=== PATIENT | female | born 1970 | race Caucasian/White ===

== ENCOUNTER → 2019-06-21 10:08 | Outpatient (BNVA) | payer OTHER, SELFPAY | PROVIDERS: Family Provider Nurse Practitioner; PCP Nurse Practitioner; Visit Provider Nurse Practitioner Psychiatric/Mental Health | DX: F31.64 Bipolar disorder, current episode mixed, severe, with psychotic features (principal); F41.1 Generalized anxiety disorder; F17.210 Nicotine dependence, cigarettes, uncomplicated; R63.5 Abnormal weight gain; T50.905A Adverse effect of unspecified drugs, medicaments and biological substances, initial encounter | CPT/HCPCS: 99214; 99215 ==

== ENCOUNTER → 2019-07-18 15:12 | Outpatient (BNVA) | payer OTHER, SELFPAY | PROVIDERS: Family Provider Nurse Practitioner; PCP Nurse Practitioner; Visit Provider Nurse Practitioner | DX: E03.9 Hypothyroidism, unspecified (principal); I10 Essential (primary) hypertension; J30.1 Allergic rhinitis due to pollen | CPT/HCPCS: 80053; 80061; 83721; 84443 ==

== ENCOUNTER → 2019-07-24 09:35 | Outpatient (BNVA) | payer OTHER, SELFPAY | PROVIDERS: Family Provider Nurse Practitioner; PCP Nurse Practitioner; Visit Provider Nurse Practitioner Psychiatric/Mental Health | DX: F31.64 Bipolar disorder, current episode mixed, severe, with psychotic features (principal); F41.1 Generalized anxiety disorder; F17.210 Nicotine dependence, cigarettes, uncomplicated; R63.5 Abnormal weight gain | CPT/HCPCS: 99214 ==

== ENCOUNTER → 2019-07-25 08:05 | Outpatient (BNVA) | payer OTHER, SELFPAY | PROVIDERS: Family Provider Nurse Practitioner; PCP Nurse Practitioner; Visit Provider Nurse Practitioner Psychiatric/Mental Health | DX: Z79.899 Other long term (current) drug therapy (principal) | CPT/HCPCS: 80053; 80061; 80156; 81001; 83036; 85025 ==

== ENCOUNTER 2019-08-16 08:07 | Outpatient (CLI) | payer OTHER, SELFPAY ==
--- NOTE | 2019-08-16 08:00 | US_ITS ---
WS: [id number] Right upper quadrant ultrasound, 08/16/2019 Clinical Data: increase liver enzymes Comparison: None. Findings: The gallbladder is absent. The common bile duct is 1.0 cm and there are no intrahepatic ductal abnormalities. Liver shows no cysts, masses or dilated intrahepatic ducts. The liver measures 11.74 cm with fatty in filtration. The pancreas is not obscured by overlying bowel gas, and no cyst, pseudocyst, or evidence of pancrea titis is noted. Right kidney measures 4.74 x 5.52 x 11.62 cm and no cyst, masses or hydronephrosis can be seen. The aorta and inferior vena cava show no vascular abnormalities. US/US liver [id number] Impression: 1. Absent gallbladder. 2. Fatty infiltration of the liver.
== END 2019-08-16 08:08 | disposition home or self-care (01) ==
LOC: US 08:09
PROVIDERS: Family Provider Nurse Practitioner; PCP Nurse Practitioner; Visit Provider Nurse Practitioner
DX: K76.0 Fatty (change of) liver, not elsewhere classified (principal); R74.8 Abnormal levels of other serum enzymes
CPT/HCPCS: 76705

== ENCOUNTER → 2019-08-19 10:03 | Outpatient (BNVA) | payer OTHER, SELFPAY | PROVIDERS: Family Provider Nurse Practitioner; PCP Nurse Practitioner; Visit Provider Nurse Practitioner Psychiatric/Mental Health | DX: F31.64 Bipolar disorder, current episode mixed, severe, with psychotic features (principal); F41.1 Generalized anxiety disorder; F17.210 Nicotine dependence, cigarettes, uncomplicated; R63.5 Abnormal weight gain; T50.905A Adverse effect of unspecified drugs, medicaments and biological substances, initial encounter | CPT/HCPCS: 99214 ==

== ENCOUNTER → 2019-09-24 07:55 | Outpatient (BNVA) | payer OTHER, SELFPAY | PROVIDERS: Family Provider Nurse Practitioner; PCP Nurse Practitioner; Visit Provider Nurse Practitioner Psychiatric/Mental Health | DX: F31.64 Bipolar disorder, current episode mixed, severe, with psychotic features (principal); F41.1 Generalized anxiety disorder; R63.5 Abnormal weight gain; F17.210 Nicotine dependence, cigarettes, uncomplicated; T50.905A Adverse effect of unspecified drugs, medicaments and biological substances, initial encounter; F31.81 Bipolar II disorder | CPT/HCPCS: 99214 ==

== ENCOUNTER → 2019-10-16 12:07 | Outpatient (BNVA) | payer OTHER, SELFPAY | PROVIDERS: Family Provider Nurse Practitioner; PCP Nurse Practitioner; Visit Provider Nurse Practitioner | DX: I10 Essential (primary) hypertension (principal); E03.9 Hypothyroidism, unspecified | CPT/HCPCS: 80053; 84443 ==

== ENCOUNTER → 2019-10-29 07:41 | Outpatient (BNVA) | payer OTHER, SELFPAY | PROVIDERS: Family Provider Nurse Practitioner; PCP Nurse Practitioner; Visit Provider Nurse Practitioner Psychiatric/Mental Health | DX: F31.64 Bipolar disorder, current episode mixed, severe, with psychotic features (principal); F41.1 Generalized anxiety disorder; F17.210 Nicotine dependence, cigarettes, uncomplicated; R63.5 Abnormal weight gain; T50.905A Adverse effect of unspecified drugs, medicaments and biological substances, initial encounter | CPT/HCPCS: 99214 ==

== ENCOUNTER 2019-11-04 13:13 | Outpatient (CLI) | payer OTHER, SELFPAY ==
--- NOTE | 2019-11-04 13:24 | US_ITS ---
WS: [id number] Examination: Renal ultrasound HISTORY: Bilateral renal calculus Findings: Real-time imaging the kidneys show the right kidney measured 10.88 x 3.50 x 5.81 cm. The cortex measured 1.38 cm Left kidney measures 12.23 x 4.88 x 5.82 cm The cortex measured 1.33 cm. The left kidney shows a density measures 0.46 cm and is consistent with a stone. The right kidney shows a density with shadowing effect measured 0.36 cm Hydronephrosis. Urinary bladder was smooth in outline showed no filling defects. US/US renal BI with bladder IMPRESSION: Bilateral renal calculus.
== END 2019-11-04 13:14 | disposition home or self-care (01) ==
PROVIDERS: Family Provider Nurse Practitioner; PCP Nurse Practitioner; Visit Provider Family Medicine
DX: R10.9 Unspecified abdominal pain (principal); N20.0 Calculus of kidney
CPT/HCPCS: 76770; 76857

== ENCOUNTER → 2019-12-02 07:33 | Outpatient (BNVA) | payer OTHER, SELFPAY | PROVIDERS: Family Provider Nurse Practitioner; PCP Nurse Practitioner; Visit Provider Nurse Practitioner Psychiatric/Mental Health | DX: F31.64 Bipolar disorder, current episode mixed, severe, with psychotic features (principal); F41.1 Generalized anxiety disorder; F17.210 Nicotine dependence, cigarettes, uncomplicated; R63.5 Abnormal weight gain; T50.905A Adverse effect of unspecified drugs, medicaments and biological substances, initial encounter | CPT/HCPCS: 99214 ==

== ENCOUNTER 2019-12-04 08:16 | Outpatient (CLI) | payer OTHER, SELFPAY ==
--- NOTE | 2019-12-04 08:40 | MR_ITS ---
NOTE: Report was unsigned for reason: Doctor was edited. Original Signature date and time was: 12/04/19 @ 1030 WS: [id number] MRI PELVIS with and without CONTRAST. COMPARISON: 11/20/2019 CT evaluation and 08/22/2018 Multiplanar, multisequence imaging is performed with and without contrast. There is an area of soft tissue thickening with enhancement involving the posterior RIGHT lateral rectal wall. Mass measures 2.6 x 1.5 cm. There is an associated cystic component measuring 1.0 x 0.8 cm. There is still a small amount of perirectal soft tissue fat between the rectal mass and the musculature of the pelvis. No adenopathy identified. No ascites. The visualized urinary bladder and pelvic sidewalls are normal. [facility] MR/MR pelvis wo/w con [id number] IMPRESSION: 1. Soft tissue mass with enhancement and cystic component involving the assistant printer floor covering ior RIGHT lateral rectum measures 2.6 x 1.5 cm. Rectal neoplasm needs to be exc luded. Biopsy and endoscopic evaluation is recommended. 2. No adenopathy or ascites identified.
== END 2019-12-04 08:17 | disposition home or self-care (01) ==
LOC: RADWPI 08:18
PROVIDERS: Family Provider Nurse Practitioner Family; PCP Nurse Practitioner Family; Visit Provider Urology
DX: R19.00 Intra-abdominal and pelvic swelling, mass and lump, unspecified site (principal); K62.9 Disease of anus and rectum, unspecified
CPT/HCPCS: 72197; A9579

== ENCOUNTER → 2020-01-08 08:09 | Outpatient (BNVA) | payer OTHER, SELFPAY | PROVIDERS: Family Provider Nurse Practitioner Family; PCP Nurse Practitioner Family; Visit Provider Nurse Practitioner Psychiatric/Mental Health | DX: F31.64 Bipolar disorder, current episode mixed, severe, with psychotic features (principal); F41.1 Generalized anxiety disorder; F17.210 Nicotine dependence, cigarettes, uncomplicated | CPT/HCPCS: 99214 ==

== ENCOUNTER → 2020-02-06 07:06 | Outpatient (BNVA) | payer OTHER, SELFPAY | PROVIDERS: Family Provider Nurse Practitioner Family; PCP Nurse Practitioner Family; Visit Provider Nurse Practitioner Psychiatric/Mental Health | DX: F31.64 Bipolar disorder, current episode mixed, severe, with psychotic features (principal); F41.1 Generalized anxiety disorder; F17.210 Nicotine dependence, cigarettes, uncomplicated | CPT/HCPCS: 99214 ==

== ENCOUNTER → 2020-03-12 08:13 | Outpatient (BNVA) | payer OTHER, SELFPAY | PROVIDERS: Family Provider Nurse Practitioner Family; PCP Nurse Practitioner Family; Visit Provider Nurse Practitioner Psychiatric/Mental Health | DX: F31.64 Bipolar disorder, current episode mixed, severe, with psychotic features (principal); F41.1 Generalized anxiety disorder; F17.210 Nicotine dependence, cigarettes, uncomplicated | CPT/HCPCS: 99214 ==

== ENCOUNTER → 2020-03-17 11:05 | Outpatient (BNVA) | payer OTHER, SELFPAY | PROVIDERS: Family Provider Nurse Practitioner Family; PCP Nurse Practitioner Family; Visit Provider Nurse Practitioner Family | DX: Z20.828 Contact with and (suspected) exposure to other viral communicable diseases (principal) | CPT/HCPCS: 87635 ==

== ENCOUNTER 2020-03-23 12:32 | Outpatient (CLI) | payer OTHER, SELFPAY ==
--- NOTE | 2020-03-23 13:07 | MR_ITS ---
WS: [id number] INDICATION: Rectal mass TECHNIQUE: MRI the pelvis without and with gadolinium enhancement. Axial T1, coronal T1, coronal PD f at sat, coronal STIR, axial T2 fat sat, sagittal T1, axial T1, coronal T1 post gadolinium images obta ined. FINDINGS: Comparison prior MRI December 04, 2019 Again seen is the T2 hyperintense peripheral enhancing lesion along the posterior right lateral rectu m unchanged compared to prior examination. Solid component measures 2.6 x 1.5 cm and cystic component measures approximately 1.1 x 1.4 x 0.8 cm. No evidence of interval progression. Neoplasm should be e xcluded and recommend endoscopy and biopsy for further evaluation. No pelvic or inguinal lymphadenopa thy. Prior hysterectomy. Normal bone marrow signal. Incidental fat-containing umbilical hernia. No ot her interval changes. Postoperative changes hysterectomy and bladder suspension procedure. MR/MR pelvis wo/w con [id number] IMPRESSION: 1. Stable enhancing soft tissue mass with T2 hyperintensity involving the post erior right lateral rectum is unchanged compared to the prior examination. Emily d component measures 2.6 x 1.5 cm and cystic component measures approximately 1 .1 x 1.4 x 0.8 cm. Neoplasm should be excluded and recommend endoscopy with bio psy if this has not been performed previously 2. No pelvic or inguinal lymphadenopathy. 3. Prior hysterectomy and bladder suspension procedure.
== END 2020-03-23 12:33 | disposition home or self-care (01) ==
LOC: RADSHAW 12:38
PROVIDERS: PCP Nurse Practitioner Family; Visit Provider Nurse Practitioner Family
DX: K62.89 Other specified diseases of anus and rectum (principal)
CPT/HCPCS: 72197; A9579

== ENCOUNTER → 2020-04-10 08:11 | Outpatient (BNVA) | payer OTHER, SELFPAY | PROVIDERS: PCP Nurse Practitioner Family; Visit Provider Nurse Practitioner Psychiatric/Mental Health | DX: F31.64 Bipolar disorder, current episode mixed, severe, with psychotic features (principal); F41.1 Generalized anxiety disorder; F17.210 Nicotine dependence, cigarettes, uncomplicated | CPT/HCPCS: 99214 ==

== ENCOUNTER → 2020-05-13 07:35 | Outpatient (BNVA) | payer OTHER, SELFPAY | PROVIDERS: PCP Nurse Practitioner Family; Visit Provider Nurse Practitioner Psychiatric/Mental Health | DX: F31.64 Bipolar disorder, current episode mixed, severe, with psychotic features (principal); F41.1 Generalized anxiety disorder; F17.210 Nicotine dependence, cigarettes, uncomplicated | CPT/HCPCS: 99213 ==

== ENCOUNTER → 2020-07-01 07:46 | Outpatient (BNVA) | payer OTHER, SELFPAY | PROVIDERS: PCP Nurse Practitioner Family; Visit Provider Nurse Practitioner Psychiatric/Mental Health | DX: F31.64 Bipolar disorder, current episode mixed, severe, with psychotic features (principal); F41.1 Generalized anxiety disorder; F17.210 Nicotine dependence, cigarettes, uncomplicated | CPT/HCPCS: 99214 ==

== ENCOUNTER → 2020-08-10 07:31 | Outpatient (BNVA) | payer OTHER, SELFPAY | PROVIDERS: PCP Nurse Practitioner Family; Visit Provider Nurse Practitioner Psychiatric/Mental Health | DX: F41.1 Generalized anxiety disorder (principal); F17.210 Nicotine dependence, cigarettes, uncomplicated; F31.64 Bipolar disorder, current episode mixed, severe, with psychotic features | CPT/HCPCS: 99214 ==

== ENCOUNTER → 2020-12-22 14:55 | Outpatient (BNVA) | payer OTHER, SELFPAY | PROVIDERS: PCP Nurse Practitioner Family; Visit Provider Nurse Practitioner Family | DX: J06.9 Acute upper respiratory infection, unspecified (principal); Z20.822 Contact with and (suspected) exposure to COVID-19 | CPT/HCPCS: 87635 ==

== ENCOUNTER → 2021-02-10 08:07 | Outpatient (BNVA) | payer OTHER, SELFPAY | PROVIDERS: PCP Nurse Practitioner Family; Visit Provider Nurse Practitioner Psychiatric/Mental Health | DX: Z79.899 Other long term (current) drug therapy (principal) | CPT/HCPCS: 80053; 80061; 83036 ==

== ENCOUNTER 2022-02-14 09:47 | Outpatient (CLI) | payer OTHER, SELFPAY ==
--- NOTE | 2022-02-14 10:21 | XR_ITS ---
WS: [id number] REASON FOR EXAM: UNSPECIFIED ABDOMINAL PAIN FINDINGS: Bowel gas pattern is unremarkable. No free air or retroperitoneal air. No urinary tract calculi are identified. Compared to the examination of 08/02/2018 the liver appears more prominent. 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 XR/XR KUB [id number] IMPRESSION: The liver appears more prominent than on the previous examination. Possibly nee ds correlation with liver enzymes.
== END 2022-02-14 09:48 | disposition home or self-care (01) ==
PROVIDERS: PCP Clinical Nurse Specialist Adult Health; Visit Provider Dietitian, Registered
DX: R10.9 Unspecified abdominal pain (principal)
CPT/HCPCS: 74018

== ENCOUNTER → 2022-05-05 08:53 | Outpatient (BNVA) | payer OTHER, SELFPAY | PROVIDERS: PCP Clinical Nurse Specialist Adult Health; Visit Provider Clinical Nurse Specialist Adult Health | DX: E03.9 Hypothyroidism, unspecified (principal); I10 Essential (primary) hypertension | CPT/HCPCS: 84436; 84443; 84481 ==

== ENCOUNTER → 2022-05-19 08:42 | Outpatient (BNVA) | payer OTHER, SELFPAY | PROVIDERS: PCP Clinical Nurse Specialist Adult Health; Visit Provider Nurse Practitioner Psychiatric/Mental Health | DX: F31.64 Bipolar disorder, current episode mixed, severe, with psychotic features (principal); F41.1 Generalized anxiety disorder; F17.210 Nicotine dependence, cigarettes, uncomplicated; Z79.899 Other long term (current) drug therapy | CPT/HCPCS: 80053; 80061; 83036 ==

== ENCOUNTER → 2022-06-16 08:22 | Outpatient (BNVA) | payer OTHER, SELFPAY | PROVIDERS: PCP Clinical Nurse Specialist Adult Health; Visit Provider Clinical Nurse Specialist Adult Health | DX: E03.9 Hypothyroidism, unspecified (principal) | CPT/HCPCS: 84443 ==

== ENCOUNTER 2022-07-22 14:23 | Emergency (ER) | payer OTHER, SELFPAY ==
--- NOTE | 2022-07-22 14:28 | ED_ITS ---
HPI - Abdominal Pain General: Chief Complaint: Abdominal Pain Stated Complaint: sent from , possible appy Time Seen by Provider: 07/22/22 14:28 History of Present Illness: Ms. Still is a 51-year-old lady presenting to the emergency department for right lower quadrant abdominal pain. She reports onset of symptoms without known specific provoking event about 8 days ago. Since that time pain has become more constant and intense. Right lower quadrant without significant radiation. At times burning in nature. Denies urinary or bowel symptoms. Does have a history of cholecystectomy and hysterectomy. No other specific changes in health, exacerbating, or alleviating factors identified. Onset (ago): day(s) Pain Consistency: constant Location: RLQ and Pelvis Severity: severe Quality: stabbing and aching Radiation: none Migration to: no migration Exacerbating factors: movement Relieving factors: nothing Associated Symptoms: Reports anorexia, fever(s), nausea and poor appetite Review of Systems General: Reports: 10 or more systems reviewed and unremarkable except in HPI and below Const: Reports: fever(s) GI: Reports: nausea PFSH ED PFSH: Medical History Bipolar disorder, current episode mixed, severe, with psychotic features Fatty liver Generalized anxiety disorder Hypertension Hypothyroidism (acquired) IBS (irritable bowel syndrome) diagnosed in 2010, but she prefers not to follow up with GI on this issue and feels her symptoms are much improved. in 2019, she went to [place] and saw Dr Pineda and had a cyst on her tailbone. 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 Nicotine dependence, cigarettes, uncomplicated Psychiatric care Seasonal allergic rhinitis due to pollen Tick fever 2016 Surgical History History of cholecystectomy History of hysterectomy without BSO History of thyroid cyst 2015 Hx of colonoscopy 2019 Family History Grandmother Diabetes Brother Diabetes Social History Smoking and tobacco status: current every day smoker cigarettes Packs smoked per day: 1 Years cigarettes smoked: 30 Quit status (tobacco): considering quitting Second hand smoke exposure: Yes Smoking risk assessment/counseling performed?: No Alcohol intake: current Alcohol intake frequency: holidays/special occasions only Desire information about alcohol rehabilitation?: No Counseling given: No Desire information about substance/drug rehabilitation?: No Counseling given: No Caregiver/support person: No Lives independently: Yes Household members: spouse Housing: House Marital status: Number of children: 2 service: No Current occupational status: unemployed Current gender identity: Female Physical Exam Const: COMMON NORMALS: alert GENERAL APPEARANCE: cooperative and well developed HENMT: COMMON NORMALS: normocephalic and atraumatic HEAD & SCALP: normocephalic and atraumatic THROAT: posterior oropharynx normal Eye: COMMON NORMALS: conjunctivae normal CONJUNCTIVA: Yes conjunctivae normal SCLERA: sclerae normal Neck/C-Spine: COMMON NORMALS: supple GENERAL: Yes trachea midline Resp: COMMON NORMALS: clear to auscultation bilaterally EFFORT & INSPECTION: Yes able to speak in complete sentences AUSCULTATION: clear to auscultation bilaterally Cardio: COMMON NORMALS: regular rate and regular rhythm RATE: regular rate RHYTHM: regular rhythm GI: COMMON NORMALS: Soft to palpation PALPATION: Yes Soft to palpation and Yes Tenderness to palpation present (GI) Details: RLQ OTHER: No rebound tenderness, no significant abdominal pain with heeltap. Extremity: GENERAL: Yes normal exam except as noted and No edema Neuro: COMMON NORMALS: moves all extremities SENSORIUM/ORIENTATION: Yes alert and No Orientation impaired Psych: COMMON NORMALS: mental status grossly normal and Normal thought process present THOUGHT PROCESS: Normal thought process present Course Vital Signs: Vital signs: Vital Signs Temperature 97.9 F 07/22/22 17:37 Pulse Rate 84 07/22/22 17:37 Respiratory Rate 14 07/22/22 17:37 Blood Pressure 158/79 07/22/22 17:37 Pulse Oximetry 98 07/22/22 17:37 Oxygen Delivery Me thod 07/22/22 14:31 MDM - Abdominal Pain Medical Decision Making 51-year-old lady presenting with abdominal pain. Patient is nontoxic and there is no evidence of acute surgical abdomen though she does have tenderness to palpation. Labs with no leukocytosis, normal hemoglobin and white count. No significant metabolic abnormals with exception of mild transaminitis of uncertain etiology. No UTI. Given degree of tenderness and laboratory studies as well as clinical history imaging is appropriate. CT negative for pathology, incidental findings discussed with patient, normal appendix. Patient proved with antiemetic and analgesia and able to tolerate p.o. take. Most likely etiology of patient's symptoms is unspecified abdominal pain. Need for follow-up regarding transaminases was discussed. The results of ED evaluation were discussed with the patient including prescriptions and/or symptomatic cares (if applicable) including appropriate and responsible use, followup plan, and return precautions. The patient verbalized understanding and felt safe for discharge. Medical Records I reviewed the patient's medical records. Lab Data I reviewed the patient's lab results. 07/22/22 14:37 07/22/22 14:37 Labs/Radiology: Radiology Impressions Abdomen/Pelvis CT 07/22/22 15:03 IMPRESSION: Normal appendix. Laboratory Results WBC 9.1 10^3/uL (4.0-10.0) 07/22/22 14:37 RBC 4.80 10^6/uL (4.1-5.3) 07/22/22 14:37 Hgb 14.0 g/dL (11.5-15.3) 07/22/22 14:37 Hct 41.9 % (37.0-47.0) 07/22/22 14:37 MCV 87.3 fl (81-99) 07/22/22 14:37 MCH 29.2 pg (28.0-34.0) 07/22/22 14:37 MCHC 33.4 g/dL (30.0-36.0) 07/22/22 14:37 RDW 13.0 % (12.1-15.1) 07/22/22 14:37 Plt Count 276 10^3/cmm (130-400) 07/22/22 14:37 MPV 11.3 fL (7.4-10.4) H 07/22/22 14:37 Neut % (Auto) 40.8 % 07/22/22 14:37 Lymph % (Auto) 46.9 % 07/22/22 14:37 Haakon % (Auto) 9.2 % 07/22/22 14:37 Eos % (Auto) 2.2 % 07/22/22 14:37 Baso % (Auto) 0.7 % 07/22/22 14:37 Neut # (Auto) 3.71 10^3/uL (1.8-7.7) 07/22/22 14:37 Lymph # (Auto) 4.3 10^3/uL (0.8-4.8) 07/22/22 14:37 Haakon # (Auto) 0.8 10^3/uL (0.2-0.9) 07/22/22 14:37 Eos # (Auto) 0.2 10^3/uL (0.0-0.8) 07/22/22 14:37 Baso # (Auto) 0.1 10^3/uL (0.0-0.1) 07/22/22 14:37 Nucleated RBC % (auto) 0 % 07/22/22 14:37 Nucleated RBCs # 0.0 /100WBC 07/22/22 14:37 Sodium 136 mmol/L (136-145) 07/22/22 14:37 Potassium 4.2 mmol/L (3.5-5.1) 07/22/22 14:37 Chloride 98 mmol/L (98-107) 07/22/22 14:37 Carbon Dioxide 26 mmol/L (22-29) 07/22/22 14:37 Anion Gap 16.2 (5-19) 07/22/22 14:37 BUN 8 mg/dL (6-20) 07/22/22 14:37 Creatinine 0.7 mg/dL (0.5-0.9) 07/22/22 14:37 GFR Calculation 88.6 mL/min (90-130) L 07/22/22 14:37 Glucose 93 mg/dL (65-115) 07/22/22 14:37 Calculated Osmolality 280 mOsm/kg (285-295) L 07/22/22 14:37 Lactate 1.0 mmol/L (0.5-2.2) 07/22/22 15:53 Calcium 9.4 mg/dL (8.5-10.5) 07/22/22 14:37 Total Bilirubin 0.3 mg/dL (0.15-1.2) 07/22/22 14:37 AST 39 U/L (0-32) H 07/22/22 14:37 ALT 40 U/L (0-33) H 07/22/22 14:37 Alkaline Phosphatase 89 U/L (35-105) 07/22/22 14:37 Total Protein 7.3 g/dL (6.6-8.7) 07/22/22 14:37 Albumin 4.7 g/dL (3.5-5.2) 07/22/22 14:37 Globulin 2.6 g/dL (1.3-4.6) 07/22/22 14:37 Lipase 35 U/L (13-60) 07/22/22 14:37 Urine Color Yellow (Yellow) 07/22/22 15:20 Urine Appearance Clear (CLEAR) 07/22/22 15:20 Urine pH 7 (5-7) 07/22/22 15:20 Ur Specific [place] 1.010 (1.005-1.030) 07/22/22 15:20 Urine Protein Neg (Negative) 07/22/22 15:20 Urine Glucose (UA) Norm (Normal) 07/22/22 15:20 Urine Ketones Negative (Negative) 07/22/22 15:20 Urine Blood Neg (Negative) 07/22/22 15:20 Urine Nitrate Negative (Negative) 07/22/22 15:20 Urine Bilirubin Neg (Negative) 07/22/22 15:20 Urine Urobilinogen Norm mg/dL (Negative) 07/22/22 15:20 Ur Leukocyte Esterase Negative (Negative) 07/22/22 15:20 Discharge Plan Discharge Patient Disposition: Home Clinical Impression: Abdominal pain, Abnormal transaminases Condition: Stable Prescriptions: New ondansetron 4 mg tablet,disintegrating 4 mg PO Q8H PRN (Reason: nausea and vomiting) Qty: 15 0RF No Action acetaminophen [Tylenol] 325 mg capsule 325 mg PO QID PRN (Reason: Pain) metoprolol succinate 25 mg tablet extended release 24 hr 25 mg PO DAILY atorvastatin 20 mg tablet 20 mg PO QPM melatonin 5 mg capsule 5 mg PO BEDTIME bupropion HCl [Wellbutrin SR] 100 mg tablet sustained-release 12 hr 100 mg PO QAM Qty: 90 2RF levothyroxine 75 mcg tablet 75 mcg PO DAILY Qty: 90 3RF losartan 25 mg tablet 25 mg PO DAILY Qty: 90 3RF trazodone 100 mg tablet 100 mg PO BEDTIME PRN (Reason: sleep) azelastine 137 mcg (0.1 %) aerosol,spray 1 spray intranasal BID PRN (Reason: Allergy Symptoms) Rx Instructions: administer into each nostril loratadine 10 mg tablet 10 mg PO DAILY omega 6-mio-jlj-fish oil [Fish Oil] 300-1,000 mg Capsule 1 cap PO BID Probiotic 10 billion cell Capsule 10,000 mmu cells PO DAILY clonidine HCl 0.1 mg Tablet 0.1 mg PO TID PRN (Reason: Hypertension) 30 Days Qty: 90 1RF trazodone 50 mg Tablet 50 mg PO BEDTIME PRN (Reason: Sleep) 30 Days Qty: 30 1RF clonazepam 1 mg Tablet 1 mg PO BEDTIME 30 Days Qty: 30 1RF hydroxyzine pamoate 25 mg Capsule 50 mg PO Q6H PRN (Reason: Anxiety) 30 Days Qty: 120 1RF Discharge Orders: Discharge ED (Routine); Ordered 07/22/22 Ordered By: Elie Bustillos Referrals: Anuj Aparicio, RESOURCE SPECIALIST [Primary Care Provider] - Discharge Diet: Advance as tolerated and Clear Liquid Discharge Activity: Resume usual activity Patient Instructions: Abdominal Pain (ED), Opioid Safety Activity Restrictions/Additional Instructions: Thank you for visiting the emergency department. You were seen and evaluated for abdominal pain. The exact cause of your symptoms is unclear. Please follow-up with your primary care provider. You may use [id number] medications such as acetaminophen and ibuprofen for pain however please do not exceed the daily recommended dosage as listed on the packaging and please keep in mind that many namebrand medications contain the same active ingredients. Please avoid these medications if previously instructed to do so by another physician due to other underlying medical condition. I will prescribe oxycodone for uncontrolled symptoms. Return to the emergency department for uncontrolled symptoms or anything else that you are concerned about and feel needs emergency department evaluation. Coding Level of Care Code ED Senior Investment Manager for Melissa Rodriges
[2022-07-22 14:31] VITALS: BP 185/115; PULSE 83; RESP 16; TEMP 36.5; O2SAT 98
--- NOTE | 2022-07-22 15:03 | CTR_ITS ---
PROCEDURE INFORMATION: Exam: CT Abdomen And Pelvis With Contrast Exam date and time: 07/22/2022 3:31 PM Age: 51 years old Clinical indication: Abdominal pain; Localized; Right lower quadrant (rlq); Prior surgery; Surgery type: Hyst , gb; Additional info: Rlq pain, eval appy TECHNIQUE: Imaging protocol: Computed tomography of the abdomen and pelvis with contrast. Radiation optimization: All CT scans at this facility use at least one of these dose optimization techniques: automated exposure control; mA and/or kV adjustment per patient size (includes targeted exams where dose is matched to clinical indication); or iterative reconstruction. Contrast material: OMNI 350; Contrast volume: 100 ml; Contrast route: INTRAVENOUS (IV); Other protocol: This patient has received 0 known CTs and 0 known cardiac nuclear medicine studies in the 12 months prior to the current study. COMPARISON: MR pelvis wo/w con [id number] 03/23/2020 1:36 PM RADIATION DOSE METRICS: Total DLP (mGy-cm): 654.23 FINDINGS: Liver: Normal. No mass. Gallbladder and bile ducts: Surgical clips in the gallbladder fossa consistent with cholecystectomy. Pancreas: Normal. No ductal dilation. Spleen: Normal. No splenomegaly. Adrenal glands: Normal. No mass. Kidneys and ureters: Normal. No hydronephrosis. Stomach and bowel: Unremarkable. No obstruction. No mucosal thickening. Appendix: Normal appendix. Intraperitoneal space: Unremarkable. No free air. No significant fluid collection. Vasculature: Calcification of the abdominal aorta and/or iliac arteries consistent with atherosclerotic vessel disease. Lymph nodes: Calcified left hilar nodes and/or mediastinal nodes and/or lung granulomas consistent with old granulomatous disease. Urinary bladder: Possible previous urinary bladder suspension surgery. Reproductive: Stable hysterectomy. Bones/joints: Mild to moderate multilevel spine degenerative changes including degenerative disc disease, spondylosis and facet degenerative changes. Soft tissues: Unremarkable. CT/CT abdomen pelvis w con* [id number] IMPRESSION: Normal appendix.
[2022-07-22 15:04] LABS: Basophils # 0.1 10^3/uL (0.0-0.1); Basophils % 0.7 %; Eosinophils # 0.2 10^3/uL (0.0-0.8); Eosinophils % 2.2 %; Hematocrit 41.9 % (37.0-47.0); Lymphocytes # 4.3 10^3/uL (0.8-4.8); Lymphocytes % 46.9 %; Mean Corpuscular HGB Conc 33.4 g/dL (30.0-36.0); Mean Corpuscular Hemoglobin 29.2 pg (28.0-34.0); Mean Corpuscular Volume 87.3 fl (81-99); Mean Platelet Volume 11.3 fL (7.4-10.4); Monocytes # 0.8 10^3/uL (0.2-0.9); Monocytes % 9.2 %; Neutrophils # 3.71 10^3/uL (1.8-7.7); Neutrophils % 40.8 %; Nucleated Red Blood Cells % 0 %; Platelet Count 276 10^3/cmm (130-400); White Blood Count 9.1 10^3/uL (4.0-10.0)
[2022-07-22 15:07] VITALS: RESP 14
[2022-07-22] MEDS: ondansetron 2 mg/ML SDV 2 mL 4 MG IVP (15:07)
[2022-07-22] MEDS: morphine 4 mg/mL SDV 1 mL IVP (15:07)
[2022-07-22 15:09] VITALS: BP 154/96; RESP 84; O2SAT 96
[2022-07-22 15:21] LABS: Alanine Aminotransferase 40 U/L (0-33); Albumin Level 4.7 g/dL (3.5-5.2); Alkaline Phosphatase 89 U/L (35-105); Anion Gap 16.2 (5-19); Aspartate Amino Transferase 39 U/L (0-32); Blood Urea Nitrogen 8 mg/dL (6-20); Calcium 9.4 mg/dL (8.5-10.5); Carbon Dioxide 26 mmol/L (22-29); Chloride 98 mmol/L (98-107); Globulin 2.6 g/dL (1.3-4.6); Glomerular Filtration Rate 88.6 mL/min (90-130); Glucose 93 mg/dL (65-115); Lipase 35 U/L (13-60); Osmolality Calculated 280 mOsm/kg (285-295); Potassium 4.2 mmol/L (3.5-5.1); Sodium 136 mmol/L (136-145); Total Bilirubin 0.3 mg/dL (0.15-1.2); Total Protein 7.3 g/dL (6.6-8.7)
[2022-07-22 15:25] LABS: Add Urine Microscopic? NO; Charge for UA Resulting for Rev
[2022-07-22 15:28] LABS: Bilirubin Urine Neg (Negative); Blood Urine Neg (Negative); Glucose Urine UA Norm (Normal); Ketones Urine Negative (Negative); Leukocyte Esterase Urine Negative (Negative); Nitrate Urine Negative (Negative); Protein Urine Neg (Negative); Urine Appearance Clear (CLEAR); Urine Color Yellow (Yellow); Urobilinogen Urine Norm (Negative); pH Urine 7 (5-7)
[2022-07-22] MEDS: iohexol 350 mg/mL 500 mL Btl (per mL) IV (15:39)
[2022-07-22 16:01] LABS: Slide Review Slide Review Perform
[2022-07-22 16:35] VITALS: BP 147/78; O2SAT 94
[2022-07-22 17:37] VITALS: BP 158/79; PULSE 84; RESP 14; TEMP 36.6; O2SAT 98
== END 2022-07-22 17:38 | disposition home or self-care (01) ==
PROVIDERS: Emergency Provider Emergency Medicine; PCP Clinical Nurse Specialist Adult Health
DX: R10.31 Right lower quadrant pain (principal); R74.01 Elevation of levels of liver transaminase levels; F17.210 Nicotine dependence, cigarettes, uncomplicated; I10 Essential (primary) hypertension
CPT/HCPCS: 74177; 80053; 81003; 83605; 83690; 85025; 96374; 96375; 99285; J2270; J2405; Q9967

== ENCOUNTER 2022-07-27 07:44 | Inpatient (IN) | payer OTHER, SELFPAY ==
[2022-07-27] VITALS (8 sets, daily range): BP systolic 140–167; BP diastolic 98–114; PULSE 116–124; RESP 17–18; TEMP 36.6–36.8; O2SAT 94–97
--- NOTE | 2022-07-27 08:05 | ED.C_ITS ---
Documented by User: GISELLE Davis 07/27/22 10:32 HPI - Psych General: Chief Complaint: Psychiatric Symptoms Stated Complaint: high B/P Time Seen by Provider: 07/27/22 07:46 Source: patient and family () Mode of arrival: ambulatory Limitations: no limitations History of Present Illness: Patient is a 51-year-old female presents to ED today along with her for concerns of a possible manic episode. states a few days ago patient was here in the ED for complaints of abdominal pain. He states she was given morphine and a prescription for oxycodone. He feels like these medications possibly triggered a manic episode as he states patient has not slept in over 48 hours. He states patient is spearing seeing visual and auditory hallucinations. She has been acting abnormally at home stating normally they smoke outside but patient has been chain smoking inside and flicking her cigarette butts all over the house. Upon my initial examination patient is acutely psychotic. She is alert and oriented to self and knows she is in a hospital. She can tell me her year but not month and date. She does not know today's date. Patient's thought process and her responses to questioning are disorganized and illogical. When asked today's date she responds with I am blind and deaf and I shouldn't feel like this when I am in labor . When asked another question she inappropriately responds with I need to pee, I am . They aren't going to leave me behind again . states patient receives psychiatric services at [facility] through Janae Rdz. He states she does have a history of Bipolar disorder and has had several of these identical episodes previously. states current psychiatric medications include Latuda, Clonazepam, Wellbutrin, and Trazodone. He does state her Latuda was increased on Monday. complaint: altered mental status Onset (ago): day(s) Duration: constant History of same: Yes Relieving factors: none Context: new medication(s) Associated psychiatric symptoms: auditory hallucinations and visual halluc inations Treatments prior to arrival: none Review of Systems General: Reports: ROS unobtainable due to mental status (pt acutely psychotic- ROS is thought to be inaccurate related to this) COUNTS INCLUDE 234 BEDS AT THE [facility] ED PFSH: Medical History Bipolar disorder, current episode mixed, severe, with psychotic features Fatty liver Generalized anxiety disorder Hypertension Hypothyroidism (acquired) IBS (irritable bowel syndrome) diagnosed in 2010, but she prefers not to follow up with GI on this issue and feels her symptoms are much improved. in 2019, she went to [place] and saw Dr Pineda and had a cyst on her tailbone. 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 Nicotine dependence, cigarettes, uncomplicated Psychiatric care Seasonal allergic rhinitis due to pollen Tick fever 2016 Surgical History History of cholecystectomy History of hysterectomy without BSO History of thyroid cyst 2015 Hx of colonoscopy 2019 Family History Grandmother Diabetes Brother Diabetes Social History Smoking and tobacco status: current every day smoker cigarettes Packs smoked per day: 1 Years cigarettes smoked: 30 Quit status (tobacco): considering quitting Second hand smoke exposure: Yes Smoking risk assessment/counseling performed?: No Alcohol intake: current Alcohol intake frequency: holidays/special occasions only Desire information about alcohol rehabilitation?: No Counseling given: No Desire information about substance/drug rehabilitation?: No Counseling given: No Caregiver/support person: No Lives independently: Yes Household members: spouse Housing: House Marital status: Number of children: 2 service: No Current occupational status: unemployed Current gender identity: Female Physical Exam Const: COMMON NORMALS: no acute distress, alert and well nourished GENERAL APPEARANCE: cooperative ORIENTATION/CONSCIOUSNESS: Yes awake, Yes oriented to person and Yes oriented to place Resp: COMMON NORMALS: normal respiratory effort and clear to auscultation bilaterally AUSCULTATION: clear to auscultation bilaterally Cardio: COMMON NORMALS: regular rhythm RATE: tachycardic RHYTHM: regular rhythm Neuro: GUILLERMINA COMA SCALE: document GCS findings Guillermina coma scale eye opening: Spontaneous Guillermina coma scale verbal response: Orientated Guillermina coma scale motor response: Obey commands Guillermina coma scale total score: 15 SENSORIUM/ORIENTATION: Yes alert, Yes oriented to person and Yes oriented to place Psych: COMMON NORMALS: mental status grossly normal, cooperative, speech normal, denies homicidal ideation and denies suicidal ideation APPEARANCE: Yes grossly normal ATTITUDE: Yes bizarre ACTIVITY/MOTOR BEHAVIOR: Yes appropriate eye contact, No psychomotor agitation and Yes other (sitting in bed with her hands up in the air) SPEECH: Yes normal speech THOUGHT PROCESS: disorganized and Illogical thought process present ATTENTION/CONCENTRATION: Yes attention grossly intact and Yes concentration grossly intact MEMORY/COGNITION: Yes memory grossly intact INSIGHT: Limited insight present (Psych) JUDGEMENT: Limited judgement present (Psych) Course Consultations: Consultation #1: Dr. Parra-accepts admit Vital Signs: Vital signs: Vital Signs Temperature 98.2 F 07/27/22 08:08 Pulse Rate 124 H 07/27/22 10:04 Respiratory Rate 18 07/27/22 10:04 Blood Pressure 157/100 07/27/22 10:04 Pulse Oximetry 97 07/27/22 10:04 Oxygen Delivery Me thod 07/27/22 10:04 MDM - Psych Lab Data 07/27/22 08:40 07/27/22 08:40 Laboratory Results WBC 11.1 10^3/uL (4.0-10.0) H 07/27/22 08:40 RBC 5.16 10^6/uL (4.1-5.3) 07/27/22 08:40 Hgb 15.1 g/dL (11.5-15.3) 07/27/22 08:40 Hct 45.2 % (37.0-47.0) 07/27/22 08:40 MCV 87.6 fl (81-99) 07/27/22 08:40 MCH 29.3 pg (28.0-34.0) 07/27/22 08:40 MCHC 33.4 g/dL (30.0-36.0) 07/27/22 08:40 RDW 13.3 % (12.1-15.1) 07/27/22 08:40 Plt Count 321 10^3/cmm (130-400) 07/27/22 08:40 MPV 10.6 fL (7.4-10.4) H 07/27/22 08:40 Neut % (Auto) 56.6 % 07/27/22 08:40 Lymph % (Auto) 33.8 % 07/27/22 08:40 [place] % (Auto) 8.1 % 07/27/22 08:40 Eos % (Auto) 0.7 % 07/27/22 08:40 Baso % (Auto) 0.5 % 07/27/22 08:40 Neut # (Auto) 6.30 10^3/uL (1.8-7.7) 07/27/22 08:40 Lymph # (Auto) 3.8 10^3/uL (0.8-4.8) 07/27/22 08:40 [place] # (Auto) 0.9 10^3/uL (0.2-0.9) 07/27/22 08:40 Eos # (Auto) 0.1 10^3/uL (0.0-0.8) 07/27/22 08:40 Baso # (Auto) 0.1 10^3/uL (0.0-0.1) 07/27/22 08:40 Nucleated RBC % (auto) 0 % 07/27/22 08:40 Nucleated RBCs # 0.0 /100WBC 07/27/22 08:40 Sodium 133 mmol/L (136-145) L 07/27/22 08:40 Potassium 4.3 mmol/L (3.5-5.1) 07/27/22 08:40 Chloride 95 mmol/L (98-107) L 07/27/22 08:40 Carbon Dioxide 26 mmol/L (22-29) 07/27/22 08:40 Anion Gap 16.3 (5-19) 07/27/22 08:40 BUN 8 mg/dL (6-20) 07/27/22 08:40 Creatinine 0.7 mg/dL (0.5-0.9) 07/27/22 08:40 GFR Calculation 88.6 mL/min (90-130) L 07/27/22 08:40 Glucose 115 mg/dL (65-115) 07/27/22 08:40 Calculated Osmolality 275 mOsm/kg (285-295) L 07/27/22 08:40 Calcium 9.6 mg/dL (8.5-10.5) 07/27/22 08:40 Total Bilirubin 0.5 mg/dL (0.15-1.2) 07/27/22 08:40 AST 30 U/L (0-32) 07/27/22 08:40 ALT 44 U/L (0-33) H 07/27/22 08:40 Alkaline Phosphatase 99 U/L (35-105) 07/27/22 08:40 Total Protein 7.5 g/dL (6.6-8.7) 07/27/22 08:40 Albumin 4.6 g/dL (3.5-5.2) 07/27/22 08:40 Globulin 2.9 g/dL (1.3-4.6) 07/27/22 08:40 TSH 3.55 uIU/mL (0.27-4.20) 07/27/22 08:40 Salicylates < 0.3 mg/dL (3-10) L 07/27/22 08:40 Urine Opiates Screen Negative ng/mL (Negative) 07/27/22 09:35 Acetaminophen < 5.0 ug/mL (10-30) L 07/27/22 08:40 Ur Barbiturates Screen Negative ng/mL (Negative) 07/27/22 09:35 Ur Phencyclidine Scrn Negative ng/mL (Negative) 07/27/22 09:35 Ur Amphetamines Screen Negative ng/mL (Negative) 07/27/22 09:35 U Benzodiazepines Scrn Negative ng/mL (Negative) 07/27/22 09:35 Urine Cocaine Screen Negative ng/mL (Negative) 07/27/22 09:35 U Marijuana (THC) Screen Negative ng/mL (Negative) 07/27/22 09:35 Ethyl Alcohol < 10 mg/dL (0-10) 07/27/22 08:40 Discharge Plan Discharge Patient Disposition: Admitted As Inpatient Clinical Impression: Acute psychosis Condition: Stable Coding Level of Care Code ED Modeling Manager for Chg Fwd Documented by User: Flavio Osman DO 07/27/22 10:56 HPI - Psych General: Chief Complaint: Psychiatric Symptoms Stated Complaint: high B/P Time Seen by Provider: 07/27/22 07:46 PFSH ED PFSH: Medical History Bipolar disorder, current episode mixed, severe, with psychotic features Fatty liver Generalized anxiety disorder Hypertension Hypothyroidism (acquired) IBS (irritable bowel syndrome) diagnosed in 2010, but she prefers not to follow up with GI on this issue and feels her symptoms are much improved. in 2019, she went to [place] and saw Dr Pineda and had a cyst on her tailbone. 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 Nicotine dependence, cigarettes, uncomplicated Psychiatric care Seasonal allergic rhinitis due to pollen Tick fever 2016 Surgical History History of cholecystectomy History of hysterectomy without BSO History of thyroid cyst 2015 Hx of colonoscopy 2019 Family History Grandmother Diabetes Brother Diabetes Social History Smoking and tobacco status: current every day smoker cigarettes Packs smoked per day: 1 Years cigarettes smoked: 30 Quit status (tobacco): considering quitting Second hand smoke exposure: Yes Smoking risk assessment/counseling performed?: No Alcohol intake: current Alcohol intake frequency: holidays/special occasions only Desire information about alcohol rehabilitation?: No Counseling given: No Desire information about substance/drug rehabilitation?: No Counseling given: No Caregiver/support person: No Lives independently: Yes Household members: spouse Housing: House Marital status: Number of children: 2 service: No Current occupational status: unemployed Current gender identity: Female Physical Exam Neuro: GUILLERMINA COMA SCALE: document GCS findings Guillermina coma scale total score: 15 Course Vital Signs: Vital signs: Vital Signs Temperature 98.2 F 07/27/22 08:08 Pulse Rate 124 H 07/27/22 10:04 Respiratory Rate 18 07/27/22 10:04 Blood Pressure 157/100 07/27/22 10:04 Pulse Oximetry 97 07/27/22 10:04 Oxygen Delivery Me thod 07/27/22 10:04 MDM - Psych Medical Decision Making Patient care handoff received from GISELLE Davis continuation of ED evaluation. I personally saw and evaluated patient and reperformed britton portions of E/M. History and exam done findings consistent with documentation from GISELLE. Patient acutely psychotic will need admission to the hospital orders written Medical Records I reviewed the patient's medical records. Lab Data I reviewed the patient's lab results. 07/27/22 08:40 07/27/22 08:40 Laboratory Results WBC 11.1 10^3/uL (4.0-10.0) H 07/27/22 08:40 RBC 5.16 10^6/uL (4.1-5.3) 07/27/22 08:40 Hgb 15.1 g/dL (11.5-15.3) 07/27/22 08:40 Hct 45.2 % (37.0-47.0) 07/27/22 08:40 MCV 87.6 fl (81-99) 07/27/22 08:40 MCH 29.3 pg (28.0-34.0) 07/27/22 08:40 MCHC 33.4 g/dL (30.0-36.0) 07/27/22 08:40 RDW 13.3 % (12.1-15.1) 07/27/22 08:40 Plt Count 321 10^3/cmm (130-400) 07/27/22 08:40 MPV 10.6 fL (7.4-10.4) H 07/27/22 08:40 Neut % (Auto) 56.6 % 07/27/22 08:40 Lymph % (Auto) 33.8 % 07/27/22 08:40 [place] % (Auto) 8.1 % 07/27/22 08:40 Eos % (Auto) 0.7 % 07/27/22 08:40 Baso % (Auto) 0.5 % 07/27/22 08:40 Neut # (Auto) 6.30 10^3/uL (1.8-7.7) 07/27/22 08:40 Lymph # (Auto) 3.8 10^3/uL (0.8-4.8) 07/27/22 08:40 [place] # (Auto) 0.9 10^3/uL (0.2-0.9) 07/27/22 08:40 Eos # (Auto) 0.1 10^3/uL (0.0-0.8) 07/27/22 08:40 Baso # (Auto) 0.1 10^3/uL (0.0-0.1) 07/27/22 08:40 Nucleated RBC % (auto) 0 % 07/27/22 08:40 Nucleated RBCs # 0.0 /100WBC 07/27/22 08:40 Sodium 133 mmol/L (136-145) L 07/27/22 08:40 Potassium 4.3 mmol/L (3.5-5.1) 07/27/22 08:40 Chloride 95 mmol/L (98-107) L 07/27/22 08:40 Carbon Dioxide 26 mmol/L (22-29) 07/27/22 08:40 Anion Gap 16.3 (5-19) 07/27/22 08:40 BUN 8 mg/dL (6-20) 07/27/22 08:40 Creatinine 0.7 mg/dL (0.5-0.9) 07/27/22 08:40 GFR Calculation 88.6 mL/min (90-130) L 07/27/22 08:40 Glucose 115 mg/dL (65-115) 07/27/22 08:40 Calculated Osmolality 275 mOsm/kg (285-295) L 07/27/22 08:40 Calcium 9.6 mg/dL (8.5-10.5) 07/27/22 08:40 Total Bilirubin 0.5 mg/dL (0.15-1.2) 07/27/22 08:40 AST 30 U/L (0-32) 07/27/22 08:40 ALT 44 U/L (0-33) H 07/27/22 08:40 Alkaline Phosphatase 99 U/L (35-105) 07/27/22 08:40 Total Protein 7.5 g/dL (6.6-8.7) 07/27/22 08:40 Albumin 4.6 g/dL (3.5-5.2) 07/27/22 08:40 Globulin 2.9 g/dL (1.3-4.6) 07/27/22 08:40 TSH 3.55 uIU/mL (0.27-4.20) 07/27/22 08:40 Salicylates < 0.3 mg/dL (3-10) L 07/27/22 08:40 Urine Opiates Screen Negative ng/mL (Negative) 07/27/22 09:35 Acetaminophen < 5.0 ug/mL (10-30) L 07/27/22 08:40 Ur Barbiturates Screen Negative ng/mL (Negative) 07/27/22 09:35 Ur Phencyclidine Scrn Negative ng/mL (Negative) 07/27/22 09:35 Ur Amphetamines Screen Negative ng/mL (Negative) 07/27/22 09:35 U Benzodiazepines Scrn Negative ng/mL (Negative) 07/27/22 09:35 Urine Cocaine Screen Negative ng/mL (Negative) 07/27/22 09:35 U Marijuana (THC) Screen Negative ng/mL (Negative) 07/27/22 09:35 Ethyl Alcohol < 10 mg/dL (0-10) 07/27/22 08:40 Discharge Plan Discharge Patient Disposition: Admitted As Inpatient Clinical Impression: Acute psychosis Condition: Stable Coding Level of Care Code ED Modeling Manager for Melissa Rodriges
[2022-07-27] MEDS: losartan 50 mg Tablet 25 MG PO (08:36)
[2022-07-27] MEDS: metoprolol succinate ER (24 HR) 25 mg Tablet PO (08:36)
[2022-07-27 08:50] LABS: Basophils # 0.1 10^3/uL (0.0-0.1); Basophils % 0.5 %; Eosinophils # 0.1 10^3/uL (0.0-0.8); Eosinophils % 0.7 %; Hematocrit 45.2 % (37.0-47.0); Hemoglobin 15.1 g/dL (11.5-15.3); Lymphocytes # 3.8 10^3/uL (0.8-4.8); Lymphocytes % 33.8 %; Mean Corpuscular HGB Conc 33.4 g/dL (30.0-36.0); Mean Corpuscular Hemoglobin 29.3 pg (28.0-34.0); Mean Corpuscular Volume 87.6 fl (81-99); Mean Platelet Volume 10.6 fL (7.4-10.4); Monocytes # 0.9 10^3/uL (0.2-0.9); Monocytes % 8.1 %; Neutrophils % 56.6 %; Nucleated Red Blood Cells % 0 %; Platelet Count 321 10^3/cmm (130-400); Red Blood Count 5.16 10^6/uL (4.1-5.3); Red Cell Distribution Width 13.3 % (12.1-15.1); White Blood Count 11.1 10^3/uL (4.0-10.0)
[2022-07-27 09:41] LABS: Acetaminophen < 5.0 ug/mL (10-30); Alanine Aminotransferase 44 U/L (0-33); Albumin Level 4.6 g/dL (3.5-5.2); Alcohol Level < 10 mg/dL (0-10); Alkaline Phosphatase 99 U/L (35-105); Anion Gap 16.3 (5-19); Aspartate Amino Transferase 30 U/L (0-32); Blood Urea Nitrogen 8 mg/dL (6-20); Calcium 9.6 mg/dL (8.5-10.5); Carbon Dioxide 26 mmol/L (22-29); Chloride 95 mmol/L (98-107); Globulin 2.9 g/dL (1.3-4.6); Glomerular Filtration Rate 88.6 mL/min (90-130); Glucose 115 mg/dL (65-115); Osmolality Calculated 275 mOsm/kg (285-295); Potassium 4.3 mmol/L (3.5-5.1); Salicylate < 0.3 mg/dL (3-10); Sodium 133 mmol/L (136-145); Thyroid Stimulating Hormone 3.55 uIU/mL (0.27-4.20); Total Bilirubin 0.5 mg/dL (0.15-1.2); Total Protein 7.5 g/dL (6.6-8.7)
[2022-07-27 10:14] LABS: Amphetamines Screen Urine Negative (Negative); Barbiturates Screen Urine Negative (Negative); Benzodiazepines Screen Urine Negative (Negative); Cocaine Screen Urine Negative (Negative); Opiate Screen Urine Negative (Negative); PCP Screen Urine Negative (Negative); THC Screen Urine Negative (Negative)
[2022-07-27] MEDS: hyDROXYzine 25 mg Capsule 50 MG PO (12:44)
--- NOTE | 2022-07-27 13:11 | P.NPUHP_ITS ---
Providers/Chief Complaint Admitting Physician: Louis Parra MD Primary Care Provider: Anuj Aparicio Chief Complaint: high B/P HPI [facility] History of Present Illness Mabel Still is a 51 year old female who scented to the emergency department on 07/27/2022 accompanied by her with the patient's stating that he was concerned that his had been enduring a manic episode. She had apparently received a injection or pills of morphine and a prescription for oxycodone a few days prior and the patient had not slept in several days. She had been apparently behavior at behaving abnormally including chain smoking inside of the home while flicking her cigarette butts throughout the house. 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 The patient has an extended history of psychiatric services through [facility] previously followed by Janae Ferrer. In a previous appointment 13 days ago, the patient had been documented to have been not sleeping with increased goal- directed behavior and some reports of difficulties with compliance with medications. The patient was a poor historian and was unable to provide any history when interviewed at the neuropsychiatric unit. Past psychiatric history: She does appear to have a previous history of inpatient hospitalizations with most recent hospitalization at the [facility] in 2019. She has a reported history of bipolar disorder type I most recent episode severe with psychotic features. Medical history: Hypercholesterolemia, fatty liver disease, hypertension, hypothyroidism, irritable bowel syndrome,nicotine dependence, seasonal allergic rhinitis, Surgical history: Cholecystectomy, hysterectomy without BSO, history of thyroid cyst, history of colonoscopy Allergies: Morphine, oxycodone, haloperidol, sulfa drugs, iodine contrast Medications: Wellbutrin SR 100 mg in the morning, Latuda 40 mg at 6 PM. , Klonopin 0.5 mg twice a day, trazodone 100 mg at night, loratadine, losartan, estradiol, levothyroxine, dicyclomine, azelastine, atorvastatin Substance abuse history: Per previous records occasional alcohol use, 30 pack year smoker. No history of illicit drug use Social history: Patient is reportedly and has 2 children and is currently unemployed. She apparently lives with her spouse, other social history is unknown. Family psychiatric history: Unknown Meds [facility] Home Medications Medication Instructions Recorded Confirmed Last Taken Type acetaminophen 325 mg capsule 325 mg PO QID PRN Pain 08/20/19 07/27/22 Unknown History (Tylenol) metoprolol succinate 25 mg 25 mg PO DAILY 01/10/22 07/27/22 07/27/22 History tablet,extended release 24 hr atorvastatin 20 mg tablet 20 mg PO QPM 05/24/22 07/27/22 07/26/22 History melatonin 5 mg capsule 5 mg PO BEDTIME 05/24/22 07/27/22 07/26/22 History bupropion HCl 100 mg tablet,12 hr 100 mg PO QAM #90 tabs 07/14/22 07/27/22 07/26/22 Rx sustained-release (Wellbutrin SR) Lactobacillus acidophilus 10 10,000 mmu cells PO DAILY 07/22/22 07/27/22 07/26/22 History billion cell capsule (Probiotic) azelastine 137 mcg (0.1 %) nasal 1 spray intranasal BID PRN Allergy 07/22/22 07/27/22 Unknown History spray aerosol Symptoms clonazepam 0.5 mg tablet (Klonopin) 0.5 mg PO BID 07/22/22 07/27/22 07/26/22 History loratadine 10 mg tablet 10 mg PO DAILY 07/22/22 07/27/22 07/26/22 History losartan 25 mg tablet 25 mg PO DAILY #90 tabs 07/22/22 07/27/22 07/26/22 Rx omega 2-kjj-lxk-fish oil 300 1 cap PO BID 07/22/22 07/27/22 07/26/22 History mg-1,000 mg capsule (Fish Oil) ondansetron 4 mg disintegrating 4 mg PO Q8H PRN nausea and 07/22/22 07/27/22 Unknown Rx tablet vomiting #15 tabs trazodone 100 mg tablet 100 mg PO BEDTIME PRN sleep 07/22/22 07/27/22 Unknown History levothyroxine 75 mcg tablet 75 mcg PO DAILY #90 tabs 07/25/22 07/27/22 07/26/22 Rx lurasidone 40 mg tablet (Latuda) 40 mg PO DAILY 07/27/22 07/27/22 07/26/22 History Allergies Allergy/AdvReac Type Severity Reaction Status Date / Time morphine Allergy Severe ADR-Nausea Verified 07/25/22 10:18 oxycodone Allergy Severe ADR-Nausea Verified 07/25/22 10:18 haloperidol [From Haldol] Allergy Unknown Unknown Verified 07/25/22 10:18 Iodinated Contrast Media Allergy Unknown vomiting Verified 07/25/22 10:18 Sulfa (Sulfonamide Allergy Unknown rash Verified 07/25/22 10:18 Antibiotics) PFSH [facility] PFSH: Medical History Bipolar disorder, current episode mixed, severe, with psychotic features Fatty liver Generalized anxiety disorder Hypertension Hypothyroidism (acquired) IBS (irritable bowel syndrome) diagnosed in 2010, but she prefers not to follow up with GI on this issue and feels her symptoms are much improved. in 2019, she went to [place] and saw Dr Pineda and had a cyst on her tailbone. 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 Nicotine dependence, cigarettes, uncomplicated Psychiatric care Seasonal allergic rhinitis due to pollen Tick fever 2016 Surgical History History of cholecystectomy History of hysterectomy without BSO History of thyroid cyst 2015 Hx of colonoscopy 2019 Family History Grandmother Diabetes Brother Diabetes Social History Smoking and tobacco status: current every day smoker cigarettes Packs smoked per day: 1 Years cigarettes smoked: 30 Quit status (tobacco): considering quitting Second hand smoke exposure: Yes Smoking risk assessment/counseling performed?: No Alcohol intake: current Alcohol intake frequency: holidays/special occasions only Desire information about alcohol rehabilitation?: No Counseling given: No Desire information about substance/drug rehabilitation?: No Counseling given: No Caregiver/support person: No Lives independently: Yes Household members: spouse Housing: House Marital status: Number of children: 2 service: No Current occupational status: unemployed Current gender identity: Female Mental Status Exam MSE Comments: The patient was initially seen as she had reportedly taken off all of her close and had required staff to come to put her close back on. She was extremely agitated she is white female with a disheveled appearance who appeared older than her stated age she was extremely hostile and was unwilling to proceed with any dialogue. Her speech was loud and increased in rate. Her mood was not described. Her affect was extremely irritable her thought process appeared nonlinear. Her thought content showed evidence of clear delusional thinking as she endorsed being and expressed fear that someone was tr tirso to hurt her baby. She did not appear to be responding to internal stimuli. Her insight is impaired. Her judgment is poor. Her impulse control appeared impaired as well. Her recent and remote memory were not tested she had variable attention span. Vitals/I&O/Wt Last Vital Signs Temp 98.2 F 07/27/22 08:08 Pulse 124 H 07/27/22 11:56 Resp 18 07/27/22 11:56 BP 157/100 07/27/22 11:56 Pulse Ox 97 07/27/22 11:56 O2 Del Method 07/27/22 10:04 Data NPU 07/27/22 08:40 07/27/22 08:40 A&P Assessment and plan (1) Acute psychosis: (2) Bipolar disorder, current episode mixed, severe, with psychotic features: Plan Is a 51-year-old white female who presents with acute bryan with psychotic features with a past history of bipolar 1 disorder with recent decompensation apparently triggered by some new medication trial. She will continue to require acute inpatient hospitalization at this time with likely medication changes recommended and will be implemented. #1. We will restart current psychiatric medications. #2. Continue 15-minute checks for safety on the unit. #3. Engage patient in individual group and milieu therapy. #4. Will attempt to check medical records as the patient would likely require additional psychotropic medications to manage her bryan. She may require one-to-one observation as she has already required as needed use of Geodon as she became aggressive shortly after arriving here on the unit. Attestations U Medical Necessity Statement*: Inpatient psychiatric hospitalization is medically necessary and the clinically appropriate intervention at this time. We will monitor and implement medication changes as indicated. The patient's hospitalization is likely to cross 2 midnights with a likely length of stay of 7 to 10 days. Coding Level of Care Code Acute Code for Chg Fwd Diagnoses Acute psychosis F23 Bipolar disorder, current episode mixed, severe, with psychotic features F31.64
[2022-07-27] MEDS: ziprasidone 20 mg/mL SDV IM (13:24)
--- NOTE | 2022-07-27 17:27 | PC.NURSE ---
CHARGE NURSE INSTRUCTED ME NOT TO GET FULL SET OF VITALS AND WAKE PT D/T PT BEHAVIORS THAT REQUIRED PRN MEDICATIONS. RESPIRATIONS OBTAINED. NO DISTRESS NOTED.
--- NOTE | 2022-07-27 18:50 | PC.NURSE ---
Pt sleeping; not disturbed for supper or 1800/1900 meds. aware. Said okay to give later if patient eats.
[2022-07-28] MEDS: trazodone 50 mg Tablet PO ×2 (00:40→21:48)
[2022-07-28] MEDS: CLONazepam 1 mg Tablet PO ×2 (00:40→21:48)
[2022-07-28] MEDS: buPROPion SR (12 HR) 100 mg Tablet PO (05:33)
[2022-07-28 06:00] VITALS: BP 136/96; PULSE 122; RESP 16; TEMP 36.3; O2SAT 94
[2022-07-28] MEDS: acetaminophen 325 mg Tablet 650 MG PO ×3 (06:38→16:31)
[2022-07-28 08:12] VITALS: BP 141/92
[2022-07-28] MEDS: losartan 50 mg Tablet 25 MG PO (08:12)
[2022-07-28] MEDS: levothyroxine 75 mcg Tablet PO (08:13)
[2022-07-28] MEDS: metoprolol succinate ER (24 HR) 25 mg Tablet PO (08:13)
[2022-07-28] MEDS: loratadine 10 mg Tablet PO (08:13)
[2022-07-28] MEDS: nicotine 2 mg Gum BUCCAL ×3 (11:07→16:23)
--- NOTE | 2022-07-28 12:21 | W.PM.NPUPNS ---
Subjective NPU Subjective: Patient presented today reporting that she had been struggling with her thoughts. However she reports that she and Dr. Parra had gotten medications lined up and that this morning she was feeling better. We agreed I would review his notes and identify if there is any additional changes necessary now. She denies any current problems. Mental Status Exam MSE Comments: This is a well-nourished well-developed overweight white female in hospital scrubs with limited grooming and eye contact. No abnormal movements are mild psychomotor retardation. Cooperative with exam in no acute distress. Speech was slightly decreased rate and volume. Mood described as better, affect euthymic. Thought process appeared organized. Thought content: Patient denied suicidal or homicidal ideation, endorses paranoia but did not appear guarded, she endorsed struggling with auditory or visual hallucinations but did not necessarily appear to be attending to internal stimuli. Attention and concentration appear intact and memory appeared mostly reliable but none were formally tested. She is alert and oriented x3. Insight and judgment appear fair impulse control appears fair. Vitals/I&O/Wt Last Vital Signs Temp 97.4 F L 07/28/22 06:00 Pulse 122 H 07/28/22 06:00 Resp 16 07/28/22 06:00 BP 141/92 07/28/22 08:12 Pulse Ox 94 07/28/22 06:00 O2 Del Method 07/28/22 06:00 Weight last 48 hrs Weight 67.188 kg Data NPU 07/27/22 08:40 07/27/22 08:40 A&P Assessment and plan (1) Acute psychosis: (2) Bipolar disorder, current episode mixed, severe, with psychotic features: Plan Is a 51-year-old white female who presents with acute bryan with psychotic features with a past history of bipolar 1 disorder with recent decompensation apparently triggered by some new medication trial. She will continue to require acute inpatient hospitalization at this time with likely medication changes recommended and will be implemented. #1. We restarted current psychiatric medications. #2. Continue 15-minute checks for safety on the unit. #3. Engage patient in individual group and milieu therapy. #4. Will attempt to check medical records as the patient would likely require additional psychotropic medications to manage her bryan. She may require one-to-one observation as she has already required as needed use of Geodon as she became aggressive shortly after arriving here on the unit but at this time appears likely doing better on her current medication. Involuntary Hold Information 96 Hour Hold: 96 Hour Involuntary Admission: No Attestations NPU Medical Necessity Statement*: Inpatient psychiatric hospitalization is medically necessary and the clinically appropriate intervention at this time. We will monitor and implement medication changes as indicated. Likely length of stay of 4-6 days. Coding Level of Care Code Acute Code for Chg Fwd Diagnoses Acute psychosis F23 Bipolar disorder, current episode mixed, severe, with psychotic features F31.64
[2022-07-28 14:00] VITALS: BP 149/97; PULSE 83; RESP 18; TEMP 36.6; O2SAT 95
[2022-07-28] MEDS: OLANZapine 5 mg ODT PO (17:21)
[2022-07-28] MEDS: atorvastatin 40 mg Tablet 20 MG PO (17:22)
[2022-07-28] MEDS: blistex lip oint 7 gm Tube 1 APPLIC TOPICAL (17:26)
--- NOTE | 2022-07-28 17:33 | PC.NURSE ---
Pt walking in the stern and became intrusive while staff was attempting to help another pt. Pt redirected. She had to be redirected again. Medicated with zyprexa due to increasing agitation. Pt also ate several snacks and when supper arrived, she said she wasn't hungry but was requesting more juice. Pt taking a lot of fluids today. Staff had encouraged pt to use caution so she didn't become overly hydrated. She verbalized her understanding. Pt also provided lip balm per her request.
[2022-07-28] MEDS: lurasidone 20 mg Tablet 60 MG PO (18:20)
[2022-07-28] MEDS: nicotine 4 mg lozenge MUCOUS MEM ×2 (19:54→22:36)
[2022-07-28 22:00] VITALS: BP 146/100; PULSE 79; RESP 19; TEMP 36.6; O2SAT 99
[2022-07-29] MEDS: nicotine 4 mg lozenge MUCOUS MEM ×5 (02:23→20:42)
[2022-07-29] MEDS: hyDROXYzine 25 mg Capsule 50 MG PO (02:23)
[2022-07-29] MEDS: blistex lip oint 7 gm Tube 1 APPLIC TOPICAL (05:06)
[2022-07-29] MEDS: OLANZapine 5 mg ODT PO (05:06)
[2022-07-29] MEDS: buPROPion SR (12 HR) 100 mg Tablet PO (05:32)
[2022-07-29 06:00] VITALS: BP 163/112; PULSE 103; RESP 18; TEMP 36.6; O2SAT 97
--- NOTE | 2022-07-29 06:59 | PC.NURSE ---
pt has been awake most of the morning hours, anxious, cooperative,pacing back in forth to her room and the dayroom, no issues. pt appears to be manic, pt given Zyprexa.
[2022-07-29] MEDS: loratadine 10 mg Tablet PO (08:41)
[2022-07-29] MEDS: metoprolol succinate ER (24 HR) 25 mg Tablet PO (08:41)
[2022-07-29] MEDS: losartan 50 mg Tablet 25 MG PO (08:41)
[2022-07-29] MEDS: levothyroxine 75 mcg Tablet PO (08:41)
[2022-07-29] MEDS: cetylpyridinium Lozenge 1 EACH MUCOUS MEM ×3 (09:33→21:02)
[2022-07-29] MEDS: acetaminophen 325 mg Tablet 650 MG PO (13:48)
[2022-07-29] MEDS: nicotine 2 mg Gum BUCCAL ×2 (13:48→18:16)
[2022-07-29 14:00] VITALS: BP 140/93; PULSE 80; RESP 18; TEMP 36.4; O2SAT 95
--- NOTE | 2022-07-29 14:23 | W.PM.NPUPNS ---
Subjective NPU Subjective: Patient presented today reporting continued improvement in feelings of stability we had an opportunity to meet with her who expressed concerns about her possible tentative discharge at the beginning of the week. He reported and she concurred that often with her hospitalizations she would get discharged and then end up back in the hospital 2 days later because she was not necessarily really ready. We agreed we would take it a day at a time and try to see if there is a clear reason for those rebound hospitalizations and try to avoid at this time. Otherwise she denied any significant issues. Mental Status Exam MSE Comments: This is a well-nourished well-developed overweight white female in hospital scrubs with limited grooming and eye contact. No abnormal movements are mild psychomotor retardation. Cooperative with exam in no acute distress. Speech was slightly decreased rate and volume. Mood described as better, affect euthymic. Thought process appeared organized. Thought content: Patient denied suicidal or homicidal ideation, endorses paranoia but did not appear guarded, she endorsed struggling with auditory or visual hallucinations but did not necessarily appear to be attending to internal stimuli. Attention and concentration appear intact and memory appeared mostly reliable but none were formally tested. She is alert and oriented x3. Insight and judgment appear fair impulse control appears fair. Vitals/I&O/Wt Last Vital Signs Temp 97.8 F 07/29/22 06:00 Pulse 103 H 07/29/22 06:00 Resp 18 07/29/22 06:00 BP 163/112 07/29/22 06:00 Pulse Ox 97 07/29/22 06:00 O2 Del Method 07/29/22 06:00 Weight last 48 hrs Weight 67.188 kg Data NPU 07/27/22 08:40 07/27/22 08:40 A&P Assessment and plan (1) Acute psychosis: (2) Bipolar disorder, current episode mixed, severe, with psychotic features: Plan Is a 51-year-old white female who presents with acute bryan with psychotic features with a past history of bipolar 1 disorder with recent decompensation apparently triggered by some new medication trial. She will continue to require acute inpatient hospitalization at this time with likely medication changes recommended and will be implemented. #1. We restarted current psychiatric medications. #2. Continue 15-minute checks for safety on the unit. #3. Engage patient in individual group and milieu therapy. #4. Will attempt to check medical records as the patient would likely require additional psychotropic medications to manage her bryan. She may require one-to-one observation as she has already required as needed use of Geodon as she became aggressive shortly after arriving here on the unit but at this time appears to be doing better on her current medication. Involuntary Hold Information 96 Hour Hold: 96 Hour Involuntary Admission: No Attestations NPU Medical Necessity Statement*: Inpatient psychiatric hospitalization is medically necessary and the clinically appropriate intervention at this time. We will monitor and implement medication changes as indicated. Likely length of stay of 3-5 days. Coding Level of Care Code Acute Code for Chg Fwd Diagnoses Acute psychosis F23 Bipolar disorder, current episode mixed, severe, with psychotic features F31.64
[2022-07-29] MEDS: atorvastatin 40 mg Tablet 20 MG PO (18:13)
[2022-07-29] MEDS: lurasidone 20 mg Tablet 60 MG PO (18:14)
[2022-07-29] MEDS: CLONazepam 1 mg Tablet PO (20:42)
[2022-07-29 21:06] VITALS: BP 154/99; PULSE 92; RESP 16; TEMP 36.7; O2SAT 96
[2022-07-30] MEDS: cetylpyridinium Lozenge 1 EACH MUCOUS MEM ×4 (00:21→21:23)
[2022-07-30] MEDS: nicotine 2 mg Gum BUCCAL ×3 (01:59→08:52)
[2022-07-30] MEDS: acetaminophen 325 mg Tablet 650 MG PO ×2 (01:59→09:48)
[2022-07-30 06:00] VITALS: BP 164/105; PULSE 87; RESP 18; TEMP 36.7; O2SAT 96
--- NOTE | 2022-07-30 06:34 | PC.NURSE ---
pt vitals this am left arm 171/119, Right arm 164/105, rechecked 15 minutes later 168/108, notified pt RN of elevated bp.
--- NOTE | 2022-07-30 08:27 | P.NPUPN_ITS ---
Subjective NPU Subjective: Patient presented today reporting that she is doing fine. We discussed meeting with her tomorrow as he had a conversation yesterday that may have left him with a misunderstanding of her treatment course. He continued to raise concerns about her having previous episodes of rebound hos pitalizations after quick discharges and still had worries about discharge at the beginning week. We will speak in attempt to help him understand the plan. Mental Status Exam MSE Comments: This is a well-nourished well-developed overweight white female in hospital scrubs with limited grooming and eye contact. No abnormal movements are mild psychomotor retardation. Cooperative with exam in no acute distress. Speech was slightly decreased rate and volume. Mood described as better, affect euthymic. Thought process appeared organized. Thought content: Patient denied suicidal or homicidal ideation, endorses paranoia but did not appear guarded, she endorsed struggling with auditory or visual hallucinations but did not necessarily appear to be attending to internal stimuli. Attention and vanesa ntration appear intact and memory appeared mostly reliable but none were formally tested. She is alert and oriented x3. Insight and judgment appear fair impulse control appears fair. Vitals/I&O/Wt Last Vital Signs Temp 98.0 F 07/30/22 06:00 Pulse 87 07/30/22 06:00 Resp 18 07/30/22 06:00 BP 164/105 07/30/22 06:00 Pulse Ox 96 07/30/22 06:00 O2 Del Method 07/30/22 06:00 Data NPU 07/27/22 08:40 07/27/22 08:40 A&P Assessment and plan (1) Acute psychosis: (2) Bipolar disorder, current episode mixed, severe, with psychotic features: Plan Is a 51-year-old white female who presents with acute bryan with psychotic featu res with a past history of bipolar 1 disorder with recent decompensation apparently triggered by some new medication trial. She will continue to require acute inpatient hospitalization at this time with likely medication changes recommended and will be implemented. #1. We restarted current psychiatric medications. #2. Continue 15-minute checks for safety on the unit. #3. Engage patient in individual group and milieu therapy. #4. Will work with family on a discharge plan with consideration for previous rebound hospitalizations after discharge. Involuntary Hold Information 96 Hour Hold: 96 Hour Involuntary Admission: No Attestations NPU Medical Necessity Statement*: Inpatient psychiatric hospitalization is medically necessary and the clinically appropriate intervention at this time. We will monitor and implement medication changes as indicated. Likely length of stay of 2-4 days. Coding Level of Care Code Acute Code for Chg Fwd Diagnoses Acute psychosis F23 Bipolar disorder, current episode mixed, severe, with psychotic features F31.64
[2022-07-30] MEDS: losartan 50 mg Tablet 25 MG PO (08:52)
[2022-07-30] MEDS: loratadine 10 mg Tablet PO (08:53)
[2022-07-30] MEDS: metoprolol succinate ER (24 HR) 25 mg Tablet PO (08:53)
[2022-07-30] MEDS: buPROPion SR (12 HR) 100 mg Tablet PO (08:53)
[2022-07-30] MEDS: levothyroxine 75 mcg Tablet PO (08:53)
[2022-07-30] MEDS: blistex lip oint 7 gm Tube 1 APPLIC TOPICAL (11:55)
[2022-07-30 14:00] VITALS: BP 161/102; PULSE 75; RESP 18; TEMP 36.8; O2SAT 97
[2022-07-30] MEDS: atorvastatin 40 mg Tablet 20 MG PO (18:06)
[2022-07-30] MEDS: lurasidone 20 mg Tablet 60 MG PO (18:07)
[2022-07-30 20:39] VITALS: BP 173/118; PULSE 86; RESP 18; TEMP 36.5; O2SAT 98
[2022-07-30 21:19] VITALS: BP 173/118
[2022-07-30] MEDS: CLONazepam 1 mg Tablet PO (21:19)
[2022-07-30] MEDS: cloNIDine 0.1 mg Tablet PO (21:19)
[2022-07-30 23:20] VITALS: BP 148/99; PULSE 93; RESP 18; TEMP 36.4; O2SAT 97
[2022-07-30] MEDS: trazodone 50 mg Tablet PO (23:41)
[2022-07-31] MEDS: trazodone 50 mg Tablet PO ×2 (00:34→20:02)
[2022-07-31] MEDS: cetylpyridinium Lozenge 1 EACH MUCOUS MEM ×5 (03:22→19:19)
[2022-07-31] MEDS: OLANZapine 5 mg ODT PO ×2 (03:22→09:10)
[2022-07-31 06:00] VITALS: BP 120/76; PULSE 92; RESP 18; TEMP 36.6; O2SAT 96
[2022-07-31] MEDS: blistex lip oint 7 gm Tube 1 APPLIC TOPICAL ×2 (06:54→19:18)
--- NOTE | 2022-07-31 07:06 | PC.NURSE ---
Elevated BP173/118, provider notified, clonidine 0.1mg given recheck at 2200 148/99. pt given scheduled Klonopin, Prn Trazodone, later Zyprexa Zydis. Pt has been awake most of night pacing, anxious, rambling. RN has encouraged for patient to sleep and pt stating she has slept enough.
[2022-07-31] MEDS: loratadine 10 mg Tablet PO (09:09)
[2022-07-31] MEDS: levothyroxine 75 mcg Tablet PO (09:10)
[2022-07-31] MEDS: losartan 50 mg Tablet 25 MG PO (09:10)
[2022-07-31] MEDS: metoprolol succinate ER (24 HR) 25 mg Tablet PO (09:10)
[2022-07-31] MEDS: buPROPion SR (12 HR) 100 mg Tablet PO (09:10)
[2022-07-31] MEDS: nicotine 2 mg Gum BUCCAL (09:10)
[2022-07-31] MEDS: benzocaine 20% 7 gm 1 APPLIC MUCOUS MEM (12:23)
[2022-07-31] MEDS: nicotine 4 mg lozenge MUCOUS MEM (13:04)
--- NOTE | 2022-07-31 13:40 | P.NPUPN_ITS ---
Subjective NPU Subjective: Patient presented today reporting that she is feeling better each day. Starting to have a little clarity. Spoke with her and her . Clarified our previous conversation about her discharge planning and also he identified that he felt she was getting better as well. We discussed the li kelihood of discharge at the beginning of the week and give her strategies to make sure we will have a rebound hospitalization. Mental Status Exam MSE Comments: This is a well-nourished well-developed overweight white female in hospital scrubs with limited grooming and eye contact. No abnormal movements are mild psychomotor retardation. Cooperative with exam in no acute distress. Speech was slightly decreased rate and volume. Mood described as better, affect euthymic. Thought process appeared organized. Thought content: Patient denied suicidal or homicidal ideation, endorses resolving paranoia but did not appear guarded, she denied significant auditory or visual hallucinations and did not n ecessarily appear to be attending to internal stimuli. Attention and concentration appear intact and memory appeared mostly reliable but none were formally tested. She is alert and oriented x3. Insight and judgment appear fair impulse control appears fair. Vitals/I&O/Wt Last Vital Signs Temp 97.9 F 07/31/22 06:00 Pulse 92 07/31/22 06:00 Resp 18 07/31/22 06:00 BP 120/76 07/31/22 06:00 Pulse Ox 96 07/31/22 06:00 O2 Del Method 07/30/22 14:00 Weight last 48 hrs Weight 76.929 kg Data NPU 07/27/22 08:40 07/27/22 08:40 A&P Assessment and plan (1) Acute psychosis: (2) Bipolar disorder, current episode mixed, severe, with psychotic features: Plan Is a 51-year-old white female who presents with acute bryan with psychotic features with a past history of bipolar 1 disorder with recent decompensation apparently triggered by some new medication trial. She will continue to require acute inpatient hospitalization at this time with likely medication changes recommended and will be implemented. #1. We restarted current psychiatric medications with increase in Latuda. #2. Continue 15-minute checks for safety on the unit. #3. Engage patient in individual group and milieu therapy. #4. Will work with family on a discharge plan with consideration for previous rebound hospitalizations after discharge. Involuntary Hold Information 96 Hour Hold: 96 Hour Involuntary Admission: No Attestations NPU Medical Necessity Statement*: Inpatient psychiatric hospitalization is medically necessary and the clinically appropriate intervention at this time. We will monitor and implement medication changes as indicated. Likely length of stay of 1-3 days. Coding Level of Care Code Acute Code for Chg Fwd Diagnoses Acute psychosis F23 Bipolar disorder, current episode mixed, severe, with psychotic features F31.64
[2022-07-31 14:00] VITALS: BP 125/85; PULSE 64; RESP 18; TEMP 36.7; O2SAT 97
[2022-07-31] MEDS: atorvastatin 40 mg Tablet 20 MG PO (17:57)
[2022-07-31] MEDS: lurasidone 20 mg Tablet 60 MG PO (18:11)
[2022-07-31 19:58] VITALS: BP 133/92; PULSE 92; RESP 18; TEMP 36.9; O2SAT 95
[2022-07-31] MEDS: CLONazepam 1 mg Tablet PO (20:02)
[2022-08-01] MEDS: blistex lip oint 7 gm Tube 1 APPLIC TOPICAL ×2 (00:56→20:31)
[2022-08-01] MEDS: nicotine 2 mg Gum BUCCAL ×2 (00:56→17:10)
[2022-08-01] MEDS: acetaminophen 325 mg Tablet 650 MG PO ×3 (05:28→16:25)
[2022-08-01 06:00] VITALS: BP 164/117; PULSE 51; RESP 14; TEMP 36.8; O2SAT 94
[2022-08-01] MEDS: metoprolol succinate ER (24 HR) 25 mg Tablet PO (06:18)
[2022-08-01 06:33] VITALS: BP 160/116
[2022-08-01] MEDS: losartan 50 mg Tablet 25 MG PO (08:38)
[2022-08-01] MEDS: buPROPion SR (12 HR) 100 mg Tablet PO (08:39)
[2022-08-01] MEDS: loratadine 10 mg Tablet PO (08:39)
[2022-08-01] MEDS: levothyroxine 75 mcg Tablet PO (08:39)
[2022-08-01 14:00] VITALS: BP 136/85; PULSE 76; RESP 18; TEMP 36.7; O2SAT 98
[2022-08-01] MEDS: ibuprofen 600 mg Tablet PO (14:13)
--- NOTE | 2022-08-01 16:33 | W.PM.NPUPNS ---
Subjective NPU Subjective: Patient presented today reporting that she is feeling a bit frazzled. also noteworthy that she was seen by off-again we agreed to increase her Latuda after discussion of the risks, benefits and alternatives she understood and agreed to proceed as documented in this note. We continue to discuss the possibility of discharge in the next 48 hours. Mental Status Exam MSE Comments: This is a well-nourished well-developed overweight white female in hospital scrubs with limited grooming and improving eye contact. No abnormal movements except for mild psychomotor agitation. Cooperative with exam in mild distress. Speech was slightly increased rate and normal volume. Mood described as okay, affect slightly irritable. Thought process appeared mostly organized. Thought content: Patient denied suicidal or homicidal ideation, endorses resolving paranoia but did not appear guarded, she denied significant auditory or visual hallucinations and did not necessarily appear to be attending to internal stimuli. Attention and concentration appear intact and memory appeared mostly reliable but none were formally tested. She is alert and oriented x3. Insight and judgment appear fair impulse control appears fair. Vitals/I&O/Wt Last Vital Signs Temp 98.0 F 08/01/22 14:00 Pulse 76 08/01/22 14:00 Resp 18 08/01/22 14:00 BP 136/85 08/01/22 14:00 Pulse Ox 98 08/01/22 14:00 O2 Del Method 07/31/22 14:00 Weight last 48 hrs Weight 76.929 kg Data NPU 07/27/22 08:40 07/27/22 08:40 A&P Assessment and plan (1) Acute psychosis: (2) Bipolar disorder, current episode mixed, severe, with psychotic features: Plan Is a 51-year-old white female who presents with acute bryan with psychotic features with a past history of bipolar 1 disorder with recent decompensation apparently triggered by some new medication trial. She will continue to require acute inpatient hospitalization at this time with likely medication changes recommended and will be implemented. #1. We restarted current psychiatric medications and will increase in Latuda again to 80 mg. #2. Continue 15-minute checks for safety on the unit. #3. Engage patient in individual group and milieu therapy. #4. Will work with family on a discharge plan with consideration for previous rebound hospitalizations after discharge. Involuntary Hold Information 96 Hour Hold: 96 Hour Involuntary Admission: No Attestations NPU Medical Necessity Statement*: Inpatient psychiatric hospitalization is medically necessary and the clinically appropriate intervention at this time. We will monitor and implement medication changes as indicated. Likely length of stay of 1-3 days. Coding Level of Care Code Acute Code for Chg Fwd Diagnoses Acute psychosis F23 Bipolar disorder, current episode mixed, severe, with psychotic features F31.64
[2022-08-01] MEDS: lurasidone 20 mg Tablet 80 MG PO (18:28)
[2022-08-01] MEDS: atorvastatin 40 mg Tablet 20 MG PO (18:29)
[2022-08-01 20:10] VITALS: BP 149/96; PULSE 80; RESP 18; TEMP 36.4; O2SAT 95
[2022-08-01] MEDS: CLONazepam 1 mg Tablet PO (20:31)
[2022-08-01] MEDS: trazodone 50 mg Tablet PO (20:31)
[2022-08-02] MEDS: acetaminophen 325 mg Tablet 650 MG PO ×3 (00:23→20:31)
[2022-08-02] MEDS: nicotine 2 mg Gum BUCCAL ×5 (03:57→18:16)
[2022-08-02] MEDS: loratadine 10 mg Tablet PO (04:03)
[2022-08-02] MEDS: blistex lip oint 7 gm Tube 1 APPLIC TOPICAL ×2 (04:04→08:52)
[2022-08-02] MEDS: cetylpyridinium Lozenge 1 EACH MUCOUS MEM ×2 (04:58→13:46)
[2022-08-02 05:33] VITALS: BP 149/83; PULSE 89; RESP 18; TEMP 36.5; O2SAT 95
[2022-08-02 08:53] VITALS: BP 149/83
[2022-08-02] MEDS: losartan 50 mg Tablet 25 MG PO (08:53)
[2022-08-02] MEDS: buPROPion SR (12 HR) 100 mg Tablet PO (08:53)
[2022-08-02] MEDS: levothyroxine 75 mcg Tablet PO (08:53)
[2022-08-02] MEDS: metoprolol succinate ER (24 HR) 25 mg Tablet PO (08:53)
[2022-08-02 14:00] VITALS: BP 105/73; PULSE 83; RESP 18; TEMP 36.6; O2SAT 97
--- NOTE | 2022-08-02 15:43 | P.NPUPN_ITS ---
Subjective NPU Subjective: Patient presents today reporting that she is doing better with the increase in her Latuda. Her felt she did little better today. We will see if this improvement carries until tomorrow and we will make sure she has her dose of Latuda before she leaves because her pharmacy has a 1 day delay in obtaining the medication. Otherwise she was less erratic today per staff and seeming like she regained the improvement that she lost the day before. Mental Status Exam MSE Comments: This is a well-nourished well-developed overweight white female in hospital scrubs with limited grooming and improving eye contact. No abnormal movements. Cooperative with exam in no acute distress. Speech was slightly increased rate and normal volume. Mood described as okay, affect more congruent. Thought process appeared mostly organized. Thought content: Patient denied suicidal or homicidal ideation, endorses resolving paranoia but did not appear guarded, she denied significant auditory or visual hallucinations and did not necessarily appear to be attending to internal stimuli. Attention and conc entration appear intact and memory appeared mostly reliable but none were formally tested. She is alert and oriented x3. Insight and judgment appear fair impulse control appears fair. Vitals/I&O/Wt Last Vital Signs Temp 98 F 08/02/22 14:00 Pulse 83 08/02/22 14:00 Resp 18 08/02/22 14:00 BP 105/73 08/02/22 14:00 Pulse Ox 97 08/02/22 14:00 O2 Del Method 08/02/22 14:00 Data NPU 07/27/22 08:40 07/27/22 08:40 A&P Assessment and plan (1) Acute psychosis: (2) Bipolar disorder, current episode mixed, severe, with psychotic features: Plan Is a 51-year-old white female who presents with acute bryan with psychotic features with a past history of bipolar 1 disorder with recent decompensation apparently triggered by some new medication trial. She will continue to require acute inpatient hospitalization at this time with likely medication changes recommended and will be implemented. #1. We restarted current psychiatric medications and increased the Latuda again to 80 mg. #2. Continue 15-minute checks for safety on the unit. #3. Engage patient in individual group and milieu therapy. #4. Will work with family on a discharge plan with consideration for previous rebound hospitalizations after discharge. Involuntary Hold Information 96 Hour Hold: 96 Hour Involuntary Admission: No Attestations NPU Medical Necessity Statement*: Inpatient psychiatric hospitalization is medically necessary and the clinically appropriate intervention at this time. We will monitor and implement medication changes as indicated. Likely length of stay of 1-2 days. Coding Level of Care Code Acute Code for Chg Fwd Diagnoses Acute psychosis F23 Bipolar disorder, current episode mixed, severe, with psychotic features F31.64
[2022-08-02] MEDS: atorvastatin 40 mg Tablet 20 MG PO (18:12)
[2022-08-02] MEDS: lurasidone 20 mg Tablet 80 MG PO (18:13)
[2022-08-02 20:19] VITALS: BP 147/92; PULSE 75; RESP 18; TEMP 36.4; O2SAT 96
[2022-08-02] MEDS: CLONazepam 1 mg Tablet PO (20:19)
[2022-08-02] MEDS: hyDROXYzine 25 mg Capsule 50 MG PO (20:19)
[2022-08-02] MEDS: trazodone 50 mg Tablet PO (20:19)
[2022-08-03] MEDS: nicotine 2 mg Gum BUCCAL ×2 (04:03→08:59)
[2022-08-03] MEDS: blistex lip oint 7 gm Tube 1 APPLIC TOPICAL (04:03)
[2022-08-03 06:00] VITALS: BP 133/60; PULSE 78; RESP 18; TEMP 36.6; O2SAT 95
[2022-08-03 08:59] VITALS: BP 133/60
[2022-08-03] MEDS: loratadine 10 mg Tablet PO (08:59)
[2022-08-03] MEDS: losartan 50 mg Tablet 25 MG PO (08:59)
[2022-08-03] MEDS: levothyroxine 75 mcg Tablet PO (08:59)
[2022-08-03] MEDS: buPROPion SR (12 HR) 100 mg Tablet PO (08:59)
[2022-08-03] MEDS: metoprolol succinate ER (24 HR) 25 mg Tablet PO (08:59)
[2022-08-03] MEDS: acetaminophen 325 mg Tablet 650 MG PO (09:00)
--- NOTE | 2022-08-03 10:15 | PC.NURSE ---
IN ROOM DENIES SI/HI AND AVH AT THIS TIME. DOES REPORT PAIN, TYLENOL WAS GIVEN SEE MAR FOR DETAILS. PT STATES SHE IS GOING BACK TO [facility] WITH HER AND HAS A BACK UP PLAN IF NEEDED IF ANY ISSUES ARISE. LAST BM 08/02/22.
[2022-08-03] MEDS: ibuprofen 600 mg Tablet PO (11:31)
--- NOTE | 2022-08-03 13:41 | W.PM.NPUDCS ---
Diagnoses at Discharge Discharge Diagnosis (1) Acute psychosis: Status: Acute (2) Bipolar disorder, current episode mixed, severe, with psychotic features: Status: Chronic Reason for Visit Reason for Visit: high B/P Brief History: History of Present Illness Mabel Still is a 51 year old female who scented to the emergency department on 07/27/2022 accompanied by her with the patient's stating that he was concerned that his had been enduring a manic episode. She had apparently received a injection or pills of morphine and a prescription for oxycodone a few days prior and the patient had not slept in several days. She had been apparently behavior at behaving abnormally including chain smoking inside of the home while flicking her cigarette butts throughout the house. 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 The patient has an extended history of psychiatric services through [facility] previously followed by Janae Ferrer. In a previous appointment 13 days ago, the patient had been documented to have been not sleeping with increased goal-directed behavior and some reports of difficulties with compliance with medications. The patient was a poor historian and was unable to provide any history when interviewed at the neuropsychiatric unit. Past psychiatric history: She does appear to have a previous history of inpatient hospitalizations with most recent hospitalization at the [facility] in 2019. She has a reported history of bipolar disorder type I most recent episode severe with psychotic features. Medical history: Hypercholesterolemia, fatty liver disease, hypertension, hypothyroidism, irritable bowel syndrome,nicotine dependence, seasonal allergic rhinitis, Surgical history: Cholecystectomy, hysterectomy without BSO, history of thyroid cyst, history of colonoscopy Allergies: Morphine, oxycodone, haloperidol, sulfa drugs, iodine contrast Medications: Wellbutrin SR 100 mg in the morning, Latuda 40 mg at 6 PM. , Klonopin 0.5 mg twice a day, trazodone 100 mg at night, loratadine, losartan, estradiol, levothyroxine, dicyclomine, azelastine, atorvastatin Substance abuse history: Per previous records occasional alcohol use, 30 pack year smoker. No history of illicit drug use Social history: Patient is reportedly and has 2 children and is currently unemployed. She apparently lives with her spouse, other social history is unknown. Family psychiatric history: Unknown Hospital Course Hospital Course She slowly acclimated to the individual, group and milieu therapies provided.? She presented with psychosis and erratic behavior. Her home medications were continued however her Latuda was titrated to 80 mg p.o. 2 daily with a meal. She had slow improvement. She has a history of discharging and returning quickly in relation to sleep difficulties mostly. But felt that she was looking appropriate and back to her normal self. She showed marked improvement during her stay and was able to contract for safety outside the hospital prior to discharge.? During the hospitalization she had routine laboratory studies which were within normal limits except for those identified and managed by the hospitalists.? Additionally she had a general medical evaluation which was also within normal limits and revealed no new acute processes related to the overdose. Discharge summary: At the time of discharge, she denied lethality and psychosis was resolving.? Her mood and anxiety were well managed and she endorsed a plan to follow-up with outpatient services per the treatment team's recommendations.? She was evaluated and deemed to be absent credible lethality and achieved a maximal benefit from an inpatient hospitalization, so she was discharged. Involuntary Hold Information 96 Hour Hold: 96 Hour Involuntary Admission: No Mental Status Exam MSE Comments: This is a well-nourished well-developed overweight white female in hospital scrubs with limited grooming and improving eye contact. No abnormal movements. Cooperative with exam in no acute distress. Speech was slightly increased rate and normal volume. Mood described as okay, affect more congruent. Thought process appeared mostly organized. Thought content: Patient denied suicidal or homicidal ideation, endorses resolving paranoia but did not appear guarded, she denied significant auditory or visual hallucinations and did not necessarily appear to be attending to internal stimuli. Attention and concentration appear intact and memory appeared mostly reliable but none were formally tested. She is alert and oriented x3. Insight and judgment appear fair impulse control appears fair. Discharge Data Studies Completed and Pending: Laboratory Results WBC 11.1 10^3/uL (4.0 -10.0) H 07/27/22 08:40 RBC 5.16 10^6/uL (4.1 -5.3) 07/27/22 08:40 Hgb 15.1 g/dL (11.5-1 5.3) 07/27/22 08:40 Hct 45.2 % (37.0-47.0 ) 07/27/22 08:40 MCV 87.6 fl (81-99) 07/27/22 08:40 MCH 29.3 pg (28.0-34. 0) 07/27/22 08:40 MCHC 33.4 g/dL (30.0-3 6.0) 07/27/22 08:40 RDW 13.3 % (12.1-15.1 ) 07/27/22 08:40 Plt Count 321 10^3/cmm (130 -400) 07/27/22 08:40 MPV 10.6 fL (7.4-10.4 ) H 07/27/22 08:40 Neut % (Auto) 56.6 % 07/27/22 08:40 Lymph % (Auto) 33.8 % 07/27/22 08:40 Garrett % (Auto) 8.1 % 07/27/22 08:40 Eos % (Auto) 0.7 % 07/27/22 08:40 Baso % (Auto) 0.5 % 07/27/22 08:40 Neut # (Auto) 6.30 10^3/uL (1.8 -7.7) 07/27/22 08:40 Lymph # (Auto) 3.8 10^3/uL (0.8- 4.8) 07/27/22 08:40 Garrett # (Auto) 0.9 10^3/uL (0.2- 0.9) 07/27/22 08:40 Eos # (Auto) 0.1 10^3/uL (0.0- 0.8) 07/27/22 08:40 Baso # (Auto) 0.1 10^3/uL (0.0- 0.1) 07/27/22 08:40 Nucleated RBC % (a uto) 0 % 07/27/22 08:40 Nucleated RBCs # 0.0 /100WBC 07/27/22 08:40 Sodium 133 mmol/L (136-1 45) L 07/27/22 08:40 Potassium 4.3 mmol/L (3.5-5 .1) 07/27/22 08:40 Chloride 95 mmol/L (98-107 ) L 07/27/22 08:40 Carbon Dioxide 26 mmol/L (22-29) 07/27/22 08:40 Anion Gap 16.3 (5-19) 07/27/22 08:40 BUN 8 mg/dL (6-20) 07/27/22 08:40 Creatinine 0.7 mg/dL (0.5-0. 9) 07/27/22 08:40 GFR Calculation 88.6 mL/min (90-1 30) L 07/27/22 08:40 Glucose 115 mg/dL (65-115 ) 07/27/22 08:40 Calculated Osmolal ity 275 mOsm/kg (285- 295) L 07/27/22 08:40 Calcium 9.6 mg/dL (8.5-10 .5) 07/27/22 08:40 Total Bilirubin 0.5 mg/dL (0.15-1 .2) 07/27/22 08:40 AST 30 U/L (0-32) 07/27/22 08:40 ALT 44 U/L (0-33) H 07/27/22 08:40 Alkaline Phosphata se 99 U/L (35-105) 07/27/22 08:40 Total Protein 7.5 g/dL (6.6-8.7 ) 07/27/22 08:40 Albumin 4.6 g/dL (3.5-5.2 ) 07/27/22 08:40 Globulin 2.9 g/dL (1.3-4.6 ) 07/27/22 08:40 TSH 3.55 uIU/mL (0.27 -4.20) 07/27/22 08:40 Salicylates < 0.3 mg/dL (3-10 ) L 07/27/22 08:40 Urine Opiates Scre en Negative ng/mL (N egative) 07/27/22 09:35 Acetaminophen < 5.0 ug/mL (10-3 0) L 07/27/22 08:40 Ur Barbiturates Sc reen Negative ng/mL (N egative) 07/27/22 09:35 Ur Phencyclidine S crn Negative ng/mL (N egative) 07/27/22 09:35 Ur Amphetamines Sc reen Negative ng/mL (N egative) 07/27/22 09:35 U Benzodiazepines Scrn Negative ng/mL (N egative) 07/27/22 09:35 Urine Cocaine Scre en Negative ng/mL (N egative) 07/27/22 09:35 U Marijuana (THC) Screen Negative ng/mL (N egative) 07/27/22 09:35 Ethyl Alcohol < 10 mg/dL (0-10) 07/27/22 08:40 Vitals: Last Vital Signs Temp 97.9 F 08/03/22 06:00 Pulse 78 08/03/22 06:00 Resp 18 08/03/22 06:00 BP 133/60 08/03/22 08:59 Pulse Ox 95 08/03/22 06:00 O2 Del Method 08/03/22 06:00 Discharge Plan Discharge Patient Disposition: Home Condition: Stable Prescriptions: New clonidine HCl 0.1 mg Tablet 0.1 mg PO TID PRN (Reason: Hypertension) 30 Days Qty: 90 1RF trazodone 50 mg Tablet 50 mg PO BEDTIME PRN (Reason: Sleep) 30 Days Qty: 30 1RF clonazepam 1 mg Tablet 1 mg PO BEDTIME 30 Days Qty: 30 1RF Continued metoprolol succinate 25 mg tablet extended release 24 hr 25 mg PO DAILY atorvastatin 20 mg tablet 20 mg PO BEDTIME levothyroxine 75 mcg tablet 75 mcg PO DAILY Qty: 90 3RF losartan 25 mg tablet 25 mg PO DAILY Qty: 90 3RF azelastine 137 mcg (0.1 %) aerosol,spray 1 spray intranasal BID PRN (Reason: Allergy Symptoms) Rx Instructions: administer into each nostril loratadine 10 mg tablet 10 mg PO DAILY ondansetron 4 mg tablet,disintegrating 4 mg PO Q8H PRN (Reason: nausea and vomiting) Qty: 15 0RF Discontinued clonazepam [Klonopin] 0.5 mg tablet 0.5 mg PO BID Latuda 40 mg tablet 40 mg PO DAILY Rx Instructions: Take one tablet in evening with dinner, must administer with food (at least 350 calories) No Action Latuda 40 mg tablet 40 mg PO DAILY Wellbutrin SR 100 mg tablet sustained-release 12 hr 100 mg PO DAILY Discharge Orders: Discharge Order (Routine); Ordered 08/03/22 Ordered By: Alfonzo Pace Referrals: Vanesa Wild PMHNP [Staff Physician] - 08/05/22 1:45 pm (Scheduled with Vanesa Wild 08.05.22 @1400 @1345 check in. ) Anuj Aparicio [employer] [Primary Care Provider] - 08/09/22 9:00 am (Follow up) Discharge Diet: Regular Discharge Activity: Resume usual activity Patient Instructions: Clonidine (By mouth) (Catapres, Kapvay, Kapvay Dose Pack), Clonidine (By mouth), Clonazepam (By mouth) (KlonoPIN), Trazodone (By mouth), Hydroxyzine (By mouth) (Vistaril), Psychotic Disorder (DC), Opioid Safety Discharge Attestations [facility] Time Spent in Discharge Care*: less than 30 min Specific Discharge Activities: Specific discharge activities: educating patient, discussing with onsite case manager/social workers/dc planners, documenting/other paperwork and evaluating patient/reviewing data Coding Level of Care Code Acute Chg FW DC note Diagnoses Acute psychosis F23 Bipolar disorder, current episode mixed, severe, with psychotic features F31.64
[2022-08-03 14:00] VITALS: BP 141/93; PULSE 70; RESP 18; TEMP 36.8; O2SAT 95
[2022-08-03 14:25] VITALS: BP 141/93; PULSE 70; RESP 18; TEMP 36.8; O2SAT 95
--- NOTE | 2022-08-03 14:37 | PC.NURSE ---
PT DISCHARGED AT 1437. PT LEFT FACILITY WITH . ALL DC TEACHING COMPLETED WITH NEW MEDICATION TEACHING SHEETS REVIEWED. ALL QUESTIONS ANSWERED AND SUPPORT VOICED. THIS RN WENT OVER DC PAPERWORK WITH WELL AND ALL QUESTIONS WERE ANSWERED. LEFT WITH ALL BELONGINGS. PRESCRIPTIONS SENT TO [facility] REQUESTED BY PT.
== END 2022-08-03 14:37 | disposition home or self-care (01) | DRG 885 ==
LOC: ER 10:50 → NP 11:28
PROVIDERS: Physician Assistant; Admitting Provider Psychiatry & Neurology Psychiatry; Emergency Provider Family Medicine; PCP Clinical Nurse Specialist Adult Health; Visit Provider Psychiatry & Neurology Psychiatry
DX: F23 Brief psychotic disorder (principal); F31.64 Bipolar disorder, current episode mixed, severe, with psychotic features; I10 Essential (primary) hypertension; E03.9 Hypothyroidism, unspecified; F17.210 Nicotine dependence, cigarettes, uncomplicated; Z90.710 Acquired absence of both cervix and uterus
CPT/HCPCS: 36415; 80053; 80306; 80307; 84443; 85025; 96372; 97150; 97165; 99238; 99285; J3486

== ENCOUNTER 2022-08-04 17:55 | Inpatient (IN) | payer OTHER, SELFPAY ==
[2022-08-04 18:14] VITALS: PULSE 113; RESP 16; O2SAT 96; BMI 29.2
[2022-08-04 18:48] LABS: Basophils # 0.1 10^3/uL (0.0-0.1); Basophils % 0.5 %; Eosinophils # 0.1 10^3/uL (0.0-0.8); Hematocrit 42.2 % (37.0-47.0); Hemoglobin 14.5 g/dL (11.5-15.3); Lymphocytes % 41.8 %; Mean Corpuscular HGB Conc 34.4 g/dL (30.0-36.0); Mean Corpuscular Volume 87.2 fl (81-99); Mean Platelet Volume 11.1 fL (7.4-10.4); Monocytes # 0.8 10^3/uL (0.2-0.9); Monocytes % 8.5 %; Neutrophils # 4.56 10^3/uL (1.8-7.7); Neutrophils % 47.9 %; Nucleated Red Blood Cells % 0 %; Platelet Count 319 10^3/cmm (130-400); Red Blood Count 4.84 10^6/uL (4.1-5.3); Red Cell Distribution Width 13.2 % (12.1-15.1); White Blood Count 9.5 10^3/uL (4.0-10.0)
[2022-08-04 19:08] LABS: Alanine Aminotransferase 41 U/L (0-33); Albumin Level 4.9 g/dL (3.5-5.2); Alkaline Phosphatase 95 U/L (35-105); Anion Gap 18.3 (5-19); Aspartate Amino Transferase 35 U/L (0-32); Blood Urea Nitrogen 8 mg/dL (6-20); Calcium 9.7 mg/dL (8.5-10.5); Carbon Dioxide 26 mmol/L (22-29); Chloride 100 mmol/L (98-107); Globulin 2.6 g/dL (1.3-4.6); Glomerular Filtration Rate 88.6 mL/min (90-130); Glucose 116 mg/dL (65-115); Osmolality Calculated 289 mOsm/kg (285-295); Potassium 4.3 mmol/L (3.5-5.1); Salicylate 1.5 mg/dL (3-10); Sodium 140 mmol/L (136-145); Total Bilirubin 0.6 mg/dL (0.15-1.2); Total Protein 7.5 g/dL (6.6-8.7)
[2022-08-04 19:09] LABS: Acetaminophen < 5.0 ug/mL (10-30); Alcohol Level < 10 mg/dL (0-10)
[2022-08-04] MEDS: LORazepam 1 mg Tablet PO (19:45)
--- NOTE | 2022-08-04 19:49 | ED.C_ITS ---
HPI - Psych General: Chief Complaint: Psychiatric Symptoms Stated Complaint: psych eval Time Seen by Provider: 08/04/22 18:05 Source: patient Mode of arrival: ambulatory Limitations: no limitations History of Present Illness: 51-year-old female who is here states that she was discharged from the [facility] yesterday she states she been having hallucinations trouble sleeping and continued suicidal ideations she denies any worsening proving factors has no other complaints at this time. Associated symptoms: Reports depression Review of Systems Const: Denies: fever(s), chills, body aches or change in appetite Eyes: Denies: blurry vision or eye discomfort ENMT: Denies: throat pain or dental pain Card: Denies: chest pain Resp: Denies: dyspnea GI: Denies: abdominal pain, nausea, vomiting or diarrhea : Denies: dysuria Musc: Denies: neck pain or back pain Skin/Breast: Denies: rash Neuro: Denies: headache(s) Psych: Reports: depression Ej/Lymph: Denies: easy bruising All/Imm: Denies: urticaria PFSH ED PFSH: Medical History Bipolar disorder, current episode mixed, severe, with psychotic features Fatty liver Generalized anxiety disorder Hypertension Hypothyroidism (acquired) IBS (irritable bowel syndrome) diagnosed in 2010, but she prefers not to follow up with GI on this issue and feels her symptoms are much improved. in 2019, she went to [place] and saw Dr Pineda and had a cyst on her tailbone. 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 Nicotine dependence, cigarettes, uncomplicated Psychiatric care Seasonal allergic rhinitis due to pollen Tick fever 2016 Surgical History History of cholecystectomy History of hysterectomy without BSO History of thyroid cyst 2015 Hx of colonoscopy 2019 Family History Grandmother Diabetes Brother Diabetes Social History Smoking and tobacco status: current every day smoker cigarettes Packs smoked per day: 1 Years cigarettes smoked: 30 Quit status (tobacco): considering quitting Second hand smoke exposure: Yes Smoking risk assessment/counseling performed?: No Alcohol intake: current Alcohol intake frequency: holidays/special occasions only Desire information about alcohol rehabilitation?: No Counseling given: No Desire information about substance/drug rehabilitation?: No Counseling given: No Caregiver/support person: No Lives independently: Yes Household members: spouse Housing: House Marital status: Number of children: 2 service: No Current occupational status: unemployed Current gender identity: Female Physical Exam Const: COMMON NORMALS: no acute distress, patient oriented x3 and healthy appearing HENMT: COMMON NORMALS: normocephalic and atraumatic HEAD & SCALP: normocephalic and atraumatic Eye: COMMON NORMALS: Equal, round and reactive pupils present and EOMs intact bilaterally PUPIL: Yes Equal, round and reactive pupils present Neck/C-Spine: COMMON NORMALS: full ROM and supple Chest: COMMONS NORMALS: normal inspection of the chest and normal palpation of entire chest wall Resp: COMMON NORMALS: normal respiratory effort, No retractions, No use of accessory muscles and clear to auscultation bilaterally AUSCULTATION: clear to auscultation bilaterally Cardio: COMMON NORMALS: regular rate, regular rhythm and No murmurs present (Cardio) RATE: regular rate RHYTHM: regular rhythm GI: COMMON NORMALS: Normal to inspection, nondistended, normoactive bowel sounds present, Soft to palpation, non-tender and no masses PALPATION: Yes Soft to palpation Extremity: COMMON NORMALS: normal to inspection and full ROM Neuro: COMMON NORMALS: patient oriented x3, moves all extremities and no focal motor deficits Psych: COMMON NORMALS: mental status grossly normal, Normal thought process present and cooperative THOUGHT PROCESS: Normal thought process present T HOUGHT CONTENT: Yes Suicidality present Skin: COMMON NORMALS: no rashes or lesions noted and no wounds GENERAL SKIN EXAM: no rashes or lesions noted Course Vital Signs: Vital signs: Vital Signs Pulse Rate 113 H 08/04/22 18:14 Respiratory Rate 16 08/04/22 18:14 Pulse Oximetry 96 08/04/22 18:14 Oxygen Delivery Me thod 08/04/22 18:14 MDM - Psych Medical Decision Making Patient presents for suicidal ideations patient was eval by Dr. Pace and will admit med again for reevaluation she has been stable while here. Lab Data 08/04/22 18:20 08/04/22 18:20 Laboratory Results WBC 9.5 10^3/uL (4.0-10.0) 08/04/22 18:20 RBC 4.84 10^6/uL (4.1-5.3) 08/04/22 18:20 Hgb 14.5 g/dL (11.5-15.3) 08/04/22 18:20 Hct 42.2 % (37.0-47.0) 08/04/22 18:20 MCV 87.2 fl (81-99) 08/04/22 18:20 MCH 30.0 pg (28.0-34.0) 08/04/22 18:20 MCHC 34.4 g/dL (30.0-36.0) 08/04/22 18:20 RDW 13.2 % (12.1-15.1) 08/04/22 18:20 Plt Count 319 10^3/cmm (130-400) 08/04/22 18:20 MPV 11.1 fL (7.4-10.4) H 08/04/22 18:20 Neut % (Auto) 47.9 % 08/04/22 18:20 Lymph % (Auto) 41.8 % 08/04/22 18:20 Berg[place] % (Auto) 8.5 % 08/04/22 18:20 Eos % (Auto) 1.0 % 08/04/22 18:20 Baso % (Auto) 0.5 % 08/04/22 18:20 Neut # (Auto) 4.56 10^3/uL (1.8-7.7) 08/04/22 18:20 Lymph # (Auto) 4.0 10^3/uL (0.8-4.8) 08/04/22 18:20 [place] # (Auto) 0.8 10^3/uL (0.2-0.9) 08/04/22 18:20 Eos # (Auto) 0.1 10^3/uL (0.0-0.8) 08/04/22 18:20 Baso # (Auto) 0.1 10^3/uL (0.0-0.1) 08/04/22 18:20 Nucleated RBC % (auto) 0 % 08/04/22 18:20 Nucleated RBCs # 0.0 /100WBC 08/04/22 18:20 Sodium 140 mmol/L (136-145) 08/04/22 18:20 Potassium 4.3 mmol/L (3.5-5.1) 08/04/22 18:20 Chloride 100 mmol/L (98-107) 08/04/22 18:20 Carbon Dioxide 26 mmol/L (22-29) 08/04/22 18:20 Anion Gap 18.3 (5-19) 08/04/22 18:20 BUN 8 mg/dL (6-20) 08/04/22 18:20 Creatinine 0.7 mg/dL (0.5-0.9) 08/04/22 18:20 GFR Calculation 88.6 mL/min (90-130) L 08/04/22 18:20 Glucose 116 mg/dL (65-115) H 08/04/22 18:20 Calculated Osmolality 289 mOsm/kg (285-295) 08/04/22 18:20 Calcium 9.7 mg/dL (8.5-10.5) 08/04/22 18:20 Total Bilirubin 0.6 mg/dL (0.15-1.2) 08/04/22 18:20 AST 35 U/L (0-32) H 08/04/22 18:20 ALT 41 U/L (0-33) H 08/04/22 18:20 Alkaline Phosphatase 95 U/L (35-105) 08/04/22 18:20 Total Protein 7.5 g/dL (6.6-8.7) 08/04/22 18:20 Albumin 4.9 g/dL (3.5-5.2) 08/04/22 18:20 Globulin 2.6 g/dL (1.3-4.6) 08/04/22 18:20 Salicylates 1.5 mg/dL (3-10) L 08/04/22 18:20 Acetaminophen < 5.0 ug/mL (10-30) L 08/04/22 18:20 Ethyl Alcohol < 10 mg/dL (0-10) 08/04/22 18:20 Discharge Plan Discharge Patient Disposition: Admitted As Inpatient Clinical Impression: Suicidal ideation Condition: Stable Prescriptions: No Action acetaminophen [Tylenol] 325 mg capsule 325 mg PO QID PRN (Reason: Pain) metoprolol succinate 25 mg tablet extended release 24 hr 25 mg PO DAILY atorvastatin 20 mg tablet 20 mg PO QPM melatonin 5 mg capsule 5 mg PO BEDTIME bupropion HCl [Wellbutrin SR] 100 mg tablet sustained-release 12 hr 100 mg PO QAM Qty: 90 2RF levothyroxine 75 mcg tablet 75 mcg PO DAILY Qty: 90 3RF losartan 25 mg tablet 25 mg PO DAILY Qty: 90 3RF azelastine 137 mcg (0.1 %) aerosol,spray 1 spray intranasal BID PRN (Reason: Allergy Symptoms) Rx Instructions: administer into each nostril loratadine 10 mg tablet 10 mg PO DAILY omega 9-stu-brf-fish oil [Fish Oil] 300-1,000 mg Capsule 1 cap PO BID Probiotic 10 billion cell Capsule 10,000 mmu cells PO DAILY ondansetron 4 mg tablet,disintegrating 4 mg PO Q8H PRN (Reason: nausea and vomiting) Qty: 15 0RF clonidine HCl 0.1 mg Tablet 0.1 mg PO TID PRN (Reason: Hypertension) 30 Days Qty: 90 1RF trazodone 50 mg Tablet 50 mg PO BEDTIME PRN (Reason: Sleep) 30 Days Qty: 30 1RF clonazepam 1 mg Tablet 1 mg PO BEDTIME 30 Days Qty: 30 1RF hydroxyzine pamoate 25 mg Capsule 50 mg PO Q6H PRN (Reason: Anxiety) 30 Days Qty: 120 1RF Latuda 40 mg tablet 80 mg PO DAILY Referrals: Anuj Aparicio [employer] [Primary Care Provider] - Coding Level of Care Code ED Gambling Floor Supervisor for Melissa Rodriges
[2022-08-04 19:51] LABS: Amphetamines Screen Urine Negative (Negative); Barbiturates Screen Urine Negative (Negative); Benzodiazepines Screen Urine Negative (Negative); Cocaine Screen Urine Negative (Negative); Opiate Screen Urine Negative (Negative); PCP Screen Urine Negative (Negative); THC Screen Urine Negative (Negative)
[2022-08-04] MEDS: CLONazepam 1 mg Tablet 2 MG PO (20:09)
[2022-08-04 20:18] VITALS: BP 142/107
[2022-08-04 21:16] VITALS: RESP 16
[2022-08-04 21:35] VITALS: BMI 29.2
[2022-08-04 22:13] VITALS: BP 127/91; PULSE 92; RESP 18; TEMP 36.4; O2SAT 93
[2022-08-05 06:00] VITALS: BP 133/84; PULSE 102; RESP 17; TEMP 36.7; O2SAT 95
[2022-08-05] MEDS: lurasidone 20 mg Tablet 40 MG PO (10:35)
[2022-08-05] MEDS: losartan 50 mg Tablet 25 MG PO (10:36)
[2022-08-05] MEDS: buPROPion SR (12 HR) 100 mg Tablet PO (10:36)
[2022-08-05] MEDS: levothyroxine 75 mcg Tablet PO (10:39)
[2022-08-05] MEDS: loratadine 10 mg Tablet PO (10:39)
[2022-08-05] MEDS: metoprolol succinate ER (24 HR) 25 mg Tablet PO (10:39)
--- NOTE | 2022-08-05 11:19 | P.NPUHP_ITS ---
Providers/Chief Complaint Admitting Physician: Alfonzo Pace MD Primary Care Provider: Anuj Aparicio Chief Complaint: psych eval HPI [facility] History of Present Illness Mabel Still is a 51 year old female who presented to the emergency department with the following report: Chief Complaint: Psychiatric Symptoms Stated Complaint: psych eval Time Seen by Provider: 08/04/22 18:05 Source: patient Mode of arrival: ambulatory Limitations: no limitations History of Present Illness: 51-year-old female who is here states that she was discharged from the [facility] yesterday she states she been having hallucinations trouble sleeping and continued suicidal ideations she denies any worsening proving factors has no other complaints at this time. Associated symptoms: Reports depression. She was admitted to the neuropsychiatric unit for definitive treatment of those issues. Her was advised by the emergency department that he could give her an increased dose of Klonopin at night to see if that did not help with her sleep and help decrease some of the symptoms. She presents this morning having gotten that increased dose of Klonopin and she slept quite well with no difficulties. She denied any changes from her last hospitalization which was less than 24 hours ago. We discussed the plan to repeat the plan for a benzodiazepine at night to ensure that she gets sleep and plan on utilizing that until she sinks into a good pattern of rest. We discussed this likely being a very short hospitalization and once we have verified that we can get sleep with her limited symptoms when she gets rest we will discharge again for continued convalescence at home. Per her 08/03/2022 [facility] inpatient psychiatric discharge summary: high B/P Brief History: History of Present Illness Mabel Still is a 51 year old female who scented to the emergency department on 07/27/2022 accompanied by her with the patient's stating that he was concerned that his had been enduring a manic episode. She had apparen tly received a injection or pills of morphine and a prescription for oxycodone a few days prior and the patient had not slept in several days. She had been apparently behavior at behaving abnormally including chain smoking inside of the home while flicking her cigarette butts throughout the house. 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 The patient has an extended history of psychiatric services through [facility] previously followed by Janae Ferrer. In a previous appointment 13 days ago, the patient had been documented to have been not sleeping with increased goal-directed behavior and some reports of difficulties with compliance with medications. The patient was a poor historian and was unable to provide any history when interviewed at the neuropsychiatric unit. Past psychiatric history: She does appear to have a previous history of inpatient hospitalizations with most recent hospitalization at the [facility] in 2019. She has a reported history of bipolar disorder type I most recent episode severe with psychotic features. Medical history: Hypercholesterolemia, fatty liver disease, hypertension, hypothyroidism, irritable bowel syndrome,nicotine dependence, seasonal allergic rhinitis, Surgical history: Cholecystectomy, hysterectomy without BSO, history of thyroid cyst, history of colonoscopy Allergies: Morphine, oxycodone, haloperidol, sulfa drugs, iodine contrast Medications: Wellbutrin SR 100 mg in the morning, Latuda 40 mg at 6 PM. , Klonopin 0.5 mg twice a day, trazodone 100 mg at night, loratadine, losartan, estradiol, levothyroxine, dicyclomine, azelastine, atorvastatin Substance abuse history: Per previous records occasional alcohol use, 30 pack year smoker. No history of illicit drug use Social history: Patient is reportedly and has 2 children and is currently unemployed. She apparently lives with her spouse, other social hist ory is unknown. Family psychiatric history: Unknown Hospital Course Hospital Course She slowly acclimated to the individual, group and milieu therapies provided. She presented with psychosis and erratic behavior. Her home medications were continued however her Latuda was titrated to 80 mg p.o. 2 daily with a meal. She had slow improvement. She has a history of discharging and returning sonia blair in relation to sleep difficulties mostly. But felt that she was looking appropriate and back to her normal self. She showed marked improvement during her stay and was able to contract for safety outside the hospital prior to discharge. During the hospitalization she had routine laboratory studies which were within normal limits except for those identified and managed by the hospitalists. Additionally she had a general medical evaluation which was also within normal limits and revealed no new acute processes related to the overdose. Discharge summary: At the time of discharge, she denied lethality and psychosis was resolving. Her mood and anxiety were well managed and she endorsed a plan to follow-up with outpatient services per the treatment team's recommendations. She was evaluated and deemed to be absent credible lethality and achieved a maximal benefit from an inpatient hospitalization, so she was discharged. Meds [facility] Home Medications Medication Instructions Recorded Confirmed Last Taken Type metoprolol succinate 25 mg 25 mg PO DAILY 01/10/22 08/04/22 08/03/22 History tablet,extended release 24 hr atorvastatin 20 mg tablet 20 mg PO BEDTIME 05/24/22 08/05/22 08/03/22 History azelastine 137 mcg (0.1 %) nasal 1 spray intranasal BID PRN Allergy 07/22/22 08/04/22 Unknown History spray aerosol Symptoms loratadine 10 mg tablet 10 mg PO DAILY 07/22/22 08/04/22 08/04/22 History losartan 25 mg tablet 25 mg PO DAILY #90 tabs 07/22/22 08/04/22 08/04/22 Rx ondansetron 4 mg disintegrating 4 mg PO Q8H PRN nausea and 07/22/22 08/04/22 Unknown Rx tablet vomiting #15 tabs levothyroxine 75 mcg tablet 75 mcg PO DAILY #90 tabs 07/25/22 08/04/22 08/04/22 Rx clonazepam 1 mg tablet 1 mg PO BEDTIME 30 days #30 tabs 08/03/22 08/04/22 08/03/22 Rx clonidine HCl 0.1 mg tablet 0.1 mg PO TID PRN Hypertension 30 08/03/22 08/04/22 Unknown Rx days #90 tabs trazodone 50 mg tablet 50 mg PO BEDTIME PRN Sleep 30 days 08/03/22 08/04/22 08/03/22 Rx #30 tabs lurasidone 40 mg tablet (Latuda) 40 mg PO DAILY 08/04/22 08/05/22 Unknown History bupropion HCl 100 mg tablet,12 hr 100 mg PO DAILY 08/05/22 08/05/22 08/04/22 History sustained-release (Wellbutrin SR) Allergies Allergy/AdvReac Type Severity Reaction Status Date / Time morphine Allergy Severe ADR-Nausea Verified 07/25/22 10:18 oxycodone Allergy Severe ADR-Nausea Verified 07/25/22 10:18 haloperidol [From Haldol] Allergy Unknown Unknown Verified 07/25/22 10:18 Iodinated Contrast Media Allergy Unknown vomiting Verified 07/25/22 10:18 Sulfa (Sulfonamide Allergy Unknown rash Verified 07/25/22 10:18 Antibiotics) PFSH N[facility] PFSH: Medical History Bipolar disorder, current episode mixed, severe, with psychotic features Fatty liver Generalized anxiety disorder Hypertension Hypothyroidism (acquired) IBS (irritable bowel syndrome) diagnosed in 2010, but she prefers not to follow up with GI on this issue and feels her symptoms are much improved. in 2019, she went to [place] and saw Dr Pineda and had a cyst on her tailbone. 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 Nicotine dependence, cigarettes, uncomplicated Psychiatric care Seasonal allergic rhinitis due to pollen Tick fever 2016 Surgical History History of cholecystectomy History of hysterectomy without BSO History of thyroid cyst 2015 Hx of colonoscopy 2019 Family History Grandmother Diabetes Brother Diabetes Social History Smoking and tobacco status: current every day smoker cigarettes Packs smoked per day: 1 Years cigarettes smoked: 30 Quit status (tobacco): considering quitting Second hand smoke exposure: Yes Smoking risk assessment/counseling performed?: No Alcohol intake: current Alcohol intake frequency: holidays/special occasions only Desire information about alcohol rehabilitation?: No Counseling given: No Desire information about substance/drug rehabilitation?: No Counseling given: No Caregiver/support person: No Lives independently: Yes Household members: spouse Housing: House Marital status: Number of children: 2 service: No Current occupational status: unemployed Current gender identity: Female Mental Status Exam MSE Comments: This is a well-nourished well-developed overweight white female in hospital scrubs with limited grooming and improving eye contact. No abnormal movements. Cooperative with exam in no acute distress. Speech was slightly increased rate and normal volume. Mood described as better with that sleep, affect congruent. Thought process appeared mostly organized. Thought content: Patient denied suicidal or homicidal ideation, endorses resolving paranoia but did not appear guarded, she denied significant auditory or visual hallucinations and did not necessarily appear to be attending to internal stimuli. Attention and concentration appear intact and memory appeared mostly reliable but none were formally tested. She is alert and oriented x3. Insight and judgment appe ar fair impulse control appears fair. Vitals/I&O/Wt Last Vital Signs Temp 98.1 F 08/05/22 06:00 Pulse 102 H 08/05/22 06:00 Resp 17 08/05/22 06:00 BP 133/84 08/05/22 06:00 Pulse Ox 95 08/05/22 06:00 O2 Del Method 08/05/22 06:00 Weight last 48 hrs Weight 72.575 kg Weight 72.575 kg Data NPU 08/04/22 18:20 08/04/22 18:20 A&P Assessment and plan (1) Acute psychosis: (2) Bipolar disorder, current episode mixed, severe, with psychotic features: Plan Is a 51-year-old white female who presents with acute bryan with psychotic features with a past history of bipolar 1 disorder with recent decompensation apparently triggered by some new medication trial. She will continue to require acute inpatient hospitalization at this time with likely medication changes recommended and will be implemented. #1. Current medication except give 2 mg of Klonopin p.o. nightly to assist with sleep. #2. Continue 15-minute checks for safety on the unit. #3. Engage patient in individual group and milieu therapy. #4. We will attempt to make this a short hospitalization with her demonstrating reasonable sleep again tonight we will look to discharge tomorrow. Involuntary Hold Information 96 Hour Hold: 96 Hour Involuntary Admission: No Attestations [facility] Medical Necessity Statement*: Inpatient psychiatric hospitalization is medically necessary and the clinically appropriate intervention at this time. We will monitor and implement medication changes as indicated. Patient will be in the hospital over 2 midnights. Likely length of stay of 1-2 days. Coding Level of Care Code Acute Code for Chg Fwd Diagnoses Acute psychosis F23 Bipolar disorder, current episode mixed, severe, with psychotic features F31.64
[2022-08-05] MEDS: nicotine 2 mg Gum BUCCAL ×3 (13:26→21:18)
[2022-08-05 14:00] VITALS: BP 111/75; PULSE 101; RESP 18; TEMP 36.7; O2SAT 95
[2022-08-05] MEDS: atorvastatin 40 mg Tablet 20 MG PO (21:17)
[2022-08-05] MEDS: CLONazepam 1 mg Tablet 2 MG PO (21:17)
[2022-08-05 22:00] VITALS: BP 128/89; PULSE 98; RESP 18; TEMP 36.7; O2SAT 96
[2022-08-06] MEDS: nicotine 2 mg Gum BUCCAL ×4 (00:28→16:01)
[2022-08-06] MEDS: hyDROXYzine 25 mg Capsule 50 MG PO (01:13)
[2022-08-06] MEDS: trazodone 50 mg Tablet PO ×2 (01:13→22:35)
--- NOTE | 2022-08-06 01:17 | PC.NURSE ---
Patient unable to sleep up at around 0030; went to dayroom to work on puzzle, came and asked for additional sleep aid at about 0110. Given 50mg Trazodone and 50mg Vistaril PO.
[2022-08-06] MEDS: blistex lip oint 7 gm Tube 1 APPLIC TOPICAL ×5 (05:30→22:18)
[2022-08-06 06:00] VITALS: BP 114/78; PULSE 84; RESP 16; TEMP 36.4; O2SAT 94
[2022-08-06] MEDS: acetaminophen 325 mg Tablet 650 MG PO ×2 (08:36→13:52)
[2022-08-06 08:37] VITALS: BP 114/78
[2022-08-06] MEDS: losartan 50 mg Tablet 25 MG PO (08:37)
[2022-08-06] MEDS: lurasidone 20 mg Tablet 40 MG PO (08:37)
[2022-08-06] MEDS: metoprolol succinate ER (24 HR) 25 mg Tablet PO (08:38)
[2022-08-06] MEDS: buPROPion SR (12 HR) 100 mg Tablet PO (08:38)
[2022-08-06] MEDS: loratadine 10 mg Tablet PO (08:38)
[2022-08-06] MEDS: levothyroxine 75 mcg Tablet PO (08:38)
[2022-08-06 14:00] VITALS: BP 141/91; PULSE 93; RESP 18; TEMP 36.6; O2SAT 96
--- NOTE | 2022-08-06 16:32 | W.PM.NPUPNS ---
Subjective NPU Subjective: Patient presented today reporting that she did not sleep as well last night as the night before. We spoke with her who expressed concerns and we agreed to give it 1 more day. Partially this was due to him wanting to make sure he was able to get the Klonopin as the appropriate dose to be able to help her with her sleep. We agreed we see how she was doing in the morning. Mental Status Exam MSE Comments: This is a well-nourished well-developed overweight white female in hospital scrubs with limited grooming and improving eye contact. No abnormal movements. Cooperative with exam in no acute distress. Speech was slightly increased rate and normal volume. Mood described as okay sleep not as good, affect congruent. Thought process appeared mostly organized. Thought content: Patient denied suicidal or homicidal ideation, endorses resolving paranoia but did not appear guarded, she denied significant auditory or visual hallucinations and did not necessarily appear to be attending to internal stimuli. Attention and concentration appear intact and memory appeared mostly reliable but none were formally tested. She is alert and oriented x3. Insight and judgment appear fair impulse control appears fair. Vitals/I&O/Wt Last Vital Signs Temp 98 F 08/06/22 14:00 Pulse 93 08/06/22 14:00 Resp 18 08/06/22 14:00 BP 141/91 08/06/22 14:00 Pulse Ox 96 08/06/22 14:00 O2 Del Method 08/06/22 14:00 Weight last 48 hrs Weight 75.41 kg Data NPU 08/04/22 18:20 08/04/22 18:20 A&P Assessment and plan (1) Acute psychosis: (2) Bipolar disorder, current episode mixed, severe, with psychotic features: Plan Is a 51-year-old white female who presents with acute bryan with psychotic features with a past history of bipolar 1 disorder with recent decompensation apparently triggered by some new medication trial. She will continue to require acute inpatient hospitalization at this time with likely medication changes recommended and will be implemented. #1. Current medication except give 2 mg of Klonopin p.o. nightly to assist with sleep. #2. Continue 15-minute checks for safety on the unit. #3. Engage patient in individual group and milieu therapy. #4. We will attempt to make this a short hospitalization with her demonstrating reasonable sleep again tonight we will look to discharge tomorrow. Involuntary Hold Information 96 Hour Hold: 96 Hour Involuntary Admission: No Attestations [facility] Medical Necessity Statement*: Inpatient psychiatric hospitalization is medically necessary and the clinically appropriate intervention at this time. We will monitor and implement medication changes as indicated. Likely length of stay of 1-2 days. Coding Level of Care Code Acute Code for Chg Fwd Diagnoses Acute psychosis F23 Bipolar disorder, current episode mixed, severe, with psychotic features F31.64
[2022-08-06] MEDS: atorvastatin 40 mg Tablet 20 MG PO (19:31)
[2022-08-06] MEDS: CLONazepam 1 mg Tablet 2 MG PO (19:32)
[2022-08-06 22:00] VITALS: BP 129/83; PULSE 85; TEMP 36.7; O2SAT 96
[2022-08-07] MEDS: blistex lip oint 7 gm Tube 1 APPLIC TOPICAL ×2 (01:56→10:33)
[2022-08-07] MEDS: guaiFENesin 600 mg Tablet PO (03:04)
[2022-08-07 05:57] VITALS: BP 128/86; PULSE 93; TEMP 36.6; O2SAT 93
[2022-08-07] MEDS: losartan 50 mg Tablet 25 MG PO (09:09)
[2022-08-07] MEDS: loratadine 10 mg Tablet PO (09:09)
[2022-08-07] MEDS: metoprolol succinate ER (24 HR) 25 mg Tablet PO (09:09)
[2022-08-07] MEDS: buPROPion SR (12 HR) 100 mg Tablet PO (09:09)
[2022-08-07] MEDS: levothyroxine 75 mcg Tablet PO (09:09)
[2022-08-07] MEDS: lurasidone 20 mg Tablet 40 MG PO (09:09)
[2022-08-07] MEDS: nicotine 2 mg Gum BUCCAL (10:31)
[2022-08-07] MEDS: acetaminophen 325 mg Tablet 650 MG PO (10:32)
--- NOTE | 2022-08-07 13:49 | W.PM.NPUDCS ---
Diagnoses at Discharge Discharge Diagnosis (1) Acute psychosis: Status: Acute (2) Bipolar disorder, current episode mixed, severe, with psychotic features: Status: Chronic Reason for Visit Reason for Visit: psych eval Brief History: Mabel Still is a 51 year old female who presented to the emergency department with the following report: Chief Complaint: Psychiatric Symptoms Stated Complaint: psych eval Time Seen by Provider: 08/04/22 18:05 Source: patient Mode of arrival: ambulatory Limitations: no limitations History of Present Illness: 51-year-old female who is here states that she was discharged from the [facility] yesterday she states she been having hallucinations trouble sleeping and continued suicidal ideations she denies any worsening proving factors has no other complaints at this time. Associated symptoms: Reports depression. She was admitted to the neuropsychiatric unit for definitive treatment of those issues. Her was advised by the emergency department that he could give her an increased dose of Klonopin at night to see if that did not help with her sleep and help decrease some of the symptoms. She presents this morning having gotten that increased dose of Klonopin and she slept quite well with no difficulties. She denied any changes from her last hospitalization which was less than 24 hours ago. We discussed the plan to repeat the plan for a benzodiazepine at night to ensure that she gets sleep and plan on utilizing that until she sinks into a good pattern of rest. We discussed this likely being a very short hospitalization and once we have verified that we can get sleep with her limited symptoms when she gets rest we will discharge again for continued convalescence at home. Per her 08/03/2022 [facility] inpatient psychiatric discharge summary: high B/P Brief History: History of Present Illness Mabel Still is a 51 year old female who scented to the emergency department on 07/27/2022 accompanied by her with the patient's stating that he was concerned that his had been enduring a manic episode. She had apparently received a injection or pills of morphine and a prescription for oxycodone a few days prior and the patient had not slept in several days. She had been apparently behavior at behaving abnormally including chain smoking inside of the home while flicking her cigarette butts throughout the house. 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 The patient has an extended history of psychiatric services through [facility] previously followed by Janae Ferrer. In a previous appointment 13 days ago, the patient had been documented to have been not sleeping with increased goal-directed behavior and some reports of difficulties with compliance with medications. The patient was a poor historian and was unable to provide any history when interviewed at the neuropsychiatric unit. Past psychiatric history: She does appear to have a previous history of inpatient hospitalizations with most recent hospitalization at the [facility] in 2019. She has a reported history of bipolar disorder type I most recent episode severe with psychotic features. Medical history: Hypercholesterolemia, fatty liver disease, hypertension, hypothyroidism, irritable bowel syndrome,nicotine dependence, seasonal allergic rhinitis, Surgical history: Cholecystectomy, hysterectomy without BSO, history of thyroid cyst, history of colonoscopy Allergies: Morphine, oxycodone, haloperidol, sulfa drugs, iodine contrast Medications: Wellbutrin SR 100 mg in the morning, Latuda 40 mg at 6 PM. , Klonopin 0.5 mg twice a day, trazodone 100 mg at night, loratadine, losartan, estradiol, levothyroxine, dicyclomine, azelastine, atorvastatin Substance abuse history: Per previous records occasional alcohol use, 30 pack year smoker. No history of illicit drug use Social history: Patient is reportedly and has 2 children and is currently unemployed. She apparently lives with her spouse, other social history is unknown. Family psychiatric history: Unknown Hospital Course Hospital Course She slowly acclimated to the individual, group and milieu therapies provided. She presented with psychosis and erratic behavior. Her home medications were continued however her Latuda was titrated to 80 mg p.o. 2 daily with a meal. She had slow improvement. She has a history of discharging and returning quickly in relation to sleep difficulties mostly. But felt that she was looking appropriate and back to her normal self. She showed marked improvement during her stay and was able to contract for safety outside the hospital prior to discharge. During the hospitalization she had routine laboratory studies which were within normal limits except for those identified and managed by the hospitalists. Additionally she had a general medical evaluation which was also within normal limits and revealed no new acute processes related to the overdose. Discharge summary: At the time of discharge, she denied lethality and psychosis was resolving. Her mood and anxiety were well managed and she endorsed a plan to follow-up with outpatient services per the treatment team's recommendations. She was evaluated and deemed to be absent credible lethality and achieved a maximal benefit from an inpatient hospitalization, so she was discharged. Hospital Course Hospital Course She slowly acclimated to the individual, group and milieu therapies provided.? She presented back to the hospital after her reported that she was not getting sleep and acting strangely. We assured that she was given 2 mg of Klonopin at night to try to assist and propelling the psychotic/manic mysticism sleep. Additionally there is some concern that the had given her the 80 mg of Latuda that she will change to less than 40 mg that she started on 2 hospitalizations ago. We monitored her for a couple days and work with her Bobo understood what to do for the Klonopin at night and to ensure he understood the accurate dosing of these medications. She showed modest improvement during her stay and was able to contract for safety outside the hospital prior to discharge.? During the hospitalization she had routine laboratory studies which were within normal limits except for those identified and managed by the hospitalists.? Additionally she had a general medical evaluation which was also within normal limits and revealed no new acute processes related to the overdose. Discharge summary: At the time of discharge, she denied lethality and psychosis was resolving.? Her mood and anxiety were well managed and she endorsed a plan to follow-up with outpatient services per the treatment team's recommendations.? She was evaluated and deemed to be absent credible lethality and achieved a maximal benefit from an inpatient hospitalization, so she was discharged. Involuntary Hold Information 96 Hour Hold: 96 Hour Involuntary Admission: No Mental Status Exam MSE Comments: This is a well-nourished well-developed overweight white female in hospital scrubs with limited grooming and improving eye contact. No abnormal movements. Cooperative with exam in no acute distress. Speech was slightly increased rate and normal volume. Mood described as okay slept better, affect congruent. Thought process appeared mostly organized. Thought content: Patient denied suicidal or homicidal ideation, endorses resolving paranoia but did not appear guarded, she denied significant auditory or visual hallucinations and did not necessarily appear to be attending to internal stimuli. Attention and concentration appear intact and memory appeared mostly reliable but none were formally tested. She is alert and oriented x3. Insight and judgment appear fair impulse control appears fair. Discharge Data Studies Completed and Pending: Laboratory Results WBC 9.5 10^3/uL (4.0- 10.0) 08/04/22 18:20 RBC 4.84 10^6/uL (4.1 -5.3) 08/04/22 18:20 Hgb 14.5 g/dL (11.5-1 5.3) 08/04/22 18:20 Hct 42.2 % (37.0-47.0 ) 08/04/22 18:20 MCV 87.2 fl (81-99) 08/04/22 18:20 MCH 30.0 pg (28.0-34. 0) 08/04/22 18:20 MCHC 34.4 g/dL (30.0-3 6.0) 08/04/22 18:20 RDW 13.2 % (12.1-15.1 ) 08/04/22 18:20 Plt Count 319 10^3/cmm (130 -400) 08/04/22 18:20 MPV 11.1 fL (7.4-10.4 ) H 08/04/22 18:20 Neut % (Auto) 47.9 % 08/04/22 18:20 Lymph % (Auto) 41.8 % 08/04/22 18:20 Wake % (Auto) 8.5 % 08/04/22 18:20 Eos % (Auto) 1.0 % 08/04/22 18:20 Baso % (Auto) 0.5 % 08/04/22 18:20 Neut # (Auto) 4.56 10^3/uL (1.8 -7.7) 08/04/22 18:20 Lymph # (Auto) 4.0 10^3/uL (0.8- 4.8) 08/04/22 18:20 Wake # (Auto) 0.8 10^3/uL (0.2- 0.9) 08/04/22 18:20 Eos # (Auto) 0.1 10^3/uL (0.0- 0.8) 08/04/22 18:20 Baso # (Auto) 0.1 10^3/uL (0.0- 0.1) 08/04/22 18:20 Nucleated RBC % (a uto) 0 % 08/04/22 18:20 Nucleated RBCs # 0.0 /100WBC 08/04/22 18:20 Sodium 140 mmol/L (136-1 45) 08/04/22 18:20 Potassium 4.3 mmol/L (3.5-5 .1) 08/04/22 18:20 Chloride 100 mmol/L (98-10 7) 08/04/22 18:20 Carbon Dioxide 26 mmol/L (22-29) 08/04/22 18:20 Anion Gap 18.3 (5-19) 08/04/22 18:20 BUN 8 mg/dL (6-20) 08/04/22 18:20 Creatinine 0.7 mg/dL (0.5-0. 9) 08/04/22 18:20 GFR Calculation 88.6 mL/min (90-1 30) L 08/04/22 18:20 Glucose 116 mg/dL (65-115 ) H 08/04/22 18:20 Calculated Osmolal ity 289 mOsm/kg (285- 295) 08/04/22 18:20 Calcium 9.7 mg/dL (8.5-10 .5) 08/04/22 18:20 Total Bilirubin 0.6 mg/dL (0.15-1 .2) 08/04/22 18:20 AST 35 U/L (0-32) H 08/04/22 18:20 ALT 41 U/L (0-33) H 08/04/22 18:20 Alkaline Phosphata se 95 U/L (35-105) 08/04/22 18:20 Total Protein 7.5 g/dL (6.6-8.7 ) 08/04/22 18:20 Albumin 4.9 g/dL (3.5-5.2 ) 08/04/22 18:20 Globulin 2.6 g/dL (1.3-4.6 ) 08/04/22 18:20 Salicylates 1.5 mg/dL (3-10) L 08/04/22 18:20 Urine Opiates Scre en Negative ng/mL (N egative) 08/04/22 Unknown Acetaminophen < 5.0 ug/mL (10-3 0) L 08/04/22 18:20 Ur Barbiturates Sc reen Negative ng/mL (N egative) 08/04/22 Unknown Ur Phencyclidine S crn Negative ng/mL (N egative) 08/04/22 Unknown Ur Amphetamines Sc reen Negative ng/mL (N egative) 08/04/22 Unknown U Benzodiazepines Scrn Negative ng/mL (N egative) 08/04/22 Unknown Urine Cocaine Scre en Negative ng/mL (N egative) 08/04/22 Unknown U Marijuana (THC) Screen Negative ng/mL (N egative) 08/04/22 Unknown Ethyl Alcohol < 10 mg/dL (0-10) 08/04/22 18:20 Vitals: Last Vital Signs Temp 97.9 F 08/07/22 05:57 Pulse 93 08/07/22 05:57 Resp 18 08/06/22 14:00 BP 128/86 08/07/22 05:57 Pulse Ox 93 08/07/22 05:57 O2 Del Method 08/07/22 05:57 Discharge Plan Discharge Patient Disposition: Home Condition: Stable Prescriptions: New clonazepam 2 mg tablet 2 mg PO BEDTIME 30 Days Qty: 30 0RF trazodone 100 mg tablet 100 mg PO BEDTIME PRN (Reason: Sleep) 30 Days Qty: 30 1RF Continued metoprolol succinate 25 mg tablet extended release 24 hr 25 mg PO DAILY atorvastatin 20 mg tablet 20 mg PO BEDTIME levothyroxine 75 mcg tablet 75 mcg PO DAILY Qty: 90 3RF losartan 25 mg tablet 25 mg PO DAILY Qty: 90 3RF azelastine 137 mcg (0.1 %) aerosol,spray 1 spray intranasal BID PRN (Reason: Allergy Symptoms) Rx Instructions: administer into each nostril loratadine 10 mg tablet 10 mg PO DAILY ondansetron 4 mg tablet,disintegrating 4 mg PO Q8H PRN (Reason: nausea and vomiting) Qty: 15 0RF clonidine HCl 0.1 mg Tablet 0.1 mg PO TID PRN (Reason: Hypertension) 30 Days Qty: 90 1RF trazodone 50 mg Tablet 50 mg PO BEDTIME PRN (Reason: Sleep) 30 Days Qty: 30 1RF Latuda 40 mg tablet 80 mg PO DAILY Wellbutrin SR 100 mg tablet sustained-release 12 hr 100 mg PO DAILY Discontinued clonazepam 1 mg Tablet 1 mg PO BEDTIME 30 Days Qty: 30 1RF Discharge Orders: Discharge Order (Routine); Ordered 08/07/22 Ordered By: Alfonzo Pace Referrals: Vanesa Wild, PMNICKYP [Staff Physician] - 08/11/22 9:45 am (Follow up) Anuj Aparicio, VICE PRESIDENT UND[employer]WRITING [Primary Care Provider] - 08/09/22 9:00 am (Follow up. ) Discharge Diet: Regular Discharge Activity: Resume usual activity Patient Instructions: Opioid Safety Discharge Attestations [facility] Time Spent in Discharge Care*: less than 30 min Specific Discharge Activities: Specific discharge activities: educating patient, discussing with clinical case manager/social workers/dc planners, documenting/other paperwork and evaluating patient/reviewing data Coding Level of Care Code Acute Chg FW DC note Diagnoses Acute psychosis F23 Bipolar disorder, current episode mixed, severe, with psychotic features F31.64
[2022-08-07 14:00] VITALS: BP 132/86; PULSE 74; RESP 18; TEMP 36.7; O2SAT 96
[2022-08-07 14:18] VITALS: BP 132/86; PULSE 74; RESP 18; TEMP 36.7; O2SAT 96
--- NOTE | 2022-08-07 14:43 | PC.NURSE ---
pt left via pov and spouse. discharge discussed with CHRISTI Meadows.
== END 2022-08-07 14:43 | disposition home or self-care (01) | DRG 885 ==
LOC: ER 20:16 → NP 20:22
PROVIDERS: Admitting Provider Psychiatry & Neurology Psychiatry; Emergency Provider Emergency Medicine; PCP Clinical Nurse Specialist Adult Health; Visit Provider Psychiatry & Neurology Psychiatry
DX: F31.64 Bipolar disorder, current episode mixed, severe, with psychotic features (principal); R45.851 Suicidal ideations; F41.1 Generalized anxiety disorder; I10 Essential (primary) hypertension; E03.9 Hypothyroidism, unspecified; F17.210 Nicotine dependence, cigarettes, uncomplicated
CPT/HCPCS: 36415; 80053; 80306; 80307; 85025; 97150; 97165; 99238; 99285

== ENCOUNTER 2022-08-09 16:55 | Emergency (ER) | payer OTHER, SELFPAY ==
[2022-08-09 17:06] VITALS: BP 148/85; PULSE 91; RESP 18; TEMP 36.8; O2SAT 96; BMI 29.2
--- NOTE | 2022-08-09 17:10 | W.ED.PSYCHS ---
Documented by User: Elie Bustillos MD 08/23/22 20:19 HPI - Psych General: Chief Complaint: Psychiatric Symptoms Stated Complaint: psych eval Time Seen by Provider: 08/09/22 17:04 History of Present Illness: Ms Still is a 51-year-old lady with history of bipolar presenting to the emergency department for symptoms of psychosis. She has had multiple recent inpatient stays for psychiatric reasons and was most recently admitted and discharged 2 days ago. Since that time she has not been sleeping despite compliance with medication regimen. Her endorses hallucinations, delusions, mumbling, paranoia. Intensity of symptoms is moderate to severe. Course has worsened. Patient herself seems to have limited awareness of this, she endorses some sore throat and bilateral ear pain, no other infectious symptoms. No other specific changes in health, exacerbating, or alleviating factors identified. Onset (ago): day(s) Duration: getting worse History of same: Yes Relieving factors: none Exacerbating factors: none Associated psychiatric symptoms: depression, auditory hallucinations, visual hallucinations and delusions Associated symptoms: Reports delusions Review of Systems General: Reports: 10 or more systems reviewed and unremarkable except in HPI and below PFS ED PFSH: Medical History Bipolar disorder, current episode mixed, severe, with psychotic features Fatty liver Generalized anxiety disorder Hypertension Hypothyroidism (acquired) IBS (irritable bowel syndrome) diagnosed in 2010, but she prefers not to follow up with GI on this issue and feels her symptoms are much improved. in 2019, she went to [facility] and saw Dr Pineda and had a cyst on her tailbone. 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 Nicotine dependence, cigarettes, uncomplicated Psychiatric care Seasonal allergic rhinitis due to pollen Tick fever 2016 Surgical History History of cholecystectomy History of hysterectomy without BSO History of thyroid cyst 2015 Hx of colonoscopy 2019 Family History Grandmother Diabetes Brother Diabetes Social History Smoking and tobacco status: current every day smoker cigarettes Packs smoked per day: 1 Years cigarettes smoked: 30 Quit status (tobacco): considering quitting Second hand smoke exposure: Yes Smoking risk assessment/counseling performed?: No Alcohol intake: current Alcohol intake frequency: holidays/special occasions only Desire information about alcohol rehabilitation?: No Counseling given: No Desire information about substance/drug rehabilitation?: No Counseling given: No Caregiver/support person: No Lives independently: Yes Household members: spouse Housing: House Marital status: Number of children: 2 service: No Current occupational status: unemployed Current gender identity: Female Physical Exam Const: COMMON NORMALS: alert GENERAL APPEARANCE: cooperative and well developed HENMT: COMMON NORMALS: normocephalic, atraumatic and TM's normal bilaterally HEAD & SCALP: normocephalic and atraumatic TYMPANIC MEMBRANE: TM's normal bilaterally OTHER: Mild posterior pharyngeal erythema, no evidence of deep tissue infection or airway distortion Eye: COMMON NORMALS: conjunctivae normal CONJUNCTIVA: Yes conjunctivae normal SCLERA: sclerae normal Neck/C-Spine: COMMON NORMALS: supple GENERAL: Yes trachea midline Resp: COMMON NORMALS: normal respiratory effort and clear to auscultation bilaterally EFFORT & INSPECTION: Yes able to speak in complete sentences AUSCULTATION: clear to auscultation bilaterally Cardio: COMMON NORMALS: regular rate and regular rhythm RATE: regular rate RHYTHM: regular rhythm GI: COMMON NORMALS: Soft to palpation PALPATION: Yes Soft to palpation and No Tenderness to palpation present (GI) Extremity: GENERAL: Yes normal exam except as noted and No edema Neuro: COMMON NORMALS: moves all extremities SENSORIUM/ORIENTATION: Yes alert and No Orientation impaired Psych: THOUGHT CONTENT: Yes delusions and Yes Hallucination(s) present INSIGHT: Poor insight present (Psych) JUDGEMENT: Limited judgement present (Psych) Course Vital Signs: Vital signs: Vital Signs Temperature 97.7 F 08/10/22 02:52 Pulse Rate 73 08/10/22 05:33 Respiratory Rate 16 08/10/22 05:33 Blood Pressure 106/66 08/10/22 05:33 Pulse Oximetry 97 08/10/22 05:33 Oxygen Delivery Me thod 08/09/22 17:06 [facility] - Psych Medical Decision Making 51-year-old lady with psychiatric history presenting with continued sleep disturbance and psychiatric symptoms. The patient herself offers very poor insight into her current state. She is nontoxic in appearance. She is calm and cooperative. Labs with no hematologic or metabolic abnormality to explain symptoms, the patient has minimal chronic elevation of ALT to peers. TSH is normal. No evidence of urinary tract infection. Toxic ingestions and urine drug screen are negative. Strep and COVID are negative. Given reported clinical history and physical exam there is no indication for imaging at this time. I did discuss the case with our psychiatrist, plan to continue prior medications with the exception of increasing Latuda from 80 mg at bedtime to 100 mg at bedtime. We do not have bed availability at our facility and therefore we will look for transfer. Based on ED evaluation at this point there is no obvious condition that would preclude the patient from inpatient management psychiatric concerns/symptoms. Medical Records I reviewed the patient's medical records. Lab Data I reviewed the patient's lab results. 08/09/22 17:35 08/09/22 17:35 Laboratory Results WBC 9.1 10^3/uL (4.0-10.0) 08/09/22 17:35 RBC 4.55 10^6/uL (4.1-5.3) 08/09/22 17:35 Hgb 13.4 g/dL (11.5-15.3) 08/09/22 17:35 Hct 40.5 % (37.0-47.0) 08/09/22 17:35 MCV 89.0 fl (81-99) 08/09/22 17:35 MCH 29.5 pg (28.0-34.0) 08/09/22 17:35 MCHC 33.1 g/dL (30.0-36.0) 08/09/22 17:35 RDW 12.8 % (12.1-15.1) 08/09/22 17:35 Plt Count 316 10^3/cmm (130-400) 08/09/22 17:35 MPV 11.2 fL (7.4-10.4) H 08/09/22 17:35 Neut % (Auto) 47.4 % 08/09/22 17:35 Lymph % (Auto) 42.7 % 08/09/22 17:35 Coffey % (Auto) 7.3 % 08/09/22 17:35 Eos % (Auto) 1.9 % 08/09/22 17:35 Baso % (Auto) 0.5 % 08/09/22 17:35 Neut # (Auto) 4.33 10^3/uL (1.8-7.7) 08/09/22 17:35 Lymph # (Auto) 3.9 10^3/uL (0.8-4.8) 08/09/22 17:35 Coffey # (Auto) 0.7 10^3/uL (0.2-0.9) 08/09/22 17:35 Eos # (Auto) 0.2 10^3/uL (0.0-0.8) 08/09/22 17:35 Baso # (Auto) 0.1 10^3/uL (0.0-0.1) 08/09/22 17:35 Nucleated RBC % (auto) 0 % 08/09/22 17:35 Nucleated RBCs # 0.0 /100WBC 08/09/22 17:35 Sodium 142 mmol/L (136-145) 08/09/22 17:35 Potassium 4.3 mmol/L (3.5-5.1) 08/09/22 17:35 Chloride 104 mmol/L (98-107) 08/09/22 17:35 Carbon Dioxide 28 mmol/L (22-29) 08/09/22 17:35 Anion Gap 14.3 (5-19) 08/09/22 17:35 BUN 7 mg/dL (6-20) 08/09/22 17:35 Creatinine 0.7 mg/dL (0.5-0.9) 08/09/22 17:35 GFR Calculation 88.6 mL/min (90-130) L 08/09/22 17:35 Glucose 79 mg/dL (65-115) 08/09/22 17:35 Calculated Osmolality 291 mOsm/kg (285-295) 08/09/22 17:35 Calcium 9.5 mg/dL (8.5-10.5) 08/09/22 17:35 Total Bilirubin 0.3 mg/dL (0.15-1.2) 08/09/22 17:35 AST 31 U/L (0-32) 08/09/22 17:35 ALT 40 U/L (0-33) H 08/09/22 17:35 Alkaline Phosphatase 92 U/L (35-105) 08/09/22 17:35 Total Protein 7.2 g/dL (6.6-8.7) 08/09/22 17:35 Albumin 4.7 g/dL (3.5-5.2) 08/09/22 17:35 Globulin 2.5 g/dL (1.3-4.6) 08/09/22 17:35 TSH 2.17 uIU/mL (0.27-4.20) 08/09/22 17:35 Urine Color Yellow (Yellow) 08/09/22 18:29 Urine Appearance Clear (CLEAR) 08/09/22 18:29 Urine pH 6 (5-7) 08/09/22 18:29 Ur Specific [place] 1.005 (1.005-1.030) 08/09/22 18:29 Urine Protein Neg (Negative) 08/09/22 18:29 Urine Glucose (UA) Norm (Normal) 08/09/22 18:29 Urine Ketones Negative (Negative) 08/09/22 18:29 Urine Blood Neg (Negative) 08/09/22 18:29 Urine Nitrate Negative (Negative) 08/09/22 18:29 Urine Bilirubin Neg (Negative) 08/09/22 18:29 Urine Urobilinogen Neg mg/dL (Negative) 08/09/22 18:29 Ur Leukocyte Esterase Negative (Negative) 08/09/22 18:29 Salicylates < 0.3 mg/dL (3-10) L 08/09/22 17:35 Urine Opiates Screen Negative ng/mL (Negative) 08/09/22 18:29 Acetaminophen < 5.0 ug/mL (10-30) L 08/09/22 17:35 Ur Barbiturates Screen Negative ng/mL (Negative) 08/09/22 18:29 Ur Phencyclidine Scrn Negative ng/mL (Negative) 08/09/22 18:29 Ur Amphetamines Screen Negative ng/mL (Negative) 08/09/22 18:29 U Benzodiazepines Scrn Negative ng/mL (Negative) 08/09/22 18:29 Urine Cocaine Screen Negative ng/mL (Negative) 08/09/22 18:29 U Marijuana (THC) Screen Negative ng/mL (Negative) 08/09/22 18:29 Ethyl Alcohol < 10 mg/dL (0-10) 08/09/22 17:35 SARS-CoV-2 Ag (Rapid) negative (Negative) 08/09/22 18:29 Group A Strep Rapid Negative (Negative) 08/09/22 18:29 Discharge Plan Discharge Patient Disposition: Xfer Short-Term Hosp Clinical Impression: Acute psychosis Condition: Stable Referrals: Anuj Aparicio ARABIC PROFESSOR [Primary Care Provider] - Coding Level of Care Code ED Aircraft Engine Cylinder Mechanic for Chg Fwd Documented by User: Aixa Siddiqui MD 08/10/22 00:47 HPI - Psych General: Chief Complaint: Psychiatric Symptoms Stated Complaint: psych eval Time Seen by Provider: 08/09/22 17:04 PFS ED PFSH: Medical History Bipolar disorder, current episode mixed, severe, with psychotic features Fatty liver Generalized anxiety disorder Hypertension Hypothyroidism (acquired) IBS (irritable bowel syndrome) diagnosed in 2010, but she prefers not to follow up with GI on this issue and feels her symptoms are much improved. in 2019, she went to [facility] and saw Dr Pineda and had a cyst on her tailbone. 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 Nicotine dependence, cigarettes, uncomplicated Psychiatric care Seasonal allergic rhinitis due to pollen Tick fever 2016 Surgical History History of cholecystectomy History of hysterectomy without BSO History of thyroid cyst 2015 Hx of colonoscopy 2019 Family History Grandmother Diabetes Brother Diabetes Social History Smoking and tobacco status: current every day smoker cigarettes Packs smoked per day: 1 Years cigarettes smoked: 30 Quit status (tobacco): considering quitting Second hand smoke exposure: Yes Smoking risk assessment/counseling performed?: No Alcohol intake: current Alcohol intake frequency: holidays/special occasions only Desire information about alcohol rehabilitation?: No Counseling given: No Desire information about substance/drug rehabilitation?: No Counseling given: No Caregiver/support person: No Lives independently: Yes Household members: spouse Housing: House Marital status: Number of children: 2 service: No Current occupational status: unemployed Current gender identity: Female Course Vital Signs: Vital signs: Vital Signs Temperature 97.7 F 08/10/22 02:52 Pulse Rate 73 08/10/22 05:33 Respiratory Rate 16 08/10/22 05:33 Blood Pressure 106/66 08/10/22 05:33 Pulse Oximetry 97 08/10/22 05:33 Oxygen Delivery Me thod 08/09/22 17:06 MDM - Psych Medical Decision Making [id number] lady with psychiatric history presenting with continued sleep disturbance and psychiatric symptoms. The patient herself offers very poor insight into her current state. She is nontoxic in appearance. She is calm and cooperative. Labs with no hematologic or metabolic abnormality to explain symptoms, the patient has minimal chronic elevation of ALT to peers. TSH is normal. No evidence of urinary tract infection. Toxic ingestions and urine drug screen are negative. Strep and COVID are negative. Given reported clinical history and physical exam there is no indication for imaging at this time. I did discuss the case with our psychiatrist, plan to continue prior medications with the exception of increasing Latuda from 80 mg at bedtime to 100 mg at bedtime. We do not have bed availability at our facility and therefore we will look for transfer. Based on ED evaluation at this point there is no obvious condition that would preclude the patient from inpatient management psychiatric concerns/symptoms. Patient presents here with sisters have a history of schizophrenia bipolar patient is having worsening paranoia patient medically cleared excepted to [facility] will transfer there due to no psych availability here Lab Data 08/09/22 17:35 08/09/22 17:35 Laboratory Results WBC 9.1 10^3/uL (4.0-10.0) 08/09/22 17:35 RBC 4.55 10^6/uL (4.1-5.3) 08/09/22 17:35 Hgb 13.4 g/dL (11.5-15.3) 08/09/22 17:35 Hct 40.5 % (37.0-47.0) 08/09/22 17:35 MCV 89.0 fl (81-99) 08/09/22 17:35 MCH 29.5 pg (28.0-34.0) 08/09/22 17:35 MCHC 33.1 g/dL (30.0-36.0) 08/09/22 17:35 RDW 12.8 % (12.1-15.1) 08/09/22 17:35 Plt Count 316 10^3/cmm (130-400) 08/09/22 17:35 MPV 11.2 fL (7.4-10.4) H 08/09/22 17:35 Neut % (Auto) 47.4 % 08/09/22 17:35 Lymph % (Auto) 42.7 % 08/09/22 17:35 Coffey % (Auto) 7.3 % 08/09/22 17:35 Eos % (Auto) 1.9 % 08/09/22 17:35 Baso % (Auto) 0.5 % 08/09/22 17:35 Neut # (Auto) 4.33 10^3/uL (1.8-7.7) 08/09/22 17:35 Lymph # (Auto) 3.9 10^3/uL (0.8-4.8) 08/09/22 17:35 Coffey # (Auto) 0.7 10^3/uL (0.2-0.9) 08/09/22 17:35 Eos # (Auto) 0.2 10^3/uL (0.0-0.8) 08/09/22 17:35 Baso # (Auto) 0.1 10^3/uL (0.0-0.1) 08/09/22 17:35 Nucleated RBC % (auto) 0 % 08/09/22 17:35 Nucleated RBCs # 0.0 /100WBC 08/09/22 17:35 Sodium 142 mmol/L (136-145) 08/09/22 17:35 Potassium 4.3 mmol/L (3.5-5.1) 08/09/22 17:35 Chloride 104 mmol/L (98-107) 08/09/22 17:35 Carbon Dioxide 28 mmol/L (22-29) 08/09/22 17:35 Anion Gap 14.3 (5-19) 08/09/22 17:35 BUN 7 mg/dL (6-20) 08/09/22 17:35 Creatinine 0.7 mg/dL (0.5-0.9) 08/09/22 17:35 GFR Calculation 88.6 mL/min (90-130) L 08/09/22 17:35 Glucose 79 mg/dL (65-115) 08/09/22 17:35 Calculated Osmolality 291 mOsm/kg (285-295) 08/09/22 17:35 Calcium 9.5 mg/dL (8.5-10.5) 08/09/22 17:35 Total Bilirubin 0.3 mg/dL (0.15-1.2) 08/09/22 17:35 AST 31 U/L (0-32) 08/09/22 17:35 ALT 40 U/L (0-33) H 08/09/22 17:35 Alkaline Phosphatase 92 U/L (35-105) 08/09/22 17:35 Total Protein 7.2 g/dL (6.6-8.7) 08/09/22 17:35 Albumin 4.7 g/dL (3.5-5.2) 08/09/22 17:35 Globulin 2.5 g/dL (1.3-4.6) 08/09/22 17:35 TSH 2.17 uIU/mL (0.27-4.20) 08/09/22 17:35 Urine Color Yellow (Yellow) 08/09/22 18:29 Urine Appearance Clear (CLEAR) 08/09/22 18:29 Urine pH 6 (5-7) 08/09/22 18:29 Ur Specific [place] 1.005 (1.005-1.030) 08/09/22 18:29 Urine Protein Neg (Negative) 08/09/22 18:29 Urine Glucose (UA) Norm (Normal) 08/09/22 18:29 Urine Ketones Negative (Negative) 08/09/22 18:29 Urine Blood Neg (Negative) 08/09/22 18:29 Urine Nitrate Negative (Negative) 08/09/22 18:29 Urine Bilirubin Neg (Negative) 08/09/22 18:29 Urine Urobilinogen Neg mg/dL (Negative) 08/09/22 18:29 Ur Leukocyte Esterase Negative (Negative) 08/09/22 18:29 Salicylates < 0.3 mg/dL (3-10) L 08/09/22 17:35 Urine Opiates Screen Negative ng/mL (Negative) 08/09/22 18:29 Acetaminophen < 5.0 ug/mL (10-30) L 08/09/22 17:35 Ur Barbiturates Screen Negative ng/mL (Negative) 08/09/22 18:29 Ur Phencyclidine Scrn Negative ng/mL (Negative) 08/09/22 18:29 Ur Amphetamines Screen Negative ng/mL (Negative) 08/09/22 18:29 U Benzodiazepines Scrn Negative ng/mL (Negative) 08/09/22 18:29 Urine Cocaine Screen Negative ng/mL (Negative) 08/09/22 18:29 U Marijuana (THC) Screen Negative ng/mL (Negative) 08/09/22 18:29 Ethyl Alcohol < 10 mg/dL (0-10) 08/09/22 17:35 SARS-CoV-2 Ag (Rapid) negative (Negative) 08/09/22 18:29 Group A Strep Rapid Negative (Negative) 08/09/22 18:29 Discharge Plan Discharge Patient Disposition: Xfer Short-Term Hosp Clinical Impression: Acute psychosis Condition: Stable Referrals: Anuj Aparicio ARABIC PROFESSOR [Primary Care Provider] - Coding Level of Care Code ED Aircraft Engine Cylinder Mechanic for Melissa Rodriges
[2022-08-09 18:08] LABS: Basophils # 0.1 10^3/uL (0.0-0.1); Basophils % 0.5 %; Eosinophils # 0.2 10^3/uL (0.0-0.8); Eosinophils % 1.9 %; Hematocrit 40.5 % (37.0-47.0); Hemoglobin 13.4 g/dL (11.5-15.3); Lymphocytes # 3.9 10^3/uL (0.8-4.8); Lymphocytes % 42.7 %; Mean Corpuscular HGB Conc 33.1 g/dL (30.0-36.0); Mean Corpuscular Hemoglobin 29.5 pg (28.0-34.0); Mean Platelet Volume 11.2 fL (7.4-10.4); Monocytes # 0.7 10^3/uL (0.2-0.9); Monocytes % 7.3 %; Neutrophils # 4.33 10^3/uL (1.8-7.7); Neutrophils % 47.4 %; Nucleated Red Blood Cells % 0 %; Platelet Count 316 10^3/cmm (130-400); Red Blood Count 4.55 10^6/uL (4.1-5.3); Red Cell Distribution Width 12.8 % (12.1-15.1); White Blood Count 9.1 10^3/uL (4.0-10.0)
--- NOTE | 2022-08-09 18:39 | ECG_ITS ---
[facility] Test Date: 2022-08-09 Pat Name: Mabel Still Department: Room: Gender: Female [place] Guide: : 1970 Requested By: Elie Bustillos Order Number: [id number] Robert MD: Nader Ruiz M.D. Measurements Intervals [place] Rate: 75 P: 65 WA: 141 QRS: 38 QRSD: 84 T: 45 QT: 353 QTc: 395 Interpretive Statements SINUS RHYTHM LOW QRS VOLTAGE IN PRECORDIAL LEADS [QRS DEFLECTION < 1.0 mV IN CHEST LEADS] Compared to ECG 10/05/2018 10:16:29 Low QRS voltage now present Electronically Signed On 08-10-2022 15:03:48 SET UP MECH[employer]ATING MACHINES by Nader Ruiz M.D. [id number]
[2022-08-09 18:44] LABS: Add Urine Microscopic? NO; Charge for UA Resulting for Rev
[2022-08-09 18:48] LABS: Bilirubin Urine Neg (Negative); Blood Urine Neg (Negative); Glucose Urine UA Norm (Normal); Ketones Urine Negative (Negative); Leukocyte Esterase Urine Negative (Negative); Nitrate Urine Negative (Negative); Protein Urine Neg (Negative); Specific Gravity, Urine 1.005 (1.005-1.030); Urine Appearance Clear (CLEAR); Urine Color Yellow (Yellow); Urobilinogen Urine Neg (Negative); pH Urine 6 (5-7)
[2022-08-09 18:51] LABS: Alanine Aminotransferase 40 U/L (0-33); Albumin Level 4.7 g/dL (3.5-5.2); Alkaline Phosphatase 92 U/L (35-105); Anion Gap 14.3 (5-19); Aspartate Amino Transferase 31 U/L (0-32); Blood Urea Nitrogen 7 mg/dL (6-20); Calcium 9.5 mg/dL (8.5-10.5); Carbon Dioxide 28 mmol/L (22-29); Chloride 104 mmol/L (98-107); Globulin 2.5 g/dL (1.3-4.6); Glomerular Filtration Rate 88.6 mL/min (90-130); Glucose 79 mg/dL (65-115); Osmolality Calculated 291 mOsm/kg (285-295); Potassium 4.3 mmol/L (3.5-5.1); Sodium 142 mmol/L (136-145); Thyroid Stimulating Hormone 2.17 uIU/mL (0.27-4.20); Total Bilirubin 0.3 mg/dL (0.15-1.2); Total Protein 7.2 g/dL (6.6-8.7)
[2022-08-09 18:52] LABS: Acetaminophen < 5.0 ug/mL (10-30); Alcohol Level < 10 mg/dL (0-10); Salicylate < 0.3 mg/dL (3-10)
[2022-08-09 18:57] LABS: Amphetamines Screen Urine Negative (Negative); Barbiturates Screen Urine Negative (Negative); Benzodiazepines Screen Urine Negative (Negative); Cocaine Screen Urine Negative (Negative); Opiate Screen Urine Negative (Negative); PCP Screen Urine Negative (Negative); THC Screen Urine Negative (Negative)
[2022-08-09 18:59] LABS: Rapid Strep A Test Negative (Negative)
[2022-08-09 19:06] LABS: SARS Covid-2 Antigen negative (Negative)
[2022-08-09] MEDS: lurasidone 80 mg Tablet PO (20:35)
[2022-08-09] MEDS: atorvastatin 40 mg Tablet 20 MG PO (20:35)
[2022-08-09] MEDS: lurasidone 20 mg Tablet PO (20:35)
[2022-08-09] MEDS: CLONazepam 1 mg Tablet 2 MG PO (20:36)
[2022-08-09] MEDS: acetaminophen 500 mg Tablet 1000 MG PO (21:58)
[2022-08-10 01:16] VITALS: BP 109/72; PULSE 64; RESP 16; O2SAT 97
[2022-08-10 02:52] VITALS: BP 131/84; PULSE 86; RESP 18; TEMP 36.5; O2SAT 98
[2022-08-10 05:33] VITALS: BP 106/66; PULSE 73; RESP 16; O2SAT 97
--- NOTE | 2022-08-10 10:51 | DCPLANNER ---
The window unit air conditioning mechanic was asked to look for psych placement for patient. The window unit air conditioning mechanic called and faxed information to the following facilities: [facility] - 2105 - [facility] - 2106 patients information faxed [facility] - 2119 - [facility] - can fax - paperwork was faxed at [phone] - this facility accepted patient Bob Vanessa - patient to mian [facility] - 2135 - can fax - paperwork faxed at [phone] [place] - 2244 - [facility] - paperwork faxed
== END 2022-08-10 08:00 | disposition short-term general hospital (02) ==
PROVIDERS: Emergency Medicine; Emergency Provider Emergency Medicine; PCP Clinical Nurse Specialist Adult Health
DX: F23 Brief psychotic disorder (principal); Z20.822 Contact with and (suspected) exposure to COVID-19; F17.210 Nicotine dependence, cigarettes, uncomplicated; I10 Essential (primary) hypertension
CPT/HCPCS: 36415; 80053; 80306; 80307; 81003; 84443; 85025; 87081; 87426; 87880; 93005; 99285

== ENCOUNTER 2022-08-22 17:46 | Inpatient (IN) | payer OTHER, SELFPAY ==
[2022-08-22 17:52] VITALS: BP 158/113; PULSE 113; RESP 16; TEMP 36.6; O2SAT 97; BMI 29.2
--- NOTE | 2022-08-22 18:01 | ED.C_ITS ---
HPI - Psych General: Chief Complaint: Psychiatric Symptoms Stated Complaint: MHE Time Seen by Provider: 08/22/22 17:49 Source: patient Mode of arrival: ambulatory Limitations: no limitations History of Present Illness: 51-year-old female who is well-known to ER she has a history of bipolar disorder she had recently been transferred to [facility] and had a inpatient psych stay there she states that switched all of her meds and she has been discharged since and states that she does not like her new med regimen she has been feeling worse she has had a flight of ideas and feeling much more manic and would like to be readmitted to get her meds readjusted again. Associated symptoms: Deny depression Review of Systems 2 Const: Denies: fever(s), chills, body aches or change in appetite Eyes: Denies: blurry vision or eye discomfort ENMT: Denies: throat pain or dental pain Card: Denies: chest pain Resp: Denies: dyspnea GI: Denies: abdominal pain, nausea, vomiting or diarrhea : Denies: dysuria Musc: Denies: neck pain or back pain Skin/Breast: Denies: rash Neuro: Denies: headache(s) Psych: Denies: depression Ej/Lymph: Denies: easy bruising All/Imm: Denies: urticaria PFSH ED PFSH: Medical History Bipolar disorder, current episode mixed, severe, with psychotic features Fatty liver Generalized anxiety disorder Hypertension Hypothyroidism (acquired) IBS (irritable bowel syndrome) diagnosed in 2010, but she prefers not to follow up with GI on this issue and feels her symptoms are much improved. in 2019, she went to [place] and saw Dr Pineda and had a cyst on her tailbone. 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 Nicotine dependence, cigarettes, uncomplicated Psychiatric care Seasonal allergic rhinitis due to pollen Tick fever 2016 Surgical History History of cholecystectomy History of hysterectomy without BSO History of thyroid cyst 2016 Hx of colonoscopy 2019 Family History Grandmother Diabetes Brother Diabetes Social History Smoking and tobacco status: current every day smoker cigarettes Packs smoked per day: 1 Years cigarettes smoked: 30 Quit status (tobacco): considering quitting Second hand smoke exposure: Yes Smoking risk assessment/counseling performed?: No Alcohol intake: current Alcohol intake frequency: holidays/special occasions only Desire information about alcohol rehabilitation?: No Counseling given: No Desire information about substance/drug rehabilitation?: No Counseling given: No Caregiver/support person: No Lives independently: Yes Household members: spouse Housing: House Marital status: Number of children: 2 service: No Current occupational status: unemployed Current gender identity: Female Physical Exam Const: COMMON NORMALS: no acute distress, patient oriented x3 and healthy appearing HENMT: COMMON NORMALS: normocephalic and atraumatic HEAD & SCALP: normocephalic and atraumatic Eye: COMMON NORMALS: Equal, round and reactive pupils present and EOMs intact bilaterally PUPIL: Yes Equal, round and reactive pupils present Neck/C-Spine: COMMON NORMALS: full ROM and supple Chest: COMMONS NORMALS: normal inspection of the chest and normal palpation of entire chest wall Resp: COMMON NORMALS: normal respiratory effort, No retractions, No use of accessory muscles and clear to auscultation bilaterally AUSCULTATION: clear to auscultation bilaterally Cardio: COMMON NORMALS: regular rate, regular rhythm and No murmurs present (Cardio) RATE: regular rate RHYTHM: regular rhythm GI: COMMON NORMALS: Normal to inspection, nondistended, normoactive bowel sounds present, Soft to palpation, non-tender and no masses PALPATION: Yes Soft to palpation Extremity: COMMON NORMALS: normal to inspection and full ROM Neuro: COMMON NORMALS: patient oriented x3, moves all extremities and no focal motor deficits Psych: COMMON NORMALS: mental status grossly normal, Normal thought process present and cooperative THOUGHT PROCESS: Normal thought process present Skin: COMMON NORMALS: no rashes or lesions noted and no wounds GENERAL SKIN EXAM: no rashes or lesions noted Course Vital Signs: Vital signs: Vital Signs Temperature 97.8 F 08/22/22 17:52 Pulse Rate 113 H 08/22/22 17:52 Respiratory Rate 16 08/22/22 17:52 Blood Pressure 158/113 08/22/22 17:52 Pulse Oximetry 97 08/22/22 17:52 Oxygen Delivery Me thod 08/22/22 17:52 MDM - Psych Medical Decision Making Patient presents here with history of bipolar disorder acute psychosis she was recently admitted in [place] where she states they have changed all of her medicines up and she feels worse of spoke to Dr. Pace and will readmit at this time to the psych stuart as she likely needs her meds adjusted back she is voluntary at this time. Discharge Plan Discharge Condition: Stable Prescriptions: No Action metoprolol succinate 25 mg tablet extended release 24 hr 25 mg PO DAILY atorvastatin 20 mg tablet 20 mg PO BEDTIME levothyroxine 75 mcg tablet 75 mcg PO DAILY Qty: 90 3RF losartan 25 mg tablet 25 mg PO DAILY Qty: 90 3RF azelastine 137 mcg (0.1 %) aerosol,spray 1 spray intranasal BID PRN (Reason: Allergy Symptoms) Rx Instructions: administer into each nostril loratadine 10 mg tablet 10 mg PO DAILY ondansetron 4 mg tablet,disintegrating 4 mg PO Q8H PRN (Reason: nausea and vomiting) Qty: 15 0RF clonidine HCl 0.1 mg Tablet 0.1 mg PO TID PRN (Reason: Hypertension) 30 Days Qty: 90 1RF trazodone 50 mg Tablet 50 mg PO BEDTIME PRN (Reason: Sleep) 30 Days Qty: 30 1RF Latuda 40 mg tablet 80 mg PO DAILY Wellbutrin SR 100 mg tablet sustained-release 12 hr 100 mg PO DAILY clonazepam 2 mg tablet 2 mg PO BEDTIME 30 Days Qty: 30 0RF trazodone 100 mg tablet 100 mg PO BEDTIME PRN (Reason: Sleep) 30 Days Qty: 30 1RF Referrals: Anuj Aparicio NP [Primary Care Provider] - Coding Level of Care Code ED Director Of Global Sales for Melissa Rodriges
[2022-08-22 18:19] LABS: Basophils # 0.1 10^3/uL (0.0-0.1); Basophils % 0.4 %; Eosinophils # 0.2 10^3/uL (0.0-0.8); Eosinophils % 1.4 %; Hematocrit 40.8 % (37.0-47.0); Hemoglobin 13.2 g/dL (11.5-15.3); Lymphocytes # 3.7 10^3/uL (0.8-4.8); Mean Corpuscular HGB Conc 32.4 g/dL (30.0-36.0); Mean Corpuscular Hemoglobin 29.5 pg (28.0-34.0); Mean Corpuscular Volume 91.1 fl (81-99); Mean Platelet Volume 10.6 fL (7.4-10.4); Monocytes % 8.4 %; Neutrophils # 6.95 10^3/uL (1.8-7.7); Neutrophils % 58.5 %; Nucleated Red Blood Cells % 0 %; Platelet Count 268 10^3/cmm (130-400); Red Blood Count 4.48 10^6/uL (4.1-5.3); Red Cell Distribution Width 13.2 % (12.1-15.1); White Blood Count 11.9 10^3/uL (4.0-10.0)
[2022-08-22 18:39] LABS: Alanine Aminotransferase 23 U/L (0-33); Albumin Level 4.4 g/dL (3.5-5.2); Alkaline Phosphatase 71 U/L (35-105); Anion Gap 14.3 (5-19); Aspartate Amino Transferase 17 U/L (0-32); Blood Urea Nitrogen 10 mg/dL (6-20); Calcium 9.2 mg/dL (8.5-10.5); Carbon Dioxide 27 mmol/L (22-29); Chloride 100 mmol/L (98-107); Globulin 2.4 g/dL (1.3-4.6); Glomerular Filtration Rate 88.6 mL/min (90-130); Glucose 118 mg/dL (65-115); Osmolality Calculated 284 mOsm/kg (285-295); Potassium 4.3 mmol/L (3.5-5.1); Sodium 137 mmol/L (136-145); Total Bilirubin 0.2 mg/dL (0.15-1.2); Total Protein 6.8 g/dL (6.6-8.7)
[2022-08-22 18:47] LABS: Acetaminophen < 5.0 ug/mL (10-30); Alcohol Level < 10 mg/dL (0-10); Salicylate < 0.3 mg/dL (3-10)
[2022-08-22 18:53] LABS: Benzodiazepines Screen Urine Positive (Negative)
[2022-08-22 18:54] LABS: Amphetamines Screen Urine Negative (Negative); Barbiturates Screen Urine Negative (Negative); Cocaine Screen Urine Negative (Negative); Opiate Screen Urine Negative (Negative); PCP Screen Urine Negative (Negative); THC Screen Urine Negative (Negative)
[2022-08-22 19:32] VITALS: BP 156/109; PULSE 110; RESP 16; O2SAT 99
[2022-08-22] MEDS: metoprolol tartrate 25 mg Tablet PO (19:56)
[2022-08-22 20:58] VITALS: BP 153/106; PULSE 96; RESP 18; TEMP 36.6; O2SAT 96
[2022-08-22] MEDS: CLONazepam 1 mg Tablet 2 MG PO ×2 (21:58→22:03)
[2022-08-22] MEDS: trazodone 100 mg Tablet PO (21:58)
[2022-08-22] MEDS: atorvastatin 40 mg Tablet 20 MG PO (21:58)
[2022-08-22 22:00] VITALS: BP 153/106; PULSE 96; RESP 18; TEMP 36.6; O2SAT 96
--- NOTE | 2022-08-22 22:12 | PC.NURSE ---
PRN trazodone given as ordered per pt request
--- NOTE | 2022-08-23 00:53 | PC.NURSE ---
at 2054 pt presented to unit, anxious, irritable with staff, pressured speech, manic - stated she hasn't slept in 2 days, hearing voices- I hear my kids, people dying, i , I felt it and was left behind pt states I'm the catering sales manager , RN observed pt having Visual hallucinations- pt tapped her left shoulder and looked up and stated to unknown person leave me alone provided support, pt believes might be - stated it would be a miracle , has hx of hysterectomy, pt given night meds, and snacks, encouraged to sleep. at approximately 2199, pt reported wanted new room, encouraged to sleep, other patients sleeping, roommate reported this patient was standing over her bed and that freaked me out pt encouraged to reach out to staff with needs and to leave other patients alone as they are sleeping. pt moved to [facility] unit room 151 which has no roommate. she has been sleeping , no distress noted.
[2022-08-23] MEDS: OLANZapine 5 mg ODT PO (03:13)
[2022-08-23] MEDS: nicotine 2 mg Gum BUCCAL ×2 (03:13→11:31)
--- NOTE | 2022-08-23 03:44 | PC.NURSE ---
pt woke up at 0310, stated I've slept enough, I'm Mabel Cheko, not Pavithra Damon, I'm going to pray for my unborn, explained to pt she isn't as she has had a hysterectomy, pt stated I'm reborn , provided reading material, pt stated she's praying, stands in doorway of bedroom and praying out loud, encouraged pt to go in pt room as to not wake up other patients, pt appears confused, stands in doorway and stares. Nelida Mills given 0315, nicorette gum, and now pt requests cepacol lozenge.
[2022-08-23] MEDS: cetylpyridinium Lozenge 1 EACH MUCOUS MEM (03:51)
[2022-08-23 06:00] VITALS: BP 124/87; PULSE 87; RESP 18; TEMP 36.7; O2SAT 99
[2022-08-23] MEDS: metoprolol succinate ER (24 HR) 25 mg Tablet PO (08:23)
[2022-08-23] MEDS: loratadine 10 mg Tablet PO (08:23)
[2022-08-23] MEDS: lurasidone 80 mg Tablet PO (08:23)
[2022-08-23] MEDS: buPROPion SR (12 HR) 100 mg Tablet PO (08:23)
[2022-08-23 08:24] VITALS: BP 130/85
[2022-08-23] MEDS: losartan 50 mg Tablet 25 MG PO (08:24)
--- NOTE | 2022-08-23 08:54 | W.PM.NPUH&PS ---
Providers/Chief Complaint Admitting Physician: Alfonzo Pace MD Primary Care Provider: Anuj Aparicio Chief Complaint: MHE HPI [facility] History of Present Illness Mabel Still is a 51 year old female recently discharged from the neuropsychiatric unit at [facility] on 08/04/2022 who had presented to the emergency department on 08/22/2022 stating that she had her medications all messed up in the hospital that she had previously been admitted to for psychiatric reasons approximately 1 week ago in [facility]. She reports that she does not need to be here and simply wishes to talk to Stephany Farrar about her medications being adjusted. She endorses a history of her thoughts moving fast along with a history of irritability. She reports that she has been unable to fall asleep. She reports that she has been hearing voices but reports that she is autistic and this is not part of her problems associated with her bipolar. She had reported that she had not been taking her medications as the hospital had suggested on discharge. She had reported that she wished to speak with her outpatient psychiatric nurse about her treatment as the hospitalist keep messing up her medications. She denied any drug or alcohol use currently. She had reported that she was not taking her Latuda as prescribed. She had reported that those medications have were not working and they made her feel funny . There have been no substantial changes reported in regards to medical history social history surgical history or allergies since her recent hospitalization. From Previous hospitalization on 08/04/22 at [facility] Time Seen by Provider: 08/04/22 18:05 Source: patient Mode of arrival: ambulatory Limitations: no limitations History of Present Illness:?? 51-year-old female who is here states that she was discharged from the [facility] yesterday she states she been having hallucinations trouble sleeping and continued suicidal ideations she denies any worsening proving factors has no other complaints at this time. Associated symptoms: Reports depression. She was admitted to the neuropsychiatric unit for definitive treatment of those issues.? Her was advised by the emergency department that he could give her an increased dose of Klonopin at night to see if that did not help with her sleep and help decrease some of the symptoms.? She presents this morning having gotten that increased dose of Klonopin and she slept quite well with no difficulties.? She denied any changes from her last hospitalization which was less than 24 hours ago.? We discussed the plan to repeat the plan for a benzodiazepine at night to ensure that she gets sleep and plan on utilizing that until she sinks into a good pattern of rest.? We discussed this likely being a very short hospitalization and once we have verified that we can get sleep with her limited symptoms when she gets rest we will discharge again for continued convalescence at home. Per her 08/03/2022 [facility] inpatient psychiatric discharge summary: high B/P? Brief History: History of Present Illness Mabel Still is a 51 year old female who scented to the emergency department on 07/27/2022 accompanied by her with the patient's stating that he was concerned that his had been enduring a manic episode.? She had apparently received a injection or pills of morphine and a prescription for oxycodone a few days prior and the patient had not slept in several days.? She had been apparently behavior at behaving abnormally including chain smoking inside of the home while flicking her cigarette butts throughout the house.? She had endorsed in the emergency department that she was and had indicated that she was blind and deaf and it should not feel like this when I am in labor .? The patient has an extended history of psychiatric services through [facility] [place] previously followed by Janae Ferrer.? In a previous appointment 13 days ago, the patient had been documented to have been not sleeping with increased goal-directed behavior and some reports of difficulties with compliance with medications.? The patient was a poor historian and was unable to provide any history when interviewed at the neuropsychiatric unit. Past psychiatric history: She does appear to have a previous history of inpatient hospitalizations with most recent hospitalization? at the [facility] in 2019.? She has a reported history of bipolar disorder type I most recent episode severe with psychotic features. Medical history: Hypercholesterolemia, fatty liver disease, hypertension, hypothyroidism, irritable bowel syndrome,nicotine dependence, seasonal allergic rhinitis, Surgical history: Cholecystectomy, hysterectomy without BSO, history of thyroid cyst, history of colonoscopy Allergies: Morphine, oxycodone, haloperidol, sulfa drugs, iodine contrast Medications: Wellbutrin SR 100 mg in the morning, Latuda 40 mg at 6 PM. , Klonopin 0.5 mg twice a day, trazodone 100 mg at night, loratadine, losartan, estradiol, levothyroxine, dicyclomine, azelastine, atorvastatin Substance abuse history: Per previous records occasional alcohol use, 30 pack year smoker.? No history of illicit drug use Social history: Patient is reportedly and has 2 children and is currently unemployed.? She apparently lives with her spouse, other social history is unknown. Family psychiatric history: Unknown ? Meds N[facility] Home Medications Medication Instructions Recorded Confirmed Last Taken Type metoprolol succinate 25 mg 25 mg PO DAILY 01/10/22 08/22/22 08/03/22 History tablet,extended release 24 hr atorvastatin 20 mg tablet 20 mg PO BEDTIME 05/24/22 08/22/22 08/03/22 History azelastine 137 mcg (0.1 %) nasal 1 spray intranasal BID PRN Allergy 07/22/22 08/22/22 Unknown History spray aerosol Symptoms loratadine 10 mg tablet 10 mg PO DAILY 07/22/22 08/22/22 08/04/22 History ondansetron 4 mg disintegrating 4 mg PO Q8H PRN nausea and 07/22/22 08/22/22 Unknown Rx tablet vomiting #15 tabs levothyroxine 75 mcg tablet 75 mcg PO DAILY #90 tabs 07/25/22 08/22/22 08/04/22 Rx clonidine HCl 0.1 mg tablet 0.1 mg PO TID PRN Hypertension 30 08/03/22 08/22/22 Unknown Rx days #90 tabs trazodone 50 mg tablet 50 mg PO BEDTIME PRN Sleep 30 days 08/03/22 08/22/22 08/03/22 Rx #30 tabs lurasidone 40 mg tablet (Latuda) 80 mg PO DAILY 08/04/22 08/22/22 Unknown History bupropion HCl 100 mg tablet,12 hr 100 mg PO DAILY 08/05/22 08/22/22 08/04/22 History sustained-release (Wellbutrin SR) clonazepam 2 mg tablet 2 mg PO BEDTIME 30 days #30 tabs 08/07/22 08/22/22 Unknown Rx trazodone 100 mg tablet 100 mg PO BEDTIME PRN Sleep 30 08/07/22 08/22/22 Unknown Rx days #30 tabs losartan 25 mg tablet 25 mg PO DAILY #90 tabs 08/17/22 08/22/22 Unknown Rx Allergies Allergy/AdvReac Type Severity Reaction Status Date / Time morphine Allergy Severe ADR-Nausea Verified 08/22/22 17:56 oxycodone Allergy Severe ADR-Nausea Verified 08/22/22 17:56 haloperidol [From Haldol] Allergy Unknown Unknown Verified 08/22/22 17:56 Iodinated Contrast Media Allergy Unknown vomiting Verified 08/22/22 17:56 Sulfa (Sulfonamide Allergy Unknown rash Verified 08/22/22 17:56 Antibiotics) PFSH N[facility] PFSH: Medical History Bipolar disorder, current episode mixed, severe, with psychotic features Fatty liver Generalized anxiety disorder Hypertension Hypothyroidism (acquired) IBS (irritable bowel syndrome) diagnosed in 2010, but she prefers not to follow up with GI on this issue and feels her symptoms are much improved. in 2019, she went to [place] and saw Dr Pineda and had a cyst on her tailbone. 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 Nicotine dependence, cigarettes, uncomplicated Psychiatric care Seasonal allergic rhinitis due to pollen Tick fever 2016 Surgical History History of cholecystectomy History of hysterectomy without BSO History of thyroid cyst 2015 Hx of colonoscopy 2019 Family History Grandmother Diabetes Brother Diabetes Social History Smoking and tobacco status: current every day smoker cigarettes Packs smoked per day: 1 Years cigarettes smoked: 30 Quit status (tobacco): considering quitting Second hand smoke exposure: Yes Smoking risk assessment/counseling performed?: No Alcohol intake: current Alcohol intake frequency: holidays/special occasions only Desire information about alcohol rehabilitation?: No Counseling given: No Desire information about substance/drug rehabilitation?: No Counseling given: No Caregiver/support person: No Lives independently: Yes Household members: spouse Housing: House Marital status: Number of children: 2 service: No Current occupational status: unemployed Current gender identity: Female Mental Status Exam MSE Comments: She is a casually dressed white female with a disheveled appearance fair eye contact and some evidence of psychomotor activation. Her speech was slightly pressured with increased in volume and normal tone. Her mood was described as upset. Her affect was irritable and mood-congruent. She was somewhat hostile and belligerent asking that the treatment team contact her doctor to discuss medications. She denied any homicidal or suicidal ideation. She was alert and oriented to person place time and situation. There was some evidence of overvalued ideas. There was some evidence of grandiosity noted. There were her insight and judgment appeared limited. Her impulse control appeared poor. Vitals/I&O/Wt Last Vital Signs Temp 98.1 F 08/23/22 06:00 Pulse 87 08/23/22 06:00 Resp 18 08/23/22 06:00 BP 130/85 08/23/22 08:24 Pulse Ox 99 08/23/22 06:00 O2 Del Method 08/22/22 22:00 Weight last 48 hrs Weight 72.575 kg Data NPU 08/22/22 18:00 08/22/22 18:00 A&P Assessment and plan (1) Acute psychosis: (2) Bipolar disorder, current episode mixed, severe, with psychotic features: Plan Is a 51-year-old white female who presents with acute bryan with psychotic features with a past history of bipolar 1 disorder with recent decompensation that continues to occur despite 3 hospitalizations in the last 20 days. She will continue to require acute inpatient hospitalization at this time with likely medication changes recommended and will be implemented. #1. Restart current medications #2. Continue 15-minute checks for safety on the unit. #3. Engage patient in individual group and milieu therapy. #4. Consider [place], consider Risperidone, Invega, restart klonopin. Involuntary Hold Information 96 Hour Hold: 96 Hour Involuntary Admission: No Attestations NPU Medical Necessity Statement*: The patient will require continued psychiatric hospitalization to stabilize her mood and improve her psychotic symptoms. Her care is expected to cross 2 midnights. Her likely length of stay will be 5 to 7 days. Coding Level of Care Code Acute Code for [facility] Fwd Diagnoses Acute psychosis F23 Bipolar disorder, current episode mixed, severe, with psychotic features F31.64
[2022-08-23] MEDS: acetaminophen 325 mg Tablet 650 MG PO (09:16)
[2022-08-23] MEDS: levothyroxine 75 mcg Tablet PO (09:17)
--- NOTE | 2022-08-23 12:51 | PC.NURSE ---
When asking the patient about any pain, patient told nurse that she was . She went on to say that she is 3 months . She took a test while in the [facility] ED a few days ago.
[2022-08-23 14:00] VITALS: BP 123/82; PULSE 92; RESP 16; TEMP 36.6; O2SAT 96
[2022-08-23 19:58] VITALS: BP 126/80; PULSE 93; RESP 18; TEMP 36.6; O2SAT 95
[2022-08-23] MEDS: CLONazepam 1 mg Tablet 2 MG PO (21:35)
[2022-08-23] MEDS: atorvastatin 40 mg Tablet 20 MG PO (21:36)
[2022-08-23] MEDS: trazodone 100 mg Tablet PO (22:45)
--- NOTE | 2022-08-24 02:35 | PC.NURSE ---
at 2245 Trazodone given per MD orders.
[2022-08-24] MEDS: OLANZapine 5 mg ODT PO (03:33)
--- NOTE | 2022-08-24 04:38 | PC.NURSE ---
at 033 pt stated I'm restless, I can't sleep, pacing halls, Zyprexa liang given per MD orders
[2022-08-24] MEDS: levothyroxine 75 mcg Tablet PO (05:56)
[2022-08-24 06:00] VITALS: BP 131/88; PULSE 88; RESP 20; TEMP 36.7; O2SAT 97
[2022-08-24] MEDS: buPROPion SR (12 HR) 100 mg Tablet PO (08:40)
[2022-08-24 08:41] VITALS: BP 129/87
[2022-08-24] MEDS: loratadine 10 mg Tablet PO (08:41)
[2022-08-24] MEDS: losartan 50 mg Tablet 25 MG PO (08:41)
[2022-08-24] MEDS: metoprolol succinate ER (24 HR) 25 mg Tablet PO (08:44)
[2022-08-24] MEDS: lurasidone 80 mg Tablet PO (08:44)
[2022-08-24] MEDS: blistex lip oint 7 gm Tube 1 APPLIC TOPICAL (08:45)
[2022-08-24] MEDS: nicotine 2 mg Gum BUCCAL ×2 (08:46→13:44)
[2022-08-24 14:00] VITALS: BP 132/88; PULSE 104; RESP 18; TEMP 36.6; O2SAT 95
[2022-08-24] MEDS: acetaminophen 325 mg Tablet 650 MG PO (14:40)
--- NOTE | 2022-08-24 17:52 | W.PM.NPUPNS ---
Subjective NPU Subjective: The patient is a 51-year-old white female with a history of type I bipolar disorder admitted with psychosis and bryan with a history of multiple inpatient hospitalizations over the past month. Patient had reported that she was continuing to struggle with her thoughts moving fast. Staff notes the patient had appeared less irritable but continued to make unusual statements including writing a note to the life underwriter of this note stating that she needed more frequent cigarette breaks and soda with the letter signed as the associate vice president. The patient's had indicated that the patient had appeared to decompensate of after being discharged from a hospital in [place] and he did report that the patient had received Abilify intramuscularly monthly but that she had quit taking the Abilify oral approximately 4 days ago. He had reported that she had last been hospitalized approximately 6 days ago. He had reported that she had never previously been on a higher dose of Latuda and that she had been tried on lithium while in the hospital in [place]. Mental Status Exam MSE Comments: She is a casually dressed white female with a disheveled appearance fair eye contact and some evidence of psychomotor activation. Her speech was slightly pressured with normal in volume and normal tone. Her mood was described as better . Her affect was euthymic possibly excessively euphoric today. She denied any homicidal or suicidal ideation. She was alert and oriented to person place time and situation. There was some evidence of overvalued ideas a belief that she may be despite confirming recent menopause. 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 Her insight and judgment appeared impaired. Her impulse control appeared poor. Vitals/I&O/Wt Last Vital Signs Temp 97.9 F 08/24/22 14:00 Pulse 104 H 08/24/22 14:00 Resp 18 08/24/22 14:00 BP 132/88 08/24/22 14:00 Pulse Ox 95 08/24/22 14:00 O2 Del Method 08/24/22 06:00 Data NPU 08/22/22 18:00 08/22/22 18:00 A&P Assessment and plan (1) Acute psychosis: (2) Bipolar disorder, current episode mixed, severe, with psychotic features: Plan Is a 51-year-old white female who presents with acute bryan with psychotic features with a past history of bipolar 1 disorder with recent decompensation that continues to occur despite 3 hospitalizations in the last 20 days. She will continue to require acute inpatient hospitalization at this time with likely medication changes recommended and will be implemented. #1. Restart current medications #2. Continue 15-minute checks for safety on the unit. #3. Engage patient in individual group and milieu therapy. #4. We will increase Latuda to 100 mg tonight. If no improvement in a few days we will titrate up to 120 mg at night and if still no improvement we will begin lithium at a low dose. #5. Discontinue Wellbutrin at this time as the patient does not appear to be suffering from depression. Involuntary Hold Information 96 Hour Hold: 96 Hour Involuntary Admission: No Attestations NPU Medical Necessity Statement*: Inpatient hospitalization remains medically necessary and the clinically appropriate decision at this time. Her likely length of stay is 5-7 days. Coding Level of Care Code Acute Code for [facility] Fwd Diagnoses Acute psychosis F23 Bipolar disorder, current episode mixed, severe, with psychotic features F31.64
[2022-08-24 21:24] VITALS: BP 128/79; PULSE 84; RESP 16; TEMP 36.6; O2SAT 96
--- NOTE | 2022-08-24 21:45 | PC.NURSE ---
Patient requesting PRN for sleep. Trazodone given. Suggested relaxation techniques. Patient voiced understanding.
[2022-08-24] MEDS: trazodone 100 mg Tablet PO (21:50)
[2022-08-24] MEDS: atorvastatin 40 mg Tablet 20 MG PO (21:51)
[2022-08-24] MEDS: CLONazepam 1 mg Tablet 2 MG PO (21:52)
--- NOTE | 2022-08-24 22:20 | PC.NURSE ---
Patient is agitated. Requesting pens and paper and other various things. Told patient she could not have a pen in her room and that staff has given patient 15 pieces of paper in the last 1/2 hour. Patient stated she needed ziplock bags. Explained to patient that she could not have bags. Patient continued to be argumentative and confused. PRN haldol given.
--- NOTE | 2022-08-24 23:40 | PC.NURSE ---
Patient stated Trazodone did not help her fall asleep. Stated she feels anxious and would like a medication to help her. Rated anxiety at a 8/10. PRN vistaril given as ordered. Educated patient on medication and she voiced understanding. Also suggested patient read her bible or color to help distract her. Patient stated she planned on reading for awhile.
[2022-08-24] MEDS: hyDROXYzine 25 mg Capsule 50 MG PO (23:41)
--- NOTE | 2022-08-25 04:53 | PC.NURSE ---
Patient resting quietly in bed at this time. No signs of distress present.
[2022-08-25 06:00] VITALS: BP 130/87; PULSE 96; RESP 18; TEMP 36.4; O2SAT 96
[2022-08-25] MEDS: nicotine 2 mg Gum BUCCAL ×3 (06:32→20:47)
[2022-08-25] MEDS: levothyroxine 75 mcg Tablet PO (06:32)
[2022-08-25 09:06] VITALS: BP 130/87
[2022-08-25] MEDS: metoprolol succinate ER (24 HR) 25 mg Tablet PO (09:06)
[2022-08-25] MEDS: loratadine 10 mg Tablet PO (09:06)
[2022-08-25] MEDS: losartan 50 mg Tablet 25 MG PO (09:06)
[2022-08-25] MEDS: lurasidone 20 mg Tablet PO (09:07)
[2022-08-25] MEDS: lurasidone 80 mg Tablet PO (09:07)
[2022-08-25] MEDS: acetaminophen 325 mg Tablet 650 MG PO ×2 (12:54→21:02)
--- NOTE | 2022-08-25 13:59 | PC.NURSE ---
Pt stated up at the nurses station that she was gonna make a phone call to her Body Guard.
[2022-08-25 14:00] VITALS: BP 133/89; PULSE 100; RESP 18; TEMP 36.7; O2SAT 95
--- NOTE | 2022-08-25 14:29 | PC.NURSE ---
Pt stated when asked why she wasn't attending group, that she already knows everything. Pt also believes in miracles.
--- NOTE | 2022-08-25 17:42 | P.NPUPN_ITS ---
Subjective NPU Subjective: The patient is a 51-year-old white female with a history of type I bipolar disorder admitted with psychosis and bryan with a history of multiple inpatient hospitalizations over the past month. Patient had continued to report that her thoughts were racing. She had reported improved sleep. She had been more pleasant on the milieu. She had been in agreement about changing medication doses. She had reported feeling better with the increase in Latuda. Patient had reported that she was hopeful about simplifying her medications. She had reported a reasonable response to lithium and records from [place] had revealed that the patient had been on lithium just 1 week ago. She had also acknowledged having received Abilify intramuscularly 2 weeks ago. Staff notes the patient had been redirectable but continue to make unusual statements on the milieu. She had minimized any depression at this time. Mental Status Exam MSE Comments: She is a casually dressed white female with a disheveled appe arance fair eye contact and some evidence of psychomotor activation. Her speech was slightly pressured with normal in volume and normal tone. Her mood was described as okay. Her affect was euthymic today. She denied any homicidal or suicidal ideation. She was alert and oriented to person place time and situation. She had continue to suggest that she was with evidence of bizarre delusions. Her insight and judgment appeared impaired. Her impulse control appeared poor. Vitals/I&O/Wt Last Vital Signs Temp 98.0 F 08/25/22 14:00 Pulse 100 08/25/22 14:00 Resp 18 08/25/22 14:00 BP 133/89 08/25/22 14:00 Pulse Ox 95 08/25/22 14:00 O2 Del Method 08/25/22 14:00 Data NPU 08/22/22 18:00 08/22/22 18:00 A&P Assessment and plan (1) Acute psychosis: (2) Bipolar disorder, current episode mixed, severe, with psychotic features: Plan Is a 51-year-old white female who presents with acute bryan with psychotic features with a past history of bipolar 1 disorder with recent decompensation that continues to occur despite 3 hospitalizations in the last 20 days. She will continue to require acute inpatient hospitalization at this time with likely medication changes recommended and will be implemented. #1. Restart current medications #2. Continue 15-minute checks for safety on the unit. #3. Engage patient in individual group and milieu therapy. #4. We will increase Latuda to 100 mg tonight. If no improvement in a few days we will titrate up to 120 mg at night and if still no improvement we will begin lithium at a low dose. Involuntary Hold Information 96 Hour Hold: 96 Hour Involuntary Admission: No Attestations NPU Medical Necessity Statement*: Inpatient hospitalization remains medically necessary and the clinically appropriate decision at this time. Her likely length of stay is 5-7 days. Coding Level of Care Code Acute Code for [facility] Fwd Diagnoses Acute psychosis F23 Bipolar disorder, current episode mixed, severe, with psychotic features F31.64
[2022-08-25] MEDS: atorvastatin 40 mg Tablet 20 MG PO (22:00)
[2022-08-25] MEDS: CLONazepam 1 mg Tablet 2 MG PO (22:00)
--- NOTE | 2022-08-25 22:00 | PC.NURSE ---
Patient requesting prn medication for sleep. Trazodone 100mg given as ordered. Encouraged patient to lay down and practice relaxation techniques. Patient sitting on bed in room.
[2022-08-25] MEDS: trazodone 100 mg Tablet PO (22:02)
[2022-08-26] MEDS: OLANZapine 5 mg ODT PO ×2 (00:15→22:17)
--- NOTE | 2022-08-26 00:15 | PC.NURSE ---
Trazodone not effective. Patient up at nurse's station making delusional statements to staff. 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 Stated the job was hard and she may need to step down and let her take the job. Also stated I am God and have saved all of your lives and you should be very thankful. Patient also noted to be very paranoid this shift of male peers. Often making statements that she knew they were here to hurt her and were up to something. Earlier in shift patient told several male peers that they were not saints and were no good. Patient wagged fingers at them telling them they were trouble. Redirected patient and discussed personal space and what was appropriate to say to others. Encouraged patient to keep distance from male peers. Voiced understanding. At this time zyprexa po was given for agitation.
--- NOTE | 2022-08-26 02:30 | PC.NURSE ---
Patient continued to be awake and wandering halls between dayroom and nurse's station. Patient continued with delusional statements. Encouraged patient to return to room and try to rest. Patient continued to stand at nurse's station and stare at staff. When asked if she needed anything she replied no but continued to stand at nurse's station. Asked patient to return to room. Patient wandered halls for several minutes. At this time vistaril was offered and taken. Discussed relaxation techniques with patient. Patient did return to room after several minutes of talking with staff.
[2022-08-26] MEDS: hyDROXYzine 25 mg Capsule 50 MG PO ×2 (02:32→21:21)
[2022-08-26] MEDS: cetylpyridinium Lozenge 1 EACH MUCOUS MEM (02:33)
--- NOTE | 2022-08-26 04:48 | PC.NURSE ---
Patient resting quietly at this time. No signs of distress noted. Continues with 15 minute safety check.
[2022-08-26] MEDS: levothyroxine 75 mcg Tablet PO (05:57)
[2022-08-26 06:00] VITALS: BP 163/93; PULSE 101; RESP 18; TEMP 36.9; O2SAT 93
[2022-08-26 08:40] VITALS: BP 134/89
[2022-08-26] MEDS: lurasidone 20 mg Tablet PO (08:40)
[2022-08-26] MEDS: lurasidone 80 mg Tablet PO (08:40)
[2022-08-26] MEDS: losartan 50 mg Tablet 25 MG PO (08:40)
[2022-08-26] MEDS: acetaminophen 325 mg Tablet 650 MG PO ×2 (08:41→21:21)
[2022-08-26] MEDS: loratadine 10 mg Tablet PO (08:41)
[2022-08-26] MEDS: metoprolol succinate ER (24 HR) 25 mg Tablet PO (08:41)
[2022-08-26] MEDS: nicotine 2 mg Gum BUCCAL ×2 (11:29→18:35)
--- NOTE | 2022-08-26 12:46 | W.PM.NPUPNS ---
Subjective NPU Subjective: Patient presented today reporting that at some level she felt ready to go home but with further questioning she very clearly identified that she was the president of [place] and that thoughts that Edgar Frederick was president was fake news. She expressed many other odd thought processes of varying degrees of paranoia, grandiosity and this. We discussed the current treatment plan for medications. She was agreeable to continue that process. Mental Status Exam MSE Comments: This is a well-nourished well-developed overweight white female in hospital scrubs with limited grooming and eye contact. No abnormal movements. Cooperative with exam in no acute distress. Speech was slightly increased rate and normal volume. Mood described as okay affect subdued and. Thought process appeared mostly organized. Thought content: Patient denied suicidal or homicidal ideation, endorses resolving paranoia but did not appear guarded, but expressed continued grandiose and odd delusions, she denied significant auditory or visual hallucinations and did not appear to be attending to internal stimuli. Attention and concentration appear intact and memory appeared unreliable but none were formally tested. She is alert and oriented x3. Insight, judgment and impulse control appear impaired. Vitals/I&O/Wt Last Vital Signs Temp 98.4 F 08/26/22 06:00 Pulse 101 H 08/26/22 06:00 Resp 18 08/26/22 06:00 BP 134/89 08/26/22 08:40 Pulse Ox 93 08/26/22 06:00 O2 Del Method 08/26/22 06:00 Data NPU 08/22/22 18:00 08/22/22 18:00 Micro: Microbiology 08/25/22 15:45 Urine Culture - Preliminary Urine,Voided Microbiology 08/25/22 15:45 Urine,Voided Urine Culture - Preliminary A&P Assessment and plan (1) Acute psychosis: (2) Bipolar disorder, current episode mixed, severe, with psychotic features: Plan Is a 51-year-old white female who presents with acute bryan with psychotic features with a past history of bipolar 1 disorder with recent decompensation that continues to occur despite 3 hospitalizations in the last 20 days. She will continue to require acute inpatient hospitalization at this time with likely medication changes recommended and will be implemented. #1. Restart current medications #2. Continue 15-minute checks for safety on the unit. #3. Engage patient in individual group and milieu therapy. #4. Increase Latuda to 100 mg 08/25/2022. If no improvement in a few days we will titrate up to 120 mg at night and if still no improvement we will begin lithium at a low dose. Involuntary Hold Information 96 Hour Hold: 96 Hour Involuntary Admission: No Attestations NPU Medical Necessity Statement*: Inpatient hospitalization remains medically necessary and the clinically appropriate decision at this time. Her likely length of stay is 5-7 days. Coding Level of Care Code Acute Code for [facility] Fwd Diagnoses Acute psychosis F23 Bipolar disorder, current episode mixed, severe, with psychotic features F31.64
[2022-08-26 14:00] VITALS: BP 135/91; PULSE 96; RESP 16; TEMP 37.1; O2SAT 94
--- NOTE | 2022-08-26 16:56 | PC.NURSE ---
Yanet RN, Palliative Care Nurse reported pt stared at her through the window of the nurses station and called her a bitch and said she didn't like Yanet. Yanet had been talking with the MD and had no contact with the patient. Pt's previous interaction with staff had been pleasant.
[2022-08-26 19:49] VITALS: BP 130/87; PULSE 93; RESP 16; TEMP 36.6; O2SAT 95
[2022-08-26] MEDS: trazodone 100 mg Tablet PO (21:19)
[2022-08-26] MEDS: atorvastatin 40 mg Tablet 20 MG PO (21:19)
[2022-08-26] MEDS: CLONazepam 1 mg Tablet 2 MG PO (21:21)
[2022-08-27 06:00] VITALS: BP 135/90; PULSE 85; RESP 18; TEMP 36.3; O2SAT 96
[2022-08-27] MEDS: levothyroxine 75 mcg Tablet PO (06:17)
[2022-08-27 09:05] VITALS: BP 135/90
[2022-08-27] MEDS: losartan 50 mg Tablet 25 MG PO (09:05)
[2022-08-27] MEDS: lurasidone 80 mg Tablet PO (09:06)
[2022-08-27] MEDS: lurasidone 20 mg Tablet PO (09:06)
[2022-08-27] MEDS: metoprolol succinate ER (24 HR) 25 mg Tablet PO (09:06)
[2022-08-27] MEDS: loratadine 10 mg Tablet PO (09:06)
--- NOTE | 2022-08-27 13:58 | W.PM.NPUPNS ---
Subjective NPU Subjective: Patient presented today reporting that she would be interested in leaving. She discussed being the vice president regulatory and gave a very convoluted story on how that would be possible. She endorsed other people on the unit bothering her. She seemed to have limited to no insight into her intrusive nature and some of those interactions. We discussed continuing the plan with Bjorn that she and Dr. Parra had initiated. Mental Status Exam MSE Comments: This is a well-nourished well-developed overweight white female in hospital scrubs with limited grooming and eye contact. No abnormal movements. Cooperative with exam in no acute distress. Speech was slightly increased rate and normal volume. Mood described as okay affect subdued and. Thought process appeared mostly organized. Thought content: Patient denied suicidal or homicidal ideation, endorses resolving paranoia but did not appear guarded, but expressed continued grandiose and odd delusions, she denied significant auditory or visual hallucinations and did not appear to be attending to internal stimuli. Attention and concentration appear intact and memory appeared unreliable but none were formally tested. She is alert and oriented x3. Insight, judgment and impulse control appear impaired. Vitals/I&O/Wt Last Vital Signs Temp 97.4 F L 08/27/22 06:00 Pulse 85 08/27/22 06:00 Resp 18 08/27/22 06:00 BP 135/90 08/27/22 06:00 Pulse Ox 96 08/27/22 06:00 O2 Del Method 08/27/22 06:00 Data NPU 08/22/22 18:00 08/22/22 18:00 Micro: Microbiology 08/25/22 15:45 Urine Culture - Preliminary Urine,Voided Microbiology 08/25/22 15:45 Urine,Voided Urine Culture - Preliminary A&P Assessment and plan (1) Acute psychosis: (2) Bipolar disorder, current episode mixed, severe, with psychotic features: Plan Is a 51-year-old white female who presents with acute bryan with psychotic features with a past history of bipolar 1 disorder with recent decompensation that continues to occur despite 3 hospitalizations in the last 20 days. She will continue to require acute inpatient hospitalization at this time with likely medication changes recommended and will be implemented. #1. Restart current medications #2. Continue 15-minute checks for safety on the unit. #3. Engage patient in individual group and milieu therapy. #4. Increase Latuda to 100 mg 08/25/2022. If no improvement in a few days we will titrate up to 120 mg at night and if still no improvement we will begin lithium at a low dose. Involuntary Hold Information 96 Hour Hold: 96 Hour Involuntary Admission: No Attestations NPU Medical Necessity Statement*: Inpatient hospitalization remains medically necessary and the clinically appropriate decision at this time. Her likely length of stay is 7-10 days. Coding Level of Care Code Acute Code for [facility] Fwd Diagnoses Acute psychosis F23 Bipolar disorder, current episode mixed, severe, with psychotic features F31.64
[2022-08-27 14:00] VITALS: BP 132/88; PULSE 88; RESP 17; TEMP 36.3; O2SAT 97
[2022-08-27] MEDS: cetylpyridinium Lozenge 1 EACH MUCOUS MEM (20:35)
[2022-08-27] MEDS: CLONazepam 1 mg Tablet 2 MG PO (21:21)
[2022-08-27 21:22] VITALS: BP 127/91
[2022-08-27] MEDS: OLANZapine 5 mg ODT PO (21:22)
[2022-08-27] MEDS: cloNIDine 0.1 mg Tablet PO (21:22)
[2022-08-27] MEDS: hyDROXYzine 25 mg Capsule 50 MG PO (21:23)
[2022-08-27] MEDS: atorvastatin 40 mg Tablet 20 MG PO (21:24)
[2022-08-27] MEDS: trazodone 100 mg Tablet PO (21:25)
[2022-08-27] MEDS: nicotine 4 mg lozenge MUCOUS MEM (21:25)
[2022-08-27] MEDS: acetaminophen 325 mg Tablet 650 MG PO (23:01)
[2022-08-28 06:00] VITALS: BP 121/83; PULSE 99; RESP 18; TEMP 36.8; O2SAT 97; BMI 29.2
[2022-08-28] MEDS: levothyroxine 75 mcg Tablet PO (07:46)
--- NOTE | 2022-08-28 07:47 | PC.NURSE ---
Pt came to nurses station asking if she could have her thyroid medication before breakfast. Documentation showed it still needed to be administered. Medication given.
[2022-08-28 08:11] VITALS: BP 125/85
[2022-08-28] MEDS: loratadine 10 mg Tablet PO (08:11)
[2022-08-28] MEDS: lurasidone 80 mg Tablet PO (08:11)
[2022-08-28] MEDS: metoprolol succinate ER (24 HR) 25 mg Tablet PO (08:11)
[2022-08-28] MEDS: losartan 50 mg Tablet 25 MG PO (08:11)
[2022-08-28] MEDS: lurasidone 20 mg Tablet PO (08:14)
[2022-08-28] MEDS: nicotine 2 mg Gum BUCCAL (09:03)
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
[2022-08-28] MEDS: acetaminophen 325 mg Tablet 650 MG PO (09:36)
[2022-08-28] MEDS: nicotine 4 mg lozenge MUCOUS MEM ×2 (11:04→20:35)
--- NOTE | 2022-08-28 11:20 | PC.NURSE ---
Pt came to desk asking staff to come to her bathroom to check and see if she had passed a stone. Pt identified a small dark regina floating at the back of the toilet. Pt has voiced no complaints about her bladder; urine in toilet yellow; no obvious blood noted. Pt informed of her ua results. Normal saúl in small quantities.
[2022-08-28 14:00] VITALS: BP 122/82; PULSE 97; RESP 18; TEMP 36.7; O2SAT 95
--- NOTE | 2022-08-28 15:18 | P.NPUPN_ITS ---
Subjective NPU Subjective: Patient presented today reporting continued hyperreligious, odd and intense delusions. Today she talked about trying not to cry because she did not want to be emotional plus if she cried it would create 1000-year flood and bring back Jean[place]Claude's arc. She was able to share that the reason why this was the case is that she is God. All of this is said with no change in her demeanor and clearly no identification of the possibility that statements about her presidency which she also made or being guide being or something that could arouse doubt. Mental Status Exam MSE Comments: This is a well-nourished well-developed overweight white female in hospital scrubs with limited grooming and eye contact. No abnormal movements. Cooperative with exam in no acute distress. Speech was slightly increased rate and normal volume. Mood described as fine I think I am ready to go home affect subdued and. Thought process appeared mostly organized. Thought content: Patient denied suicidal or homicidal ideation, endorses resolving paranoia but did not appear guarded, but expressed continued grandiose, h yperreligious and odd delusions, she denied significant auditory or visual hallucinations and did not appear to be attending to internal stimuli. Attention and concentration appear intact and memory appeared unreliable but none were formally tested. She is alert and oriented x3. Insight, judgment and impulse control appear impaired. Vitals/I&O/Wt Last Vital Signs Temp 98.0 F 08/28/22 14:00 Pulse 97 08/28/22 14:00 Resp 18 08/28/22 14:00 BP 122/82 08/28/22 14:00 Pulse Ox 95 08/28/22 14:00 O2 Del Method 08/28/22 14:00 Weight last 48 hrs Weight 72.575 kg Data NPU 08/22/22 18:00 08/22/22 18:00 A&P Assessment and plan (1) Acute psychosis: (2) Bipolar disorder, current episode mixed, severe, with psychotic features: Plan Is a 51-year-old white female who presents with acute bryan with psychotic features with a past history of bipolar 1 disorder with recent decompensation that continues to occur despite 3 hospitalizations in the last 20 days. She will continue to require acute inpatient hospitalization at this time with likely medication changes recommended and will be implemented. #1. Restart current medications #2. Continue 15-minute checks for safety on the unit. #3. Engage patient in individual group and milieu therapy. #4. Increased Latuda to 100 mg 08/25/2022. If no improvement in a few days we will titrate up to 120 mg daily tomorrow and if still no significant improvement we will begin lithium at a low dose. Involuntary Hold Information 96 Hour Hold: 96 Hour Involuntary Admission: No Attestations NPU Medical Necessity Statement*: Inpatient hospitalization remains medically necessary and the clinically appropriate decision at this time. Her likely length of stay is 7-10 days. Coding Level of Care Code Acute Code for [facility] Fwd Diagnoses Acute psychosis F23 Bipolar disorder, current episode mixed, severe, with psychotic features F31.64
[2022-08-28] MEDS: blistex lip oint 7 gm Tube 1 APPLIC TOPICAL (15:26)
[2022-08-28] MEDS: LORazepam 2 mg/mL INJ 1 mL IM (19:40)
[2022-08-28] MEDS: diphenhydrAMINE 50 mg/mL SDV 1mL IM (19:40)
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
[2022-08-28] MEDS: CLONazepam 1 mg Tablet 2 MG PO (20:34)
[2022-08-28] MEDS: atorvastatin 40 mg Tablet 20 MG PO (20:34)
[2022-08-28] MEDS: ziprasidone hcl 40 mg Capsule PO (20:35)
[2022-08-28 21:42] VITALS: RESP 18
[2022-08-29] MEDS: cetylpyridinium Lozenge 1 EACH MUCOUS MEM (04:36)
[2022-08-29 06:00] VITALS: BP 117/72; PULSE 92; RESP 18; TEMP 36.8; O2SAT 95
[2022-08-29] MEDS: levothyroxine 75 mcg Tablet PO (06:31)
[2022-08-29] MEDS: loratadine 10 mg Tablet PO (08:53)
[2022-08-29 08:54] VITALS: BP 139/88
[2022-08-29] MEDS: losartan 50 mg Tablet 25 MG PO (08:54)
[2022-08-29] MEDS: metoprolol succinate ER (24 HR) 25 mg Tablet PO (09:01)
[2022-08-29] MEDS: lurasidone 80 mg Tablet PO (09:01)
[2022-08-29] MEDS: lurasidone 20 mg Tablet 40 MG PO (09:01)
[2022-08-29] MEDS: blistex lip oint 7 gm Tube 1 APPLIC TOPICAL ×3 (09:14→17:34)
--- NOTE | 2022-08-29 13:48 | W.PM.NPUPNS ---
Subjective NPU Subjective: Patient presented today continuing to report doing better. Today she was less delusional and her conversation no specific talk about being God or the president. We talked about the possibility of initiating lithium tomorrow. She continues to feel that she is fine to go home. Mental Status Exam MSE Comments: This is a well-nourished well-developed overweight white female in hospital scrubs with limited grooming and eye contact. No abnormal movements. Cooperative with exam in no acute distress. Speech was slightly increased rate and normal volume. Mood described as fine I think I am ready to go home affect subdued and. Thought process appeared mostly organized. Thought content: Patient denied suicidal or homicidal ideation, endorses resolving paranoia but did not appear guarded, and expressed less grandiose, hyperreligious and odd delusions, she denied significant auditory or visual hallucinations and did not appear to be attending to internal stimuli. Attention and concentration appear intact and memory appeared unreliable but none were formally tested. She is alert and oriented x3. Insight, judgment and impulse control appear impaired. Vitals/I&O/Wt Last Vital Signs Temp 98.2 F 08/29/22 06:00 Pulse 92 08/29/22 06:00 Resp 18 08/29/22 06:00 BP 117/72 08/29/22 06:00 Pulse Ox 95 08/29/22 06:00 O2 Del Method 08/28/22 14:00 Weight last 48 hrs Weight 72.575 kg Data NPU 08/22/22 18:00 08/22/22 18:00 A&P Assessment and plan (1) Acute psychosis: (2) Bipolar disorder, current episode mixed, severe, with psychotic features: Plan Is a 51-year-old white female who presents with acute bryan with psychotic features with a past history of bipolar 1 disorder with recent decompensation that continues to occur despite 3 hospitalizations in the last 20 days. She will continue to require acute inpatient hospitalization at this time with likely medication changes recommended and will be implemented. #1. Restarted current medications #2. Continue 15-minute checks for safety on the unit. #3. Engage patient in individual group and milieu therapy. #4. Increased Latuda to 100 mg 08/25/2022. Increase to 120 mg daily today and we will consider lithium at a low dose. Involuntary Hold Information 96 Hour Hold: 96 Hour Involuntary Admission: No Attestations NPU Medical Necessity Statement*: Inpatient hospitalization remains medically necessary and the clinically appropriate decision at this time. Her likely length of stay is 6 to 9 days. Coding Level of Care Code Acute Code for [facility] Fwd Diagnoses Acute psychosis F23 Bipolar disorder, current episode mixed, severe, with psychotic features F31.64
[2022-08-29 14:00] VITALS: BP 140/95; PULSE 91; RESP 18; TEMP 36.6; O2SAT 96
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
[2022-08-29] MEDS: acetaminophen 325 mg Tablet 650 MG PO ×2 (15:39→20:40)
--- NOTE | 2022-08-29 16:20 | PC.NURSE ---
Patient now stating she is blind. Approached this nurse and without prompting asked why I was scared of that laura (referring to a man who was a visitor). When I replied that I wasn't she asked, why are you acting like you are? You're a robot. She then left the nurses' station only to later return and rock back and forth staring at this nurses and repeatedly chanting, you're not real. You're not real. You're not real.
[2022-08-29] MEDS: nicotine 2 mg Gum BUCCAL (19:00)
[2022-08-29] MEDS: hyDROXYzine 25 mg Capsule 50 MG PO (20:13)
[2022-08-29] MEDS: CLONazepam 1 mg Tablet 2 MG PO (20:13)
[2022-08-29] MEDS: atorvastatin 40 mg Tablet 20 MG PO (20:13)
[2022-08-30] MEDS: acetaminophen 325 mg Tablet 650 MG PO ×3 (00:30→21:10)
[2022-08-30] MEDS: OLANZapine 5 mg ODT PO (02:12)
--- NOTE | 2022-08-30 03:21 | PC.NURSE ---
pt Tylenol earlier for pain. Earlier this evening patient walked up to nurse's station and told RN I'm the one who on the cross and walked away, she has had bizarre behavior, she stands in front of pt room and saluting and has hand over her heart, at 0210 pt has been pacing tonight, irritable, pointing at staff and making mean remarks, pt given liang.
[2022-08-30] MEDS: ziprasidone hcl 40 mg Capsule PO (03:56)
--- NOTE | 2022-08-30 03:57 | PC.NURSE ---
pt at nurse's station argumentative, telling staff you can't tell me what to do pt has been asked multiple times to go to pt room and read, sit in hallway near phone, pt has been asked not to pace in halls as patients are sleeping, when called by name she stated that's not my name, Mabel Thayer , she has been observed talking to mirror as well.
--- NOTE | 2022-08-30 06:47 | PC.NURSE ---
at 0400 pt given Sally as pt was argumentative and telling staff what to do. Nurse note written at [id number]
[2022-08-30] MEDS: cetylpyridinium Lozenge 1 EACH MUCOUS MEM (07:27)
[2022-08-30] MEDS: levothyroxine 75 mcg Tablet PO (07:28)
[2022-08-30] MEDS: nicotine 21 mg Patch 1 PATCH TRANSDERMA (07:38)
--- NOTE | 2022-08-30 08:01 | W.PM.NPUPNS ---
Subjective NPU Subjective: Patient presented today reporting that she was just joking about the [place] president stuff. But it was clear that she was saying that with great angst. We discussed the fact that I am very accustomed to people joking versus being serious and clearly there was some truth in her thoughts. We discussed that she is showing some signs of improvement as she is not holding those believes so strongly and we discussed the possibility of considering lithium which she was at first resistant to. Mental Status Exam MSE Comments: This is a well-nourished well-developed overweight white female in hospital scrubs with limited grooming and eye contact. No abnormal movements. Cooperative with exam in no acute distress. Speech was slightly increased rate and normal volume. Mood described as fine I think I am better and I miss my , affect subdued and odd. Thought process appeared mostly organized. Thought content: Patient denied suicidal or homicidal ideation, endorses resolving paranoia but did not appear guarded, and expressed less grandiose, hyperreligious and odd delusions, she denied significant auditory or visual hallucinations and did not appear to be attending to internal stimuli. Attention and concentration appear intact and memory appeared unreliable but none were formally tested. She is alert and oriented x3. Insight, judgment and impulse control appear impaired. Vitals/I&O/Wt Last Vital Signs Temp 97.9 F 08/29/22 14:00 Pulse 91 08/29/22 14:00 Resp 18 08/29/22 14:00 BP 140/95 08/29/22 14:00 Pulse Ox 96 08/29/22 14:00 O2 Del Method 08/28/22 14:00 Data NPU 08/22/22 18:00 08/22/22 18:00 A&P Assessment and plan (1) Acute psychosis: (2) Bipolar disorder, current episode mixed, severe, with psychotic features: Plan Is a 51-year-old white female who presents with acute bryan with psychotic features with a past history of bipolar 1 disorder with recent decompensation that continues to occur despite 3 hospitalizations in the last 20 days. She will continue to require acute inpatient hospitalization at this time with likely medication changes recommended and will be implemented. #1. Restarted current medications #2. Continue 15-minute checks for safety on the unit. #3. Engage patient in individual group and milieu therapy. #4. Increased Latuda to 100 mg 08/25/2022. Increased to 120 mg daily today and we will consider lithium at a low dose. Involuntary Hold Information 96 Hour Hold: 96 Hour Involuntary Admission: No Attestations NPU Medical Necessity Statement*: Inpatient hospitalization remains medically necessary and the clinically appropriate decision at this time. Her likely length of stay is 6 to 9 days. Coding Level of Care Code Acute Code for [facility] Fwd Diagnoses Acute psychosis F23 Bipolar disorder, current episode mixed, severe, with psychotic features F31.64
[2022-08-30] MEDS: lurasidone 20 mg Tablet 40 MG PO (08:47)
[2022-08-30 08:48] VITALS: BP 140/95
[2022-08-30] MEDS: metoprolol succinate ER (24 HR) 25 mg Tablet PO (08:48)
[2022-08-30] MEDS: lurasidone 80 mg Tablet PO (08:48)
[2022-08-30] MEDS: loratadine 10 mg Tablet PO (08:48)
[2022-08-30] MEDS: losartan 50 mg Tablet 25 MG PO (08:48)
[2022-08-30 12:58] VITALS: BP 129/88; PULSE 94; RESP 17; TEMP 36.5; O2SAT 96
[2022-08-30] MEDS: CLONazepam 1 mg Tablet 2 MG PO (21:09)
[2022-08-30] MEDS: atorvastatin 40 mg Tablet 20 MG PO (21:10)
[2022-08-30] MEDS: trazodone 100 mg Tablet PO (21:10)
[2022-08-30 21:13] VITALS: BP 143/91; PULSE 91; RESP 20; TEMP 36.6; O2SAT 100
[2022-08-30] MEDS: nicotine 2 mg Gum BUCCAL (21:59)
[2022-08-31] MEDS: levothyroxine 75 mcg Tablet PO (05:46)
--- NOTE | 2022-08-31 05:55 | PC.NURSE ---
during assessment, Tylenol given for back pain, trazodone given, pt slept until about 0130 and has been awake. She at times has gone to her room and rested for a short while but there were no issues on evening shift. pt is intrusive with patients and at nurse's stations frequently. She is redirectable.
[2022-08-31 06:00] VITALS: BP 159/92; PULSE 86; RESP 18; TEMP 36.8; O2SAT 94
[2022-08-31] MEDS: nicotine 2 mg Gum BUCCAL (07:47)
[2022-08-31 08:16] VITALS: BP 146/100
[2022-08-31] MEDS: loratadine 10 mg Tablet PO (08:16)
[2022-08-31] MEDS: losartan 50 mg Tablet 25 MG PO (08:16)
[2022-08-31] MEDS: lurasidone 20 mg Tablet 40 MG PO (08:17)
[2022-08-31] MEDS: lurasidone 80 mg Tablet PO (08:17)
[2022-08-31] MEDS: metoprolol succinate ER (24 HR) 25 mg Tablet PO (08:17)
--- NOTE | 2022-08-31 09:05 | PC.NURSE ---
Pt entered Room 150 which is a man's room. When staff redirected the pt, she became verbally abusive, calling staff a bitch and when staff attempted to redirect the pt away from the pt's door, the pt replied, Make me. When staff attempted to enter room 150 to administer medications to the occupants of that room, the pt stood in the doorway and wouldn't let staff pass. Pt again redirected. Pt continued to tire inspector the doorway until staff requested Security be notified to come to the unit. She then left the area. Shortly thereafter, staff reported the pt had written on some of the ingram in her room. Leave my pepopy along I don't give a fuck what you do. 2nd Times Anuj Still + Mabel + Gale Zuñiga. I didn't sin nor my . The numbers 96, 14, 72, and 70 were listed and the words No war No war Stop. Per Yanet RN, Supervisor Drying And Softening, the pt had written this on her wall yesterady. Security aware.
[2022-08-31] MEDS: OLANZapine 5 mg ODT PO (11:39)
[2022-08-31 14:00] VITALS: RESP 18
--- NOTE | 2022-08-31 14:13 | P.NPUPN_ITS ---
Subjective NPU Subjective: Patient presented today reporting that she is wanting to go home and that she misses her . 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 She also reported being and that she was looking forward to having this baby. She had enough insight to identify that saying that to me might have some implications and so she attempted to retract it as a joke. She did report that she is able to become at 51 because she is a Nond[employer]omin[employer] and you do not age as a Nondenominational. We discussed the risk benefits and alternatives of adding lithium and she understood and ultimately agreed to proceed as is documented in this note. Mental Status Exam MSE Comments: This is a well-nourished well-developed overweight white female in hospital scrubs with limited grooming and eye contact. No abnormal movements. Cooperative with exam in no acute distress. Speech was slightly increased rate and normal volume. Mood described as fine I think I am better and I miss my , affect subdued and odd. Thought process appeared mostly organized. Thought content: Patient denied suicidal or homicidal ideation, endorses resolving paranoia but did not appear guarded, and expressed less grandiose, hyperreligious and odd delusions, she denied significant auditory or visual hallucinations and did not appear to be attending to internal stimuli. Attention and concentration appear intact and memory appeared unreliable but none were formally tested. She is alert and oriented x3. Insight, judgment and impulse control appear impaired. Vitals/I&O/Wt Last Vital Signs Temp 98.2 F 08/31/22 06:00 Pulse 86 08/31/22 06:00 Resp 18 08/31/22 06:00 BP 146/100 08/31/22 08:16 Pulse Ox 94 08/31/22 06:00 O2 Del Method 08/31/22 06:00 Data NPU 08/22/22 18:00 08/22/22 18:00 A&P Assessment and plan (1) Acute psychosis: (2) Bipolar disorder, current episode mixed, severe, with psychotic features: Plan Is a 51-year-old white female who presents with acute bryan with psychotic features with a past history of bipolar 1 disorder with recent decompensation that continues to occur despite 3 hospitalizations in the last 20 days. She will continue to require acute inpatient hospitalization at this time with likely medication changes recommended and will be implemented. #1. Restarted current medications #2. Continue 15-minute checks for safety on the unit. #3. Engage patient in individual group and milieu therapy. #4. Increased Latuda to 100 mg 08/25/2022. Increased to 120 mg daily today. Add lithium 300 mg p.o. twice daily. Involuntary Hold Information 96 Hour Hold: 96 Hour Involuntary Admission: No Attestations NPU Medical Necessity Statement*: Inpatient hospitalization remains medically nec essary and the clinically appropriate decision at this time. Her likely length of stay is 5-8 days. Coding Level of Care Code Acute Code for Chg Fwd Diagnoses Acute psychosis F23 Bipolar disorder, current episode mixed, severe, with psychotic features F31.64
[2022-08-31] MEDS: cetylpyridinium Lozenge 1 EACH MUCOUS MEM ×2 (16:05→21:22)
[2022-08-31] MEDS: atorvastatin 40 mg Tablet 20 MG PO (21:33)
[2022-08-31] MEDS: CLONazepam 1 mg Tablet 2 MG PO (21:33)
[2022-08-31 22:00] VITALS: BP 144/87; PULSE 93; RESP 17; TEMP 36.7; O2SAT 90
[2022-09-01] MEDS: hyDROXYzine 25 mg Capsule 50 MG PO (01:45)
--- NOTE | 2022-09-01 01:45 | PC.NURSE ---
Patient reports anxiety with a rating of 7/10. States she feels restless because she wants to go home. Also stated the stern is to hot for comfort. Vistaril offered to patient and taken. Encouraged patient to color or watch TV til she felt relaxed and tired. Patient went to dayroom.
--- NOTE | 2022-09-01 02:45 | PC.NURSE ---
Patient states vistaril did help with her anxiety but she still feels to restless to sleep. Reported her room is hot and uncomfortable. Cold washcloth given to patient as well as ice water. Patient returned to room.
[2022-09-01] MEDS: nicotine 4 mg lozenge MUCOUS MEM (03:59)
[2022-09-01] MEDS: levothyroxine 75 mcg Tablet PO (05:34)
[2022-09-01] MEDS: cetylpyridinium Lozenge 1 EACH MUCOUS MEM (05:34)
[2022-09-01 06:00] VITALS: BP 146/95; PULSE 98; RESP 18; TEMP 36.7; O2SAT 96
[2022-09-01 08:18] VITALS: BP 136/90
[2022-09-01] MEDS: lurasidone 80 mg Tablet PO (08:18)
[2022-09-01] MEDS: lurasidone 20 mg Tablet 40 MG PO (08:18)
[2022-09-01] MEDS: losartan 50 mg Tablet 25 MG PO (08:18)
[2022-09-01] MEDS: metoprolol succinate ER (24 HR) 25 mg Tablet PO (08:18)
--- NOTE | 2022-09-01 08:22 | PC.NURSE ---
Pt declined claritin this AM. Said she had it earlier. Med not given.
[2022-09-01] MEDS: lithium carbonate 300 mg Capsule PO ×2 (08:31→17:27)
[2022-09-01] MEDS: ziprasidone hcl 40 mg Capsule PO (11:28)
--- NOTE | 2022-09-01 13:03 | P.NPUPN_ITS ---
Subjective NPU Subjective: Patient presented today reporting that she is doing fine. She went back to an earlier theme and talked about being president and reported that she was joking about being yesterday. We discussed some of her grandiose beliefs and them being an indication of the need for continued medi cation adjustments. She denied any issues tolerating the lithium over the past day and reports that she is eating and sleeping fine. Mental Status Exam MSE Comments: This is a well-nourished well-developed overweight white female in hospital scrubs with limited grooming and eye contact. Notable hirsutism. No abnormal movements. Cooperative with exam in no acute distress. Speech was slightly increased rate and normal volume. Mood described as better, affect subdued and odd. Thought process appeared mostly organized. Thought content: Patient denied suicidal or homicidal ideation, endorses resolving paranoia but did not appear guarded, and expressed less grandiose, hyperreligious and odd del usions, she denied significant auditory or visual hallucinations and did not appear to be attending to internal stimuli. Attention and concentration appear intact and memory appeared unreliable but none were formally tested. She is alert and oriented x3. Insight, judgment and impulse control appear impaired. Vitals/I&O/Wt Last Vital Signs Temp 98.1 F 09/01/22 06:00 Pulse 98 09/01/22 06:00 Resp 18 09/01/22 06:00 BP 146/95 09/01/22 06:00 Pulse Ox 96 09/01/22 06:00 O2 Del Method 09/01/22 06:00 Data NPU 08/22/22 18:00 08/22/22 18:00 A&P Assessment and plan (1) Acute psychosis: (2) Bipolar disorder, current episode mixed, severe, with psychotic features: Plan Is a 51-year-old white female who presents with acute bryan with psychotic features with a past history of bipolar 1 disorder with recent decompensation that continues to occur despite 3 hospitalizations in the last 20 days. She will continue to require acute inpatient hospitalization at this time with likely medication changes recommended and will be implemented. #1. Restarted current medications #2. Continue 15-minute checks for safety on the unit. #3. Engage patient in individual group and milieu therapy. #4. Increased Latuda to 100 mg 08/25/2022. Increased to 120 mg daily 08/29/2022. Added lithium 300 mg p.o. twice daily. Involuntary Hold Information 96 Hour Hold: 96 Hour Involuntary Admission: No Attestations NPU Medical Necessity Statement*: Inpatient hospitalization remains medically necessary and the clinically appropriate decision at this time. Her likely length of stay is 5-8 days. Coding Level of Care Code Acute Code for Chg Fwd Diagnoses Acute psychosis F23 Bipolar disorder, current episode mixed, severe, with psychotic features F31.64
[2022-09-01 13:11] VITALS: BP 127/87; PULSE 88; RESP 16; TEMP 36.5; O2SAT 94
[2022-09-01] MEDS: trazodone 100 mg Tablet PO (21:51)
[2022-09-01] MEDS: CLONazepam 1 mg Tablet 2 MG PO (21:51)
[2022-09-01] MEDS: atorvastatin 40 mg Tablet 20 MG PO (21:52)
[2022-09-01 22:00] VITALS: BP 138/91; PULSE 81; RESP 18; TEMP 36.3; O2SAT 95
[2022-09-02] MEDS: hyDROXYzine 25 mg Capsule 50 MG PO ×2 (00:35→21:38)
[2022-09-02 06:00] VITALS: BP 122/82; PULSE 93; RESP 15; TEMP 36.5; O2SAT 98
[2022-09-02] MEDS: levothyroxine 75 mcg Tablet PO (06:28)
[2022-09-02] MEDS: loratadine 10 mg Tablet PO (09:12)
[2022-09-02] MEDS: losartan 50 mg Tablet 25 MG PO (09:12)
[2022-09-02] MEDS: lurasidone 20 mg Tablet 40 MG PO (09:12)
[2022-09-02] MEDS: lurasidone 80 mg Tablet PO (09:12)
[2022-09-02] MEDS: metoprolol succinate ER (24 HR) 25 mg Tablet PO (09:13)
[2022-09-02] MEDS: lithium carbonate 300 mg Capsule PO ×2 (09:13→18:55)
--- NOTE | 2022-09-02 13:27 | W.PM.NPUPNS ---
Subjective NPU Subjective: Patient presents today reporting that she is feeling better. She was less forthcoming about any delusional content not discussing , presidency or being. 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 She is eating and sleeping better and denied any new or pressing issues. She continued to endorse a desire to go home as soon as possible. Mental Status Exam MSE Comments: This is a well-nourished well-developed overweight white female in hospital scrubs with limited grooming and eye contact. Notable hirsutism. No abnormal movements. Cooperative with exam in no acute distress. Speech was slightly increased rate and normal volume. Mood described as better, affect subdued and odd. Thought process appeared mostly organized. Thought content: Patient denied suicidal or homicidal ideation, endorses resolving paranoia but did not appear guarded, and expressed less grandiose, hyperreligious and odd delusions, she denied significant auditory or visual hallucinations and did not appear to be attending to internal stimuli. Attention and concentration appear intact and memory appeared unreliable but none were formally tested. She is alert and oriented x3. Insight, judgment and impulse control appear impaired. Vitals/I&O/Wt Last Vital Signs Temp 97.7 F 09/02/22 06:00 Pulse 93 09/02/22 06:00 Resp 15 09/02/22 06:00 BP 122/82 09/02/22 06:00 Pulse Ox 98 09/02/22 06:00 O2 Del Method 09/02/22 06:00 Data NPU 08/22/22 18:00 08/22/22 18:00 A&P Assessment and plan (1) Acute psychosis: (2) Bipolar disorder, current episode mixed, severe, with psychotic features: Plan Is a 51-year-old white female who presents with acute bryan with psychotic features with a past history of bipolar 1 disorder with recent decompensation that continues to occur despite 3 hospitalizations in the last 20 days. She will continue to require acute inpatient hospitalization at this time with likely medication changes recommended and will be implemented. #1. Restarted current medications #2. Continue 15-minute checks for safety on the unit. #3. Engage patient in individual group and milieu therapy. #4. Increased Latuda to 100 mg 08/25/2022. Increased to 120 mg daily 08/29/2022. Added lithium 300 mg p.o. twice daily. Involuntary Hold Information 96 Hour Hold: 96 Hour Involuntary Admission: No Attestations NPU Medical Necessity Statement*: Inpatient hospitalization remains medically necessary and the clinically appropriate decision at this time. Her likely length of stay is 5-8 days. Coding Level of Care Code Acute Code for Chg Fwd Diagnoses Acute psychosis F23 Bipolar disorder, current episode mixed, severe, with psychotic features F31.64
[2022-09-02 14:00] VITALS: BP 109/76; PULSE 98; RESP 20; TEMP 36.9; O2SAT 96
[2022-09-02] MEDS: trazodone 100 mg Tablet PO (21:37)
[2022-09-02] MEDS: CLONazepam 1 mg Tablet 2 MG PO (21:38)
[2022-09-02] MEDS: atorvastatin 40 mg Tablet 20 MG PO (21:38)
[2022-09-02] MEDS: nicotine 4 mg lozenge MUCOUS MEM (21:38)
[2022-09-02] MEDS: fluticasone nasal spray 16gm Btl 2 SPRAY NASAL (21:42)
[2022-09-02 22:00] VITALS: BP 133/84; PULSE 87; RESP 16; TEMP 36.8; O2SAT 95
[2022-09-03 06:00] VITALS: BP 114/81; PULSE 86; RESP 16; TEMP 36.5; O2SAT 97
[2022-09-03] MEDS: levothyroxine 75 mcg Tablet PO (06:49)
[2022-09-03 08:49] VITALS: BP 114/81
[2022-09-03] MEDS: metoprolol succinate ER (24 HR) 25 mg Tablet PO (08:49)
[2022-09-03] MEDS: nicotine 2 mg Gum BUCCAL ×3 (08:49→21:26)
[2022-09-03] MEDS: loratadine 10 mg Tablet PO (08:49)
[2022-09-03] MEDS: losartan 50 mg Tablet 25 MG PO (08:49)
[2022-09-03] MEDS: lurasidone 80 mg Tablet PO (08:50)
[2022-09-03] MEDS: lithium carbonate 300 mg Capsule PO ×2 (08:50→18:23)
[2022-09-03] MEDS: lurasidone 20 mg Tablet 40 MG PO (08:50)
[2022-09-03] MEDS: fluticasone nasal spray 16gm Btl 2 SPRAY NASAL (08:52)
--- NOTE | 2022-09-03 13:17 | W.PM.NPUPNS ---
Subjective NPU Subjective: Patient presented today continuing to have slow improvement with the addition of the lithium. Today she was able to disavow , presidency or deity without any apparent distress. She is eating fine and sleeping better and reporting a desire to go home but not having any irritability or aggression related to our discussed need for continued treatment. Mental Status Exam MSE Comments: This is a well-nourished well-developed overweight white female in hospital scrubs with limited grooming and eye contact. Notable hirsutism. No abnormal movements. Cooperative with exam in no acute distress. Speech was slightly increased rate and normal volume. Mood described as better, affect subdued and odd. Thought process appeared mostly organized. Thought content: Patient denied suicidal or homicidal ideation, endorses resolving paranoia but did not appear guarded, and expressed less grandiose, hyperreligious and odd delusions, she denied significant auditory or visual hallucinations and did not appear to be attending to internal stimuli. Attention and concentration appear intact and memory appeared unreliable but none were formally tested. She is alert and oriented x3. Insight, judgment and impulse control appear impaired. Vitals/I&O/Wt Last Vital Signs Temp 97.7 F 09/03/22 06:00 Pulse 86 09/03/22 06:00 Resp 16 09/03/22 06:00 BP 114/81 09/03/22 06:00 Pulse Ox 97 09/03/22 06:00 O2 Del Method 09/03/22 06:00 Data NPU 08/22/22 18:00 08/22/22 18:00 A&P Assessment and plan (1) Acute psychosis: (2) Bipolar disorder, current episode mixed, severe, with psychotic features: Plan Is a 51-year-old white female who presents with acute bryan with psychotic features with a past history of bipolar 1 disorder with recent decompensation that continues to occur despite 3 hospitalizations in the last 20 days. She will continue to require acute inpatient hospitalization at this time with likely medication changes recommended and will be implemented. #1. Restarted current medications #2. Continue 15-minute checks for safety on the unit. #3. Engage patient in individual group and milieu therapy. #4. Increased Latuda to 100 mg 08/25/2022. Increased to 120 mg daily 08/29/2022. Added lithium 300 mg p.o. twice daily 09/01/2022. Involuntary Hold Information 96 Hour Hold: 96 Hour Involuntary Admission: No Attestations NPU Medical Necessity Statement*: Inpatient hospitalization remains medically necessary and the clinically appropriate decision at this time. Her likely length of stay is 4-7 days. Coding Level of Care Code Acute Code for Chg Fwd Diagnoses Acute psychosis F23 Bipolar disorder, current episode mixed, severe, with psychotic features F31.64
[2022-09-03] MEDS: acetaminophen 325 mg Tablet 650 MG PO ×2 (13:31→20:21)
[2022-09-03 14:00] VITALS: BP 120/86; PULSE 93; RESP 18; TEMP 36.7; O2SAT 96
[2022-09-03] MEDS: LORazepam 2 mg Tablet PO (20:30)
[2022-09-03 21:04] VITALS: BP 147/65; PULSE 97; RESP 16; TEMP 36.6; O2SAT 95
[2022-09-03] MEDS: atorvastatin 40 mg Tablet 20 MG PO (21:25)
[2022-09-03] MEDS: hyDROXYzine 25 mg Capsule 50 MG PO (21:25)
[2022-09-03] MEDS: trazodone 100 mg Tablet PO (21:26)
[2022-09-03] MEDS: CLONazepam 1 mg Tablet 2 MG PO (21:26)
[2022-09-03] MEDS: ziprasidone hcl 40 mg Capsule PO (21:26)
[2022-09-04 06:00] VITALS: BP 143/89; PULSE 96; RESP 15; TEMP 36.3; O2SAT 96
[2022-09-04] MEDS: levothyroxine 75 mcg Tablet PO (06:08)
[2022-09-04] MEDS: nicotine 2 mg Gum BUCCAL ×4 (06:08→20:26)
[2022-09-04 08:30] VITALS: BP 143/89
[2022-09-04] MEDS: lurasidone 20 mg Tablet 40 MG PO (08:30)
[2022-09-04] MEDS: lurasidone 80 mg Tablet PO (08:30)
[2022-09-04] MEDS: losartan 50 mg Tablet 25 MG PO (08:30)
[2022-09-04] MEDS: loratadine 10 mg Tablet PO (08:31)
[2022-09-04] MEDS: metoprolol succinate ER (24 HR) 25 mg Tablet PO (08:31)
[2022-09-04] MEDS: lithium carbonate 300 mg Capsule PO ×2 (08:31→18:11)
--- NOTE | 2022-09-04 10:16 | W.PM.NPUPNS ---
Subjective NPU Subjective: Patient presented today reporting that she was feeling better. 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 Less episodes of intrusiveness and improvement in grooming. We discussed evaluating things in the morning and talking to her and considering discharge at the beginning of this week if she continues her current advances. Mental Status Exam MSE Comments: This is a well-nourished well-developed overweight white female in hospital scrubs with limited grooming and eye contact. Notable hirsutism. No abnormal movements. Cooperative with exam in no acute distress. Speech was slightly increased rate and normal volume. Mood described as better, affect subdued and odd. Thought process appeared mostly organized. Thought content: Patient denied suicidal or homicidal ideation, no delusions reported and none noted, she denied significant auditory or visual hallucinations and did not appear to be attending to internal stimuli. Attention and concentration appear intact and memory appeared more reliable but none were formally tested. She is alert and oriented x3. Insight and judgment are limited but improving and impulse control appears to be improving. Vitals/I&O/Wt Last Vital Signs Temp 97.4 F L 09/04/22 06:00 Pulse 96 09/04/22 06:00 Resp 15 09/04/22 06:00 BP 143/89 09/04/22 08:30 Pulse Ox 96 09/04/22 06:00 O2 Del Method 09/04/22 06:00 Weight last 48 hrs Weight 77.734 kg Weight 77.734 kg Data NPU 08/22/22 18:00 08/22/22 18:00 A&P Assessment and plan (1) Acute psychosis: (2) Bipolar disorder, current episode mixed, severe, with psychotic features: Plan Is a 51-year-old white female who presents with acute bryan with psychotic features with a past history of bipolar 1 disorder with recent decompensation that continues to occur despite 3 hospitalizations in the last 20 days. She will continue to require acute inpatient hospitalization at this time with likely medication changes recommended and will be implemented. #1. Restarted current medications #2. Continue 15-minute checks for safety on the unit. #3. Engage patient in individual group and milieu therapy. #4. Increased Latuda to 100 mg 08/25/2022. Increased to 120 mg daily 08/29/2022. Added lithium 300 mg p.o. twice daily 09/01/2022. Involuntary Hold Information 96 Hour Hold: 96 Hour Involuntary Admission: No Attestations NPU Medical Necessity Statement*: Inpatient hospitalization remains medically necessary and the clinically appropriate decision at this time. Her likely length of stay is 2-5 days. Coding Level of Care Code Acute Code for Chg Fwd Diagnoses Acute psychosis F23 Bipolar disorder, current episode mixed, severe, with psychotic features F31.64
[2022-09-04] MEDS: fluticasone nasal spray 16gm Btl 2 SPRAY NASAL (10:22)
[2022-09-04 14:00] VITALS: BP 139/90; PULSE 100; RESP 17; TEMP 36.3; O2SAT 95
[2022-09-04] MEDS: LORazepam 2 mg Tablet PO (20:24)
[2022-09-04] MEDS: CLONazepam 1 mg Tablet 2 MG PO (20:25)
[2022-09-04] MEDS: atorvastatin 40 mg Tablet 20 MG PO (20:25)
[2022-09-04] MEDS: trazodone 100 mg Tablet PO (20:26)
[2022-09-04] MEDS: hyDROXYzine 25 mg Capsule 50 MG PO (20:26)
[2022-09-04 20:30] VITALS: BP 127/82; PULSE 103; RESP 18; TEMP 36.6; O2SAT 96
[2022-09-05 06:00] VITALS: BP 132/87; PULSE 89; RESP 18; TEMP 36.8; O2SAT 97
[2022-09-05] MEDS: levothyroxine 75 mcg Tablet PO (06:01)
[2022-09-05] MEDS: nicotine 2 mg Gum BUCCAL ×4 (06:01→19:42)
[2022-09-05] MEDS: losartan 50 mg Tablet 25 MG PO (08:06)
[2022-09-05] MEDS: metoprolol succinate ER (24 HR) 25 mg Tablet PO (08:06)
[2022-09-05] MEDS: lurasidone 20 mg Tablet 40 MG PO (08:06)
[2022-09-05] MEDS: lurasidone 80 mg Tablet PO (08:06)
[2022-09-05] MEDS: loratadine 10 mg Tablet PO (08:06)
[2022-09-05] MEDS: lithium carbonate 300 mg Capsule PO ×2 (08:06→18:49)
[2022-09-05] MEDS: fluticasone nasal spray 16gm Btl 2 SPRAY NASAL (08:10)
[2022-09-05] MEDS: ibuprofen 600 mg Tablet PO (11:42)
--- NOTE | 2022-09-05 13:45 | P.NPUPN_ITS ---
Subjective NPU Subjective: Patient presents today reporting that she is feeling better. No problematic interactions with other patients and she continues to distance herself from delusional thinking patterns. She continues to endorse that she would like to go home and seems to be more reasonable in her thinking. We a greed we would work with her and see how he feels she is doing as well and look at discharge this week. Mental Status Exam MSE Comments: This is a well-nourished well-developed overweight white female in hospital scrubs with improving grooming and eye contact. Notable hirsutism. No abnormal movements. Cooperative with exam in no acute distress. Speech was more normal volume. Mood described as better, affect subdued and odd. Thought process appeared mostly organized. Thought content: Patient denied suicidal or homicidal ideation, no delusions reported and none noted, she denied significant auditory or visual hallucinations and did not appear to be attending to internal stimuli. Attention and concentration appear intact and memory appeared more reliable but none were formally tested. She is alert and oriented x3. Insight and judgment are limited but improving and impulse control appears to be improving. Vitals/I&O/Wt Last Vital Signs Temp 98.2 F 09/05/22 06:00 Pulse 89 09/05/22 06:00 Resp 18 09/05/22 06:00 BP 132/87 09/05/22 06:00 Pulse Ox 97 09/05/22 06:00 O2 Del Method 09/04/22 06:00 Data NPU 08/22/22 18:00 08/22/22 18:00 A&P Assessment and plan (1) Acute psychosis: (2) Bipolar disorder, current episode mixed, severe, with psychotic features: Plan Is a 51-year-old white female who presents with acute bryan with psychotic features with a past history of bipolar 1 disorder with recent decompensation that continues to occur despite 3 hospitalizations in the last 20 days. She will continue to require acute inpatient hospitalization at this time with likely medication changes recommended and will be implemented. 1. Restarted current medications 2. Continue 15-minute checks for safety on the unit. 3. Engage patient in individual group and milieu therapy. 4. Increased Latuda to 100 mg 08/25/2022. Increased to 120 mg daily 08/29/2022. Added lithium 300 mg p.o. twice daily 09/01/2022. 5. Discuss progression with and consideration of discharge. Obtain a lithium level day 5 and then 1 in the week after discharge. Involuntary Hold Information 96 Hour Hold: 96 Hour Involuntary Admission: No Attestations NPU Medical Necessity Statement*: Inpatient hospitalization remains medically necessary and the clinically appropriate decision at this time. Her likely length of stay is 1-4 days. Coding Level of Care Code Acute Code for Chg Fwd Diagnoses Acute psychosis F23 Bipolar disorder, current episode mixed, severe, with psychotic features F31.64
[2022-09-05 14:00] VITALS: BP 123/84; PULSE 82; RESP 17; TEMP 36.6; O2SAT 95
[2022-09-05] MEDS: hyDROXYzine 25 mg Capsule 50 MG PO (20:33)
[2022-09-05] MEDS: CLONazepam 1 mg Tablet 2 MG PO (20:34)
[2022-09-05] MEDS: atorvastatin 40 mg Tablet 20 MG PO (20:34)
[2022-09-05] MEDS: acetaminophen 325 mg Tablet 650 MG PO (20:37)
--- NOTE | 2022-09-05 20:40 | PC.NURSE ---
PRN vistaril for anxiety and tylenol for moderate pain given as ordered per pt request.
[2022-09-05 22:00] VITALS: BP 126/84; PULSE 85; RESP 18; TEMP 36.8; O2SAT 97
[2022-09-06] MEDS: blistex lip oint 7 gm Tube 1 APPLIC TOPICAL ×2 (00:16→20:28)
[2022-09-06] MEDS: trazodone 100 mg Tablet PO (00:48)
--- NOTE | 2022-09-06 00:49 | PC.NURSE ---
PRN trazodone given as ordered. Pt refused when first offered and then requested the medication shortly after.
[2022-09-06 05:11] VITALS: BP 128/67; PULSE 93; RESP 18; TEMP 36.9; O2SAT 96
[2022-09-06] MEDS: levothyroxine 75 mcg Tablet PO (05:40)
[2022-09-06] MEDS: nicotine 2 mg Gum BUCCAL ×5 (06:10→22:46)
[2022-09-06] MEDS: fluticasone nasal spray 16gm Btl 2 SPRAY NASAL (08:11)
[2022-09-06 08:32] VITALS: BP 128/67
[2022-09-06] MEDS: loratadine 10 mg Tablet PO (08:32)
[2022-09-06] MEDS: lurasidone 80 mg Tablet PO (08:32)
[2022-09-06] MEDS: lurasidone 20 mg Tablet 40 MG PO (08:32)
[2022-09-06] MEDS: losartan 50 mg Tablet 25 MG PO (08:32)
[2022-09-06] MEDS: lithium carbonate 300 mg Capsule PO ×2 (08:33→18:42)
[2022-09-06] MEDS: metoprolol succinate ER (24 HR) 25 mg Tablet PO (08:34)
[2022-09-06] MEDS: acetaminophen 325 mg Tablet 650 MG PO ×2 (12:21→19:52)
[2022-09-06 14:00] VITALS: BP 120/86; PULSE 88; RESP 20; TEMP 36.6; O2SAT 95
[2022-09-06 19:31] VITALS: BP 119/85; PULSE 88; RESP 18; TEMP 36.7; O2SAT 95
[2022-09-06] MEDS: CLONazepam 1 mg Tablet 2 MG PO (19:52)
[2022-09-06] MEDS: atorvastatin 40 mg Tablet 20 MG PO (19:52)
[2022-09-07] MEDS: hyDROXYzine 25 mg Capsule 50 MG PO (00:05)
--- NOTE | 2022-09-07 00:05 | PC.NURSE ---
Patient is reporting anxiety related to the commotion on the unit this evening. Rating anxiety at a 8/10. PRN vistaril given. Discussed relaxation techniques and encouraged patient to return to room in an attempt to relax and let medication start to work. Patient voiced understanding.
[2022-09-07] MEDS: acetaminophen 325 mg Tablet 650 MG PO (05:18)
[2022-09-07] MEDS: levothyroxine 75 mcg Tablet PO (05:19)
[2022-09-07 06:00] VITALS: BP 128/84; PULSE 96; RESP 15; TEMP 36.8; O2SAT 95
--- NOTE | 2022-09-07 06:53 | P.NPUPN_ITS ---
Subjective NPU Subjective: Patient presented today reporting she was doing better and is in agreement. We discussed the fact that some of these delusional processes are likely fixed in a certain level and review of her records suggest that she has been having delusional issues residually for a couple decades. Patient work with treatment team for outpatient appointments etc. we talked about the fact that Clozaril should likely be something to consider moving forward. We discussed the likelihood of discharge in the next 48 hours. Mental Status Exam MSE Comments: This is a well-nourished well-developed overweight white female in hospital scrubs with improving grooming and eye contact. Notable hirsutism. No abnormal movements. Cooperative with exam in no acute distress. Speech was more normal volume. Mood described as better, affect subdued and odd. Thought process appeared mostly organized. Thought content: Patient denied suicidal or homicidal ideation, no delusions reported and none noted, she denied significant auditory or visual hallucinations and did not appear to be attending to internal stimuli. Attention and concentration appear intact and memory appeared more reliable but none were formally tested. She is alert and oriented x3. Insight and judgment are limited but improving and impulse control appears to be improving. Vitals/I&O/Wt Last Vital Signs Temp 98.0 F 09/06/22 19:31 Pulse 88 09/06/22 19:31 Resp 18 09/06/22 19:31 BP 119/85 09/06/22 19:31 Pulse Ox 95 09/06/22 19:31 O2 Del Method 09/06/22 19:31 Data NPU 08/22/22 18:00 08/22/22 18:00 A&P Assessment and plan (1) Acute psychosis: (2) Bipolar disorder, current episode mixed, severe, with psychotic features: Plan Is a 51-year-old white female who presents with acute bryan with psychotic features with a past history of bipolar 1 disorder with recent decompensation that continues to occur despite 3 hospitalizations in the last 20 days. She will continue to require acute inpatient hospitalization at this time with likely medication changes recommended and will be implemented. 1. Restarted current medications 2. Continue 15-minute checks for safety on the unit. 3. Engage patient in individual group and milieu therapy. 4. Increased Latuda to 100 mg 08/25/2022. Increased to 120 mg daily 08/29/2022. Added lithium 300 mg p.o. twice daily 09/01/2022. 5. Discuss progression with and consideration of discharge. Obtain a l ithium level tomorrow morning. Involuntary Hold Information 96 Hour Hold: 96 Hour Involuntary Admission: No Attestations NPU Medical Necessity Statement*: Inpatient hospitalization remains medically necessary and the clinically appropriate decision at this time. Her likely length of stay is 1-3 days. Coding Level of Care Code Acute Code for g Fwd Diagnoses Acute psychosis F23 Bipolar disorder, current episode mixed, severe, with psychotic features F31.64
[2022-09-07] MEDS: nicotine 2 mg Gum BUCCAL ×2 (06:56→13:03)
[2022-09-07] MEDS: lurasidone 80 mg Tablet PO (08:17)
[2022-09-07] MEDS: lurasidone 20 mg Tablet 40 MG PO (08:17)
[2022-09-07] MEDS: losartan 50 mg Tablet 25 MG PO (08:20)
[2022-09-07] MEDS: metoprolol succinate ER (24 HR) 25 mg Tablet PO (08:21)
[2022-09-07] MEDS: loratadine 10 mg Tablet PO (08:21)
[2022-09-07] MEDS: ibuprofen 600 mg Tablet PO (08:51)
[2022-09-07] MEDS: cetylpyridinium Lozenge 1 EACH MUCOUS MEM (09:33)
[2022-09-07 09:42] LABS: Basophils # 0.1 10^3/uL (0.0-0.1); Basophils % 0.7 %; Eosinophils # 0.2 10^3/uL (0.0-0.8); Eosinophils % 1.8 %; Hematocrit 41.2 % (37.0-47.0); Hemoglobin 13.6 g/dL (11.5-15.3); Lymphocytes # 2.4 10^3/uL (0.8-4.8); Lymphocytes % 26.3 %; Mean Corpuscular Hemoglobin 29.3 pg (28.0-34.0); Mean Corpuscular Volume 88.8 fl (81-99); Mean Platelet Volume 11.3 fL (7.4-10.4); Monocytes # 0.5 10^3/uL (0.2-0.9); Monocytes % 5.6 %; Neutrophils # 6.02 10^3/uL (1.8-7.7); Neutrophils % 65.4 %; Nucleated Red Blood Cells % 0 %; Platelet Count 250 10^3/cmm (130-400); Red Blood Count 4.64 10^6/uL (4.1-5.3); Red Cell Distribution Width 12.9 % (12.1-15.1); White Blood Count 9.2 10^3/uL (4.0-10.0)
[2022-09-07 10:07] LABS: Lithium 0.3 mmol/L (0.6-1.2)
[2022-09-07 10:18] LABS: Alanine Aminotransferase 38 U/L (0-33); Albumin Level 4.5 g/dL (3.5-5.2); Alkaline Phosphatase 80 U/L (35-105); Anion Gap 14.2 (5-19); Aspartate Amino Transferase 26 U/L (0-32); Blood Urea Nitrogen 15 mg/dL (6-20); Calcium 9.2 mg/dL (8.5-10.5); Carbon Dioxide 26 mmol/L (22-29); Chloride 103 mmol/L (98-107); Free T4 Free Thyroxine 1.22 ng/dL (0.82-1.77); Globulin 2.8 g/dL (1.3-4.6); Glomerular Filtration Rate 75.9 mL/min (90-130); Glucose 112 mg/dL (65-115); Osmolality Calculated 290 mOsm/kg (285-295); Potassium 4.2 mmol/L (3.5-5.1); Sodium 139 mmol/L (136-145); Thyroid Stimulating Hormone 2.51 uIU/mL (0.27-4.20); Total Bilirubin 0.7 mg/dL (0.15-1.2); Total Protein 7.3 g/dL (6.6-8.7)
[2022-09-07] MEDS: fluticasone nasal spray 16gm Btl 2 SPRAY NASAL (11:27)
--- NOTE | 2022-09-07 15:13 | P.NPUDS_ITS ---
Diagnoses at Discharge Discharge Diagnosis (1) Acute psychosis: Status: Acute (2) Bipolar disorder, current episode mixed, severe, with psychotic features: Status: Chronic Reason for Visit Reason for Visit: MHE Brief History: Mabel Still is a 51 year old female recently discharged from the neuropsychiatric unit at [facility] on 08/04/2022 who had presented to the emergency department on 08/22/2022 stating that she had her medications all messed up in the hospital that she had previously been admitted to for psychiatric reasons approximately 1 week ago in [facility]. She reports that she does not need to be here and simply wishes to talk to Stephany Farrar about her medications being adjusted. She endorses a history of her thoughts moving fast along with a history of irritability. She reports that she has been unable to fall asleep. She reports that she has been hearing voices but reports that she is autistic and this is not part of her problems associated with her bipolar. She had reported that she had not been taking her medications as the hospital had suggested on discharge. She had reported that she wished to speak with her outpatient psychiatric nurse about her treatment as the hospitalist keep messing up her medications. She denied any drug or alcohol use currently. She had reported that she was not taking her Latuda as prescribed. She had reported that those medications have were not working and they made her feel funny . There have been no substantial changes reported in regards to medical history social history surgical history or allergies since her recent hospitalization. From Previous hospitalization on 08/04/22 at [facility] Time Seen by Provider: 08/04/22 18:05 Source: patient Mode of arrival: ambulatory Limitations: no limitations History of Present Illness: 51-year-old female who is here states that she was discharged from the [facility] yesterday she states she been having hallucinations trouble sleeping and continued suicidal ideations she denies any worsening proving factors has no other complaints at this time. Associated symptoms: Reports depression. She was admitted to the neuropsychiatric unit for definitive treatment of those issues. Her was advised by the emergency department that he could give her an increased dose of Klonopin at night to see if that did not help with her sleep and help decrease some of the symptoms. She presents this morning having gotten that increased dose of Klonopin and she slept quite well with no difficulties. She denied any changes from her last hospitalization which was less than 24 hours ago. We discussed the plan to repeat the plan for a benzodiazepine at night to ensure that she gets sleep and plan on utilizing that until she sinks into a good pattern of rest. We discussed this likely being a very short hospitalization and once we have verified that we can get sleep with her limited symptoms when she gets rest we will discharge again for continued convalescence at home. Per her 08/03/2022 [facility] inpatient psychiatric discharge summary: high B/P Brief History: History of Present Illness Mabel Still is a 51 year old female who scented to the emergency department on 07/27/2022 accompanied by her with the patient's stating that he was concerned that his had been enduring a manic episode. She had apparently received a injection or pills of morphine and a prescription for oxycodone a few days prior and the patient had not slept in several days. She had been apparently behavior at behaving abnormally including chain smoking inside of the home while flicking her cigarette butts throughout the house. 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 The patient has an extended history of psychiatric services through [facility] previously followed by Janae Ferrer. In a previous appointment 13 days ago, the patient had been documented to have been not sleeping with increased goal- directed behavior and some reports of difficulties with compliance with medications. The patient was a poor historian and was unable to provide any history when interviewed at the neuropsychiatric unit. Past psychiatric history: She does appear to have a previous history of inpatient hospitalizations with most recent hospitalization at the [facility] in 2019. She has a reported history of bipolar disorder type I most recent episode severe with psychotic features. Medical history: Hypercholesterolemia, fatty liver disease, hypertension, hypothyroidism, irritable bowel syndrome,nicotine dependence, seasonal allergic rhinitis, Surgical history: Cholecystectomy, hysterectomy without BSO, history of thyroid cyst, history of colonoscopy Allergies: Morphine, oxycodone, haloperidol, sulfa drugs, iodine contrast Medications: Wellbutrin SR 100 mg in the morning, Latuda 40 mg at 6 PM. , Kl onopin 0.5 mg twice a day, trazodone 100 mg at night, loratadine, losartan, estradiol, levothyroxine, dicyclomine, azelastine, atorvastatin Substance abuse history: Per previous records occasional alcohol use, 30 pack year smoker. No history of illicit drug use Social history: Patient is reportedly and has 2 children and is currently unemployed. She apparently lives with her spouse, other social history is unknown. Family psychiatric history: Unknown Hospital Course Hospital Course She slowly acclimated to the individual, group and milieu therapies provided. She presented back to the hospital again with psychosis and strange behavior. The Latuda was increased to 120 mg. [place] was started and increased to 300 mg in the morning and 600 mg qhs. Psychosis was resolving and she showed significant improvement during her stay and was able to contract for safety outside the hospital prior to discharge. We discussed considering Clozaril in the future should she return. During the hospitalization she had routine laboratory studies which were within normal limits except for those identified and managed by the hospitalists. Additionally she had a general medical evaluation which was also within normal limits and revealed no new acute processes related to the overdose. Discharge summary: At the time of discharge, she denied lethality and psychosis was resolving. Her mood and anxiety were well managed and she endorsed a plan to follow-up with outpatient services per the treatment team's recommendations. She was evaluated and deemed to be absent credible lethality and achieved a maximal benefit from an inpatient hospitalization, so she was discharged. Involuntary Hold Information 96 Hour Hold: 96 Hour Involuntary Admission: No Mental Status Exam MSE Comments: This is a well-nourished well-developed overweight white female in hospital scrubs with improving grooming and eye contact. Notable hirsutism. No abnormal movements. Cooperative with exam in no acute distress. Speech was more normal volume. Mood described as better, affect subdued and odd. Thought process appeared mostly organized. Thought content: Patient denied suicidal or homicidal ideation, no delusions reported and none noted, she denied significant auditory or visual hallucinations and did not appear to be attending to internal stimuli. Attention and concentration appear intact and memory appeared more reliable but none were formally tested. She is alert and oriented x3. Insight and judgment are limited but improving and impulse control appears to be improving. Discharge Data Studies Completed and Pending: Laboratory Results WBC 9.2 10^3/uL (4.0- 10.0) 09/07/22 09:18 RBC 4.64 10^6/uL (4.1 -5.3) 09/07/22 09:18 Hgb 13.6 g/dL (11.5-1 5.3) 09/07/22 09:18 Hct 41.2 % (37.0-47.0 ) 09/07/22 09:18 MCV 88.8 fl (81-99) 09/07/22 09:18 MCH 29.3 pg (28.0-34. 0) 09/07/22 09:18 MCHC 33.0 g/dL (30.0-3 6.0) 09/07/22 09:18 RDW 12.9 % (12.1-15.1 ) 09/07/22 09:18 Plt Count 250 10^3/cmm (130 -400) 09/07/22 09:18 MPV 11.3 fL (7.4-10.4 ) H 09/07/22 09:18 Neut % (Auto) 65.4 % 09/07/22 09:18 Lymph % (Auto) 26.3 % 09/07/22 09:18 [place] % (Auto) 5.6 % 09/07/22 09:18 Eos % (Auto) 1.8 % 09/07/22 09:18 Baso % (Auto) 0.7 % 09/07/22 09:18 Neut # (Auto) 6.02 10^3/uL (1.8 -7.7) 09/07/22 09:18 Lymph # (Auto) 2.4 10^3/uL (0.8- 4.8) 09/07/22 09:18 [place] # (Auto) 0.5 10^3/uL (0.2- 0.9) 09/07/22 09:18 Eos # (Auto) 0.2 10^3/uL (0.0- 0.8) 09/07/22 09:18 Baso # (Auto) 0.1 10^3/uL (0.0- 0.1) 09/07/22 09:18 Nucleated RBC % (a uto) 0 % 09/07/22 09:18 Nucleated RBCs # 0.0 /100WBC 09/07/22 09:18 Sodium 139 mmol/L (136-1 45) 09/07/22 09:18 Potassium 4.2 mmol/L (3.5-5 .1) 09/07/22 09:18 Chloride 103 mmol/L (98-10 7) 09/07/22 09:18 Carbon Dioxide 26 mmol/L (22-29) 09/07/22 09:18 Anion Gap 14.2 (5-19) 09/07/22 09:18 BUN 15 mg/dL (6-20) 09/07/22 09:18 Creatinine 0.8 mg/dL (0.5-0. 9) 09/07/22 09:18 GFR Calculation 75.9 mL/min (90-1 30) L 09/07/22 09:18 Glucose 112 mg/dL (65-115 ) 09/07/22 09:18 Calculated Osmolal ity 290 mOsm/kg (285- 295) 09/07/22 09:18 Calcium 9.2 mg/dL (8.5-10 .5) 09/07/22 09:18 Total Bilirubin 0.7 mg/dL (0.15-1 .2) 09/07/22 09:18 AST 26 U/L (0-32) 09/07/22 09:18 ALT 38 U/L (0-33) H 09/07/22 09:18 Alkaline Phosphata se 80 U/L (35-105) 09/07/22 09:18 Total Protein 7.3 g/dL (6.6-8.7 ) 09/07/22 09:18 Albumin 4.5 g/dL (3.5-5.2 ) 09/07/22 09:18 Globulin 2.8 g/dL (1.3-4.6 ) 09/07/22 09:18 TSH 2.51 uIU/mL (0.27 -4.20) 09/07/22 09:18 Free T4 1.22 ng/dL (0.82- 1.77) 09/07/22 09:18 Salicylates < 0.3 mg/dL (3-10 ) L 08/22/22 18:00 Urine Opiates Scre en Negative ng/mL (N egative) 08/22/22 18:11 Acetaminophen < 5.0 ug/mL (10-3 0) L 08/22/22 18:00 Ur Barbiturates Sc reen Negative ng/mL (N egative) 08/22/22 18:11 Ur Phencyclidine S crn Negative ng/mL (N egative) 08/22/22 18:11 Ur Amphetamines Sc reen Negative ng/mL (N egative) 08/22/22 18:11 U Benzodiazepines Scrn Positive ng/mL (N egative) H 08/22/22 18:11 [place] 0.3 mmol/L (0.6-1 .2) L 09/07/22 09:18 Urine Cocaine Scre en Negative ng/mL (N egative) 08/22/22 18:11 U Marijuana (THC) Screen Negative ng/mL (N egative) 08/22/22 18:11 Ethyl Alcohol < 10 mg/dL (0-10) 08/22/22 18:00 Vitals: Last Vital Signs Temp 98.2 F 09/07/22 06:00 Pulse 96 09/07/22 06:00 Resp 15 09/07/22 06:00 BP 128/84 09/07/22 06:00 Pulse Ox 95 09/07/22 06:00 O2 Del Method 09/07/22 06:00 Discharge Plan Discharge Patient Disposition: Home Condition: Stable Prescriptions: Continued metoprolol succinate 25 mg tablet extended release 24 hr 25 mg PO DAILY atorvastatin 20 mg tablet 20 mg PO BEDTIME levothyroxine 75 mcg tablet 75 mcg PO DAILY Qty: 90 3RF losartan 25 mg tablet 25 mg PO DAILY Qty: 90 3RF azelastine 137 mcg (0.1 %) aerosol,spray 1 spray intranasal BID PRN (Reason: Allergy Symptoms) Rx Instructions: administer into each nostril loratadine 10 mg tablet 10 mg PO DAILY clonidine HCl 0.1 mg Tablet 0.1 mg PO TID PRN (Reason: Hypertension) 30 Days Qty: 90 1RF Rx Instructions: FOR SBP>150 OR DBP>100 trazodone 100 mg tablet 100 mg PO BEDTIME PRN (Reason: Sleep) 30 Days Qty: 30 1RF Discontinued trazodone 50 mg Tablet 50 mg PO BEDTIME PRN (Reason: Sleep) 30 Days Qty: 30 1RF Latuda 40 mg tablet 80 mg PO DAILY bupropion HCl [Wellbutrin SR] 100 mg tablet sustained-release 12 hr 100 mg PO DAILY clonazepam 2 mg tablet 2 mg PO BEDTIME 30 Days Qty: 30 0RF No Action clozapine 25 mg tablet 25 mg PO DIRECTED Qty: 6 0RF Rx Instructions: Day 1-one tab bedtime Day 2- one tab in am and bedtime Day 3: one tab in am, two tabs at bedtime clozapine 25 mg tablet 25 mg PO DIRECTED Qty: 9 0RF Rx Instructions: Day 4: two tabs in am, two tabs at bedtime Day 5: two tabs in am, three tabs at bedtime clozapine 50 mg tablet 50 mg PO DIRECTED Qty: 7 0RF Rx Instructions: Day 6: one tab in am, two tabs at bedtime Day 7: one and half tab in am, two tabs at bedtime clozapine 100 mg tablet 100 mg PO DIRECTED Qty: 2 0RF Rx Instructions: Day 8: one tab in am, one tab at bedtime clonazepam 2 mg tablet 2 mg PO .7 pm 30 Days Qty: 30 2RF Rx Instructions: Take one tablet at 7 pm clonazepam [Klonopin] 0.5 mg tablet 0.5 mg PO DIRECTED Qty: 60 2RF Rx Instructions: Take one tablet at 7 am and 1 pm Discharge Orders: Discharge Order (Routine); Ordered 09/07/22 Ordered By: Alfonzo Pace Referrals: [facility] [Outside] - 09/09/22 11:45 am (Hospital follow up with Yulia Salas) Vanesa Wild, PMHNP [Staff Physician] - 09/28/22 1:45 pm (Follow up) Anuj Aparicio NP [Primary Care Provider] - 09/12/22 11:30 am (Follow up. ) Discharge Diet: Regular Discharge Activity: Resume usual activity Patient Instructions: [place] (By mouth), Hydroxyzine (By mouth) (Vistaril), Mood Disorders (DC), Social Anxiety Disorder (ED), Opioid Safety Discharge Attestations [facility] Time Spent in Discharge Care*: less than 30 min Specific Discharge Activities: Specific discharge activities: educating patient, discussing with director of casework department/social workers/dc planners, documenting/other paperwork and evaluating patient/reviewing data Coding Level of Care Code Acute Chg FW DC note Diagnoses Acute psychosis F23 Bipolar disorder, current episode mixed, severe, with psychotic features F31.64
[2022-09-07 15:14] VITALS: BP 128/84; PULSE 96; RESP 15; TEMP 36.8; O2SAT 95
[2022-09-07 15:29] VITALS: BP 128/84; PULSE 96; RESP 15; TEMP 36.8; O2SAT 95
== END 2022-09-07 16:02 | disposition home or self-care (01) | DRG 885 ==
LOC: ER 18:03 → NP 08-23 09:13
PROVIDERS: Admitting Provider Psychiatry & Neurology Psychiatry; Emergency Provider Emergency Medicine; PCP Clinical Nurse Specialist Adult Health; Visit Provider Psychiatry & Neurology Psychiatry
DX: F31.2 Bipolar disorder, current episode manic severe with psychotic features (principal); F41.1 Generalized anxiety disorder; I10 Essential (primary) hypertension; E03.9 Hypothyroidism, unspecified; F17.210 Nicotine dependence, cigarettes, uncomplicated
CPT/HCPCS: 36415; 80053; 80178; 80306; 80307; 84439; 84443; 85025; 87086; 96372; 97150; 97165; 99285; J1200; J2060

== ENCOUNTER 2022-09-11 20:19 | Emergency (ER) | payer OTHER, SELFPAY ==
[2022-09-11 20:20] VITALS: BP 129/71; PULSE 51; RESP 16; TEMP 36.4; O2SAT 97; BMI 28.3
--- NOTE | 2022-09-11 20:45 | ECG_ITS ---
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 Measurements Intervals [place] Rate: 83 P: 69 IA: 143 QRS: 61 QRSD: 90 T: 47 QT: 373 QTc: 440 Interpretive Statements SINUS RHYTHM LOW QRS VOLTAGE IN PRECORDIAL LEADS [QRS DEFLECTION < 1.0 mV IN CHEST LEADS] Compared to ECG 08/09/2022 18:39:31 No significant changes Electronically Signed On 09-12-2022 23:36:41 CDT by Bhavani Allan M.D. [email or web address]
--- NOTE | 2022-09-11 20:53 | W.ED.PSYCHS ---
Documented by User: Jeffery Rose DO 09/11/22 21:10 HPI - Psych General: Chief Complaint: Psychiatric Symptoms Stated Complaint: hearing voices, aggressive Time Seen by Provider: 09/11/22 20:52 History of Present Illness: Patient brought in by with complaints that she was just released from the [facility] on Monday, and started lithium, today she wanted to burn her house down and to . States she becomes very aggressive at times also hearing voices of people and seeing people, patient also think she is however she has had a partial hysterectomy does not have periods. History of same: Yes Relieving factors: none Exacerbating factors: none Associated symptoms: Reports auditory hallucinations, visual hallucinations, homicidal ideation and suicidal ideation Review of Systems General: Reports: 10 or more systems reviewed and unremarkable except in HPI and below Const: Denies: fever(s) or chills Eyes: Denies: change in vision or blurry vision ENMT: Reports: throat pain Card: Denies: chest pain Resp: Denies: dyspnea GI: Denies: abdominal pain, nausea, vomiting or diarrhea : Denies: flank pain Musc: Denies: neck pain Skin/Breast: Denies: rash or pruritus Neuro: Denies: headache(s), numbness in extremities or weakness in extremities Psych: Reports: visual hallucinations, auditory hallucinations, suicidal ideation and homicidal ideation Endo: Denies: polyuria or polydipsia PFSH ED PFSH: Medical History Bipolar disorder, current episode mixed, severe, with psychotic features Fatty liver Generalized anxiety disorder Hypertension Hypothyroidism (acquired) IBS (irritable bowel syndrome) diagnosed in 2010, but she prefers not to follow up with GI on this issue and feels her symptoms are much improved. in 2019, she went to [place] and saw Dr Pineda and had a cyst on her tailbone. 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 Nicotine dependence, cigarettes, uncomplicated Psychiatric care Seasonal allergic rhinitis due to pollen Tick fever 2016 Surgical History History of cholecystectomy History of hysterectomy without BSO History of thyroid cyst 2016 Hx of colonoscopy 2019 Family History Grandmother Diabetes Brother Diabetes Social History Smoking and tobacco status: current every day smoker cigarettes Packs smoked per day: 1 Years cigarettes smoked: 30 Quit status (tobacco): considering quitting Second hand smoke exposure: Yes Smoking risk assessment/counseling performed?: No Alcohol intake: current Alcohol intake frequency: holidays/special occasions only Desire information about alcohol rehabilitation?: No Counseling given: No Desire information about substance/drug rehabilitation?: No Counseling given: No Caregiver/support person: No Lives independently: Yes Household members: spouse Housing: House Marital status: Number of children: 2 service: No Current occupational status: unemployed Current gender identity: Female Physical Exam Const: COMMON NORMALS: no acute distress, average body habitus, patient oriented x3, no limitations, healthy appearing, alert and well nourished HENMT: COMMON NORMALS: normocephalic, atraumatic, hearing grossly normal bilaterally, external ears normal, Normal external nose present and moist oral mucous membranes HEAD & SCALP: normocephalic and atraumatic NOSE: Normal external nose present EXTERNAL EAR: Yes external ears normal Neck/C-Spine: COMMON NORMALS: full ROM, no lymphadenopathy, supple, no meningeal signs, no JVD and Thyroid normal THYROID: Thyroid normal Chest: COMMONS NORMALS: normal inspection of the chest and normal palpation of entire chest wall Resp: COMMON NORMALS: normal respiratory effort, No retractions, No use of accessory muscles and clear to auscultation bilaterally AUSCULTATION: clear to auscultation bilaterally Cardio: COMMON NORMALS: no JVD, regular rate, regular rhythm, S1 normal heart sound present, S2 normal heart sound present, No gallops present (Cardio), No clicks present (Cardio) and No murmurs present (Cardio) RATE: regular rate RHYTHM: regular rhythm HEART SOUNDS: S1 normal heart sound present and S2 normal heart sound present GI: COMMON NORMALS: Normal to inspection, nondistended, normoactive bowel sounds present, Soft to palpation, non-tender, No hepatosplenomegaly present and no masses PALPATION: Yes Soft to palpation and Yes No hepatosplenomegaly present Neuro: COMMON NORMALS: patient oriented x3, CN's II-XII intact bilaterally, moves all extremities, no focal motor deficits and no sensory deficits noted SENSORIUM/ORIENTATION: Yes alert MENINGEAL SIGNS: Yes no meningeal signs Psych: COMMON NORMALS: speech normal APPEARANCE: Yes unkempt ATTITUDE: Yes calm and Yes bizarre SPEECH: Yes normal speech THOUGHT PROCESS: incoherent ATTENTION/CONCENTRATION: Yes attention grossly intact and Yes concentration grossly intact INSIGHT: questionable JUDGEMENT: questionable Course Vital Signs: Vital signs: Vital Signs Temperature 97.6 F 09/11/22 20:20 Pulse Rate 51 L 09/11/22 20:20 Respiratory Rate 16 09/11/22 20:20 Blood Pressure 129/71 09/11/22 20:20 Pulse Oximetry 97 09/11/22 20:20 Oxygen Delivery Me thod 09/11/22 20:20 MDM - Psych Differential Diagnosis Likely acute psychosis and bipolar disorder Lab Data 09/11/22 21:25 09/11/22 21:25 Laboratory Results WBC 12.5 10^3/uL (4.0-10.0) H 09/11/22 21:25 RBC 4.31 10^6/uL (4.1-5.3) 09/11/22 21:25 Hgb 12.8 g/dL (11.5-15.3) 09/11/22 21:25 Hct 38.7 % (37.0-47.0) 09/11/22 21:25 MCV 89.8 fl (81-99) 09/11/22 21:25 MCH 29.7 pg (28.0-34.0) 09/11/22 21:25 MCHC 33.1 g/dL (30.0-36.0) 09/11/22 21:25 RDW 13.2 % (12.1-15.1) 09/11/22 21:25 Plt Count 266 10^3/cmm (130-400) 09/11/22 21:25 MPV 10.6 fL (7.4-10.4) H 09/11/22 21:25 Total Counted 100 (0-100) 09/11/22 21:25 Atypical Lymphs % 0.0 % (0-5) 09/11/22 21:25 Absolute Neutrophils 6.6 10^3/cmm (1.4-6.5) H 09/11/22 21:25 Segmented Neutrophils 53 % 09/11/22 21:25 Abs Segm Neuts (Man) 6.6 10/cmm (1.6-7.1) 09/11/22 21:25 Band Neutrophils 0.0 % 09/11/22 21:25 Abs Band Neuts (Man) 0.0 10^3/cmm (0.0-1.2) 09/11/22 21:25 Absolute Lymphocytes 4.6 10^3/cmm (1.2-3.4) H 09/11/22 21:25 Lymphocytes (Manual) 37 % 09/11/22 21:25 Monocytes (Manual) 7.0 % 09/11/22 21: Absolute Monocytes 0.9 10^3/cmm (0.1-0.6) H 09/11/22 21:25 Eosinophils (Manual) 3 % 09/11/22 21: Absolute Eosinophils 0.3 10^3/cmm (0.0-0.7) 09/11/22 21:25 Basophils (Manual) 0.0 % 09/11/22 21: Absolute Basophils 0.0 10^3/cmm (0.0-0.2) 09/11/22 21:25 Platelet Estimate Normal (Normal) 09/11/22 21:25 Sodium 137 mmol/L (136-145) 09/11/22 21:25 Potassium 4.2 mmol/L (3.5-5.1) 09/11/22 21:25 Chloride 101 mmol/L (98-107) 09/11/22 21:25 Carbon Dioxide 25 mmol/L (22-29) 09/11/22 21:25 Anion Gap 15.2 (5-19) 09/11/22 21:25 BUN 13 mg/dL (6-20) 09/11/22 21:25 Creatinine 0.9 mg/dL (0.5-0.9) 09/11/22 21:25 GFR Calculation 66.3 mL/min (90-130) L 09/11/22 21:25 Glucose 121 mg/dL (65-115) H 09/11/22 21:25 Calculated Osmolality 285 mOsm/kg (285-295) 09/11/22 21:25 Calcium 9.4 mg/dL (8.5-10.5) 09/11/22 21:25 Total Bilirubin 0.4 mg/dL (0.15-1.2) 09/11/22 21:25 AST 25 U/L (0-32) 09/11/22 21:25 ALT 34 U/L (0-33) H 09/11/22 21:25 Alkaline Phosphatase 64 U/L (35-105) 09/11/22 21:25 Total Protein 6.7 g/dL (6.6-8.7) 09/11/22 21:25 Albumin 4.1 g/dL (3.5-5.2) 09/11/22 21:25 Globulin 2.6 g/dL (1.3-4.6) 09/11/22 21:25 Urine Color Yellow (Yellow) 09/11/22 20:35 Urine Appearance Sl hazy (CLEAR) A 09/11/22 20:35 Urine pH 5 (5-7) 09/11/22 20:35 Ur Specific [place] 1.020 (1.005-1.030) 09/11/22 20:35 Urine Protein Neg (Negative) 09/11/22 20:35 Urine Glucose (UA) Norm (Normal) 09/11/22 20:35 Urine Ketones Negative (Negative) 09/11/22 20:35 Urine Blood Neg (Negative) 09/11/22 20:35 Urine Nitrate Negative (Negative) 09/11/22 20:35 Urine Bilirubin Neg (Negative) 09/11/22 20:35 Urine Urobilinogen Norm mg/dL (Negative) 09/11/22 20:35 Ur Leukocyte Esterase Negative (Negative) 09/11/22 20:35 Salicylates < 0.3 mg/dL (3-10) L 09/11/22 21:25 Urine Opiates Screen Negative ng/mL (Negative) 09/11/22 20:35 Acetaminophen < 5.0 ug/mL (10-30) L 09/11/22 21:25 Ur Barbiturates Screen Negative ng/mL (Negative) 09/11/22 20:35 Ur Phencyclidine Scrn Negative ng/mL (Negative) 09/11/22 20:35 Ur Amphetamines Screen Negative ng/mL (Negative) 09/11/22 20:35 U Benzodiazepines Scrn Negative ng/mL (Negative) 09/11/22 20:35 [place] 1.0 mmol/L (0.6-1.2) 09/11/22 21:25 Urine Cocaine Screen Negative ng/mL (Negative) 09/11/22 20:35 U Marijuana (THC) Screen Negative ng/mL (Negative) 09/11/22 20:35 Ethyl Alcohol < 10 mg/dL (0-10) 09/11/22 21:25 EKG Data EKG 1: I personally reviewed and interpreted this EKG as follows: EKG interpretation date: 09/11/22 EKG interpretation time: 20:45 Prior EKG tracings: not available for review Interpretation: EKG showed normal sinus rhythm with a ventricular rate of 83 bpm, SD interval of 143 QRS duration of 90 QTc of 413, no ST-T wave change Discharge Plan Discharge Patient Disposition: Home Clinical Impression: Chronic schizophrenia Condition: Stable Prescriptions: No Action metoprolol succinate 25 mg tablet extended release 24 hr 25 mg PO DAILY atorvastatin 20 mg tablet 20 mg PO BEDTIME levothyroxine 75 mcg tablet 75 mcg PO DAILY Qty: 90 3RF losartan 25 mg tablet 25 mg PO DAILY Qty: 90 3RF azelastine 137 mcg (0.1 %) aerosol,spray 1 spray intranasal BID PRN (Reason: Allergy Symptoms) Rx Instructions: administer into each nostril loratadine 10 mg tablet 10 mg PO DAILY ondansetron 4 mg tablet,disintegrating 4 mg PO Q8H PRN (Reason: nausea and vomiting) Qty: 15 0RF clonidine HCl 0.1 mg Tablet 0.1 mg PO TID PRN (Reason: Hypertension) 30 Days Qty: 90 1RF Rx Instructions: FOR SBP>150 OR DBP>100 trazodone 100 mg tablet 100 mg PO BEDTIME PRN (Reason: Sleep) 30 Days Qty: 30 1RF hydroxyzine pamoate 25 mg Capsule 50 mg PO Q6H PRN (Reason: Anxiety) 30 Days Qty: 120 1RF clonazepam 2 mg tablet 2 mg PO BEDTIME 30 Days Qty: 30 1RF Latuda 40 mg tablet 120 mg PO DAILY 30 Days Qty: 90 1RF lithium carbonate 300 mg Capsule 300 mg PO BID 30 Days Qty: 90 1RF Rx Instructions: 1 tablet with first dose and 2 tablets second dose during the day Discharge Orders: Discharge ED (Routine); Ordered 09/12/22 Ordered By: Aixa Siddiqui Referrals: Anuj Aparicio NP [Primary Care Provider] - 1-3 days Discharge Diet: Advance as tolerated Discharge Activity: Resume usual activity Patient Instructions: Bipolar Disorder (ED) Coding Level of Care Code ED Asphalt Distributor Operator for Chg Fwd Documented by User: Aixa Siddiqui MD 09/12/22 00:29 HPI - Psych General: Chief Complaint: Psychiatric Symptoms Stated Complaint: hearing voices, aggressive Time Seen by Provider: 09/11/22 20:52 PFSH ED PFSH: Medical History Bipolar disorder, current episode mixed, severe, with psychotic features Fatty liver Generalized anxiety disorder Hypertension Hypothyroidism (acquired) IBS (irritable bowel syndrome) diagnosed in 2010, but she prefers not to follow up with GI on this issue and feels her symptoms are much improved. in 2019, she went to [place] and saw Dr Pineda and had a cyst on her tailbone. 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 Nicotine dependence, cigarettes, uncomplicated Psychiatric care Seasonal allergic rhinitis due to pollen Tick fever 2016 Surgical History History of cholecystectomy History of hysterectomy without BSO History of thyroid cyst 2015 Hx of colonoscopy 2019 Family History Grandmother Diabetes Brother Diabetes Social History Smoking and tobacco status: current every day smoker cigarettes Packs smoked per day: 1 Years cigarettes smoked: 30 Quit status (tobacco): considering quitting Second hand smoke exposure: Yes Smoking risk assessment/counseling performed?: No Alcohol intake: current Alcohol intake frequency: holidays/special occasions only Desire information about alcohol rehabilitation?: No Counseling given: No Desire information about substance/drug rehabilitation?: No Counseling given: No Caregiver/support person: No Lives independently: Yes Household members: spouse Housing: House Marital status: Number of children: 2 service: No Current occupational status: unemployed Current gender identity: Female Course Vital Signs: Vital signs: Vital Signs Temperature 97.6 F 09/11/22 20:20 Pulse Rate 51 L 09/11/22 20:20 Respiratory Rate 16 09/11/22 20:20 Blood Pressure 129/71 09/11/22 20:20 Pulse Oximetry 97 09/11/22 20:20 Oxygen Delivery Me thod 09/11/22 20:20 MDM - Psych Medical Decision Making Patient is very well-known to the ER she has chronic schizophrenia along with bipolar disorder she had had some hallucinations today patient now is wanting to go home she was evaluated by Dr. Pace who knows patient well as well. I spoke to him he feels that she is not imminent threat to herself and others and recommends discharge I agree with this and will discharge at this time she is return if worsening. Lab Data 09/11/22 21:25 09/11/22 21:25 Laboratory Results WBC 12.5 10^3/uL (4.0-10.0) H 09/11/22 21:25 RBC 4.31 10^6/uL (4.1-5.3) 09/11/22 21:25 Hgb 12.8 g/dL (11.5-15.3) 09/11/22 21:25 Hct 38.7 % (37.0-47.0) 09/11/22 21:25 MCV 89.8 fl (81-99) 09/11/22 21:25 MCH 29.7 pg (28.0-34.0) 09/11/22 21:25 MCHC 33.1 g/dL (30.0-36.0) 09/11/22 21:25 RDW 13.2 % (12.1-15.1) 09/11/22 21:25 Plt Count 266 10^3/cmm (130-400) 09/11/22 21:25 MPV 10.6 fL (7.4-10.4) H 09/11/22 21:25 Total Counted 100 (0-100) 09/11/22 21:25 Atypical Lymphs % 0.0 % (0-5) 09/11/22 21:25 Absolute Neutrophils 6.6 10^3/cmm (1.4-6.5) H 09/11/22 21:25 Segmented Neutrophils 53 % 09/11/22 21:25 Abs Segm Neuts (Man) 6.6 10/cmm (1.6-7.1) 09/11/22 21:25 Band Neutrophils 0.0 % 09/11/22 21:25 Abs Band Neuts (Man) 0.0 10^3/cmm (0.0-1.2) 09/11/22 21:25 Absolute Lymphocytes 4.6 10^3/cmm (1.2-3.4) H 09/11/22 21:25 Lymphocytes (Manual) 37 % 09/11/22 21: Monocytes (Manual) 7.0 % 09/11/22 21: Absolute Monocytes 0.9 10^3/cmm (0.1-0.6) H 09/11/22 21: Eosinophils (Manual) 3 % 09/11/22: Absolute Eosinophils 0.3 10^3/cmm (0.0-0.7) 09/11/22 21: Basophils (Manual) 0.0 % 09/11/22: Absolute Basophils 0.0 10^3/cmm (0.0-0.2) 09/11/22 21:25 Platelet Estimate Normal (Normal) 09/11/22 21:25 Sodium 137 mmol/L (136-145) 09/11/22 21:25 Potassium 4.2 mmol/L (3.5-5.1) 09/11/22 21:25 Chloride 101 mmol/L (98-107) 09/11/22 21:25 Carbon Dioxide 25 mmol/L (22-29) 09/11/22 21:25 Anion Gap 15.2 (5-19) 09/11/22 21:25 BUN 13 mg/dL (6-20) 09/11/22 21:25 Creatinine 0.9 mg/dL (0.5-0.9) 09/11/22 21:25 GFR Calculation 66.3 mL/min (90-130) L 09/11/22 21:25 Glucose 121 mg/dL (65-115) H 09/11/22 21:25 Calculated Osmolality 285 mOsm/kg (285-295) 09/11/22 21:25 Calcium 9.4 mg/dL (8.5-10.5) 09/11/22 21:25 Total Bilirubin 0.4 mg/dL (0.15-1.2) 09/11/22 21:25 AST 25 U/L (0-32) 09/11/22 21:25 ALT 34 U/L (0-33) H 09/11/22 21:25 Alkaline Phosphatase 64 U/L (35-105) 09/11/22 21:25 Total Protein 6.7 g/dL (6.6-8.7) 09/11/22 21:25 Albumin 4.1 g/dL (3.5-5.2) 09/11/22 21:25 Globulin 2.6 g/dL (1.3-4.6) 09/11/22 21:25 Urine Color Yellow (Yellow) 09/11/22 20:35 Urine Appearance Sl hazy (CLEAR) A 09/11/22 20:35 Urine pH 5 (5-7) 09/11/22 20:35 Ur Specific [place] 1.020 (1.005-1.030) 09/11/22 20:35 Urine Protein Neg (Negative) 09/11/22 20:35 Urine Glucose (UA) Norm (Normal) 09/11/22 20:35 Urine Ketones Negative (Negative) 09/11/22 20:35 Urine Blood Neg (Negative) 09/11/22 20:35 Urine Nitrate Negative (Negative) 09/11/22 20:35 Urine Bilirubin Neg (Negative) 09/11/22 20:35 Urine Urobilinogen Norm mg/dL (Negative) 09/11/22 20:35 Ur Leukocyte Esterase Negative (Negative) 09/11/22 20:35 Salicylates < 0.3 mg/dL (3-10) L 09/11/22 21:25 Urine Opiates Screen Negative ng/mL (Negative) 09/11/22 20:35 Acetaminophen < 5.0 ug/mL (10-30) L 09/11/22 21:25 Ur Barbiturates Screen Negative ng/mL (Negative) 09/11/22 20:35 Ur Phencyclidine Scrn Negative ng/mL (Negative) 09/11/22 20:35 Ur Amphetamines Screen Negative ng/mL (Negative) 09/11/22 20:35 U Benzodiazepines Scrn Negative ng/mL (Negative) 09/11/22 20:35 [place] 1.0 mmol/L (0.6-1.2) 09/11/22 21:25 Urine Cocaine Screen Negative ng/mL (Negative) 09/11/22 20:35 U Marijuana (THC) Screen Negative ng/mL (Negative) 09/11/22 20:35 Ethyl Alcohol < 10 mg/dL (0-10) 09/11/22 21:25 Discharge Plan Discharge Patient Disposition: Home Clinical Impression: Chronic schizophrenia Condition: Stable Prescriptions: No Action metoprolol succinate 25 mg tablet extended release 24 hr 25 mg PO DAILY atorvastatin 20 mg tablet 20 mg PO BEDTIME levothyroxine 75 mcg tablet 75 mcg PO DAILY Qty: 90 3RF losartan 25 mg tablet 25 mg PO DAILY Qty: 90 3RF azelastine 137 mcg (0.1 %) aerosol,spray 1 spray intranasal BID PRN (Reason: Allergy Symptoms) Rx Instructions: administer into each nostril loratadine 10 mg tablet 10 mg PO DAILY ondansetron 4 mg tablet,disintegrating 4 mg PO Q8H PRN (Reason: nausea and vomiting) Qty: 15 0RF clonidine HCl 0.1 mg Tablet 0.1 mg PO TID PRN (Reason: Hypertension) 30 Days Qty: 90 1RF Rx Instructions: FOR SBP>150 OR DBP>100 trazodone 100 mg tablet 100 mg PO BEDTIME PRN (Reason: Sleep) 30 Days Qty: 30 1RF hydroxyzine pamoate 25 mg Capsule 50 mg PO Q6H PRN (Reason: Anxiety) 30 Days Qty: 120 1RF clonazepam 2 mg tablet 2 mg PO BEDTIME 30 Days Qty: 30 1RF Latuda 40 mg tablet 120 mg PO DAILY 30 Days Qty: 90 1RF lithium carbonate 300 mg Capsule 300 mg PO BID 30 Days Qty: 90 1RF Rx Instructions: 1 tablet with first dose and 2 tablets second dose during the day Discharge Orders: Discharge ED (Routine); Ordered 09/12/22 Ordered By: Aixa Siddiqui Referrals: Anuj Aparicio NP [Primary Care Provider] - 1-3 days Discharge Diet: Advance as tolerated Discharge Activity: Resume usual activity Patient Instructions: Bipolar Disorder (ED) Coding Level of Care Code ED Asphalt Distributor Operator for Melissa Rodriges
[2022-09-11 21:21] LABS: Add Urine Microscopic? NO; Charge for UA Resulting for Rev
[2022-09-11 21:34] LABS: Amphetamines Screen Urine Negative (Negative); Barbiturates Screen Urine Negative (Negative); Benzodiazepines Screen Urine Negative (Negative); Cocaine Screen Urine Negative (Negative); Opiate Screen Urine Negative (Negative); PCP Screen Urine Negative (Negative); THC Screen Urine Negative (Negative)
[2022-09-11 21:43] LABS: Hematocrit 38.7 % (37.0-47.0); Hemoglobin 12.8 g/dL (11.5-15.3); Mean Corpuscular HGB Conc 33.1 g/dL (30.0-36.0); Mean Corpuscular Hemoglobin 29.7 pg (28.0-34.0); Mean Corpuscular Volume 89.8 fl (81-99); Mean Platelet Volume 10.6 fL (7.4-10.4); Platelet Count 266 10^3/cmm (130-400); Red Blood Count 4.31 10^6/uL (4.1-5.3); Red Cell Distribution Width 13.2 % (12.1-15.1); White Blood Count 12.5 10^3/uL (4.0-10.0)
[2022-09-11 21:52] LABS: Alanine Aminotransferase 34 U/L (0-33); Albumin Level 4.1 g/dL (3.5-5.2); Alkaline Phosphatase 64 U/L (35-105); Anion Gap 15.2 (5-19); Aspartate Amino Transferase 25 U/L (0-32); Blood Urea Nitrogen 13 mg/dL (6-20); Calcium 9.4 mg/dL (8.5-10.5); Carbon Dioxide 25 mmol/L (22-29); Chloride 101 mmol/L (98-107); Globulin 2.6 g/dL (1.3-4.6); Glomerular Filtration Rate 66.3 mL/min (90-130); Glucose 121 mg/dL (65-115); Osmolality Calculated 285 mOsm/kg (285-295); Potassium 4.2 mmol/L (3.5-5.1); Sodium 137 mmol/L (136-145); Total Bilirubin 0.4 mg/dL (0.15-1.2); Total Protein 6.7 g/dL (6.6-8.7)
[2022-09-11 21:56] LABS: Bilirubin Urine Neg (Negative); Blood Urine Neg (Negative); Glucose Urine UA Norm (Normal); Ketones Urine Negative (Negative); Leukocyte Esterase Urine Negative (Negative); Nitrate Urine Negative (Negative); Protein Urine Neg (Negative); Urine Appearance SL Hazy (CLEAR); Urine Color Yellow (Yellow); Urobilinogen Urine Norm (Negative); pH Urine 5 (5-7)
[2022-09-11 22:03] LABS: Acetaminophen < 5.0 ug/mL (10-30); Alcohol Level < 10 mg/dL (0-10); Salicylate < 0.3 mg/dL (3-10)
[2022-09-11 22:50] LABS: Absolute Eosinophils 0.3 10^3/cmm (0.0-0.7); Eosinophils 3 %; Lymphocytes 37 %; Lymphocytes Absolute 4.6 10^3/cmm (1.2-3.4); Monocytes Absolute 0.9 10^3/cmm (0.1-0.6); Total Cells Counted 100 (0-100)
[2022-09-11 22:51] LABS: Absolute Neutrophil 6.6 10^3/cmm (1.4-6.5); Absolute Segmented Neutrophil 6.6 10/cmm (1.6-7.1); Platelet Estimate Normal (Normal); Segmented Neutrophils 53 %
[2022-09-11] MEDS: acetaminophen 500 mg Tablet 1000 MG PO (23:08)
== END 2022-09-12 00:22 | disposition home or self-care (01) ==
PROVIDERS: Emergency Medicine; Emergency Provider Emergency Medicine; PCP Clinical Nurse Specialist Adult Health
DX: F20.89 Other schizophrenia (principal)
CPT/HCPCS: 80053; 80178; 80306; 80307; 81003; 85007; 85025; 93005; 99285

== ENCOUNTER → 2022-09-13 13:50 | Outpatient (BNVA) | payer OTHER, SELFPAY | PROVIDERS: PCP Clinical Nurse Specialist Adult Health; Visit Provider Nurse Practitioner Psychiatric/Mental Health | DX: Z76.89 Persons encountering health services in other specified circumstances (principal) | CPT/HCPCS: 85007; 85027 ==

== ENCOUNTER 2022-09-20 14:41 | Outpatient (CLI) | payer OTHER, SELFPAY ==
[2022-09-20 15:19] LABS: Bilirubin Urine Neg (Negative); Blood Urine Neg (Negative); Glucose Urine UA Norm (Normal); Ketones Urine Negative (Negative); Leukocyte Esterase Urine Negative (Negative); Nitrate Urine Negative (Negative); Protein Urine Neg (Negative); Specific Gravity, Urine 1.005 (1.005-1.030); Urine Appearance Hazy (CLEAR); Urine Color Light yellow (Yellow); Urobilinogen Urine Norm (Negative); pH Urine 7 (5-7)
[2022-09-20 15:20] LABS: Bacteria Urine TRACE /hpf; WBC Urine RARE /hpf (0-5)
[2022-09-20 16:26] LABS: Rapid Plasma Reagin Syphilis Nonreactive (Nonreactive)
== END 2022-09-20 14:42 | disposition home or self-care (01) ==
PROVIDERS: PCP Clinical Nurse Specialist Adult Health; Visit Provider Nurse Practitioner Psychiatric/Mental Health
DX: Z11.3 Encounter for screening for infections with a predominantly sexual mode of transmission (principal); R30.0 Dysuria
CPT/HCPCS: 36415; 81001; 85007; 85027; 86592; 87491; 87591

== ENCOUNTER → 2022-09-27 14:30 | Outpatient (BNVA) | payer OTHER, SELFPAY | PROVIDERS: PCP Clinical Nurse Specialist Adult Health; Visit Provider Nurse Practitioner Psychiatric/Mental Health | DX: Z76.89 Persons encountering health services in other specified circumstances (principal); Z79.899 Other long term (current) drug therapy; F31.64 Bipolar disorder, current episode mixed, severe, with psychotic features; F41.1 Generalized anxiety disorder; F17.210 Nicotine dependence, cigarettes, uncomplicated; K11.7 Disturbances of salivary secretion | CPT/HCPCS: 85007; 85027 ==

== ENCOUNTER → 2022-10-04 15:14 | Outpatient (BNVA) | payer OTHER, SELFPAY | PROVIDERS: PCP Clinical Nurse Specialist Adult Health; Visit Provider Nurse Practitioner Psychiatric/Mental Health | DX: F31.64 Bipolar disorder, current episode mixed, severe, with psychotic features (principal); F41.1 Generalized anxiety disorder; F17.210 Nicotine dependence, cigarettes, uncomplicated; K11.7 Disturbances of salivary secretion | CPT/HCPCS: 85007; 85027 ==

== ENCOUNTER → 2022-10-10 10:15 | Outpatient (BNVA) | payer OTHER, SELFPAY | PROVIDERS: PCP Clinical Nurse Specialist Adult Health; Visit Provider Nurse Practitioner Psychiatric/Mental Health | DX: F31.64 Bipolar disorder, current episode mixed, severe, with psychotic features (principal); Z79.899 Other long term (current) drug therapy | CPT/HCPCS: 85007; 85027 ==

== ENCOUNTER → 2022-10-18 11:37 | Outpatient (BNVA) | payer OTHER, SELFPAY | PROVIDERS: PCP Clinical Nurse Specialist Adult Health; Visit Provider Nurse Practitioner Psychiatric/Mental Health | DX: Z76.89 Persons encountering health services in other specified circumstances (principal); F31.64 Bipolar disorder, current episode mixed, severe, with psychotic features; F41.1 Generalized anxiety disorder; F17.210 Nicotine dependence, cigarettes, uncomplicated; K11.7 Disturbances of salivary secretion; Z79.899 Other long term (current) drug therapy | CPT/HCPCS: 80053; 81001; 83036; 85007; 85027 ==

== ENCOUNTER 2022-10-23 20:04 | Emergency (ER) | payer OTHER, SELFPAY ==
[2022-10-23 20:08] VITALS: BP 157/101; PULSE 109; RESP 18; TEMP 36.9; O2SAT 96; BMI 29.2
--- NOTE | 2022-10-23 20:32 | ED.C_ITS ---
HPI - Psych General: Chief Complaint: Psychiatric Symptoms Stated Complaint: high bp, shaking, agressive Time Seen by Provider: 10/23/22 20:32 History of Present Illness: Patient presents to the ER with by her side. Patient is recently discharged off of Clozaril and started on fluphenazine for psychosis. Patient has of multiple list of everything wrong with her that includes fingernail fungus toenail fungus yeast infection sore throat back pain. Patient's states that the psychosis is getting worse and she is getting out of control. Onset (ago): day(s) (Worsening since starting this new medicine) Duration: constant History of same: Yes Relieving factors: none Exacerbating factors: medication (Medication changes) Context: new medication(s) Treatments prior to arrival: none Review of Systems General: Reports: 10 or more systems reviewed and unremarkable except in HPI and below Const: Denies: fever(s) or chills Eyes: Denies: change in vision or photophobia ENMT: Denies: throat pain or odynophagia Card: Denies: chest pain or edema Resp: Denies: dyspnea, productive cough or non-productive cough GI: Denies: abdominal pain, nausea, vomiting or diarrhea : Denies: flank pain, difficulty voiding or dysuria Musc: Denies: neck pain or extremity pain PFSH ED PFSH: Medical History Bipolar disorder, current episode mixed, severe, with psychotic features Fatty liver Generalized anxiety disorder Hypertension Hypothyroidism (acquired) IBS (irritable bowel syndrome) diagnosed in 2010, but she prefers not to follow up with GI on this issue and feels her symptoms are much improved. in 2019, she went to [place] and saw Dr Pineda and had a cyst on her tailbone. 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 Nicotine dependence, cigarettes, uncomplicated Psychiatric care Seasonal allergic rhinitis due to pollen Sialorrhea drug induced- Clozapine Tick fever 2016 Surgical History History of cholecystectomy History of hysterectomy without BSO History of thyroid cyst 2016 Hx of colonoscopy 2019 Family History Grandmother Diabetes Brother Diabetes Social History Smoking and tobacco status: current every day smoker cigarettes Packs smoked per day: 1 Years cigarettes smoked: 30 Quit status (tobacco): considering quitting Second hand smoke exposure: Yes Smoking risk assessment/counseling performed?: No Alcohol intake: current Alcohol intake frequency: holidays/special occasions only Desire information about alcohol rehabilitation?: No Counseling given: No Substance/Drug Use: unknown Desire information about substance/drug rehabilitation?: No Counseling given: No Caregiver/support person: No Lives independently: Yes Household members: spouse Housing: House Marital status: Number of children: 2 service: No Current occupational status: unemployed Do you think of yourself as: Straight/Heterosexual Current gender identity: Female Physical Exam Const: COMMON NORMALS: no acute distress, average body habitus, patient oriented x3, no limitations, healthy appearing, alert and well nourished HENMT: COMMON NORMALS: normocephalic, atraumatic, hearing grossly normal bilaterally, external ears normal, Normal external nose present and moist oral mucous membranes HEAD & SCALP: normocephalic and atraumatic NOSE: Normal external nose present EXTERNAL EAR: Yes external ears normal Eye: COMMON NORMALS: Equal, round and reactive pupils present, EOMs intact bilaterally, conjunctivae normal and no scleral icterus CONJUNCTIVA: Yes conjunctivae normal PUPIL: Yes Equal, round and reactive pupils present Neck/C-Spine: COMMON NORMALS: full ROM, no lymphadenopathy, no meningeal signs, no JVD and Thyroid normal THYROID: Thyroid normal Lymph: LYMPHATIC: no lymphadenopathy noted Chest: COMMONS NORMALS: normal inspection of the chest and normal palpation of entire chest wall Resp: COMMON NORMALS: normal respiratory effort, No retractions, No use of accessory muscles and clear to auscultation bilaterally AUSCULTATION: clear to auscultation bilaterally Cardio: COMMON NORMALS: no JVD, regular rate, S1 normal heart sound present, S2 normal heart sound present, No gallops present (Cardio), No clicks present (Cardio) and No murmurs present (Cardio) RATE: regular rate HEART SOUNDS: S1 normal heart sound present and S2 normal heart sound present GI: COMMON NORMALS: Normal to inspection, nondistended, normoactive bowel sounds present, Soft to palpation, non-tender, No hepatosplenomegaly present and no masses PALPATION: Yes Soft to palpation and Yes No hepatosplenomegaly present : COMMON NORMALS: Yes no CVA tenderness BLADDER/KIDNEY EXAM: Yes no CVA tenderness Back/Pelvis: COMMON NORMALS: no CVA tenderness Neuro: COMMON NORMALS: patient oriented x3 SENSORIUM/ORIENTATION: Yes alert MENINGEAL SIGNS: Yes no meningeal signs Psych: COMMON NORMALS: speech normal APPEARANCE: Yes grossly normal ATTITUDE: Yes bizarre ACTIVITY/MOTOR BEHAVIOR: Yes fidgeting SPEECH: Yes normal speech MOOD & AFFECT: Yes euthymic mood THOUGHT PROCESS: Loose association thought process present Course Vital Signs: Vital signs: Vital Signs Temperature 98.5 F 10/23/22 20:08 Pulse Rate 109 H 10/23/22 20:08 Respiratory Rate 18 10/23/22 20:08 Blood Pressure 157/101 10/23/22 20:08 Pulse Oximetry 96 10/23/22 20:08 Oxygen Delivery Me thod Room Air 10/23/22 20:08 MDM - Psych Medical Decision Making Patient presents to the ER today with complaints of bipolar and with psychotic features. Patient is currently being transition from Clozaril to fluphenazine. Patient's thinks her psychotic episodes are getting worse during his transition. He is currently only on 1 mg of fluphenazine but he did give her 2 mg today. Lab work was obtained which was essentially unremarkable. After a long talk with and patient will be given an additional 2.5 mg of fluphenazine here tonight as well as 5 mg Ambien to help with the night. Patient will call her psychiatrist and counselors in the morning and tell him about the her psychotic features and see if they will go up on the fluphenazine quicker. Lab Data 10/23/22 21:50 10/23/22 21:50 Laboratory Results WBC 10.8 10^3/uL (4.0-10.0) H 10/23/22 21:50 RBC 4.53 10^6/uL (4.1-5.3) 10/23/22 21:50 Hgb 12.7 g/dL (11.5-15.3) 10/23/22 21:50 Hct 40.5 % (37.0-47.0) 10/23/22 21:50 MCV 89.4 fl (81-99) 10/23/22 21:50 MCH 28.0 pg (28.0-34.0) 10/23/22 21:50 MCHC 31.4 g/dL (30.0-36.0) 10/23/22 21:50 RDW 13.5 % (12.1-15.1) 10/23/22 21:50 Plt Count 310 10^3/cmm (130-400) 10/23/22 21:50 MPV 10.2 fL (7.4-10.4) 10/23/22 21:50 Lymph % (Auto) Not Reportable 10/23/22 21:50 [place] % (Auto) Not Reportable 10/23/22 21:50 Lymph # (Auto) Not Reportable 10/23/22 21:50 [place] # (Auto) Not Reportable 10/23/22 21:50 Total Counted 100 (0-100) 10/23/22 21:50 Atypical Lymphs % 0.0 % (0-5) 10/23/22 21:50 Absolute Neutrophils 4.3 10^3/cmm (1.4-6.5) 10/23/22 21:50 Segmented Neutrophils 39 % 10/23/22 21:50 Abs Segm Neuts (Man) 4.2 10/cmm (1.6-7.1) 10/23/22 21:50 Band Neutrophils 1.0 % 10/23/22 21:50 Abs Band Neuts (Man) 0.1 10^3/cmm (0.0-1.2) 10/23/22 21:50 Absolute Lymphocytes 4.8 10^3/cmm (1.2-3.4) H 10/23/22 21:50 Lymphocytes (Manual) 44 % 10/23/22 21:50 Monocytes (Manual) 9.0 % 10/23/22 21:50 Absolute Monocytes 1.0 10^3/cmm (0.1-0.6) H 10/23/22 21:50 Eosinophils (Manual) 6 % 10/23/22 21:50 Absolute Eosinophils 0.6 10^3/cmm (0.0-0.7) 10/23/22 21:50 Basophils (Manual) 0.0 % 10/23/22 21:50 Absolute Basophils 0.0 10^3/cmm (0.0-0.2) 10/23/22 21:50 Myelocytes 1.0 % 10/23/22 21:50 Platelet Estimate Normal (Normal) 10/23/22 21:50 Spherocytes Trace 10/23/22 21:50 Sodium 140 mmol/L (136-145) 10/23/22 21:50 Potassium 4.4 mmol/L (3.5-5.1) 10/23/22 21:50 Chloride 101 mmol/L (98-107) 10/23/22 21:50 Carbon Dioxide 29 mmol/L (22-29) 10/23/22 21:50 Anion Gap 14.4 (5-19) 10/23/22 21:50 BUN 12 mg/dL (6-20) 10/23/22 21:50 Creatinine 0.7 mg/dL (0.5-0.9) 10/23/22 21:50 GFR Calculation 88.6 mL/min (90-130) L 10/23/22 21:50 Glucose 124 mg/dL (65-115) H 10/23/22 21:50 Calculated Osmolality 291 mOsm/kg (285-295) 10/23/22 21:50 Calcium 9.4 mg/dL (8.5-10.5) 10/23/22 21:50 Total Bilirubin 0.3 mg/dL (0.15-1.2) 10/23/22 21:50 AST 60 U/L (0-32) H 10/23/22 21:50 ALT 82 U/L (0-33) H 10/23/22 21:50 Alkaline Phosphatase 90 U/L (35-105) 10/23/22 21:50 Total Protein 7.1 g/dL (6.6-8.7) 10/23/22 21:50 Albumin 4.2 g/dL (3.5-5.2) 10/23/22 21:50 Globulin 2.9 g/dL (1.3-4.6) 10/23/22 21:50 Urine Color Yellow (Yellow) 10/23/22 20:24 Urine Appearance Clear (CLEAR) 10/23/22 20:24 Urine pH 6.5 (5-7) 10/23/22 20:24 Ur Specific [place] 1.015 (1.005-1.030) 10/23/22 20:24 Urine Protein Neg (Negative) 10/23/22 20:24 Urine Glucose (UA) Norm (Normal) 10/23/22 20:24 Urine Ketones 1+ (Negative) H 10/23/22 20:24 Urine Blood 2+ (Negative) H 10/23/22 20:24 Urine Nitrate Negative (Negative) 10/23/22 20:24 Urine Bilirubin Neg (Negative) 10/23/22 20:24 Urine Urobilinogen Norm mg/dL (Negative) 10/23/22 20:24 Ur Leukocyte Esterase Negative (Negative) 10/23/22 20:24 Urine RBC 5-10 /hpf (0-2) H 10/23/22 20:24 Urine WBC 0-4 /hpf (0-5) H 10/23/22 20:24 Ur Squamous Epith Cells 5-10 /hpf (0-5) H 10/23/22 20:24 Amorphous Sediment Not Reportable 10/23/22 20:24 Urine Bacteria 1+ /hpf (NONE) H 10/23/22 20:24 Salicylates < 0.3 mg/dL (3-10) L 10/23/22 21:50 Urine Opiates Screen Negative ng/mL (Negative) 10/23/22 20:24 Acetaminophen < 5.0 ug/mL (10-30) L 10/23/22 21:50 Ur Barbiturates Screen Negative ng/mL (Negative) 10/23/22 20:24 Valproic Acid 76.6 ug/mL (50-100) 10/23/22 21:50 Ur Phencyclidine Scrn Negative ng/mL (Negative) 10/23/22 20:24 Ur Amphetamines Screen Negative ng/mL (Negative) 10/23/22 20:24 U Benzodiazepines Scrn Positive ng/mL (Negative) H 10/23/22 20:24 Urine Cocaine Screen Negative ng/mL (Negative) 10/23/22 20:24 U Marijuana (THC) Screen Negative ng/mL (Negative) 10/23/22 20:24 Ethyl Alcohol < 10 mg/dL (0-10) 10/23/22 21:50 Discharge Plan Discharge Patient Disposition: Home Clinical Impression: Bipolar disorder, current episode mixed, severe, with psychotic features Condition: Stable Prescriptions: No Action metoprolol succinate 25 mg tablet extended release 24 hr 25 mg PO DAILY atorvastatin 20 mg tablet 20 mg PO BEDTIME levothyroxine 75 mcg tablet 75 mcg PO DAILY Qty: 90 3RF divalproex [Depakote] 500 mg tablet,delayed release (DR/EC) 500 mg PO BID Qty: 60 3RF Rx Instructions: Take one tablet twice per day clozapine 150 mg tablet,disintegrating 150 mg PO DIRECTED Qty: 4 0RF Rx Instructions: Day 1- 1 tab in am, continue 200 mg at 6 pm Day 2-1 tab in am and at 6 pm Day 3- 1 tab at 6 pm clozapine 100 mg tablet,disintegrating 100 mg PO DIRECTED Qty: 3 0RF Rx Instructions: Day 4 one tab in am and at 6 pm Day 5 one tab at 6 pm clozapine 25 mg tablet,disintegrating 25 mg PO BID Qty: 7 0RF Rx Instructions: day 6-two tab in am and two tabs 6 pm day 7-one tab in am and two tabs at 6 pm clozapine 25 mg tablet,disintegrating 25 mg PO DIRECTED Qty: 1 0RF Rx Instructions: day 8-discontinue am dose, take one tab at 6 pm day 9-discontinue 6 pm dose fluphenazine HCl 1 mg tablet 1 mg PO .7 am Qty: 14 1RF Rx Instructions: Take one tablet at 7 am atropine 1 % drops 2 drp buccal BID PRN (Reason: secretions) Qty: 15 3RF Rx Instructions: May take 2-3 drops twice per day as needed for secretions lorazepam [Ativan] 1 mg tablet 1 mg PO DIRECTED Qty: 120 2RF Rx Instructions: Take one tab in am, afternoon, and two tabs at bedtime losartan 25 mg tablet 25 mg PO DAILY Qty: 90 3RF azelastine 137 mcg (0.1 %) aerosol,spray 1 spray intranasal BID PRN (Reason: Allergy Symptoms) Rx Instructions: administer into each nostril loratadine 10 mg tablet 10 mg PO DAILY Discharge Orders: Discharge ED (Routine); Ordered 10/23/22 Ordered By: Jeffery Rose Referrals: Anuj Aparicio NP [Primary Care Provider] - 1 week Patient Instructions: Bipolar Disorder (DC), Psychotic Disorder (ED) Activity Restrictions/Additional Instructions: Please call your counselors and psychiatrist in the morning to discuss with him possibly going up on your fluphenazine quicker. Coding Level of Care Code ED Salesperson [employer]ist Supplies for Melissa Rodriges
[2022-10-23 21:47] LABS: Amphetamines Screen Urine Negative (Negative); Barbiturates Screen Urine Negative (Negative); Benzodiazepines Screen Urine Positive (Negative); Cocaine Screen Urine Negative (Negative); Opiate Screen Urine Negative (Negative); PCP Screen Urine Negative (Negative); THC Screen Urine Negative (Negative)
[2022-10-23 21:48] LABS: Add Urine Microscopic? YES; Bilirubin Urine Neg (Negative); Blood Urine 2+ (Negative); Glucose Urine UA Norm (Normal); Ketones Urine 1+ (Negative); Leukocyte Esterase Urine Negative (Negative); Nitrate Urine Negative (Negative); Protein Urine Neg (Negative); Specific Gravity, Urine 1.015 (1.005-1.030); Urine Appearance Clear (CLEAR); Urine Color Yellow (Yellow); Urobilinogen Urine Norm (Negative); pH Urine 6.5 (5-7)
[2022-10-23 21:49] LABS: Bacteria Urine 1+ /hpf; WBC Urine 0-4 /hpf (0-5)
[2022-10-23 21:58] LABS: Hematocrit 40.5 % (37.0-47.0); Hemoglobin 12.7 g/dL (11.5-15.3); Mean Corpuscular HGB Conc 31.4 g/dL (30.0-36.0); Mean Corpuscular Volume 89.4 fl (81-99); Mean Platelet Volume 10.2 fL (7.4-10.4); Platelet Count 310 10^3/cmm (130-400); Red Blood Count 4.53 10^6/uL (4.1-5.3); Red Cell Distribution Width 13.5 % (12.1-15.1); White Blood Count 10.8 10^3/uL (4.0-10.0)
--- NOTE | 2022-10-23 22:00 | PC.NURSE ---
Pt resting in bed with at bedside. Sitter present.
[2022-10-23 22:29] LABS: Absolute Eosinophils 0.6 10^3/cmm (0.0-0.7); Absolute Neutrophil 4.3 10^3/cmm (1.4-6.5); Absolute Segmented Neutrophil 4.2 10/cmm (1.6-7.1); Band Neutrophils Absolute 0.1 10^3/cmm (0.0-1.2); Eosinophils 6 %; Lymphocytes 44 %; Lymphocytes Absolute 4.8 10^3/cmm (1.2-3.4); Platelet Estimate Normal (Normal); Segmented Neutrophils 39 %; Total Cells Counted 100 (0-100)
[2022-10-23 22:30] LABS: Spherocytes Trace
[2022-10-23 22:35] LABS: Alanine Aminotransferase 82 U/L (0-33); Albumin Level 4.2 g/dL (3.5-5.2); Alkaline Phosphatase 90 U/L (35-105); Anion Gap 14.4 (5-19); Aspartate Amino Transferase 60 U/L (0-32); Blood Urea Nitrogen 12 mg/dL (6-20); Calcium 9.4 mg/dL (8.5-10.5); Carbon Dioxide 29 mmol/L (22-29); Chloride 101 mmol/L (98-107); Globulin 2.9 g/dL (1.3-4.6); Glomerular Filtration Rate 88.6 mL/min (90-130); Glucose 124 mg/dL (65-115); Osmolality Calculated 291 mOsm/kg (285-295); Potassium 4.4 mmol/L (3.5-5.1); Sodium 140 mmol/L (136-145); Total Bilirubin 0.3 mg/dL (0.15-1.2); Total Protein 7.1 g/dL (6.6-8.7)
[2022-10-23 22:36] LABS: Valproic Acid Level 76.6 ug/mL (50-100)
[2022-10-23 22:40] LABS: Acetaminophen < 5.0 ug/mL (10-30); Alcohol Level < 10 mg/dL (0-10); Salicylate < 0.3 mg/dL (3-10)
[2022-10-23] MEDS: zolpidem 5 mg Tablet PO (23:21)
[2022-10-23 23:24] VITALS: BP 152/99; PULSE 101; RESP 18; O2SAT 98
== END 2022-10-23 23:32 | disposition home or self-care (01) ==
PROVIDERS: Emergency Provider Emergency Medicine; PCP Clinical Nurse Specialist Adult Health
DX: F31.64 Bipolar disorder, current episode mixed, severe, with psychotic features (principal); F17.210 Nicotine dependence, cigarettes, uncomplicated; I10 Essential (primary) hypertension
CPT/HCPCS: 36415; 80053; 80164; 80306; 80307; 81001; 85007; 85025; 99284

== ENCOUNTER 2022-10-28 09:58 | Emergency (ER) | payer OTHER, SELFPAY ==
[2022-10-28 10:38] VITALS: BP 139/90; PULSE 108; RESP 20; TEMP 36.7; O2SAT 98; BMI 32.1
[2022-10-28 11:15] LABS: Basophils # 0.1 10^3/uL (0.0-0.1); Basophils % 0.5 %; Eosinophils # 0.5 10^3/uL (0.0-0.8); Eosinophils % 4.9 %; Hematocrit 39.3 % (37.0-47.0); Hemoglobin 12.3 g/dL (11.5-15.3); Lymphocytes # 3.8 10^3/uL (0.8-4.8); Lymphocytes % 39.3 %; Mean Corpuscular HGB Conc 31.3 g/dL (30.0-36.0); Mean Corpuscular Volume 89.5 fl (81-99); Mean Platelet Volume 11.1 fL (7.4-10.4); Monocytes # 1.1 10^3/uL (0.2-0.9); Monocytes % 11.7 %; Neutrophils # 4.15 10^3/uL (1.8-7.7); Neutrophils % 43.2 %; Nucleated Red Blood Cells % 0 %; Platelet Count 247 10^3/cmm (130-400); Red Blood Count 4.39 10^6/uL (4.1-5.3); Red Cell Distribution Width 13.6 % (12.1-15.1); White Blood Count 9.6 10^3/uL (4.0-10.0)
[2022-10-28 11:31] LABS: Alanine Aminotransferase 46 U/L (0-33); Albumin Level 4.1 g/dL (3.5-5.2); Alkaline Phosphatase 74 U/L (35-105); Anion Gap 16.3 (5-19); Aspartate Amino Transferase 34 U/L (0-32); Blood Urea Nitrogen 16 mg/dL (6-20); Calcium 8.5 mg/dL (8.5-10.5); Carbon Dioxide 25 mmol/L (22-29); Chloride 102 mmol/L (98-107); Globulin 2.4 g/dL (1.3-4.6); Glomerular Filtration Rate 105.8 mL/min (90-130); Glucose 147 mg/dL (65-115); Osmolality Calculated 292 mOsm/kg (285-295); Potassium 4.3 mmol/L (3.5-5.1); Sodium 139 mmol/L (136-145); Total Bilirubin 0.3 mg/dL (0.15-1.2); Total Protein 6.5 g/dL (6.6-8.7)
[2022-10-28 12:37] VITALS: BP 124/81; PULSE 93; O2SAT 94
[2022-10-28 12:45] LABS: Add Urine Microscopic? NO; Charge for UA Resulting for Rev
--- NOTE | 2022-10-28 13:06 | W.ED.ABDPA2 ---
HPI - Abdominal Pain General: Chief Complaint: Abdominal Pain Stated Complaint: abd pain, sob, possible med reaction Time Seen by Provider: 10/28/22 12:34 History of Present Illness: Patient presents to the ER complaining of severe abdominal and back pain, restless legs last night. [facility] told patient to come here concerned she may be having a reaction to Zyprexa that she just tarted on Monday. MD elicited complaint: abdominal pain (Back pain and pelvic pain) Pertinent past history: none Onset (ago): day(s) (A couple days ago) Pain Consistency: intermittent Location: Suprapubic Severity: mild Migration to: no migration Exacerbating factors: nothing Relieving factors: nothing Associated Symptoms: Reports dysuria; Denies chills and fever(s) Review of Systems General: Reports: 10 or more systems reviewed and unremarkable except in HPI and below Const: Denies: fever(s) or chills Eyes: Denies: change in vision or photophobia ENMT: Denies: throat pain or odynophagia Card: Denies: chest pain, palpitations or lightheadedness Resp: Denies: dyspnea, productive cough or non-productive cough GI: Reports: abdominal pain : Reports: dysuria Musc: Reports: back pain Skin/Breast: Denies: rash or pruritus Neuro: Denies: headache(s), numbness in extremities or weakness in extremities PFSH ED PFSH: Medical History Bipolar disorder, current episode mixed, severe, with psychotic features Fatty liver Generalized anxiety disorder Hypertension Hypothyroidism (acquired) IBS (irritable bowel syndrome) diagnosed in 2010, but she prefers not to follow up with GI on this issue and feels her symptoms are much improved. in 2019, she went to [place] and saw Dr Pineda and had a cyst on her tailbone. 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 Nicotine dependence, cigarettes, uncomplicated Psychiatric care Seasonal allergic rhinitis due to pollen Sialorrhea drug induced- Clozapine Tick fever 2016 Surgical History History of cholecystectomy History of hysterectomy without BSO History of thyroid cyst 2016 Hx of colonoscopy 2019 Family History Grandmother Diabetes Brother Diabetes Social History Smoking and tobacco status: current every day smoker cigarettes Packs smoked per day: 1 Years cigarettes smoked: 30 Quit status (tobacco): considering quitting Second hand smoke exposure: Yes Smoking risk assessment/counseling performed?: No Alcohol intake: current Alcohol intake frequency: holidays/special occasions only Desire information about alcohol rehabilitation?: No Counseling given: No Substance/Drug Use: unknown Desire information about substance/drug rehabilitation?: No Counseling given: No Caregiver/support person: No Lives independently: Yes Household members: spouse Housing: House Marital status: Number of children: 2 service: No Current occupational status: unemployed Do you think of yourself as: Straight/Heterosexual Current gender identity: Female Physical Exam Const: COMMON NORMALS: no acute distress, average body habitus, patient oriented x3, no limitations, healthy appearing, alert and well nourished HENMT: COMMON NORMALS: normocephalic, atraumatic, hearing grossly normal bilaterally, external ears normal, Normal external nose present and moist oral mucous membranes HEAD & SCALP: normocephalic and atraumatic NOSE: Normal external nose present EXTERNAL EAR: Yes external ears normal Eye: COMMON NORMALS: Equal, round and reactive pupils present, EOMs intact bilaterally, conjunctivae normal and no scleral icterus CONJUNCTIVA: Yes conjunctivae normal PUPIL: Yes Equal, round and reactive pupils present Neck/C-Spine: COMMON NORMALS: full ROM, no lymphadenopathy, supple, no meningeal signs and no JVD Chest: COMMONS NORMALS: normal inspection of the chest and normal palpation of entire chest wall Resp: COMMON NORMALS: normal respiratory effort, No retractions, No use of accessory muscles and clear to auscultation bilaterally AUSCULTATION: clear to auscultation bilaterally Cardio: COMMON NORMALS: no JVD, regular rate, regular rhythm, S1 normal heart sound present, S2 normal heart sound present, No gallops present (Cardio), No clicks present (Cardio) and No murmurs present (Cardio) RATE: regular rate RHYTHM: regular rhythm HEART SOUNDS: S1 normal heart sound present and S2 normal heart sound present GI: COMMON NORMALS: Normal to inspection, nondistended, normoactive bowel sounds present, Soft to palpation, non-tender, No hepatosplenomegaly present and no masses PALPATION: Yes Soft to palpation and Yes No hepatosplenomegaly present Neuro: COMMON NORMALS: patient oriented x3 SENSORIUM/ORIENTATION: Yes alert MENINGEAL SIGNS: Yes no meningeal signs Course Vital Signs: Vital signs: Vital Signs Temperature 98.1 F 10/28/22 10:38 Pulse Rate 102 H 10/28/22 13:09 Respiratory Rate 20 H 10/28/22 10:38 Blood Pressure 141/95 10/28/22 13:09 Pulse Oximetry 96 10/28/22 13:09 Oxygen Delivery Me thod Room Air 10/28/22 10:38 MDM - Abdominal Pain Medical Decision Making Patient presents to the ER with complaining of abdominal\pelvic pain. Patient just recently started a new medicine Zyprexa Monday. Patient was told here by [facility] to come and see if she is having reaction to this medicine. Lab work was drawn which showed CBC CMP and UA all essentially benign. The only new thing that, about within this timeframe is that she started the Zyprexa. Patient will be told to DC the Zyprexa and follow-up with her [facility] counselor. Differential Diagnosis Likely abdominal pain; Unlikely acute appendicitis, calculus of kidney, constipation, diverticulitis, endometriosis, gastroenteritis, pancreatitis or small bowel obstruction Medical Records I reviewed the patient's medical records. Lab Data I reviewed the patient's lab results. 10/28/22 11:04 10/28/22 11:04 Labs/Radiology: Laboratory Results WBC 9.6 10^3/uL (4.0-10.0) 10/28/22 11:04 RBC 4.39 10^6/uL (4.1-5.3) 10/28/22 11:04 Hgb 12.3 g/dL (11.5-15.3) 10/28/22 11:04 Hct 39.3 % (37.0-47.0) 10/28/22 11:04 MCV 89.5 fl (81-99) 10/28/22 11:04 MCH 28.0 pg (28.0-34.0) 10/28/22 11:04 MCHC 31.3 g/dL (30.0-36.0) 10/28/22 11:04 RDW 13.6 % (12.1-15.1) 10/28/22 11:04 Plt Count 247 10^3/cmm (130-400) 10/28/22 11:04 MPV 11.1 fL (7.4-10.4) H 10/28/22 11:04 Neut % (Auto) 43.2 % 10/28/22 11:04 Lymph % (Auto) 39.3 % 10/28/22 11:04 [place] % (Auto) 11.7 % 10/28/22 11:04 Eos % (Auto) 4.9 % 10/28/22 11:04 Baso % (Auto) 0.5 % 10/28/22 11:04 Neut # (Auto) 4.15 10^3/uL (1.8-7.7) 10/28/22 11:04 Lymph # (Auto) 3.8 10^3/uL (0.8-4.8) 10/28/22 11:04 [place] # (Auto) 1.1 10^3/uL (0.2-0.9) H 10/28/22 11:04 Eos # (Auto) 0.5 10^3/uL (0.0-0.8) 10/28/22 11:04 Baso # (Auto) 0.1 10^3/uL (0.0-0.1) 10/28/22 11:04 Nucleated RBC % (auto) 0 % 10/28/22 11:04 Nucleated RBCs # 0.0 /100WBC 10/28/22 11:04 Sodium 139 mmol/L (136-145) 10/28/22 11:04 Potassium 4.3 mmol/L (3.5-5.1) 10/28/22 11:04 Chloride 102 mmol/L (98-107) 10/28/22 11:04 Carbon Dioxide 25 mmol/L (22-29) 10/28/22 11:04 Anion Gap 16.3 (5-19) 10/28/22 11:04 BUN 16 mg/dL (6-20) 10/28/22 11:04 Creatinine 0.6 mg/dL (0.5-0.9) 10/28/22 11:04 GFR Calculation 105.8 mL/min (90-130) 10/28/22 11:04 Glucose 147 mg/dL (65-115) H 10/28/22 11:04 Calculated Osmolality 292 mOsm/kg (285-295) 10/28/22 11:04 Calcium 8.5 mg/dL (8.5-10.5) 10/28/22 11:04 Total Bilirubin 0.3 mg/dL (0.15-1.2) 10/28/22 11:04 AST 34 U/L (0-32) H 10/28/22 11:04 ALT 46 U/L (0-33) H 10/28/22 11:04 Alkaline Phosphatase 74 U/L (35-105) 10/28/22 11:04 Total Protein 6.5 g/dL (6.6-8.7) L 10/28/22 11:04 Albumin 4.1 g/dL (3.5-5.2) 10/28/22 11:04 Globulin 2.4 g/dL (1.3-4.6) 10/28/22 11:04 Urine Color Yellow (Yellow) 10/28/22 10:44 Urine Appearance Clear (CLEAR) 10/28/22 10:44 Urine pH 7 (5-7) 10/28/22 10:44 Ur Specific [place] 1.005 (1.005-1.030) 10/28/22 10:44 Urine Protein Neg (Negative) 10/28/22 10:44 Urine Glucose (UA) Norm (Normal) 10/28/22 10:44 Urine Ketones Negative (Negative) 10/28/22 10:44 Urine Blood Neg (Negative) 10/28/22 10:44 Urine Nitrate Negative (Negative) 10/28/22 10:44 Urine Bilirubin Neg (Negative) 10/28/22 10:44 Urine Urobilinogen Norm mg/dL (Negative) 10/28/22 10:44 Ur Leukocyte Esterase Negative (Negative) 10/28/22 10:44 Discharge Plan Discharge Patient Disposition: Home Clinical Impression: Adverse effect of drug Qualifiers: Encounter type: initial encounter Qualified Code(s): T50.905A - Adverse effect of unspecified drugs, medicaments and biological substances, initial encounter Condition: Stable Prescriptions: No Action metoprolol succinate 25 mg tablet extended release 24 hr 25 mg PO DAILY atorvastatin 20 mg tablet 20 mg PO BEDTIME levothyroxine 75 mcg tablet 75 mcg PO DAILY Qty: 90 3RF divalproex [Depakote] 250 mg tablet,delayed release (DR/EC) 250 mg PO BID Qty: 60 3RF Rx Instructions: Take one tablet twice per day with 500 tablet, total dose 750 mg divalproex [Depakote] 500 mg tablet,delayed release (DR/EC) 500 mg PO BID Qty: 60 3RF Rx Instructions: Take one tablet twice per day with 250 mg tablet, total dose 750 mg olanzapine [Zyprexa Zydis] 10 mg tablet,disintegrating 10 mg PO TID Qty: 90 1RF Rx Instructions: Take one tablet three times per day sublingual Do not eat or drink 10 min after taking the Zydis olanzapine 5 mg tablet,disintegrating 10 mg PO TID Qty: 30 0RF Rx Instructions: Take two tabs sublingual three times per day lorazepam [Ativan] 1 mg tablet 1 mg PO DIRECTED Qty: 120 2RF Rx Instructions: Take one tab in am, afternoon, and two tabs at bedtime losartan 25 mg tablet 25 mg PO DAILY Qty: 90 3RF azelastine 137 mcg (0.1 %) aerosol,spray 1 spray intranasal BID PRN (Reason: Allergy Symptoms) Rx Instructions: administer into each nostril loratadine 10 mg tablet 10 mg PO DAILY Discharge Orders: Discharge ED (Routine); Ordered 10/28/22 Ordered By: Jeffery Rose Referrals: Anuj Aparicio NP [Primary Care Provider] - 1 week Patient Instructions: Adverse Drug Reaction (ED) Activity Restrictions/Additional Instructions: Please can discontinue your Zyprexa as this may be the cause of your pain. Please keep the follow-up appointment with your [facility] counselor as you may need different medicine in its place. Coding Level of Care Code ED Pipeline Maintenance Supervisor for Melissa Rodriges
[2022-10-28 13:09] VITALS: BP 141/95; PULSE 102; O2SAT 96
[2022-10-28 13:11] LABS: Bilirubin Urine Neg (Negative); Blood Urine Neg (Negative); Glucose Urine UA Norm (Normal); Ketones Urine Negative (Negative); Leukocyte Esterase Urine Negative (Negative); Nitrate Urine Negative (Negative); Protein Urine Neg (Negative); Specific Gravity, Urine 1.005 (1.005-1.030); Urine Appearance Clear (CLEAR); Urine Color Yellow (Yellow); Urobilinogen Urine Norm (Negative); pH Urine 7 (5-7)
[2022-10-28 13:56] VITALS: BP 108/75; PULSE 98; RESP 14; O2SAT 98
== END 2022-10-28 13:57 | disposition home or self-care (01) ==
PROVIDERS: Physician Assistant; Emergency Provider Emergency Medicine; PCP Clinical Nurse Specialist Adult Health
DX: T88.7XXA Unspecified adverse effect of drug or medicament, initial encounter (principal); T43.595A Adverse effect of other antipsychotics and neuroleptics, initial encounter; F17.210 Nicotine dependence, cigarettes, uncomplicated
CPT/HCPCS: 36415; 80053; 81003; 85025; 99283

== ENCOUNTER → 2022-11-07 10:22 | Outpatient (BNVA) | payer OTHER, SELFPAY | PROVIDERS: PCP Clinical Nurse Specialist Adult Health; Visit Provider Internal Medicine Cardiovascular Disease | DX: Z79.899 Other long term (current) drug therapy (principal) | CPT/HCPCS: 80053; 80164; 81001; 93005 ==

== ENCOUNTER 2022-11-15 15:08 | Outpatient (CLI) | payer OTHER, SELFPAY ==
[2022-11-15 16:22] LABS: Alanine Aminotransferase 17 U/L (0-33); Albumin Level 4.3 g/dL (3.5-5.2); Alkaline Phosphatase 63 U/L (35-105); Anion Gap 12.6 (5-19); Aspartate Amino Transferase 20 U/L (0-32); Blood Urea Nitrogen 13 mg/dL (6-20); Calcium 8.7 mg/dL (8.5-10.5); Carbon Dioxide 30 mmol/L (22-29); Chloride 100 mmol/L (98-107); Globulin 2.3 g/dL (1.3-4.6); Glomerular Filtration Rate 88.2 mL/min (90-130); Glucose 85 mg/dL (65-115); NT Pro B Type Natriuretic Pept 169 pg/mL (0-125); Osmolality Calculated 285 mOsm/kg (285-295); Potassium 4.6 mmol/L (3.5-5.1); Sodium 138 mmol/L (136-145); Total Bilirubin 0.2 mg/dL (0.15-1.2); Total Protein 6.6 g/dL (6.6-8.7)
[2022-11-15 16:46] LABS: Valproic Acid Level 46.6 ug/mL (50-100)
== END 2022-11-15 15:09 | disposition home or self-care (01) ==
PROVIDERS: PCP Clinical Nurse Specialist Adult Health; Visit Provider Nurse Practitioner Psychiatric/Mental Health
DX: Z79.899 Other long term (current) drug therapy (principal)
CPT/HCPCS: 36415; 80053; 80164; 83880

== ENCOUNTER → 2022-11-16 10:49 | Outpatient (BNVA) | payer OTHER, SELFPAY | PROVIDERS: PCP Clinical Nurse Specialist Adult Health; Visit Provider Internal Medicine Cardiovascular Disease | DX: Z79.899 Other long term (current) drug therapy (principal) | CPT/HCPCS: 93005 ==

== ENCOUNTER 2022-11-17 11:19 | Outpatient (CLI) | payer OTHER, SELFPAY ==
--- NOTE | 2022-11-17 11:27 | XR_ITS ---
WS: [id number] XR chest 2V* [id number] REASON FOR EXAM: shortness of breath FINDINGS: The chest is unchanged compared to 08/01/2018. The heart and mediastinum are within normal limits. Bilateral calcified granulomatous disease. No active pulmonary parenchymal or pleural disease. XR/XR chest 2V* [id number] IMPRESSION: Stable chest without significant abnormality.
== END 2022-11-17 11:20 | disposition home or self-care (01) ==
PROVIDERS: PCP Clinical Nurse Specialist Adult Health; Visit Provider Clinical Nurse Specialist Adult Health
DX: R06.02 Shortness of breath (principal)
CPT/HCPCS: 71046

== ENCOUNTER → 2022-11-30 11:26 | Outpatient (BNVA) | payer OTHER, SELFPAY | PROVIDERS: PCP Clinical Nurse Specialist Adult Health; Visit Provider Clinical Nurse Specialist Adult Health | DX: E78.5 Hyperlipidemia, unspecified (principal); R79.89 Other specified abnormal findings of blood chemistry; R79.81 Abnormal blood-gas level; E03.9 Hypothyroidism, unspecified; R06.02 Shortness of breath; R63.5 Abnormal weight gain; I10 Essential (primary) hypertension | CPT/HCPCS: 83880; 84443 ==

== ENCOUNTER 2022-12-07 11:50 | Outpatient (CLI) | payer OTHER, SELFPAY ==
--- NOTE | 2022-12-07 12:15 | USCV_ITS ---
Mabel Still Age: 52 Gender: F : 1970 Exam Date: 12/07/2022 12:47 Ordering Phys: Anuj Aparicio NP Technologist: CHUCK [place] [facility] [place] SHORTNESS OF BREATH AND ELEVATED BNP BP: 112 / 70 HR: 62 Rhythm: Sinus Technical Quality: Adequate MEASUREMENTS (Male / Female) Normal Values 2D ECHO LVOT Diameter 2.0 cm LV Ejection Fraction MOD 2C 59.2 % LV Ejection Fraction 2C AL 59.2 % LA Diameter 3.4 cm LA Width 2.7 cm LA Height 4.5 cm RA Width 2.9 cm RA Height 4.1 cm Aorta at Sinotubular Diameter 2.2 cm IVC Diameter 1.5 cm M-MODE Aortic Annulus Diameter 2.7 cm LA Ao Ratio MM 1.3 MV E Point Septal Separation 0.6 cm DOPPLER AV Peak Velocity 149.0 cm/s LVOT Peak Velocity 111.0 cm/s AV Area Cont Eq vti 3.0 cm squared AV Area Cont Eq pk 2.4 cm squared MV Peak Velocity 95.0 cm/s MV Area PHT 3.7 cm squared Mitral E to A Ratio 0.9 MV E' Velocity 46.0 cm/s Mitral E to MV E' Ratio 8.3 Mitral E to LV E' Lateral Ratio 6.3 Mitral E to LV E' Septal Ratio 12.0 TR Peak Velocity 198.0 cm/s TR Peak Gradient 15.7 mmHg TR Mean Velocity 167.2 cm/s TR Mean Gradient 11.3 mmHg TR Velocity Time Integral 48.1 cm TV Peak E Velocity 47.0 cm/s Right Atrial Pressure 3.0 mmHg Pulmonary Artery Systolic Pressu 18.7 mmHg PV Peak Velocity 127.0 cm/s RV Acceleration Time 0.2 s RV Ejection Time 0.3 s RV AcT/ET 0.6 FINDINGS Left Ventricle Normal left ventricular size. LV systolic function is normal with EF of 55 to 60%. No regional wall motion abnormalities are seen. Grade 1 diastolic dysfunction noted. Right Ventricle The right ventricle is normal in size and function. Right Atrium The right atrium is normal in size. Left Atrium The left atrium is normal in size. Mitral Valve Structurally normal mitral valve without significant stenosis or prolapse. There is trace mitral regurgitation. Aortic Valve Grossly normal. No significant stenosis or regurgitation seen. Tricuspid Valve Mild tricuspid regurgitation. RVSP is normal. Pulmonic Valve Not well-visualized. Pericardium Normal pericardium without effusion. Aorta Normal ascending aorta dimension. IVC The inferior vena cava appears normal. CONCLUSIONS LV systolic function is normal with EF 55 to 60% Grade 1 diastolic dysfunction Trace mitral regurgitation Mild tricuspid regurgitation No comparison studies are available Elroy Whitaker MD (Electronically Signed) Final Date: 10 December 2022 09:35 S
== END 2022-12-07 11:51 | disposition home or self-care (01) ==
LOC: RAD 11:53
PROVIDERS: PCP Clinical Nurse Specialist Adult Health; Visit Provider Clinical Nurse Specialist Adult Health
DX: R79.89 Other specified abnormal findings of blood chemistry (principal); R06.02 Shortness of breath; I07.1 Rheumatic tricuspid insufficiency
CPT/HCPCS: 93306

== ENCOUNTER → 2022-12-12 08:19 | Outpatient (BNVA) | payer OTHER, SELFPAY | PROVIDERS: PCP Clinical Nurse Specialist Adult Health; Visit Provider Clinical Nurse Specialist Adult Health | DX: R06.02 Shortness of breath (principal); R79.81 Abnormal blood-gas level; E78.5 Hyperlipidemia, unspecified; R79.89 Other specified abnormal findings of blood chemistry | CPT/HCPCS: 80061 ==

== ENCOUNTER → 2023-07-06 14:04 | Outpatient (BNVA) | payer OTHER, SELFPAY | PROVIDERS: PCP Clinical Nurse Specialist Adult Health; Visit Provider Nurse Practitioner Psychiatric/Mental Health | DX: Z79.899 Other long term (current) drug therapy (principal); F31.64 Bipolar disorder, current episode mixed, severe, with psychotic features; F41.1 Generalized anxiety disorder; F17.210 Nicotine dependence, cigarettes, uncomplicated | CPT/HCPCS: 80053; 80061; 80164; 83036; 84443 ==

== ENCOUNTER → 2023-10-25 15:50 | Outpatient (BNVA) | payer OTHER, SELFPAY | PROVIDERS: PCP Clinical Nurse Specialist Adult Health; Visit Provider Clinical Nurse Specialist Adult Health | DX: N39.0 Urinary tract infection, site not specified (principal) | CPT/HCPCS: 87086 ==

== ENCOUNTER → 2023-11-07 14:00 | Outpatient (BNVA) | payer OTHER, SELFPAY | PROVIDERS: PCP Clinical Nurse Specialist Adult Health; Visit Provider Clinical Nurse Specialist Adult Health | DX: N39.0 Urinary tract infection, site not specified (principal); G25.71 Drug induced akathisia; R41.0 Disorientation, unspecified | CPT/HCPCS: 80053; 81000; 85025; 85651; 86140 ==

== ENCOUNTER → 2023-11-08 12:14 | Outpatient (BNVA) | payer OTHER, SELFPAY | PROVIDERS: PCP Clinical Nurse Specialist Adult Health; Visit Provider Nurse Practitioner Psychiatric/Mental Health | DX: Z79.899 Other long term (current) drug therapy (principal) | CPT/HCPCS: 80164 ==

== ENCOUNTER 2024-05-21 15:21 | Outpatient (CLI) | payer OTHER, SELFPAY ==
--- NOTE | 2024-05-21 15:20 | MM_ITS ---
WS: [id number] BILATERAL 3D TOMOSYNTHESIS DIGITAL SCREENING MAMMOGRAPHY WITH CAD CLINICAL INFORMATION: SCREENING HISTORY: Screening mammogram. No current complaints. COMPARISON: 2018 TECHNIQUE: Bilateral CC and MLO views. FINDINGS: Scattered fibroglandular densities bilaterally. 6 mm ovoid asymmetric density anterior central RIGHT breast is more conspicuous compared to 2018. Recommend RIGHT breast diagnostic mammography and ultras ound in further evaluation. This is best seen on the MLO view. LEFT breast is unremarkable. MM/MM [facility] tomosynthesis [id number] IMPRESSION: DENSITY: There are scattered areas of fibroglandular density. BI-RADS: 0 - Incomplete: Need additional imaging evaluation. FOLLOW UP: Need Additional Imaging Recommend LEFT breast diagnostic mammography and ultrasound.
== END 2024-05-21 15:22 | disposition home or self-care (01) ==
LOC: MOBLMAM 15:23
PROVIDERS: PCP Clinical Nurse Specialist Adult Health; Visit Provider Clinical Nurse Specialist Adult Health
DX: Z12.31 Encounter for screening mammogram for malignant neoplasm of breast (principal); R92.323 Mammographic fibroglandular density, bilateral breasts; N63.41 Unspecified lump in right breast, subareolar
CPT/HCPCS: 77063; 77067

== ENCOUNTER → 2024-05-23 15:13 | Outpatient (BNVA) | payer OTHER, SELFPAY | PROVIDERS: PCP Clinical Nurse Specialist Adult Health; Visit Provider Nurse Practitioner Psychiatric/Mental Health | DX: Z79.899 Other long term (current) drug therapy | CPT/HCPCS: 80053; 80164 ==

== ENCOUNTER 2024-05-24 12:50 | Emergency (ER) | payer OTHER, SELFPAY ==
[2024-05-24 14:15] VITALS: BP 125/77; PULSE 58; RESP 18; TEMP 36.9; O2SAT 97; BMI 27.3
[2024-05-24 15:20] LABS: Basophils % 0.4 %; Eosinophils % 0.3 %; Hematocrit 40.8 % (36-47); Lymphocytes # 2.6 10^3/uL (0.8-4.8); Lymphocytes % 26.2 %; Mean Corpuscular HGB Conc 34.3 g/dL (30-55); Mean Corpuscular Hemoglobin 30.2 pg (27-33); Mean Corpuscular Volume 87.9 fl (85-98); Mean Platelet Volume 10.8 fL (7.4-10.4); Monocytes # 1.3 10^3/uL (0.2-0.9); Monocytes % 12.4 %; Neutrophils # 6.08 10^3/uL (1.8-7.7); Neutrophils % 60.4 %; Nucleated Red Blood Cells % 0 %; Platelet Count 249 10^3/cmm (157-399); Red Blood Count 4.64 10^6/uL (3.85-5.65); Red Cell Distribution Width 12.8 % (12.1-15.1); White Blood Count 10.07 10^3/uL (3.29-11.43)
[2024-05-24 15:41] LABS: Alanine Aminotransferase 17 U/L (0-33); Albumin Level 4.5 g/dL (3.5-5.2); Alkaline Phosphatase 103 U/L (35-105); Anion Gap 16.6 (5-19); Aspartate Amino Transferase 29 U/L (0-32); Blood Urea Nitrogen 8 mg/dL (6-20); Calcium 9.6 mg/dL (8.5-10.5); Carbon Dioxide 28 mmol/L (22-29); Chloride 92 mmol/L (98-107); Creatinine Clr Calc Pharmacy 71.4085; Globulin 2.6 g/dL (1.3-4.6); Glomerular Filtration Rate 75.3 mL/min (90-130); Glucose 118 mg/dL (65-115); Osmolality Calculated 273 mOsm/kg (285-295); Potassium 4.6 mmol/L (3.5-5.1); Sodium 132 mmol/L (136-145); Total Bilirubin 0.5 mg/dL (0.15-1.2); Total Protein 7.1 g/dL (6.6-8.7)
--- NOTE | 2024-05-24 18:23 | W.ED.GENADLT ---
HPI - General Adult General: Chief complaint: General Medical Stated complaint: abn labs (sent by [facility], [place]) Time Seen by Provider: 05/24/24 17:38 History of Present Illness: 53-year-old female presents emergency room directed here by [facility] after a lab draw when she stated her sodium was low. She has no symptoms at all no lightheadedness dizziness nausea vomiting no difficulty with balance. No confusion or disorientation. Associated symptoms: Deny chest pain, dyspnea or rash Related Data Previous Rx's Medication Instructions Recorded levothyroxine 75 mcg tablet 75 mcg PO DAILY #90 tabs 09/19/23 loratadine 10 mg tablet 10 mg PO DAILY #90 tabs 10/02/23 losartan 25 mg tablet 25 mg PO DAILY #90 tabs 10/02/23 atorvastatin 20 mg tablet 20 mg PO BEDTIME #90 tabs 11/02/23 metoprolol succinate 25 mg 25 mg PO DAILY #90 tabs 01/15/24 tablet,extended release 24 hr divalproex 250 mg tablet,delayed 250 mg PO .7 pm #90 tabs 04/19/24 release (Depakote) divalproex 500 mg tablet,delayed 500 mg PO .7 pm #90 tabs 04/19/24 release (Depakote) clonazepam 1 mg tablet (Klonopin) 1 mg PO BID #60 tabs 05/23/24 paliperidone 6 mg tablet,extended 6 mg PO .noon #90 tabs 05/23/24 release 24 hr (Invega) ziprasidone HCl 80 mg capsule 80 mg PO .4 pm local pharmacy #90 05/23/24 ([facility]) caps Allergies Allergy/AdvReac Type Severity Reaction Status Date / Time duloxetine Allergy Severe Manic Verified 05/23/24 13:43 episodes, psychosis fluoxetine Allergy Severe Manic Verified 05/23/24 13:43 episodes, psychosis haloperidol [From Haldol] Allergy Severe ADR-Agitate Verified 05/23/24 13:43 d morphine Allergy Severe ADR-Nausea Verified 05/23/24 13:43 oxycodone Allergy Severe ADR-Nausea Verified 05/23/24 13:43 Iodinated Contrast Media Allergy Unknown vomiting Verified 05/23/24 13:43 Sulfa (Sulfonamide Allergy Unknown rash Verified 05/23/24 13:43 Antibiotics) Review of Systems Const: Denies: fever(s) or chills Card: Denies: chest pain Resp: Denies: dyspnea GI: Denies: abdominal pain : Denies: dysuria, urinary frequency or urinary urgency Musc: Denies: neck pain or back pain Skin/Breast: Denies: rash PFSH ED PFSH: Medical History Drug induced akathisia Elevated CO2 level Hyperlipidemia Sialorrhea drug induced- Clozapine Tick fever 2016 IBS (irritable bowel syndrome) diagnosed in 2010, but she prefers not to follow up with GI on this issue and feels her symptoms are much improved. in 2019, she went to [place] and saw Dr Pineda and had a cyst on her tailbone. 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 Psychiatric care Fatty liver Seasonal allergic rhinitis due to pollen Hypertension Hypothyroidism (acquired) Nicotine dependence, cigarettes, uncomplicated Generalized anxiety disorder Bipolar disorder, current episode mixed, severe, with psychotic features Surgical History Hx of colonoscopy 2019 History of hysterectomy without BSO History of thyroid cyst 2015 History of cholecystectomy Family History Grandmother Diabetes Brother Diabetes Social History Smoking and tobacco/nicotine status: current every day tobacco/nicotine user cigarettes Packs smoked per day: 1 Years cigarettes smoked: 30 Quit status (tobacco/nicotine): considering quitting Second hand smoke exposure: Yes Alcohol intake: current Alcohol intake frequency: holidays/special occasions only Substance/Drug Use: unknown Caregiver/support person: No Lives independently: Yes Household members: spouse Housing: House Marital status: Number of children: 2 service: No Current occupational status: unemployed Do you think of yourself as: Straight/Heterosexual Current gender identity: Female Physical Exam Const: COMMON NORMALS: no acute distress GENERAL APPEARANCE: cooperative and comfortable ORIENTATION/CONSCIOUSNESS: Yes awake, Yes oriented to person, Yes oriented to place and Yes oriented to time HENMT: COMMON NORMALS: normocephalic, atraumatic and hearing grossly normal bilaterally HEAD & SCALP: normocephalic and atraumatic Resp: COMMON NORMALS: normal respiratory effort, No retractions, No use of accessory muscles and clear to auscultation bilaterally AUSCULTATION: clear to auscultation bilaterally Cardio: COMMON NORMALS: regular rate, regular rhythm and No murmurs present (Cardio) RATE: regular rate RHYTHM: regular rhythm GI: COMMON NORMALS: Soft to palpation and No hepatosplenomegaly present AUSCULTATION: Yes normoactive bowel sounds PALPATION: Yes Soft to palpation, No Tenderness to palpation present (GI), No Guarding due to palpation present (GI) and Yes No hepatosplenomegaly present Extremity: COMMON NORMALS: normal to inspection, capillary refill normal, no clubbing, cyanosis or edema, no calf tenderness and no pedal edema Neuro: SENSORIUM/ORIENTATION: Yes oriented to person, Yes oriented to place and Yes oriented to time Skin: COMMON NORMALS: no rashes or lesions noted GENERAL SKIN EXAM: no rashes or lesions noted Course Vital Signs: Vital signs: Vital Signs Temperature 98.4 F 05/24/24 14:15 Pulse Rate 60 05/24/24 18:46 Respiratory Rate 14 05/24/24 18:46 Blood Pressure 128/74 05/24/24 18:46 Pulse Oximetry 97 05/24/24 18:46 Oxygen Delivery Me thod Room Air 05/24/24 18:30 MDM - General Adult Medical Decision Making Exam normal repeat blood test shows her sodium at 132. While this is low it is certainly not critically low it does not require any treatment at this point. Additionally patient is completely asymptomatic. Will discharge patient home and have her follow-up with primary care. Even 27 no intervention be required just monitoring. Medical Records I reviewed the patient's medical records. Lab Data I reviewed the patient's lab results. 05/24/24 14:59 05/24/24 14:59 Laboratory Results WBC 10.07 10^3/uL (3.29-11.43) 05/24/24 14:59 RBC 4.64 10^6/uL (3.85-5.65) 05/24/24 14:59 Hgb 14.00 g/dL (11.27-16.99) 05/24/24 14:59 Hct 40.8 % (36-47) 05/24/24 14:59 MCV 87.9 fl (85-98) 05/24/24 14:59 MCH 30.2 pg (27-33) 05/24/24 14:59 MCHC 34.3 g/dL (30-55) 05/24/24 14:59 RDW 12.8 % (12.1-15.1) 05/24/24 14:59 Plt Count 249 10^3/cmm (157-399) 05/24/24 14:59 MPV 10.8 fL (7.4-10.4) H 05/24/24 14:59 Neut % (Auto) 60.4 % 05/24/24 14:59 Lymph % (Auto) 26.2 % 05/24/24 14:59 [place] % (Auto) 12.4 % 05/24/24 14:59 Eos % (Auto) 0.3 % 05/24/24 14:59 Baso % (Auto) 0.4 % 05/24/24 14:59 Neut # (Auto) 6.08 10^3/uL (1.8-7.7) 05/24/24 14:59 Lymph # (Auto) 2.6 10^3/uL (0.8-4.8) 05/24/24 14:59 [place] # (Auto) 1.3 10^3/uL (0.2-0.9) H 05/24/24 14:59 Eos # (Auto) 0.0 10^3/uL (0.0-0.8) 05/24/24 14:59 Baso # (Auto) 0.0 10^3/uL (0.0-0.1) 05/24/24 14:59 Nucleated RBC % (auto) 0 % 05/24/24 14:59 Nucleated RBCs # 0.0 /100WBC 05/24/24 14:59 Sodium 132 mmol/L (136-145) L 05/24/24 14:59 Potassium 4.6 mmol/L (3.5-5.1) 05/24/24 14:59 Chloride 92 mmol/L (98-107) L 05/24/24 14:59 Carbon Dioxide 28 mmol/L (22-29) 05/24/24 14:59 Anion Gap 16.6 (5-19) 05/24/24 14:59 BUN 8 mg/dL (6-20) 05/24/24 14:59 Creatinine 0.8 mg/dL (0.5-0.9) 05/24/24 14:59 GFR Calculation 75.3 mL/min (90-130) L 05/24/24 14:59 Glucose 118 mg/dL (65-115) H 05/24/24 14:59 Calculated Osmolality 273 mOsm/kg (285-295) L 05/24/24 14:59 Calcium 9.6 mg/dL (8.5-10.5) 05/24/24 14:59 Total Bilirubin 0.5 mg/dL (0.15-1.2) 05/24/24 14:59 AST 29 U/L (0-32) 05/24/24 14:59 ALT 17 U/L (0-33) 05/24/24 14:59 Alkaline Phosphatase 103 U/L (35-105) 05/24/24 14:59 Total Protein 7.1 g/dL (6.6-8.7) 05/24/24 14:59 Albumin 4.5 g/dL (3.5-5.2) 05/24/24 14:59 Globulin 2.6 g/dL (1.3-4.6) 05/24/24 14:59 All radiology interpretation(s) finalized by discharge Discharge Plan Discharge Patient Disposition: Home Clinical Impression: Hyponatremia Condition: Stable Prescriptions: No Action divalproex [Depakote] 250 mg tablet,delayed release (DR/EC) 250 mg PO .7 pm Qty: 90 2RF Rx Instructions: Take one tablet at 7 pm with 500 mg tablet, total dose 750 mg divalproex [Depakote] 500 mg tablet,delayed release (DR/EC) 500 mg PO .7 pm Qty: 90 2RF Rx Instructions: Take one tablet at 7 pm paliperidone [Invega] 6 mg tablet extended release 24 hr 6 mg PO .noon Qty: 90 2RF Rx Instructions: Take one tablet at noon ziprasidone HCl [Geodon] 80 mg capsule 80 mg PO .4 pm Qty: 90 2RF Rx Instructions: Take one capsule at 4 pm, give with food (meal/snack) 500 calories clonazepam [Klonopin] 1 mg tablet 1 mg PO BID Qty: 60 3RF Rx Instructions: Take one tablet twice per day levothyroxine 75 mcg tablet 75 mcg PO DAILY Qty: 90 3RF loratadine 10 mg tablet 10 mg PO DAILY Qty: 90 3RF losartan 25 mg tablet 25 mg PO DAILY Qty: 90 3RF atorvastatin 20 mg tablet 20 mg PO BEDTIME Qty: 90 3RF metoprolol succinate 25 mg tablet extended release 24 hr 25 mg PO DAILY Qty: 90 3RF Discharge Orders: Discharge ED (Routine); Ordered 05/24/24 Ordered By: Flavio Osman Referrals: Anuj Aparciio, PARISH NURSE [Primary Care Provider] - Discharge Diet: Usual diet Discharge Activity: Increase activity as tolerated Patient Instructions: Opioid Safety, Pain Management Activity Restrictions/Additional Instructions: Thank you for choosing [facility] for your healthcare needs today. It is very important that you follow up as instructed or that you return to the Emergency Department should you have concerns or if your condition changes or worsens in any way. You were seen in the emergency room over concern of abnormal lab value. Sodium when tested before you arrived in the emergency room was 127 on repeat check here was 132. While this technically is low since you are otherwise asymptomatic there is no treatment needed. You had mentioned to us in the course of taking your history that you would increase your water intake this is probably what causes the fluctuations in the sodium. At this point there is no need for you to do anything different follow-up with your primary care doctor as needed Coding Level of Care Code ED [employer] for Melissa Rodriges
[2024-05-24 18:30] VITALS: BP 102/72; PULSE 64; RESP 18; O2SAT 95
[2024-05-24 18:46] VITALS: BP 128/74; PULSE 60; RESP 14; O2SAT 97
== END 2024-05-24 18:47 | disposition home or self-care (01) ==
PROVIDERS: Emergency Medicine; Emergency Provider Family Medicine; PCP Clinical Nurse Specialist Adult Health
DX: E87.1 Hypo-osmolality and hyponatremia (principal); F17.210 Nicotine dependence, cigarettes, uncomplicated; E78.5 Hyperlipidemia, unspecified; I10 Essential (primary) hypertension
CPT/HCPCS: 36415; 80053; 85025; 99283

== ENCOUNTER 2024-07-11 13:48 | Outpatient (CLI) | payer OTHER, SELFPAY ==
--- NOTE | 2024-07-11 13:53 | US_ITS ---
WS: [id number] RIGHT 3D TOMOSYNTHESIS DIGITAL MAMMOGRAPHY WITH CAD CLINICAL INFORMATION: R92.8 - Other abnormal and inconclusive findings on diagn... HISTORY: Additional views COMPARISON: 05/21/2024 TECHNIQUE: 3 views of the right breast were obtained. FINDINGS: Scattered fibroglandular densities of the right breast. Previously described asymmetric density anterior central RIGHT breast partially compresses out on the spot compression views. Ultrasound is pending described below. ULTRASOUND BREAST RIGHT TECHNIQUE: Ultrasound right breast focused area of concern. CLINICAL INFORMATION: R92.8 - Other abnormal and inconclusive findings on diagn... FINDINGS: Ultrasound RIGHT breast in the area of concern 11 to 1 o'clock position. No suspicious cystic or solid lesions. Dense underlying parenchymal tissue. No suspicious lesions to target for biopsy. Recommend return to annual screening mammography. US/US breast RT limited* [id number] IMPRESSION: DENSITY: There are scattered areas of fibroglandular density. BI-RADS: 2 - Benign. FOLLOW UP: 1 Year Follow-up Recommend return to annual screening mammography.
--- NOTE | 2024-07-11 14:00 | MM_ITS ---
WS: [id number] RIGHT 3D TOMOSYNTHESIS DIGITAL MAMMOGRAPHY WITH CAD CLINICAL INFORMATION: R92.8 - Other abnormal and inconclusive findings on diagn... HISTORY: Additional views COMPARISON: 05/21/2024 TECHNIQUE: 3 views of the right breast were obtained. FINDINGS: Scattered fibroglandular densities of the right breast. Previously described asymmetric density anterior central RIGHT breast partially compresses out on the spot compression views. Ultrasound is pending described below. ULTRASOUND BREAST RIGHT TECHNIQUE: Ultrasound right breast focused area of concern. CLINICAL INFORMATION: R92.8 - Other abnormal and inconclusive findings on diagn... FINDINGS: Ultrasound RIGHT breast in the area of concern 11 to 1 o'clock position. No suspicious cystic or solid lesions. Dense underlying parenchymal tissue. No suspicious lesions to target for biopsy. Recommend return to annual screening mammography. MM/MM diag RT tomosynthesis [id number] IMPRESSION: DENSITY: There are scattered areas of fibroglandular density. BI-RADS: 2 - Benign. FOLLOW UP: 1 Year Follow-up Recommend return to annual screening mammography.
== END 2024-07-11 13:49 | disposition home or self-care (01) ==
PROVIDERS: PCP Clinical Nurse Specialist Adult Health; Visit Provider Clinical Nurse Specialist Adult Health
DX: R92.8 Other abnormal and inconclusive findings on diagnostic imaging of breast (principal); R92.321 Mammographic fibroglandular density, right breast; N64.89 Other specified disorders of breast
CPT/HCPCS: 76642; 77061; G0279

== ENCOUNTER → 2024-08-05 10:35 | Outpatient (BNVA) | payer OTHER, SELFPAY | PROVIDERS: PCP Clinical Nurse Specialist Adult Health; Visit Provider Nurse Practitioner Psychiatric/Mental Health | DX: Z79.899 Other long term (current) drug therapy (principal) | CPT/HCPCS: 80061; 82306; 83036 ==

== ENCOUNTER → 2024-10-23 14:19 | Outpatient (BNVA) | payer OTHER, SELFPAY | PROVIDERS: PCP Clinical Nurse Specialist Adult Health; Visit Provider Nurse Practitioner Psychiatric/Mental Health | DX: Z79.899 Other long term (current) drug therapy (principal); Z03.89 Encounter for observation for other suspected diseases and conditions ruled out | CPT/HCPCS: 80053; 80164; 81001 ==

== ENCOUNTER 2024-11-14 16:25 | Emergency (ER) | payer OTHER, SELFPAY ==
[2024-11-14 16:36] LABS: Glucose Point of Care 204 mg/dL (70-110)
--- NOTE | 2024-11-14 16:41 | CTR_ITS ---
PROCEDURE INFORMATION: Exam: CT Head Without Contrast Exam date and time: 11/14/2024 4:38 PM Age: 54 years old Clinical indication: Stroke-like symptoms; Altered mental status/memory loss; Additional info: Word salad TECHNIQUE: Imaging protocol: Computed tomography of the head without contrast. Radiation optimization: All CT scans at this facility use at least one of these dose optimization techniques: automated exposure control; mA and/or kV adjustment per patient size (includes targeted exams where dose is matched to clinical indication); or iterative reconstruction. Other technique: STROKE PROTOCOL was implemented. COMPARISON: MR head wo/w con [id number] 10/11/2018 8:25 PM RADIATION DOSE METRICS: Total DLP (mGy-cm): 1187.13 FINDINGS: Brain: Normal. No hemorrhage. Unremarkable white matter. No mass effect. Cerebral ventricles: No ventriculomegaly. Paranasal sinuses: Visualized sinuses are unremarkable. No fluid levels. Mastoid air cells: Visualized mastoid air cells are well aerated. Bones: Unremarkable. No acute fracture. Soft tissues: Unremarkable. CT/CT head thrombolytic [id number] IMPRESSION: No acute intracranial abnormality. ASSESSMENT: ASPECTS ([place] Stroke Program Early CT Score) is 10.
--- NOTE | 2024-11-14 16:43 | ED_ITS ---
HPI - Neuro Symptoms/Deficit 2 General: Chief Complaint: Neuro Symptoms/Deficit Stated Complaint: Stroke like symptoms Time Seen by Provider: 11/14/24 16:34 History of Present Illness: 54-year-old female with a history of tob acco dependence, drug-induced akathisia, irritable bowels, hypertension, hypothyroidism and bipolar disorder with psychotic features who presents the emergency room with difficulty speaking. She has trouble saying anything but her name. She cannot start anything. She cannot say her name. When asked the month she says 6 . Related Data Previous Rx's ?Medication ?Instructions ?Recorded levothyroxine 75 mcg tablet 75 mcg PO DAILY #90 tabs 0 09/19/23 loratadine 10 mg tablet 10 mg PO DAILY #90 tabs 09/04 02/26 metoprolol succinate 25 mg 25 mg PO DAILY #90 tabs 05/28 tablet,extended release 24 hr ziprasidone HCl 80 mg capsule 80 mg PO .4 pm local pha rmacy #90 05/23/24 (Geodon) caps atorvastatin 20 mg tablet 20 mg PO BEDTIME #90 tabs paliperidone 6 mg tablet,extended 6 mg PO .morning #90 tabs 08/05/24 release 24 hr (Invega) clonazepam 1 mg tablet (Klonopin) 1 mg PO BID #60 tabs 08/28/24 losartan 25 mg tablet See Rx Instructions .Route 0 10/07/24 .COMPLEX #90 tabs ziprasidone HCl 20 mg capsule 20 mg PO .4 pm #30 caps 10/23/24 (Geodon) divalproex 500 mg tablet,delayed 1,000 mg (2 x 500 mg) PO .7 pm #60 10/30/24 release (Depakote) tabs Allergies Allergy/AdvReac Type Severity Reaction Status Date / Time duloxetine Allergy Severe Manic Verified 10/23/24 13:18 episodes, psychosis fluoxetine Allergy Severe Manic Verified 10/23/24 13:18 episodes, psychosis haloperidol (From Haldol) Allergy Severe ADR-Agitate Verified 10/23/24 13:18 d morphine Allergy Severe ADR-Nausea Verified 10/23/24 13:18 oxycodone Allergy Severe ADR-Nausea Verified 10/23/24 13:18 Iodinated Contrast Media Allergy Unknown vomiting Verified 10/23/24 13:18 Sulfa (Sulfonamide Allergy Unknown rash Verified 10/23/24 13:18 Antibiotics) Review of Systems 2 Narrative: Constitutional symptoms: Negative except as documented in HPI. Skin symptoms: Negative except as documented in HPI. Eye symptoms: Negative except as documented in HPI. ENMT symptoms: Negative except as documented in HPI. Respiratory symptoms: Negative except as documented in HPI. Cardiovascular symptoms: Negative except as documented in HPI. Gastrointestinal symptoms: Negative except as documented in HPI. Genitourinary symptoms: Negative except as documented in HPI. Musculoskeletal symptoms: Negative except as documented in HPI. Neurologic symptoms: Negative except as documented in HPI. Psychiatric symptoms: Negative except as documented in HPI. Endocrine symptoms: Negative except as documented in HPI. PFSH ED 2 PFSH: Medical History Drug induced akathisia Elevated CO2 level Hyperlipidemia Sialorrhea drug induced- Clozapine Tick fever 2017 IBS (irritable bowel syndrome) diagnosed in 2010, but she prefers not to follow up with GI on this issue and feels her symptoms are much improved. in 2019, she went to [place] and saw Dr Pineda and had a cyst on her tailbone. 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 Psychiatric care Fatty liver Seasonal allergic rhinitis due to pollen Hypertension Hypothyroidism (acquired) Nicotine dependence, cigarettes, uncomplicated Generalized anxiety disorder Bipolar disorder, current episode mixed, severe, with psychotic features Surgical History Hx of colonoscopy 2019 History of hysterectomy without BSO History of thyroid cyst 2016 History of cholecystectomy Family History Grandmother Diabetes Brother Diabetes Social History Smoking and tobacco/nicotine status: current every day tobacco/nicotine user cigarettes Packs smoked per day: 1 Years cigarettes smoked: 30 Quit status (tobacco/nicotine): considering quitting Second hand smoke exposure: Yes Alcohol intake: current Alcohol intake frequency: holidays/special occasions only Substance/Drug Use: unknown Caregiver/support person: No Lives independently: Yes Household members: spouse Housing: House Marital status: Number of children: 2 service: No Current occupational status: unemployed Do you think of yourself as: Straight/Heterosexual Current gender identity: Female Physical Exam 2 Narrative: EXAM NARRATIVE: General: Alert, no acute distress. Skin: Warm, dry. Head: Normocephalic, atraumatic. Neck: Supple, trachea midline. Eye: Extraocular movements are intact. Ears, nose, mouth and throat: mucosa moist. Cardiovascular: Regular, Normal peripheral perfusion. Respiratory: Lungs are clear to auscultation, respirations are non-labored, breath sounds are equal, Symmetrical chest wall expansion. Gastrointestinal: Soft, Nontender, Non distended Musculoskeletal: Normal ROM, no deformity. Neurological: Alert. Follows all commands. No extremity deficits. No visual deficits. No eye movement issues. No facial droop. No slurring of her speech. She has difficulty speaking. She cannot start a sentence. Psychiatric: Cooperative, appropriate mood & affect. Course 2 Vital Signs: Vital signs: Vital Signs Pulse Rate 73 11/14/24 17:53 Respiratory Rate 18 11/14/24 17:53 Blood Pressure 133/81 11/14/24 17:53 Pulse Oximetry 96 11/14/24 17:53 Oxygen Delivery Me thod Room Air 11/14/24 16:47 MDM - Neuro Symptoms/Deficit Medical Decision Making Medical decision making: Differential diagnosis for patient with focal neurologic deficit(s) includes but not limited to and based on the above HPI, review of systems and physical exam: ischemic stroke, hemorrhagic stroke and embolic stroke secondary to atrial fibrillation), TIA, Barksdale's palsey, metabolic encephalopathy with previous stroke. Orders placed to evaluate differential diagnosis based on the above differential, HPI and physical exam NIH Stroke Scale/Score (NIHSS) from [email or web address] on 11/14/2024 All calculations should be rechecked by clinician prior to use RESULT SUMMARY: 3 points NIH Stroke Scale INPUTS: 1A: Level of consciousness ?> 0 = Alert; keenly responsive 1B: Ask month and age ?> 1 = Dysarthric/intubated/trauma/language barrier 1C: 'Blink eyes' & 'squeeze hands' ?> 0 = Performs both tasks 2: Horizontal extraocular movements ?> 0 = Normal 3: Visual berger ?> 0 = No visual loss 4: Facial palsy ?> 0 = Normal symmetry 5A: Left arm motor drift ?> 0 = No drift for 10 seconds 5B: Right arm motor drift ?> 0 = No drift for 10 seconds 6A: Left leg motor drift ?> 0 = No drift for 5 seconds 6B: Right leg motor drift ?> 0 = No drift for 5 seconds 7: Limb Ataxia ?> 0 = No ataxia 8: Sensation ?> 0 = Normal; no sensory loss 9: Language/aphasia ?> 2 = Severe aphasia: fragmentary expression, inference needed, cannot identify materials 10: Dysarthria ?> 0 = Normal 11: Extinction/inattention ?> 0 = No abnormality CT head: No acute intracranial process. no intracranial hemorrhage, no evidence of infarct. no evidence of acute fracture.This was reviewed and interpreted by myself the ER physician. Consultation: [facility] was consulted. Patient was evaluated by stroke neurologist. She is able to communicate with writing. He believes that her difficulty speaking is more related to anxiety. Some sort of somatization. EKG: Time 1647. Rate 73. Normal sinus rhythm, No ST-T changes, no ectopy, normal NM & QRS intervals, This was reviewed and interpreted by myself the ER physician at 1650 Lab Review: Laboratory results were reviewed and interpreted by myself the emergency room physician. No leukocytosis. No anemia. No renal failure. Urinalysis is negative for infection. Drug screen is negative. I reviewed the patient's medical record. Reexamination: Patient remained stable. No increased work of breathing. No altered mental status. No focal motor deficits. Speech is improving. Discussed that this is likely related to her anxiety. She does tell the neurologist that she had a very stressful day. Assessment and plan: Anxiety reaction - Discharged home - Discussed plan with patient. Answered any questions. - Evaluation and treatment of this problem were appropriate in the emergency setting. Lab Data 11/14/24 16:50 11/14/24 16:[address] 11/14/24 16:41 IMPRESSION: No acute intracranial abnormality. ASSESSMENT: ASPECTS ([place] Stroke Program Early CT Score) is 10. ADDENDUM: 11/14/24 376 THIS REPORT CONTAINS FINDINGS THAT MAY BE CRITICAL TO PATIENT CARE. The findings were verbally communicated via telephone conference with DASHA CHIANG at 4:55 PM CDT on 11/14/2024. The findings were acknowledged and understood. Laboratory Results WBC 9.64 10^3/uL (3.29-11.43) 11/14/24 16:50 RBC 4.26 10^6/uL (3.85-5.65) 11/14/24 16:50 Hgb 13.30 g/dL (11.27-16.99) 11/14/24 16:50 Hct 37.9 % (36-47) 11/14/24 16:50 MCV 89.0 fl (85-98) 11/14/24 16:50 MCH 31.2 pg (27-33) 11/14/24 16:50 MCHC 35.1 g/dL (30-55) 11/14/24 16:50 RDW 12.7 % (12.1-15.1) 11/14/24 16:50 Plt Count 228 10^3/cmm (157-399) 11/14/24 16:50 MPV 11.0 fL (7.4-10.4) H 11/14/24 16:50 Neut % (Auto) 55.4 % 11/14/24 16:50 Lymph % (Auto) 36.2 % 11/14/24 16:50 [place] % (Auto) 7.1 % 11/14/24 16:50 Eos % (Auto) 0.7 % 11/14/24 16:50 Baso % (Auto) 0.4 % 11/14/24 16:50 Neut # (Auto) 5.34 10^3/uL (1.8-7.7) 11/14/24 16:50 Lymph # (Auto) 3.5 10^3/uL (0.8-4.8) 11/14/24 16:50 [place] # (Auto) 0.7 10^3/uL (0.2-0.9) 11/14/24 16:50 Eos # (Auto) 0.1 10^3/uL (0.0-0.8) 11/14/24 16:50 Baso # (Auto) 0.0 10^3/uL (0.0-0.1) 11/14/24 16:50 Nucleated RBC % (auto) 0 % 11/14/24 16:50 Nucleated RBCs # 0.0 /100WBC 11/14/24 16:50 PT 12.50 SECONDS (12.1-14.9) 11/14/24 16:50 INR 0.87 (0.8-1.2) 11/14/24 16:50 APTT 29.3 SECONDS (23.9-36.7) 11/14/24 16:50 Sodium 131 mmol/L (136-145) L 11/14/24 16:50 Potassium 4.1 mmol/L (3.5-5.1) 11/14/24 16:50 Chloride 94 mmol/L (98-107) L 11/14/24 16:50 Carbon Dioxide 25 mmol/L (22-29) 11/14/24 16:50 Anion Gap 16.1 (5-19) 11/14/24 16:50 BUN 6 mg/dL (6-20) 11/14/24 16:50 Creatinine 0.7 mg/dL (0.5-0.9) 11/14/24 16:50 GFR Calculation 87.5 mL/min (90-130) L 11/14/24 16:50 Glucose 179 mg/dL (65-115) H 11/14/24 16:50 POC Glucose 204 mg/dL (70-110) H 11/14/24 16:34 Calculated Osmolality 274 mOsm/kg (285-295) L 11/14/24 16:50 Calcium 9.1 mg/dL (8.5-10.5) 11/14/24 16:50 Total Bilirubin 0.4 mg/dL (0.15-1.2) 11/14/24 16:50 AST 21 U/L (0-32) 11/14/24 16:50 ALT 18 U/L (0-33) 11/14/24 16:50 Alkaline Phosphatase 74 U/L (35-105) 11/14/24 16:50 Total Protein 6.6 g/dL (6.6-8.7) 11/14/24 16:50 Albumin 4.3 g/dL (3.5-5.2) 11/14/24 16:50 Globulin 2.3 g/dL (1.3-4.6) 11/14/24 16:50 Urine Color Yellow (Yellow) 11/14/24 17:00 Urine Appearance Clear (CLEAR) 11/14/24 17:00 Urine pH 7.0 (5-7) 11/14/24 17:00 Ur Specific [place] 1.004 (1.005-1.030) L 11/14/24 17:00 Urine Protein Negative (Negative) 11/14/24 17:00 Urine Glucose (UA) Trace (Normal) H 11/14/24 17:00 Urine Ketones Negative (Negative) 11/14/24 17:00 Urine Blood Trace (Negative) A 11/14/24 17:00 Urine Nitrate Negative (Negative) 11/14/24 17:00 Urine Bilirubin Negative (Negative) 11/14/24 17:00 Urine Urobilinogen 0.2 mg/dL (Negative) 11/14/24 17:00 Ur Leukocyte Esterase Negative (Negative) 11/14/24 17:00 Urine RBC 0-2 /hpf (0-2) 11/14/24 17:00 Urine WBC 0-5 /hpf (0-5) 11/14/24 17:00 Ur Squamous Epith Cells 0-5 /hpf (0-5) 11/14/24 17:00 Amorphous Sediment Not Reportable 11/14/24 17:00 Urine Bacteria None seen /hpf (NONE) 11/14/24 17:00 Hyaline Casts 0-4 /lpf H 11/14/24 17:00 Urine Opiates Screen Negative ng/mL (Negative) 11/14/24 17:00 Ur Barbiturates Screen Negative ng/mL (Negative) 11/14/24 17:00 Ur Phencyclidine Scrn Negative ng/mL (Negative) 11/14/24 17:00 Ur Amphetamines Screen Negative ng/mL (Negative) 11/14/24 17:00 U Benzodiazepines Scrn Negative ng/mL (Negative) 11/14/24 17:00 Urine Cocaine Screen Negative ng/mL (Negative) 11/14/24 17:00 U Marijuana (THC) Screen Negative ng/mL (Negative) 11/14/24 17:00 All radiology interpretation(s) finalized by discharge Discharge Plan Discharge Patient Disposition: Home Clinical Impression: Anxiety with somatization, Stutter Condition: Stable Prescriptions: No Action clonazepam [Klonopin] 1 mg tablet 1 mg PO BID Qty: 60 3RF Rx Instructions: Take one tablet twice per day ziprasidone HCl [Geodon] 80 mg capsule 80 mg PO .4 pm Qty: 90 2RF Rx Instructions: Take one capsule at 4 pm, give with food (meal/snack) 500 calories paliperidone [Invega] 6 mg tablet extended release 24hr 6 mg PO .morning Qty: 90 2RF Rx Instructions: Take one tablet every morning ziprasidone HCl [Geodon] 20 mg capsule 20 mg PO .4 pm Qty: 30 3RF Rx Instructions: Take one capsule at 4 pm, give with food 500 calorie meal levothyroxine 75 mcg tablet 75 mcg PO DAILY Qty: 90 3RF loratadine 10 mg tablet 10 mg PO DAILY Qty: 90 3RF metoprolol succinate 25 mg tablet extended release 24 hr 25 mg PO DAILY Qty: 90 3RF atorvastatin 20 mg tablet 20 mg PO BEDTIME Qty: 90 3RF losartan 25 mg tablet See Rx Instructions .ROUTE .COMPLEX Qty: 90 3RF Dose Instruction: TAKE 1 TABLET DAILY Rx Instructions: TAKE 1 TABLET DAILY divalproex [Depakote] 500 mg tablet,delayed release (DR/EC) 1,000 mg PO .7 pm Qty: 60 1RF Rx Instructions: Take two tablets at 7 pm Discharge Orders: Discharge ED (Routine); Ordered 11/14/24 Ordered By: Dasha Chiang Referrals: Anuj Aparicio NP [Primary Care Provider, Family Practice] Discharge Diet: Usual diet Discharge Activity: Increase activity as tolerated Patient Instructions: Anxiety (ED), Opioid Safety, Pain Management Activity Restrictions/Additional Instructions: Thank you for choosing [facility] for your healthcare needs today. You have been screened and evaluated and felt safe for discharge. Health conditions do change or evolve sometimes and as such it is important that you follow up with your Primary Doctor to be re checked, 3-5 days is a general good time frame for follow up. You are always welcome to return to the ED for re assessment if your symptoms are worsening or you have new concerns Print Language: Icelandic Coding Level of Care Code ED Clamp Truck Driver for Melissa Rodriges
[2024-11-14 16:47] VITALS: BP 119/89; PULSE 75; RESP 18; O2SAT 97
--- NOTE | 2024-11-14 16:58 | ECG_ITS ---
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 Measurements Intervals [place] Rate: 73 P: 56 MS: 167 QRS: 40 QRSD: 81 T: 43 QT: 371 QTc: 411 Interpretive Statements SINUS RHYTHM Compared to ECG 11/16/2022 10:55:05 Ventricular premature complex(es) no longer present Electronically Signed On 11-15-2024 14:51:46 CDT by Elroy Whitaker M.D. [id number]
[2024-11-14 17:15] LABS: Basophils % 0.4 %; Eosinophils # 0.1 10^3/uL (0.0-0.8); Eosinophils % 0.7 %; Hematocrit 37.9 % (36-47); Lymphocytes # 3.5 10^3/uL (0.8-4.8); Lymphocytes % 36.2 %; Mean Corpuscular HGB Conc 35.1 g/dL (30-55); Mean Corpuscular Hemoglobin 31.2 pg (27-33); Monocytes # 0.7 10^3/uL (0.2-0.9); Monocytes % 7.1 %; Neutrophils # 5.34 10^3/uL (1.8-7.7); Neutrophils % 55.4 %; Nucleated Red Blood Cells % 0 %; Platelet Count 228 10^3/cmm (157-399); Red Blood Count 4.26 10^6/uL (3.85-5.65); Red Cell Distribution Width 12.7 % (12.1-15.1); White Blood Count 9.64 10^3/uL (3.29-11.43)
[2024-11-14 17:24] LABS: INR 0.87 (0.8-1.2); Partial Thromboplastin Time 29.3 SECONDS (23.9-36.7)
[2024-11-14 17:27] LABS: Alanine Aminotransferase 18 U/L (0-33); Albumin Level 4.3 g/dL (3.5-5.2); Alkaline Phosphatase 74 U/L (35-105); Anion Gap 16.1 (5-19); Aspartate Amino Transferase 21 U/L (0-32); Blood Urea Nitrogen 6 mg/dL (6-20); Calcium 9.1 mg/dL (8.5-10.5); Carbon Dioxide 25 mmol/L (22-29); Chloride 94 mmol/L (98-107); Creatinine Clr Calc Pharmacy 78.0202; Globulin 2.3 g/dL (1.3-4.6); Glomerular Filtration Rate 87.5 mL/min (90-130); Glucose 179 mg/dL (65-115); Osmolality Calculated 274 mOsm/kg (285-295); Potassium 4.1 mmol/L (3.5-5.1); Sodium 131 mmol/L (136-145); Total Bilirubin 0.4 mg/dL (0.15-1.2); Total Protein 6.6 g/dL (6.6-8.7)
[2024-11-14 17:37] LABS: Bilirubin Urine Negative (Negative); Blood Urine Trace (Negative); Glucose Urine UA Trace (Normal); Ketones Urine Negative (Negative); Leukocyte Esterase Urine Negative (Negative); Nitrate Urine Negative (Negative); Protein Urine Negative (Negative); Specific Gravity, Urine 1.004 (1.005-1.030); Urine Appearance Clear (CLEAR); Urine Color Yellow (Yellow); Urobilinogen Urine 0.2 mg/dL (Negative)
[2024-11-14 17:43] LABS: Add Urine Microscopic? YES; Bacteria Urine None Seen /hpf; Hyaline Casts Urine 0-4 /lpf; RBC Urine 0-2 /hpf (0-2); Squamous Epithelial Cell Urine 0-5 /hpf (0-5); WBC Urine 0-5 /hpf (0-5)
[2024-11-14 17:50] LABS: Amphetamines Screen Urine Negative (Negative); Barbiturates Screen Urine Negative (Negative); Benzodiazepines Screen Urine Negative (Negative); Cocaine Screen Urine Negative (Negative); Opiate Screen Urine Negative (Negative); PCP Screen Urine Negative (Negative); THC Screen Urine Negative (Negative)
[2024-11-14 17:53] VITALS: BP 133/81; PULSE 73; RESP 18; O2SAT 96
[2024-11-14] MEDS: LORazepam 1 MG/0.5 ML injection IVP (18:07)
[2024-11-14 18:45] VITALS: BP 146/89; PULSE 80; RESP 18; O2SAT 96
== END 2024-11-14 18:48 | disposition home or self-care (01) ==
PROVIDERS: Emergency Provider Emergency Medicine; PCP Clinical Nurse Specialist Adult Health
DX: F41.9 Anxiety disorder, unspecified (principal); F45.9 Somatoform disorder, unspecified; R47.82 Fluency disorder in conditions classified elsewhere; I10 Essential (primary) hypertension; E03.9 Hypothyroidism, unspecified; E78.5 Hyperlipidemia, unspecified; F17.210 Nicotine dependence, cigarettes, uncomplicated; Z79.899 Other long term (current) drug therapy; Z79.890 Hormone replacement therapy
CPT/HCPCS: 36416; 70450; 80053; 80306; 81001; 82962; 85025; 85610; 85730; 93005; 96374; 99285; J2060

== ENCOUNTER → 2024-12-04 10:27 | Outpatient (BNVA) | payer OTHER, SELFPAY | PROVIDERS: PCP Clinical Nurse Specialist Adult Health; Visit Provider Clinical Nurse Specialist Adult Health | DX: E03.9 Hypothyroidism, unspecified (principal) | CPT/HCPCS: 84443 ==

== ENCOUNTER → 2025-03-05 14:47 | Outpatient (BNVA) | payer OTHER, SELFPAY | PROVIDERS: PCP Clinical Nurse Specialist Adult Health; Visit Provider Nurse Practitioner Psychiatric/Mental Health | DX: Z79.899 Other long term (current) drug therapy (principal) | CPT/HCPCS: 80053; 80164 ==

== ENCOUNTER 2025-05-02 13:31 | Outpatient (CLI) | payer OTHER, SELFPAY ==
--- NOTE | 2025-05-02 13:45 | MR_ITS ---
WS: [id number] MRA HEAD TECHNIQUE: Axial 3-D TOF images obtained with axial images and axial, sagittal, and coronal 2-D reformatted images. CLINICAL INFORMATION: R79.89 - Other specified abnormal findings of blood chemi... COMPARISON: None. FINDINGS: RIGHT dominant distal vertebral artery. Tiny distal LEFT vertebral artery. Anterior dominant circulation. Small but patent basilar artery. Normal vascularity to the [employer] territory bilaterally. Patent posterior communicating arteries. Both ICAs are patent at the skull base. Normal vascularity to the NÉSTOR and MCA territories bilaterally. No evidence of proximal flow-limiting stenosis. MR/MR angio head wo con [id number] IMPRESSION: Anterior dominant circulation. Otherwise unremarkable intracranial MRA.
--- NOTE | 2025-05-02 14:00 | MR_ITS ---
WS: [id number] MRI HEAD WITHOUT CONTRAST TECHNIQUE: Sagittal T1, T2 axial, T2 axial FLAIR, axial and coronal T1 images, axial susceptibility weighted imaging, axial diffusion weighted images, and coronal T2 images were obtained. CLINICAL INFORMATION: R79.89 - Other specified abnormal findings of blood chemi... COMPARISON: MRI 2019 FINDINGS: No evidence of restricted diffusion to suggest acute ischemia. Mild small vessel changes. Moderate parenchymal volume loss. Chronic lacunar infarcts RIGHT thalamus. Tiny chronic lacunar infarct LEFT thalamus. Normal posterior fossa. Normal vascular flow voids at the skull base. No extra- axial fluid collections. Paranasal sinuses are well aerated. Partial opacification RIGHT mastoid air cells. No hemosiderin on the susceptibly weighted images. Normal optic chiasm and pituitary infundibulum. Temporal lobes and hippocampal formations are normal in appearance. MR/MR head wo con* [id number] IMPRESSION: 1. No evidence of restricted diffusion to suggest acute ischemia. 2. Mild small vessel changes with moderate parenchymal volume loss. 3. Tiny RIGHT greater than LEFT chronic lacunar infarcts bilateral thalami. 4. No hemosiderin on susceptibility-weighted images. 5. RIGHT mastoid effusion.
== END 2025-05-02 13:32 | disposition home or self-care (01) ==
LOC: RAD 13:32
PROVIDERS: PCP Clinical Nurse Specialist Adult Health; Visit Provider Specialist
DX: R79.89 Other specified abnormal findings of blood chemistry (principal); G93.89 Other specified disorders of brain; I63.81 Other cerebral infarction due to occlusion or stenosis of small artery; H74.8X1 Other specified disorders of right middle ear and mastoid
CPT/HCPCS: 70544; 70551